=== PATIENT | male | born 1950 | race Hispanic/Latino ===

== ENCOUNTER 2018-10-18 09:44 | Emergency (ER) | payer OTHER ==
--- NOTE | 2018-10-18 10:48 | RAD REPORT ---
EXAM DESCRIPTION: CT - Head Brain Wo Cont - 10/18/2018 10:25 am CLINICAL HISTORY: Headache COMPARISON: 2011 TECHNIQUE: Computed axial tomography of the head was obtained. IV contrast was not requested. All CT scans are performed using dose optimization technique as appropriate and may include automated exposure control or mA/KV adjustment according to patient size. FINDINGS: An intracranial bleed is not seen . The ventricles are normal in caliber. No extra-axial fluid collection is noted. Mild opacification the ethmoids. Mastoids are clear IMPRESSION: No acute intracranial abnormality is seen. If patient's symptoms persist MRI of the bra in would be recommended.
--- NOTE | 2018-10-18 11:13 | RAD REPORT ---
EXAM DESCRIPTION: RAD - Shoulder Right 2 View - 10/18/2018 10:50 am CLINICAL HISTORY: Right shoulder pain status post fall FINDINGS: No fracture or dislocation is seen. Bones are osteoporotic Marked osteoarthritis involves the glenohumeral and acromioclavicular joints
--- NOTE | 2018-10-18 11:15 | RAD REPORT ---
EXAM DESCRIPTION: Ribs Right - 10/18/2018 10:50 am CLINICAL HISTORY: Right rib pain FINDINGS: No fracture is seen
--- NOTE | 2018-10-18 11:16 | RAD REPORT ---
EXAM DESCRIPTION: Arnold Single View10/18/2018 10:50 am CLINICAL HISTORY: Chest pain COMPARISON: 2016 FINDINGS: The lungs appear clear of acute infiltrate. The heart is normal size IMPRESSION: No acute abnormalities displayed
--- NOTE | 2018-10-18 11:16 | RAD REPORT ---
EXAM DESCRIPTION: RAD - Knee Right 3 View - 10/18/2018 10:50 am CLINICAL HISTORY: Right knee pain. FINDINGS: No fracture or dislocation is seen. Severe osteoarthritis involves the knee Bones are osteoporotic .
--- NOTE | 2018-10-18 11:18 | RAD REPORT ---
EXAM DESCRIPTION: RAD - Knee Left 3 View - 10/18/2018 10:49 am CLINICAL HISTORY: Left knee pain FINDINGS: No fracture or dislocation is seen. Severe osteoarthritis involves the knee Bones are osteoporotic
--- NOTE | 2018-10-18 11:27 | EDPHYS ---
Physician Documentation [facility] Name: Sivakumar Fong Age: 68 yrs Sex: Male : 1950 Arrival Date: 10/18/2018 Time: 09:47 Bed 19 Private MD: Cuong Nation ED Physician Miko Cuevas HPI: 10/18 11:00 This 68 yrs old Male presents to ER via Ambulatory with complaints of Fall pm1 Injury - Right SHOULDER, CHEST. 11:00 Details of fall: The patient fell from an upright position, while walking. Onset: The pm1 symptoms/episode began/occurred 1 week(s) ago. Associated injuries: The patient sustained injury to the head, injury to the chest. 11:00 Severity of symptoms: in the emergency department the symptoms have improved. The pm1 patient has experienced similar episodes in the past, multiple times. The patient has not recently seen a physician. Patient with history of Parkinson's disease. He has fallen 3 times in the past week by tripping over his left foot. Tripped on his own feet and landed on his bilateral knees. No neck pain or LOC. Hit her head and has healed abrasion to left forehead. Pain to right shoulder, right rib pain, and bilateral knee pain. Patient with arthritis to bilateral knees. Historical: - Allergies: 09:59 Lisinopril; hb - Home Meds: :59 aspirin 81 mg Oral chew 1 tab once daily [Active]; carbidopa-levodopa 25-250 mg Oral hb tab 1 tab 5 times daily [Active]; clopidogrel 75 mg Oral tab 1 tab once daily [Active]; sotalol 80 mg Oral tab 1 tab 2 times per day [Active]; valsartan 160 mg Oral tab 1 tab once daily [Active]; verapamil 120 mg Oral C24P 1 cap once daily [Active]; zonisamide 100 mg Oral cap 1 cap once daily [Active]; - PMHx: 09:59 heart stents; Hypertension; Parkinsons; hb - PSHx: 09:59 Heart stents; Cholecystectomy; Prostate (laser); hb - Immunization history:: Adult Immunizations up to date. - Social history:: Smoking status: Patient/guardian denies using tobacco. - Ebola Screening: : No symptoms or risks identified at this time. ROS: 11:00 Constitutional: Negative for fever, chills, and weight loss, Eyes: Negative for injury, pm1 pain, redness, and discharge, ENT: Negative for injury, pain, and discharge, Neck: Negative for injury, pain, and swelling, Cardiovascular: Negative for chest pain, palpitations, and edema, Respiratory: Negative for shortness of breath, cough, wheezing, and pleuritic chest pain, Abdomen/GI: Negative for abdominal pain, nausea, vomiting, diarrhea, and constipation, Back: Negative for injury and pain, : Negative for injury, bleeding, discharge, and swelling. 11:00 MS/extremity: Positive for pain, of the right knee and left knee right shoulder, and right anterior rib cage. 11:00 Skin: Negative for injury, rash, and discoloration, Neuro: Negative for headache, pm1 weakness, numbness, tingling, and seizure. Exam: 11:00 Constitutional: This is a well developed, well nourished patient who is awake, alert, pm1 and in no acute distress. Eyes: Pupils equal round and reactive to light, extra-ocular motions intact. Lids and lashes normal. Conjunctiva and sclera are non-icteric and not injected. Cornea within normal limits. Periorbital areas with no swelling, redness, or edema. ENT: Nares patent. No nasal discharge, no septal abnormalities noted. Tympanic membranes are normal and external auditory canals are clear. Oropharynx with no redness, swelling, or masses, exudates, or evidence of obstruction, uvula midline. Mucous membranes moist. Neck: Trachea midline, no thyromegaly or masses palpated, and no cervical lymphadenopathy. Supple, full range of motion without nuchal rigidity, or vertebral point tenderness. No Meningismus. 11:00 Cardiovascular: Regular rate and rhythm with a normal S1 and S2. No gallops, murmurs, or rubs. Normal PMI, no JVD. No pulse deficits. Respiratory: Lungs have equal breath sounds bilaterally, clear to auscultation and percussion. No rales, rhonchi or wheezes noted. No increased work of breathing, no retractions or nasal flaring. Abdomen/GI: Soft, non-tender, with normal bowel sounds. No distension or tympany. No guarding or rebound. No evidence of tenderness throughout. Back: No spinal tenderness. No costovertebral tenderness. Full range of motion. Skin: Warm, dry with normal turgor. Normal color with no rashes, no lesions, and no evidence of cellulitis. 11:00 Head/face: Noted is no obvious of injury or deformity except abrasion(s), that are mild, of the forehead. 11:00 Chest/axilla: Inspection: normal, Palpation: is normal. 11:00 Musculoskeletal/extremity: Extremities: grossly normal except: noted in the right knee and left knee: tenderness. Vital Signs: 10:00 BP 163 / 100; Pulse 54; Resp 16; Temp 98.2; Pulse Ox 100% on R/A; Pain 4/10; hb 11:47 BP 149 / 93; Pulse 61; Resp 16; Pulse Ox 99% on R/A; em MDM: 09:51 Patient medically screened. pm1 11:20 Data reviewed: vital signs. Data interpreted: Pulse oximetry: on room air is 100 %. pm1 Interpretation: normal. Counseling: I had a detailed discussion with the patient and/or guardian regarding: the historical points, exam findings, and any diagnostic results supporting the discharge/admit diagnosis, radiology results, the need for outpatient follow up, to return to the emergency department if symptoms worsen or persist or if there are any questions or concerns that arise at home. 10/18 09:59 Order name: CT Head Brain wo Cont; Complete Time: 11:19 pm1 10/18 09:59 Order name: Ribs Right XRAY; Complete Time: 11:19 pm1 10/18 09:59 Order name: Chest Single View XRAY; Complete Time: 11:19 pm1 10/18 09:59 Order name: Shoulder Right (2 View) XRAY; Complete Time: 11:19 pm1 10/18 09:59 Order name: Knee Left 3 View XRAY; Complete Time: 11:19 pm1 10/18 09:59 Order name: Knee Right 3 View XRAY; Complete Time: 11:19 pm1 Administered Medications: No medications were administered Disposition: 13:28 Co-signature as Attending Physician, Miko Cuevas MD. rn Disposition: 10/18/18 11:26 Discharged to Home. Impression: Superficial injury of head, Other slipping, tripping and stumbling and falls, Contusion of right front wall of thorax, Pain in left knee, Pain in right knee, Contusion of right shoulder. - Condition is Stable. - Discharge Instructions: Arthritis, Contusion, Head Injury, Adult, Fall Prevention in the Home, Parkinson Disease, Knee Pain. - Medication Reconciliation Form, Thank You Letter form. - Follow up: Emergency Department; When: As needed; Reason: Worsening of condition. Follow up: Private Physician; When: 2 - 3 days; Reason: Recheck today's complaints, Continuance of care, Re-evaluation by your physician. - Problem is new. - Symptoms have improved. Signatures: Dispatcher [employer] EDMS Meet Odonnell, SUPPLIER QUALITY ENGINEERING MANAGER SUPPLIER QUALITY ENGINEERING MANAGER em Miko Cuevas MD MD rn Keith Montaño, SPRING TACKER SPRING TACKER pm1 Amy Monroe RN RN Corrections: (The following items were deleted from the chart) 11:50 11:26 10/18/2018 11:26 Discharged to Home. Impression: Superficial injury of headOther em slipping, tripping and stumbling and falls; Contusion of right front wall of thorax; Pain in left knee; Pain in right knee; Contusion of right shoulder. Condition is Stable. Forms are Medication Reconciliation Form, Thank You Letter, Antibiotic Education, Prescription Opioid Use. Follow up: Emergency Department; When: As needed; Reason: Worsening of condition. Follow up: Private Physician; When: 2 - 3 days; Reason: Recheck today's complaints, Continuance of care, Re-evaluation by your physician. Problem is new. Symptoms have improved. pm1
--- NOTE | 2018-10-18 11:27 | ER ---
Nurse's Notes [facility] Name: Sivakumar Fong Age: 68 yrs Sex: Male : 1950 Arrival Date: 10/18/2018 Time: 09:47 Bed 19 Private MD: Cuong Nation Diagnosis: Other slipping, tripping and stumbling and falls;Superficial injury of head;Contusion of right front wall of thorax;Pain in left knee;Pain in right knee;Contusion of right shoulder Presentation: 10/18 10:00 Presenting complaint: Right shoulder, right lateral chest wall, and bilateral knee pain hb after mechanical fall x 3 this week. Transition of care: patient was not received from another setting of care. Onset of symptoms was October 18, 2018. Risk Assessment: Do you want to hurt yourself or someone else? Patient reports no desire to harm self or others. Initial Sepsis Screen: Does the patient meet any 2 criteria? No. Patient's initial sepsis screen is negative. Does the patient have a suspected source of infection? No. Patient's initial sepsis screen is negative. Care prior to arrival: None. 10:00 Method Of Arrival: Ambulatory hb 10:00 Acuity: RANI 4 hb Historical: - Allergies: 09:59 Lisinopril; hb - Home Meds: 09:59 aspirin 81 mg Oral chew 1 tab once daily [Active]; carbidopa-levodopa 25-250 mg Oral hb tab 1 tab 5 times daily [Active]; clopidogrel 75 mg Oral tab 1 tab once daily [Active]; sotalol 80 mg Oral tab 1 tab 2 times per day [Active]; valsartan 160 mg Oral tab 1 tab once daily [Active]; verapamil 120 mg Oral C24P 1 cap once daily [Active]; zonisamide 100 mg Oral cap 1 cap once daily [Active]; - PMHx: 09:59 heart stents; Hypertension; Parkinsons; hb - PSHx: 09:59 Heart stents; Cholecystectomy; Prostate (laser); hb - Immunization history:: Adult Immunizations up to date. - Social history:: Smoking status: Patient/guardian denies using tobacco. - Ebola Screening: : No symptoms or risks identified at this time. Screenin:03 Abuse screen: Denies threats or abuse. Denies injuries from another. Nutritional hb screening: No deficits noted. Tuberculosis screening: No symptoms or risk factors identified. Fall Risk None identified. Assessment: 10:24 General: Appears in no apparent distress. comfortable, Behavior is calm, cooperative. em Pain: Complains of pain in anterior aspect of right upper chest and right arm Pain currently is 4 out of 10 on a pain scale. Pain began 2-3 days ago. Neuro: Level of Consciousness is awake, alert, obeys commands, Oriented to person, place, time, situation, Gait is unsteady, Speech is normal. Cardiovascular: Capillary refill < 3 seconds Patient's skin is warm and dry. Respiratory: Airway is patent Respiratory effort is even, unlabored, Respiratory pattern is regular, symmetrical. GI: Abdomen is flat. GI: Patient currently denies nausea, vomiting. Derm: Skin is intact, is healthy with good turgor, Skin is pink, warm \T\ dry. Musculoskeletal: Range of motion: intact in all extremities, Reports weakness in right knee and left knee. 10:35 Reassessment: I agree with previous assessment. hb 11:47 Reassessment: Patient appears in no apparent distress at this time. Patient and/or em family updated on plan of care and expected duration. Pain level reassessed. Patient is alert, oriented x 3, equal unlabored respirations, skin warm/dry/pink. Vital Signs: 10:00 BP 163 / 100; Pulse 54; Resp 16; Temp 98.2; Pulse Ox 100% on R/A; Pain 4/10; hb 11:47 BP 149 / 93; Pulse 61; Resp 16; Pulse Ox 99% on R/A; em ED Course: 09:47 Patient arrived in ED. sb2 09:48 Cuong Nation MD is Private Physician. sb2 09:50 Keith Montaño [facility] pm1 09:50 Miko Cuevas MD is Attending Physician. pm1 10:00 Arm band placed on. hb 10:03 Triage completed. hb 10:25 CT Head Brain wo Cont In Process Unspecified. EDMS 10:25 Patient has correct armband on for positive identification. Bed in low position. Call em light in reach. Side rails up X2. 10:38 Meet Odonnell LVN is Primary Nurse. em 10:41 Ribs Right XRAY In Process Unspecified. EDMS 10:41 Chest Single View XRAY In Process Unspecified. EDMS 10:41 Shoulder Right (2 View) XRAY In Process Unspecified. EDMS 10:41 Knee Left 3 View XRAY In Process Unspecified. EDMS 10:41 Knee Right 3 View XRAY In Process Unspecified. EDMS 11:35 No provider procedures requiring assistance completed. Patient did not have IV access em during this emergency room visit. Administered Medications: No medications were administered Outcome: 11:26 Discharge ordered by MD. pm1 11:35 Discharged to home ambulatory, with crutches. em 11:35 Condition: good 11:35 Discharge instructions given to patient, Instructed on discharge instructions, follow up and referral plans. Demonstrated understanding of instructions, follow-up care. 11:50 Patient left the ED. em Signatures: Dispatcher [employer] EDMS Meet Odonnell, MGMT ANALYST MGMT ANALYST em Keith Montaño, CHE POST ANESTHESIA ROOM NURSE pm1 Amy Monroe, RN RN Marietta Perdomo sb2
[2018-10-18 11:56] VITALS: TEMP 98.2
[2018-10-18 11:57] VITALS: BP 149/93; O2SAT 99
== END 2018-10-18 11:50 | disposition home or self-care (01) ==
LOC: ER 09:44
DX: S00.80XA Unspecified superficial injury of other part of head, initial encounter (principal); S20.211A Contusion of right front wall of thorax, initial encounter; S40.011A Contusion of right shoulder, initial encounter; W01.0XXA Fall on same level from slipping, tripping and stumbling without subsequent striking against object, initial encounter; M19.011 Primary osteoarthritis, right shoulder; M81.0 Age-related osteoporosis without current pathological fracture; M17.0 Bilateral primary osteoarthritis of knee; G20 Parkinson's disease; I10 Essential (primary) hypertension; Z79.82 Long term (current) use of aspirin; Z79.899 Other long term (current) drug therapy; Z95.5 Presence of coronary angioplasty implant and graft
CPT/HCPCS: 70450; 71045; 99283

== ENCOUNTER 2019-10-16 14:14 | Emergency (ER) | payer OTHER, SELFPAY ==
--- OUTSIDE RECORDS SUMMARY | 2019-10-16 14:15 | XMS REPORT ---
:1950 [facility] Ricardo Hidalgo [address] [place] [address] Care Team Providers Name Role Phone Unavailable Unavailable Unavailable Problems This patient has no known problems. Allergies, Adverse Reactions, Alerts This patient has no known allergies or adverse reactions. Medications This patient has no known medications.
--- OUTSIDE RECORDS SUMMARY | 2019-10-16 14:16 | XMS REPORT | Summary of Care ---
:1950 Author Organization [facility] Address [address] [place] [id number] Care Team Providers Name Role Phone Cuong Nation MD Primary Care Provider Reason for Visit Reason Comments Refill Request Encounter Details Date Type Department Care Team Description 04/06/2019 Refill [facility] Cuong Nation MD Refill Request - [address] [id number] [place] [phone] Allergies Active Allergy Reactions Severity Noted Date Comments Lisinopril Other - See comments 08/09/2015 Passed out documented as of this encounter (statuses as of 04/06/2019) Medications Medication Sig Dispensed Refills Start Date End Date Status carbidopa-levodopa Take by 0 07/13/2015 Active (SINEMET 25/250) mouth 5 25-250 mg per tablet (five) times daily. zonisamide (ZONEGRAN) Take 100 mg 0 06/07/2015 Active 100 mg capsule by mouth daily. aspirin (ASPIRIN LOW Take 81 mg by 0 Active DOSE) 81 mg EC tablet mouth daily. verapamil SR (CALAN Take 120 mg 0 Active SR) 120 mg SR tablet by mouth daily. diazePAM (VALIUM) 5 mg Take 1 tablet 20 tablet 0 07/17/2016 Active tabletIndications: by mouth 3 Parkinson disease (three) times daily as needed for Muscle Spasms (tremors). amLODIPine 5 mg tablet Take 5 mg by 0 04/01/2017 Active mouth daily. rosuvastatin 5 mg Take 5 mg by 0 Active tablet mouth daily. losartan 100 mg tablet Take 100 mg 0 Active by mouth daily. pantoprazole 40 mg EC Take 1 tablet 90 tablet 4 06/09/2018 Active tabletIndications: by mouth Gastroesophageal daily. reflux disease without esophagitis fluticasone (FLONASE) Use 2 Sprays 16 g 12 11/03/2018 Active 50 mcg/actuation nasal in each sprayIndications: nostril Non-seasonal allergic daily. rhinitis due to pollen tiZANidine 2 mg Take 1 tablet 15 tablet 5 11/03/2018 Active tabletIndications: by mouth at Parkinson disease bedtime as needed (muscle pain/spasm). CLOPIDOGREL 75 mg TAKE 1 TABLET 90 tablet 0 04/06/2019 Active tabletIndications: EVERY DAY Coronary artery disease involving poarch coronary artery of poarch heart without angina pectoris CLOPIDOGREL 75 mg TAKE 1 TABLET 90 tablet 0 05/21/2018 Discontinued tablet EVERY DAY 9 documented as of this encounter (statuses as of 04/06/2019) Active Problems Problem Noted Date Sleep apnea, obstructive 08/20/2016 Essential hypertension 08/09/2015 Parkinson disease 08/09/2015 Coronary artery disease without angina pectoris 08/09/2015 documented as of this encounter (statuses as of 04/06/2019) Immunizations Name Administration Dates Next Due Influenza Virus Vaccine 09/18/2017 Influenza Virus Vaccine - Whole 09/13/2015 documented as of this encounter Social History Tobacco Use Types Packs/Day Years Used Date Never Smoker Smokeless Tobacco: Never Used Alcohol Use Drinks/Week oz/Week Comments No 0 Standard drinks or equivalent 0.0 Sex Assigned at Date Recorded Not on file Job Start Date Occupation Industry Not on file Not on file Not on file Travel History Travel Start Travel End No recent travel history available. documented as of this encounter Last Filed Vital Signs Not on filedocumented in this encounter Plan of Treatment Health Maintenance Due Date Last Done Comments HEPATITIS C (HCV) SCREEN 1950 DTaP,Tdap,and Td Vaccines (1 - Tdap) 1968 COLONOSCOPY 1999 Zoster Recombinant Vaccine (SHINGRIX) (1 1999 of 2) Medicare Wellness Visit 2014 PNEUMOCOCCAL VACCINES 65+ (1 of 2 - PCV13) 2014 INFLUENZA VACCINE 05/10/2019 09/18/2017, 09/13/2015 documented as of this encounter Results Not on filedocumented in this encounter Visit Diagnoses Diagnosis Coronary artery disease involving poarch coronary artery of poarch heart without angina pectoris - Primary documented in this encounter Insurance Payer Benefit Plan / Subscriber ID Effective Dates Phone Address Type Group HUMANA - HUMANA [id number] 2012-Presen Medicare Adv MANAGED MEDICARE t FFS MEDICARE documented as of this encounter
[2019-10-16] MEDS ORDERED: HYDROCODONE/APAP 5/325 MG TAB ONE (15:00)
--- NOTE | 2019-10-16 15:21 | RAD REPORT ---
EXAM DESCRIPTION: RAD - Chest Single View - 10/16/2019 3:07 pm CLINICAL HISTORY: BLUNT CHEST TRAUMA Chest pain. COMPARISON: Chest Pa And Lat (2 Views) dated 12/16/2018; Chest Single View dated 10/18/2018; Chest Singl e View dated 07/10/2016; CHEST SINGLE VIEW dated 10/26/2014 FINDINGS: Portable technique limits examination quality. The lungs are grossly clear. The heart is upper limit of normal in size. No displaced fractures.Degen erative changes are present both shoulders. IMPRESSION: No acute intrathoracic process suspected.
--- NOTE | 2019-10-16 15:32 | ER ---
Nurse's Notes [facility] Name: Sivakumar Fong Age: 69 yrs Sex: Male : 1950 Arrival Date: 10/16/2019 Time: 14:15 Bed 13 Private MD: Diagnosis: Chest pain, unspecified-muscle sprain Presentation: 10/16 14:34 Presenting complaint: Patient states: had a fall a week ago, hx of Parkinson's, fell iw onto chest, still has right sided chest pain radiating to back and abd . Was seen at bakery supervisor office on Saturday and had EKG done, was told his heart was ok but needed to f/u with PCP. Transition of care: patient was not received from another setting of care. Onset of symptoms was October 10, 2019. Risk Assessment: Do you want to hurt yourself or someone else? Patient reports no desire to harm self or others. Initial Sepsis Screen: Does the patient meet any 2 criteria? No. Patient's initial sepsis screen is negative. Does the patient have a suspected source of infection? No. Patient's initial sepsis screen is negative. Care prior to arrival: None. 14:34 Method Of Arrival: Ambulatory iw 14:34 Acuity: RANI 3 iw Historical: - Allergies: 14:40 Lisinopril; iw - Home Meds: 14:40 aspirin 81 mg Oral chew 1 tab once daily [Active]; carbidopa-levodopa 50-200 mg oral iw TbER daily [Active]; clopidogrel 75 mg Oral tab 1 tab once daily [Active]; sotalol 80 mg Oral tab 1 tab 2 times per day [Active]; valsartan 160 mg Oral tab 1 tab once daily [Active]; verapamil 120 mg Oral C24P 1 cap once daily [Active]; pantoprazole 40 mg oral TbEC 1 tab once daily [Active]; pravastatin 40 mg oral tab 1 tab once daily [Active]; zonisamide 100 mg Oral cap 1 cap once daily [Active]; - PMHx: 14:40 heart stents; Hypertension; Parkinsons; iw - PSHx: 14:40 Heart stents; Cholecystectomy; Prostate (laser); iw - Immunization history:: Adult Immunizations not up to date. - Coronavirus screen:: The patient has NOT traveled to [place], [place], or [place] in the past 14 days. Proceed with normal triage process as indicated. - Social history:: Patient/guardian denies using alcohol, street drugs, The patient lives with family, Smoking status: Patient denies any tobacco usage or history of. - Family history:: not pertinent. - Ebola Screening: : Patient negative for fever greater than or equal to 101.5 degrees Fahrenheit, and additional compatible Ebola Virus Disease symptoms Patient denies exposure to infectious person Patient denies travel to an Ebola-affected area in the 21 days before illness onset No symptoms or risks identified at this time. Screenin:43 Abuse screen: Denies threats or abuse. Denies injuries from another. Nutritional sg screening: No deficits noted. Tuberculosis screening: No symptoms or risk factors identified. Never had TB. Fall Risk None identified. Assessment: 14:35 General: Appears in no apparent distress. well groomed, well developed, well nourished, sg Behavior is calm, cooperative, appropriate for age. Pain: Complains of pain in back Quality of pain is described as aching. Neuro: Level of Consciousness is awake, alert, obeys commands, Oriented to person, place, time, Teacher Hearing Impaired are equal bilaterally Speech is normal, Facial symmetry appears normal. Cardiovascular: Patient's skin is warm and dry. Chest pain is denied. Respiratory: Airway is patent Respiratory effort is even, unlabored, Respiratory pattern is regular, symmetrical. GI: No signs and/or symptoms were reported involving the gastrointestinal system. : No signs and/or symptoms were reported regarding the genitourinary system. EENT: No signs and/or symptoms were reported regarding the EENT system. Derm: Skin is pink, warm \T\ dry. 14:59 Reassessment: Patient appears in no apparent distress at this time. xray at bedside at this time. Vital Signs: 14:40 BP 132 / 75; Pulse 57; Resp 18 S; Temp 98.0; Pulse Ox 97% on R/A; Weight 73.94 kg; iw Height 5 ft. 6 in. (167.64 cm); Pain 7/10; 14:40 Body Mass Index 26.31 (73.94 kg, 167.64 cm) iw ED Course: 14:15 Patient arrived in ED. as 14:29 Katie Barksdale MD is Attending Physician. ma2 14:36 Triage completed. iw 14:40 Arm band placed on. iw 14:44 EKG done, by x ray electronics wiring technician. reviewed by Katie Barksdale MD. at1 14:54 Vikas Longoria, RN is Primary Nurse. sg 15:10 Chest Single View XRAY In Process Unspecified. EDMS 15:43 Patient has correct armband on for positive identification. Bed in low position. Pulse sg ox on. NIBP on. Warm blanket given. Head of bed elevated. 15:43 No provider procedures requiring assistance completed. Patient did not have IV access sg during this emergency room visit. 15:46 Awaiting transportation. sg Administered Medications: 14:59 Drug: [place] 5 mg-325 mg 1 tabs Route: PO; sg 15:15 Follow up: Response: No adverse reaction sg Outcome: 15:32 Discharge ordered by . ma2 15:43 Discharged to home ambulatory, with family. sg 15:43 Condition: good 15:43 Discharge instructions given to patient, Instructed on discharge instructions, follow up and referral plans. safety practices, Demonstrated understanding of instructions, follow-up care, medications, Prescriptions given X 1. 16:51 Patient left the ED. sg Signatures: Dispatcher [employer] EDMS Vikas Longoria, RN RN Nickie Hyatt Irene, RN RN iw Katelyn Jordan, hide mill man EKG Tat1 Katie Barksdale MD MD ma2
--- NOTE | 2019-10-16 15:32 | EDPHYS ---
Physician Documentation [facility] Name: Sivakumar Fong Age: 69 yrs Sex: Male : 1950 Arrival Date: 10/16/2019 Time: 14:15 Bed 13 Private MD: ED Physician Katie Barksdale HPI: 10/16 15:08 This 69 yrs old Male presents to ER via Ambulatory with complaints of Chest ma2 Pain, Back Pain. 15:08 The patient or guardian reports chest pain that is located primarily in the anterior ma2 aspect of right upper chest. Onset: suddenly, 3 day(s) ago. Associated signs and symptoms: Pertinent negatives: cough, dizziness, lower extremity pain, lightheadedness. Severity of pain: At its worst the pain was mild in the emergency department the pain is unchanged. The patient has not experienced similar symptoms in the past. patient tripped and fell on left sided chest, has chest wall pain that is worse with touch and deep breath, pain is constant, he saw his continuous improvement engineer who states blood work is wnl, and snet him here for cxr, to rule out rib frx, as this is a constant pain . Historical: - Allergies: 14:40 Lisinopril; iw - Home Meds: 14:40 aspirin 81 mg Oral chew 1 tab once daily [Active]; carbidopa-levodopa 50-200 mg oral iw TbER daily [Active]; clopidogrel 75 mg Oral tab 1 tab once daily [Active]; sotalol 80 mg Oral tab 1 tab 2 times per day [Active]; valsartan 160 mg Oral tab 1 tab once daily [Active]; verapamil 120 mg Oral C24P 1 cap once daily [Active]; pantoprazole 40 mg oral TbEC 1 tab once daily [Active]; pravastatin 40 mg oral tab 1 tab once daily [Active]; zonisamide 100 mg Oral cap 1 cap once daily [Active]; - PMHx: 14:40 heart stents; Hypertension; Parkinsons; iw - PSHx: 14:40 Heart stents; Cholecystectomy; Prostate (laser); iw - Immunization history:: Adult Immunizations not up to date. - Coronavirus screen:: The patient has NOT traveled to [place], [place], or [place] in the past 14 days. Proceed with normal triage process as indicated. - Social history:: Patient/guardian denies using alcohol, street drugs, The patient lives with family, Smoking status: Patient denies any tobacco usage or history of. - Family history:: not pertinent. - Ebola Screening: : Patient negative for fever greater than or equal to 101.5 degrees Fahrenheit, and additional compatible Ebola Virus Disease symptoms Patient denies exposure to infectious person Patient denies travel to an Ebola-affected area in the 21 days before illness onset No symptoms or risks identified at this time. ROS: 15:08 Constitutional: Negative for fever, chills, and weight loss. ma2 15:08 All other systems are negative. Exam: 15:08 Constitutional: This is a well developed, well nourished patient who is awake, alert, ma2 and in no acute distress. Head/Face: Normocephalic, atraumatic. Eyes: Pupils equal round and reactive to light, extra-ocular motions intact. Lids and lashes normal. Conjunctiva and sclera are non-icteric and not injected. Cornea within normal limits. Periorbital areas with no swelling, redness, or edema. ENT: Nares patent. No nasal discharge, no septal abnormalities noted. Tympanic membranes are normal and external auditory canals are clear. Oropharynx with no redness, swelling, or masses, exudates, or evidence of obstruction, uvula midline. Mucous membranes moist. Neck: Trachea midline, no thyromegaly or masses palpated, and no cervical lymphadenopathy. Supple, full range of motion without nuchal rigidity, or vertebral point tenderness. No Meningismus. Chest/axilla: Normal chest wall appearance and motion. tender on right 10th and 11th rib with no deformity. No lesions are appreciated. Cardiovascular: Regular rate and rhythm with a normal S1 and S2. No gallops, murmurs, or rubs. Normal PMI, no JVD. No pulse deficits. Respiratory: Lungs have equal breath sounds bilaterally, clear to auscultation and percussion. No rales, rhonchi or wheezes noted. No increased work of breathing, no retractions or nasal flaring. MS/ Extremity: Pulses equal, no cyanosis. Neurovascular intact. Full, normal range of motion. Neuro: Awake and alert, GCS 15, oriented to person, place, time, and situation. Cranial nerves II-XII grossly intact. Motor strength 5/5 in all extremities. Sensory grossly intact. Cerebellar exam normal. Normal gait. Vital Signs: 14:40 BP 132 / 75; Pulse 57; Resp 18 S; Temp 98.0; Pulse Ox 97% on R/A; Weight 73.94 kg; iw Height 5 ft. 6 in. (167.64 cm); Pain 7/10; 14:40 Body Mass Index 26.31 (73.94 kg, 167.64 cm) iw MDM: 14:29 Patient medically screened. ma2 15:08 Differential diagnosis: chest wall pain, costochondritis, pleurisy, pneumothorax. SHIRA ma2 Risk Score: not applicable. Data reviewed: vital signs, nurses notes. Counseling: I had a detailed discussion with the patient and/or guardian regarding: the historical points, exam findings, and any diagnostic results supporting the discharge/admit diagnosis, the presence of at least one elevated blood pressure reading (>120/80) during this emergency department visit. 10/16 14:52 Order name: Chest Single View XRAY; Complete Time: 15:30 ma2 Administered Medications: 14:59 Drug: [place] 5 mg-325 mg 1 tabs Route: PO; sg 15:15 Follow up: Response: No adverse reaction sg Disposition: 10/16/19 15:32 Discharged to Home. Impression: Chest pain, unspecified - muscle sprain. - Condition is Stable. - Discharge Instructions: Nonspecific Chest Pain. - Prescriptions for Tylenol- Codeine #3 300-30 mg Oral Tablet - take 2 tablet by ORAL route every 6 hours As needed; 30 tablet. - Medication Reconciliation Form, Thank You Letter, Antibiotic Education, Prescription Opioid Use form. - Follow up: Private Physician; When: Tomorrow; Reason: Continuance of care. Signatures: Dispatcher [employer] EDVikas King RN RN sg Williams, Irene, RN RN iw Katie Barksdale MD MD ma2 Corrections: (The following items were deleted from the chart) 16:51 15:32 10/16/2019 15:32 Discharged to Home. Impression: Chest pain, unspecified - muscle sg sprain. Condition is Stable. Prescriptions for Tylenol-Codeine #3 300-30 mg Oral Tablet - take 2 tablet by ORAL route every 6 hours As needed; 30 tablet. and Forms are Medication Reconciliation Form, Thank You Letter, Antibiotic Education, Prescription Opioid Use. Follow up: Private Physician; When: Tomorrow; Reason: Continuance of care. ma2
[2019-10-16 16:56] VITALS: BP 132/75; TEMP 98; O2SAT 97
--- NOTE | 2019-10-19 09:26 | EKG ---
Test Date: 2019-10-16 Test Time: 14:36:41 [employer] Gas Exploration Technician: LEIGHA MEASUREMENT RESULTS: Intervals: Rate: 59 AL: 154 QRSD: 160 QT: 506 QTc: 500 [place]: P: 97 AL: 154 QRS: -68 T: 55 INTERPRETIVE STATEMENTS: Sinus bradycardia Right bundle branch block Abnormal ECG Compared to ECG 07/11/2016 06:56:27 Sinus rhythm no longer present Electronically Signed On 10-19-19 09:26:31 VEST BUSHELER by Leon Solomon
== END 2019-10-16 16:51 | disposition home or self-care (01) ==
LOC: ER 14:14
DX: R07.9 Chest pain, unspecified (principal); S23.41XA Sprain of ribs, initial encounter; W18.30XA Fall on same level, unspecified, initial encounter; Y93.9 Activity, unspecified; Y92.9 Unspecified place or not applicable; I10 Essential (primary) hypertension; G20 Parkinson's disease; Z95.5 Presence of coronary angioplasty implant and graft
CPT/HCPCS: 71045; 93005; 99284

== ENCOUNTER 2019-12-02 00:39 | Inpatient (IN) | payer OTHER ==
--- OUTSIDE RECORDS SUMMARY | 2019-12-02 00:41 | XMS REPORT | Summary of Care ---
:1950 Author Organization [facility] - Health Address [address] [place] [address] Care Team Providers Name Role Phone Cuong Nation MD Primary Care Provider Encounter Details Date Type Department Care Team Description 10/21/2019 Orders Only [facility] Doctor Unassigned, No [address] [facility] [place] [address] [address] [place] [address] Allergies Active Allergy Reactions Severity Noted Date Comments Lisinopril Other - See comments 08/09/2015 Passed out documented as of this encounter (statuses as of 10/21/2019) Medications Medication Sig Dispensed Refills Start Date End Date Status carbidopa-levodopa Take by mouth 0 07/13/2015 Active (SINEMET 25/250) 25-250 5 (five) times mg per tablet daily. zonisamide (ZONEGRAN) 100 Take 100 mg by 0 06/07/2015 Active mg capsule mouth daily. aspirin (ASPIRIN LOW Take 81 mg by 0 Active DOSE) 81 mg EC tablet mouth daily. verapamil SR (CALAN SR) Take 120 mg by 0 Active 120 mg SR tablet mouth daily. diazePAM (VALIUM) 5 mg Take 1 tablet 20 tablet 0 07/17/2016 Active tabletIndications: by mouth 3 Parkinson disease (three) times daily as needed for Muscle Spasms (tremors). amLODIPine 5 mg tablet Take 5 mg by 0 04/01/2017 Active mouth daily. rosuvastatin 5 mg tablet Take 5 mg by 0 Active mouth daily. losartan 100 mg tablet Take 100 mg by 0 Active mouth daily. fluticasone (FLONASE) 50 Use 2 Sprays in 16 g 12 11/03/2018 Active mcg/actuation nasal each nostril sprayIndications: daily. Non-seasonal allergic rhinitis due to pollen tiZANidine 2 mg Take 1 tablet 15 tablet 5 11/03/2018 Active tabletIndications: by mouth at Parkinson disease bedtime as needed (muscle pain/spasm). PANTOPRAZOLE 40 mg EC TAKE 1 TABLET 90 tablet 4 06/23/2019 Active tabletIndications: EVERY DAY Gastroesophageal reflux disease without esophagitis CLOPIDOGREL 75 mg TAKE 1 TABLET 90 tablet 0 08/18/2019 Active tabletIndications: EVERY DAY Coronary artery disease involving [place] coronary artery of [place] heart without angina pectoris documented as of this encounter (statuses as of 10/21/2019) Active Problems Problem Noted Date Sleep apnea, obstructive 08/20/2016 Essential hypertension 08/09/2015 Parkinson disease 08/09/2015 Coronary artery disease without angina pectoris 08/09/2015 documented as of this encounter (statuses as of 10/21/2019) Immunizations Name Administration Dates Next Due Influenza [...] 1950 DTaP,Tdap,and Td Vaccines (1 - Tdap) 1960 COLONOSCOPY 1999 Zoster Recombinant Vaccine (SHINGRIX) (1 1999 of 2) Medicare Wellness Visit 2014 PNEUMOCOCCAL VACCINES 65+ (1 of 2 - PCV13) 2014 INFLUENZA VACCINE (#1) 2019 09/18/2017, 09/13/2015 documented as of this encounter Procedures Procedure Name Priority Date/Time Associated Diagnosis Comments EXTERNAL PROVIDER Routine 10/21/2019 12:01 AM CALCULATION REVIEWER RECORDS documented in this encounter Results Not on filedocumented in this encounter Insurance Payer Benefit Plan / Subscriber ID Effective Dates Phone Address Type Group HUMANA - HUMANA [id number] 2012-[facility] Medicare Adv MANAGED MEDICARE t FFS MEDICARE documented as of this encounter
--- OUTSIDE RECORDS SUMMARY | 2019-12-02 00:41 | XMS REPORT | Summary of Care ---
:1950 Author Organization [facility] - [facility] Address [address] [place] [id number] Care Team Providers Name Role Phone Cuong Nation MD Primary Care Provider Reason for Visit Reason Comments Assessment Encounter Details Date Type Department Care Team Description 10/19/2019 Telephone [facility] Family Medicine Cuong Nation MD Assessment - [address] [place] [facility] [place] [address] [place] [address] Allergies Active Allergy Reactions Severity Noted Date Comments Lisinopril Other - See comments 08/09/2015 Passed out documented as of this encounter (statuses as of 10/19/2019) Medications Medication Sig Dispensed Refills Start Date [...] tabletIndications: EVERY DAY Coronary artery disease involving [place] coronary artery of [place] heart without angina pectoris documented as of this encounter (statuses as of 10/19/2019) Active Problems Problem Noted Date Sleep apnea, obstructive 08/20/2016 Essential hypertension 08/09/2015 Parkinson disease 08/09/2015 Coronary artery disease without angina pectoris 08/09/2015 documented as of this encounter (statuses as of 10/19/2019) Immunizations Name Administration Dates Next Due Influenza [...] Phone Address Type Group HUMANA - HUMANA [id number] [facility]IC[facility] t FFS MEDICARE documented as of this encounter
--- OUTSIDE RECORDS SUMMARY | 2019-12-02 00:41 | XMS REPORT ---
:1950 [facility] Ricardo Hidalgo [address] [place] [address] Care Team Providers Name Role Phone Unavailable Unavailable Unavailable Problems This patient has no known problems. Allergies, Adverse Reactions, Alerts This patient has no known allergies or adverse reactions. Medications This patient has no known medications.
[2019-12-02 01:10] LABS: Protime INR 1.02
[2019-12-02] MEDS ORDERED: ASPIRIN 81 MG CHEWABLE TABLET ONE (01:10)
[2019-12-02] MEDS ORDERED: FAMOTIDINE 20 MG/2 ML VIAL IV ONE (01:11)
[2019-12-02] MEDS ORDERED: METOPROLOL TARTRATE 5 MG/5 ML INJ IV ONE (01:11)
[2019-12-02] MEDS ORDERED: METOPROLOL TAR 25 MG TAB ONE (01:11)
[2019-12-02 01:12] LABS: Absolute Lymphocytes (CBC) 2.1 K/uL (0.7-4.9); Basophils % 0.7 % (0-1.3); Hematocrit 39.2 % (39.6-49.0); Lymphocytes % 39.1 % (15.3-44.8); MPV 8.1 fL (7.6-11.3)
--- NOTE | 2019-12-02 01:34 | EDPHYS ---
Physician Documentation [facility] Name: Sivakumar Fong Age: 69 yrs Sex: Male : 1950 Arrival Date: 12/02/2019 Time: 00:40 Bed 2 Private MD: EARNEST Physician Clinton Camacho HPI: 12/01 01:23 This 69 yrs old Male presents to ER via Wheelchair with complaints of Chest zac Pain, High Blood Pressure. 01:23 The patient or guardian reports chest pain that is located primarily in the substernal zac area, anterior chest wall, bilaterally. Onset: just prior to arrival. The pain does not radiate. The pain radiates to Associated signs and symptoms: Pertinent positives: lightheadedness. The chest pain is described as a heaviness, a pressure. Modifying factors: The symptoms are alleviated by nothing. the symptoms are aggravated by nothing. Severity of pain: At its worst the pain was mild in the emergency department the pain is unchanged. The patient has experienced a previous episode. Historical: - Allergies: 01: Lisinopril; fc - Home Meds: 01: sotalol 80 mg Oral tab 1 tab 2 times per day [Active]; zonisamide 100 mg Oral cap 1 cap fc nightly [Active]; clopidogrel 75 mg Oral tab 1 tab once daily [Active]; valsartan 160 mg Oral tab 1 tab nightly [Active]; verapamil 120 mg Oral C24P 1 cap at 1800 [Active]; pantoprazole 40 mg Oral TbEC 1 tab once daily [Active]; carbidopa-levodopa 25-250 mg oral tab 2 tabs 3 times per day [Active]; pravastatin 40 mg Oral tab 1 tab nightly [Active]; aspirin 81 mg Oral chew 1 tab once daily [Active]; - PMHx: 01:01 heart stents; Parkinsons; Hypertension; High Cholesterol; Myocardial infarction; GERD; fc - PSHx: 01:01 Heart stents; Cholecystectomy; Prostate (laser); fc - Immunization history:: Last tetanus immunization: up to date Flu vaccine is not up to date. - Social history:: Smoking status: Patient denies any tobacco usage or history of. Patient/guardian denies using alcohol, the patient reports quitting approximately [address] drugs. - Family history:: not pertinent. ROS: 01:23 Constitutional: Negative for fever, chills, and weight loss, Eyes: Negative for injury, zac pain, redness, and discharge, ENT: Negative for injury, pain, and discharge, Neck: Negative for injury, pain, and swelling, Respiratory: Negative for shortness of breath, cough, wheezing, and pleuritic chest pain, Abdomen/GI: Negative for abdominal pain, nausea, vomiting, diarrhea, and constipation, Back: Negative for injury and pain, : Negative for injury, bleeding, discharge, and swelling, MS/Extremity: Negative for injury and deformity, Skin: Negative for injury, rash, and discoloration, Neuro: Negative for headache, weakness, numbness, tingling, and seizure, Psych: Negative for depression, anxiety, suicide ideation, homicidal ideation, and hallucinations, Allergy/Immunology: Negative for hives, rash, and allergies, Endocrine: Negative for neck swelling, polydipsia, polyuria, polyphagia, and marked weight changes, Hematologic/Lymphatic: Negative for swollen nodes, abnormal bleeding, and unusual bruising. 01:23 Cardiovascular: Positive for chest pain, of the chest. Exam: 01:23 Constitutional: This is a well developed, well nourished patient who is awake, alert, zac and in no acute distress. Head/Face: Normocephalic, atraumatic. Eyes: Pupils equal round and reactive to light, extra-ocular motions intact. Lids and lashes normal. Conjunctiva and sclera are non-icteric and not injected. Cornea within normal limits. Periorbital areas with no swelling, redness, or edema. ENT: Nares patent. No nasal discharge, no septal abnormalities noted. Tympanic membranes are normal and external auditory canals are clear. Oropharynx with no redness, swelling, or masses, exudates, or evidence of obstruction, uvula midline. Mucous membranes moist. Neck: Trachea midline, no thyromegaly or masses palpated, and no cervical lymphadenopathy. Supple, full range of motion without nuchal rigidity, or vertebral point tenderness. No Meningismus. Chest/axilla: Normal chest wall appearance and motion. Nontender with no deformity. No lesions are appreciated. Respiratory: Lungs have equal breath sounds bilaterally, clear to auscultation and percussion. No rales, rhonchi or wheezes noted. No increased work of breathing, no retractions or nasal flaring. Abdomen/GI: Soft, non-tender, with normal bowel sounds. No distension or tympany. No guarding or rebound. No evidence of tenderness throughout. Back: No spinal tenderness. No costovertebral tenderness. Full range of motion. Male : Normal genitalia with no discharge or lesions. Skin: Warm, dry with normal turgor. Normal color with no rashes, no lesions, and no evidence of cellulitis. MS/ Extremity: Pulses equal, no cyanosis. Neurovascular intact. Full, normal range of motion. Neuro: Awake and alert, GCS 15, oriented to person, place, time, and situation. Cranial nerves II-XII grossly intact. Motor strength 5/5 in all extremities. Sensory grossly intact. Cerebellar exam normal. Normal gait. Psych: Awake, alert, with orientation to person, place and time. Behavior, mood, and affect are within normal limits. 01:23 Cardiovascular: Rate: tachycardic, Rhythm: irregularly irregular, Pulses: Pulses are 4+ in bilateral radial, brachial, femoral, popliteal, posterior tibial and and dorsalis pedis arteries.. Heart sounds: normal, Edema: is not appreciated, JVD: is not appreciated. Vital Signs: 00:40 BP 178 / 113; Pulse 155; Resp 20; Temp 97.9(O); Pulse Ox 99% on R/A; Weight 72.57 kg fc (R); Height 5 ft. 6 in. (167.64 cm) (R); Pain 10/10; 02:00 BP 128 / 57; Pulse 125; Resp 20 S; Pulse Ox 100% on R/A; jd3 03:12 BP 166 / 88; Pulse 82; Resp 19 S; Pulse Ox 96% on R/A; jd3 00:40 Body Mass Index 25.82 (72.57 kg, 167.64 cm) MDM: 01:00 Patient medically screened. [facility] 01:26 Data reviewed: vital signs, nurses notes, lab test result(s), EKG, radiologic studies, [facility] plain films. 12/01 00:59 Order name: Basic Metabolic Panel; Complete Time: 02:33 [facility] 12/01 00:59 Order name: CBC with Diff; Complete Time: 02:33 [facility] 12/01 01:00 Order name: LFT's; Complete Time: 02:33 [facility] 12/01 01:00 Order name: Magnesium; Complete Time: 02:33 [facility] 12/01 01:00 Order name: NT PRO-BNP; Complete Time: 02:33 [facility] 12/01 01:00 Order name: PT-INR; Complete Time: 02:33 [facility] 12/01 01:00 Order name: Troponin (emerg Dept Use Only); Complete Time: 02:33 [facility] 12/01 01:00 Order name: Lipase; Complete Time: 02:33 [facility] 12/01 01:00 Order name: TSH; Complete Time: 02:33 [facility] 12/01 02:16 Order name: Basic Metabolic Panel [facility] 12/01 02:16 Order name: Basic Metabolic Panel [facility] 12/01 02:16 Order name: CBC with Automated Diff [facility] 12/01 02:16 Order name: CBC with Automated Diff [facility] 12/01 08:28 Order name: Troponin I [facility] 12/01 01:00 Order name: XRAY Chest (1 view) [facility] 12/01 01:00 Order name: EKG; Complete Time: 01:01 [facility] 12/01 02:15 Order name: CONS Physician Consult [facility] 12/01 02:15 Order name: Heart Healthy [facility] 12/01 02:16 Order name: Echo with Doppler [facility] 12/01 02:16 Order name: EKG Electrocardiogram [facility] 12/01 01:00 Order name: Cardiac monitoring; Complete Time: 01:01 [facility] 12/01 01:00 Order name: EKG - Nurse/Tech; Complete Time: 01:00 [facility] 12/01 01:00 Order name: IV Saline Lock; Complete Time: 01: [facility] 12/01 01:00 Order name: Labs collected and sent; Complete Time: 01: [facility] 12/01 01:00 Order name: O2 Per Protocol; Complete Time: 01:01 [facility] 12/01 01:00 Order name: O2 Sat Monitoring; Complete Time: 01:01 [facility] 12/01 02:16 Order name: EKG Electrocardiogram [facility] Administered Medications: 01:22 Not Given (Duplicate Order): Lopressor 5 mg IVP once; Hold for SBP <100 or HR <60. zac 01:22 Not Given (Duplicate Order): Lopressor 25 mg PO once zac 01:49 Drug: Lopressor 5 mg Route: IVP; Site: right antecubital; jd3 02:45 Follow up: Response: No adverse reaction jd3 01:49 Drug: Aspirin 162 mg Route: PO; jd3 02:45 Follow up: Response: No adverse reaction jd3 01:49 Drug: Pepcid 20 mg Route: IVP; Site: right antecubital; jd3 02:45 Follow up: Response: No adverse reaction jd3 01:50 Drug: Lovenox 1 mg/kg Route: Sub-Q; Site: abdomen; jd3 02:50 Follow up: Response: No adverse reaction jd3 01:50 Drug: Sotalol 80 mg Route: PO; jd3 02:50 Follow up: Response: No adverse reaction jd3 01:50 Drug: Digoxin 0.5 mg Route: IVP; Site: right antecubital; jd3 02:50 Follow up: Response: No adverse reaction jd3 03:12 Drug: Potassium Effervescent Tablet 25 mEq Route: PO; jd3 03:18 Follow up: Response: No adverse reaction jd3 03:12 Not Given (Other Intervention Used): Lopressor 5 mg IVP once; Hold for SBP <100 or HR jd3 <60. Disposition: 12/02/19 01:33 Hospitalization ordered by Katie Huggins for Inpatient Admission. Preliminary diagnosis are Atrial fibrillation and flutter - with rvr, Chest pain, unspecified, Parkinson's disease. - Bed requested for Telemetry/MedSurg (Inpatient). - Status is Inpatient Admission. jl7 - Condition is Fair. - Problem is new. - Symptoms have improved. Signatures: Dispatcher [employer] EDMS Clinton Camacho MD MD cha Chretien, Felicia, RN RN fc Garcia, Cindy, RN RN cg Leal, Jahala, RN RN jlJu Frances RN RN ea Davies, Jonathon, RN RN jd3 Corrections: (The following items were deleted from the chart) 02: 01:33 Hospitalization Ordered by Katie Huggins MD for Inpatient Admission. Preliminary cg diagnosis is Atrial fibrillation and flutter - with rvr; Chest pain, unspecified; Parkinson's disease. Bed requested for Telemetry/MedSurg (Inpatient). Status is Inpatient Admission. Condition is Fair. Problem is new. Symptoms have improved. zac 03:46 01:01 Home Meds: stalevo; anselmo mar 06:09 02:25 12/02/2019 01:33 Hospitalization Ordered by Katie Huggins MD for Inpatient cg Admission. Preliminary diagnosis is Atrial fibrillation and flutter - with rvr; Chest pain, unspecified; Parkinson's disease. Bed requested for [facility] ER HOLD. Status is Inpatient Admission. Condition is Fair. Problem is new. Symptoms have improved. cg 06:10 06:09 12/02/2019 01:33 Hospitalization Ordered by Katie Huggins MD for Inpatient cg Admission. Preliminary diagnosis is Atrial fibrillation and flutter - with rvr; Chest pain, unspecified; Parkinson's disease. Bed requested for Telemetry/MedSurg (Inpatient). Status is Inpatient Admission. Condition is Fair. Problem is new. Symptoms have improved. cg 08:46 06:10 12/02/2019 01:33 Hospitalization Ordered by Katie Huggins MD for Inpatient jl7 Admission. Preliminary diagnosis is Atrial fibrillation and flutter - with rvr; Chest pain, unspecified; Parkinson's disease. Bed requested for Telemetry/MedSurg (Inpatient). Status is Inpatient Admission. Condition is Fair. Problem is new. Symptoms have improved. cg
--- NOTE | 2019-12-02 01:34 | ER ---
Nurse's Notes [facility] Name: Sivakumar Fong Age: 69 yrs Sex: Male : 1950 Arrival Date: 12/02/2019 Time: 00:40 Bed 2 Private MD: Diagnosis: Atrial fibrillation and flutter-with rvr;Chest pain, unspecified;Parkinson's disease Presentation: 12/01 00:40 Chief complaint: Patient states: that he woke up at midnight with complaints of chest fc pain that radiates to the back of his neck and shortness of breath. Denies any nausea or vomiting. Coronavirus screen: Patient denies fever greater than 100.4F, cough, shortness of breath, or difficulty breathing. Proceed with normal triage process. Ebola Screen: Patient negative for fever greater than or equal to 101.5 degrees Fahrenheit, and additional compatible Ebola Virus Disease symptoms Patient denies exposure to infectious person. Patient denies travel to an Ebola-affected area in the 21 days before illness onset. Initial Sepsis Screen: Does the patient meet any 2 criteria? HR > 90 bpm. No. Patient's initial sepsis screen is negative. Does the patient have a suspected source of infection? No. Patient's initial sepsis screen is negative. Risk Assessment: Do you want to hurt yourself or someone else? Patient reports no desire to harm self or others. Onset of symptoms was December 02, 2019 at 00:00. Care prior to arrival: None. Transition of care: patient was not received from another setting of care. 00:40 Method Of Arrival: Wheelchair fc 00:40 Acuity: RANI 2 fc Historical: - Allergies: 01:01 Lisinopril; fc - Home Meds: 01:01 sotalol 80 mg Oral tab 1 tab 2 times per day [Active]; zonisamide 100 mg Oral cap 1 cap fc nightly [Active]; clopidogrel 75 mg Oral tab 1 tab once daily [Active]; valsartan 160 mg Oral tab 1 tab nightly [Active]; verapamil 120 mg Oral C24P 1 cap at 1800 [Active]; pantoprazole 40 mg Oral TbEC 1 tab once daily [Active]; carbidopa-levodopa 25-250 mg oral tab 2 tabs 3 times per day [Active]; pravastatin 40 mg Oral tab 1 tab nightly [Active]; aspirin 81 mg Oral chew 1 tab once daily [Active]; - PMHx: 01:01 heart stents; Parkinsons; Hypertension; High Cholesterol; Myocardial infarction; GERD; fc - PSHx: 01:01 Heart stents; Cholecystectomy; Prostate (laser); fc - Immunization history:: Last tetanus immunization: up to date Flu vaccine is not up to date. - Social history:: Smoking status: Patient denies any tobacco usage or history of. Patient/guardian denies using alcohol, the patient reports quitting approximately [address] drugs. - Family history:: not pertinent. Screenin:40 Abuse screen: Denies threats or abuse. Nutritional screening: No deficits noted. fc Tuberculosis screening: No symptoms or risk factors identified. Fall Risk Fall in past 12 months (25 points). Secondary diagnosis (15 points) Parkinson's. IV access (20 points). Ambulatory Aid- None/Bed Rest/Nurse Assist (0 pts). Gait- Impaired (20 pts.). Mental Status- Overestimates/Forgets Limitations (15 pts.). Total Watson Fall Scale indicates High Risk Score (45 or more points). Fall prevention measures have been instituted. Side Rails Up X 2 Placed Close to Nursing Station Frequent Obs/Assessments Occuring As available patient and family educated on Fall Prevention Program and Strategies. 01:02 Abuse screen: Denies threats or abuse. Nutritional screening: No deficits noted. jd3 Tuberculosis screening: No symptoms or risk factors identified. Fall Risk IV access (20 points). Ambulatory Aid- Crutches/Cane/Walker (15 pts). Gait- Weak (10 pts.). Mental Status- Oriented to own ability (0 pts). Total Watson Fall Scale indicates Low Risk Score (25-44 pts). Fall prevention measures have been instituted. Side Rails Up X 2 Placed close to Nursing Station Frequent Obs/Assesments occuring. Assessment: 01:00 General: Appears in no apparent distress. uncomfortable, Behavior is calm, cooperative, jd3 appropriate for age. Pain: Complains of pain in chest Pain does not radiate. Quality of pain is described as sharp, stabbing, Pain began suddenly, Is intermittent. Neuro: Level of Consciousness is awake, alert, obeys commands, Oriented to person, place, time, situation. Cardiovascular: Heart tones present Capillary refill < 3 seconds Patient's skin is warm and dry. Rhythm is atrial fibrillation with rapid ventricular response. Respiratory: Reports shortness of breath at rest Airway is patent Respiratory effort is even, unlabored, Respiratory pattern is regular, symmetrical, Breath sounds are clear bilaterally. GI: No signs and/or symptoms were reported involving the gastrointestinal system. Patient currently denies nausea, vomiting. : No signs and/or symptoms were reported regarding the genitourinary system. EENT: No signs and/or symptoms were reported regarding the EENT system. Derm: Skin is intact, Skin is dry, Skin is normal, Skin temperature is warm. Musculoskeletal: Circulation, motion, and sensation intact. Range of motion: intact in all extremities. 02:00 Reassessment: Patient appears in no apparent distress at this time. Patient and/or jd3 family updated on plan of care and expected duration. Pain level reassessed. Patient is alert, oriented x 3, equal unlabored respirations, skin warm/dry/pink. Patient states feeling better. 03:12 Reassessment: Patient appears in no apparent distress at this time. Patient and/or jd3 family updated on plan of care and expected duration. Pain level reassessed. Patient is alert, oriented x 3, equal unlabored respirations, skin warm/dry/pink. pt admitted to ER HOLD status. charting continued in [facility]. Patient states feeling better. Cardiovascular: Heart tones S1 S2 present Capillary refill < 3 seconds Patient's skin is warm and dry. Rhythm is sinus rhythm. Respiratory: Airway is patent Respiratory effort is even, unlabored, Respiratory pattern is regular, symmetrical, Breath sounds are clear bilaterally. Vital Signs: 00:40 BP 178 / 113; Pulse 155; Resp 20; Temp 97.9(O); Pulse Ox 99% on R/A; Weight 72.57 kg (R); Height 5 ft. 6 in. (167.64 cm) (R); Pain 10/10; 02:00 BP 128 / 57; Pulse 125; Resp 20 S; Pulse Ox 100% on R/A; jd3 03:12 BP 166 / 88; Pulse 82; Resp 19 S; Pulse Ox 96% on R/A; jd3 00:40 Body Mass Index 25.82 (72.57 kg, 167.64 cm) ED Course: 00:40 Patient arrived in ED. cf2 00:40 Patient has correct armband on for positive identification. Placed in gown. Bed in low fc position. Call light in reach. Side rails up X2. volunteer recruitment coordinator on. Pulse ox on. NIBP on. 00:55 Missed attempt(s): 18 gauge in right antecubital area. Bleeding controlled, band aid jd3 applied, catheter tip intact. 00:58 Clinton Camacho MD is Attending Physician. zac 00:58 Triage completed. fc 01:00 Aris Martinez RN is Primary Nurse. jd3 01:00 Inserted saline lock: 18 gauge in right antecubital area, using aseptic technique. jd3 Blood collected. 01:01 Arm band placed on Patient placed in an exam room, on a stretcher. fc 01:03 Patient maintains SpO2 saturation greater than 95% on room air. jd3 01:03 Patient has correct armband on for positive identification. Placed in gown. Bed in low jd3 position. Call light in reach. Side rails up X 1. volunteer recruitment coordinator on. Pulse ox on. NIBP on. Warm blanket given. 01:16 XRAY Chest (1 view) In Process Unspecified. EDMS 01:32 Katie Huggins MD is Hospitalizing Provider. zac 03:13 No provider procedures requiring assistance completed. Patient admitted, IV remains in jd3 place. Administered Medications: 01:22 Not Given (Duplicate Order): Lopressor 5 mg IVP once; Hold for SBP <100 or HR <60. zac 01:22 Not Given (Duplicate Order): Lopressor 25 mg PO once zac 01:49 Drug: Lopressor 5 mg Route: IVP; Site: right antecubital; jd3 02:45 Follow up: Response: No adverse reaction jd3 01:49 Drug: Aspirin 162 mg Route: PO; jd3 02:45 Follow up: Response: No adverse reaction jd3 01:49 Drug: Pepcid 20 mg Route: IVP; Site: right antecubital; jd3 02:45 Follow up: Response: No adverse reaction jd3 01:50 Drug: Lovenox 1 mg/kg Route: Sub-Q; Site: abdomen; jd3 02:50 Follow up: Response: No adverse reaction jd3 01:50 Drug: Sotalol 80 mg Route: PO; jd3 02:50 Follow up: Response: No adverse reaction jd3 01:50 Drug: Digoxin 0.5 mg Route: IVP; Site: right antecubital; jd3 02:50 Follow up: Response: No adverse reaction jd3 03:12 Drug: Potassium Effervescent Tablet 25 mEq Route: PO; jd3 03:18 Follow up: Response: No adverse reaction jd3 03:12 Not Given (Other Intervention Used): Lopressor 5 mg IVP once; Hold for SBP <100 or HR jd3 <60. Outcome: 01:33 Decision to Hospitalize by Provider. zac 03:14 Admitted to ER Hold. Please see [facility] for further documentation. jd3 03:14 Condition: stable 03:14 Instructed on the need for admit, Demonstrated understanding of instructions. 08:46 Patient left the ED. jl7 Signatures: Dispatcher [employer] EDMS Clinton Camacho MD MD cha Chretien, Felicia, RN Louise Macias RN RN jlJu Frances RN RN ea Davies, Jonathon, RN RN jGuerda Pérez cf2 Corrections: (The following items were deleted from the chart) 02:00 01:00 Pain: Complains of pain in chest Pain does not radiate. Quality of pain is jd3 described as sharp, stabbing, Pain began suddenly, jd3 03:15 01:05 Response: No adverse reaction jd3 jd3 03:17 00:09 Lopressor 5 mg IVP in right antecubital ea jd3 03:46 01:01 Home Meds: stalevo; fc ea
[2019-12-02 01:35] LABS: Bilirubin Direct 0.1 mg/dL (0-0.2); Bilirubin Total 0.4 mg/dL (0.2-1.0); Magnesium 2.1 mg/dL (1.8-2.4); Potassium 3.3 mmol/L (3.5-5.1); Protein, Total 8.1 g/dL (6.4-8.2); Thyroid Stimulating Hormone 1.88 uIU/mL (0.360-3.740); Troponin (Emerg Dept Use Only) 0.31 ng/mL (0.0-0.045)
[2019-12-02] MEDS ORDERED: SOTALOL HCL 80 MG TAB ONE (01:41)
[2019-12-02] MEDS ORDERED: DIGOXIN 0.25 MG/ML AMP ONE (01:42)
[2019-12-02] MEDS ORDERED: ENOXAPARIN 80 MG/0.8 ML SQ ONE (01:42)
[2019-12-02] MEDS ORDERED: ALPRAZOLAM 0.25 MG TABLET PO PRN (02:05)
[2019-12-02] MEDS ORDERED: MORPHINE 4 MG/ML SYR IV PRN (02:05)
[2019-12-02] MEDS ORDERED: ACETAMINOPHEN 500 MG TAB PO PRN (02:05)
[2019-12-02] MEDS ORDERED: POTASSIUM 25 MEQ EFFERV TAB ONE (03:11)
[2019-12-02 03:29] VITALS: BMI 25.8
[2019-12-02] MEDS ORDERED: SOTALOL HCL 80 MG TAB PO SCH ×3 (06:00→21:00)
--- NOTE | 2019-12-02 06:02 | RAD REPORT ---
EXAM DESCRIPTION: Arnold Single View12/02/2019 1:16 am CLINICAL HISTORY: Chest pain COMPARISON: Oct 2019 FINDINGS: The lungs appear clear of acute infiltrate. The heart is normal size IMPRESSION: No acute abnormalities displayed
--- NOTE | 2019-12-02 07:53 | P.HP ---
Certification for Inpatient Patient admitted to: Observation With expected LOS: <2 Midnights Patient will require the following post-hospital care: None Practitioner: I am a practitioner with admitting privileges, knowledge of patient current condition, hospital course, and medical plan of care. Services: Services provided to patient in accordance with Admission requirements found in Title 42 Section 412.3 of the Code of Federal Regulations Patient History Date of Service: 12/02/19 Reason for admission: Atrial fibrillation with rapid ventricular respond History of Present Illness: Patient is a 69-year-old gentleman with a history of atrial fibrillation and Parkinson's disease. He had recently run out of his sotalol as it did not come in the mail when it was scheduled to arrive a couple of days ago. Patient went the last 24 hr without any sotalol. He woke up around midnight short of breath. He felt he was having palpitations so he came into the hospital. In the emergency room he was found to be in AFib with RVR with a rate of 140s. He was given beta-minh in the ER and his heart rate improved. We have resumed his home medications and his heart rate has stabilize. However, his troponins are elevated which could be related to his atrial fibrillation. At this time, he will be admitted to the hospital for further evaluation. He is requesting that he gets a 10 day supply of his sotalol until his mail order sotalol comes in through the mail. Patient does have an extensive Coronary artery disease history with 7 stents placed in the past. His Parkinson's also seems to be poorly controlled as he is having significant tremors. Will continue him on his carbo levodopa and will also see what other medicines he is taking. He will be admitted to the hospital for further evaluation. Allergies lisinopril Allergy (Verified 12/29/14 16:41) Anaphylaxis unknown antibiotic Allergy (Uncoded 02/10/14 01:46) Unknown Home Medications: Carb-Levo/Enta 25-100-200 [Stalevo 25-100-200 MG*] 1 tab PO 5XD 11/17/12 Valsartan/Hydrochlorothiazide [Valsartan-Hctz 160-25 mg Tab] 160 each PO DAILY 10/26/14 Sotalol HCl [Betapace*] 80 mg PO BID 6AM 6PM #60 tab 10/28/14 Aspirin [Aspirin EC 81 MG] 81 mg PO DAILY #90 tablet. 07/12/16 Pantoprazole [Protonix Tab*] 40 mg PO DAILYAC #30 tab 07/12/16 Clopidogrel Bisulfate [Plavix] 75 mg PO DAILY 12/02/19 Pravastatin Sodium 1 tab PO DAILY 12/02/19 Verapamil HCl [Verapamil ER] 1 tab PO DAILY 12/02/19 Zonisamide 1 cap PO DAILY 12/02/19 - Past Medical/Surgical History Has patient received pneumonia vaccine in the past: No Diabetic: No -: HTN -: Parkinson's -: Stents x7 -: Cataract Sx -: Prostate - Family History Father Medical History: Other (see notes) Notes: Leukemia Mother Medical History: Hypertension Brother Medical History: Cancer Notes: stomach - Social History Smoking Status: Former smoker Alcohol use: No CD- Drugs: No Caffeine use: No Review of Systems 10-point ROS is otherwise unremarkable Physical Examination - Vital Signs Temperature: 99 F Blood Pressure: 167/99 Pulse: 66 Respirations: 16 Pulse Ox (%): 97 - Physical Exam General: Alert, In no apparent distress, Oriented x3 HEENT: Atraumatic, PERRLA, Mucous membr. moist/pink, EOMI, Sclerae nonicteric Neck: Supple, 2+ carotid pulse no bruit, No LAD, Without JVD or thyroid abnormality Respiratory: Clear to auscultation bilaterally, Normal air movement Cardiovascular: Normal S1 S2, Irregular heart rate/rhythm, Systolic murmur Gastrointestinal: Normal bowel sounds, Soft and benign, Non-distended, No tenderness Musculoskeletal: No clubbing, No swelling, No tenderness Integumentary: No rashes Neurological: Normal gait, Normal speech, Normal strength at 5/5 x4 extr, Normal tone, Sensation intact, Cranial nerves 3-12 intact, Normal affect Lymphatics: No axilla or inguinal lymphadenopathy - Studies Laboratory Data (last 24 hrs) 12/02/19 00:57: PT 12.0, INR 1.02 12/02/19 00:57: WBC 5.3, Hgb 13.0 L, Hct 39.2 L, Plt Count 213 12/02/19 00:57: Sodium 140, Potassium 3.3 L, BUN 17, Creatinine 0.86, Glucose 115 H, Magnesium 2.1, Total Bilirubin 0.4, AST 12 L, ALT 11 L, Alkaline Phosphatase 104, Lipase 118 Assessment & Plan - Problems (Diagnosis) (1) Atrial fibrillation with rapid ventricular response Onset Date: 10/27/14 Current Visit: No Status: Acute (2) Chest pain Onset Date: 10/27/14 Current Visit: No Status: Acute Qualifiers: (3) Coronary artery disease Current Visit: No Status: Chronic Qualifiers: (4) Hyperlipidemia Current Visit: No Status: Chronic Qualifiers: (5) Hypertension Current Visit: No Status: Chronic Qualifiers: (6) Parkinson disease Onset Date: 07/11/16 Current Visit: No Status: Chronic - Plan plan: 1. Continue with anti arrhythmic. No anti coagulation because of his fall history. He is only taking anti-platelet therapy. Continue this for now. Cardiology consultation pending. His heart rate is improved. His rate is controlled. However, his troponins are elevated and we will repeat his troponin and see what his neck said this. If this is stable we may be able to let him go home if Cardiology is agreeable. He is feeling almost back to his baseline except that his tremors are a little worse than normal. It could be related to him being out of his normal routine. 2. Resume his Parkinson's medications 3. Resume his sotalol and will discuss with Cardiology whether he needs to continue verapamil. 4. Continue anti-platelet therapy 5. Continue his PPI 6. Strict blood pressure control 7. GI and DVT prophylaxis Discharge Plan: Home Plan to discharge in: 48 Hours - Advance Directives Does patient have a Living Will: No Does patient have a Durable POA for Healthcare: No - Code Status/Comfort Care Code Status Assessed: Yes Code Status: Full Code Critical Care: No Time Spent Managing PTS Care (In Minutes): 45
[2019-12-02] MEDS ORDERED: LEVODOPA PO SCH (08:00)
[2019-12-02] MEDS ORDERED: ENTACAPONE PO SCH (08:00)
[2019-12-02] MEDS ORDERED: CARBIDOPA PO SCH (08:00)
[2019-12-02] MEDS ORDERED: hydroCHLOROthiazide 25 MG TAB PO SCH ×2 (09:00→19:00)
[2019-12-02] MEDS: ASPIRIN EC 81 MG TAB PO SCH (09:00)
[2019-12-02] MEDS ORDERED: VERAPAMIL SR 240 MG TABLET PO SCH (09:00)
[2019-12-02] MEDS ORDERED: VALSARTAN 160 MG TAB PO SCH ×2 (09:00→19:00)
[2019-12-02] MEDS ORDERED: HYDRALAZINE HCL 20 MG/ML VIAL IV ONE (10:29)
[2019-12-02] MEDS ORDERED: MAGNES/ALUMIN/SIMET 30ML UCUP PO ONE (10:29)
[2019-12-02] MEDS ORDERED: INFLUENZA VACCINE (for 3y+) 0.5 ML DOSE IMVAC ONE (11:00)
[2019-12-02] MEDS ORDERED: PNEUMOCOCCAL VACCINE 0.5 ML IMVAC ONE (11:00)
[2019-12-02] MEDS: CARBIDOPA PO SCH ×2 (12:00→18:57)
[2019-12-02] MEDS: LEVODOPA PO SCH ×2 (12:00→18:57)
--- NOTE | 2019-12-02 12:06 | P.PN ---
Date of Service: 12/02/19 Patient seen and examined. He is complaining of chest pain, up to 2/10, and also headache. Blood pressure is elevated, systolic up to 200s. He received a dose of sotalol, full-dose Lovenox and IV metoprolol in the the ED. Troponin elevated to 1. Patient is in sinus rhythm but bradycardic. Diagnosis: NSTEMI Afib with RVR Accelerated hypertension Sinus bradycardia. Patient seen by cardiology. Dr. Stanford is planning cardiac catheterization tomorrow. Continue full-dose Lovenox for NSTEMI. Hold Verapamil. Hydralazine p.r.n. for BP spikes. Morphine p.r.n. for pain.
[2019-12-02] MEDS ORDERED: HYDRALAZINE HCL 20 MG/ML VIAL IV PRN (12:07)
--- NOTE | 2019-12-02 12:44 | ECHO ---
HEIGHT: 5 ft 6 in WEIGHT: 159 lb 15.831 oz DATE OF STUDY: 12/02/[address]: Katie Huggins MD 2-DIMENSIONAL: YES M.MODE: YES DOPPLER: YES COLOR FLOW: YES TDS: NO PORTABLE: NO DEFINITY: NO BUBBLE STUDY: NO DIAGNOSIS: ATRIAL FIBRILLATION CARDIAC HISTORY: CATHERIZATION: NO SURGERY: NO PROSTHETIC VALVE: NO PACEMAKER: NO MEASUREMENTS (cm) DIASTOLIC (NORMALS) SYSTOLIC (NORMALS) IVSd 1.3 (0.6-1.2) LA Diam 4.8 (1.9-4.0) LVEF 66% LVIDd 4.8 (3.5-5.7) LVIDs 3.1 (2.0-3.5) %FS 36% LVPWd 1.4 (0.6-1.2) Ao Diam 3.1 (2.0-3.7) 2 DIMENSIONAL ASSESSMENT: RIGHT ATRIUM: NORMAL LEFT ATRIUM: DILATED RIGHT VENTRICLE: NORMAL LEFT VENTRICLE: LEFT VENTRICULAR HYPERTROPHY TRICUSPID VALVE: NORMAL MITRAL VALVE: NORMAL PULMONIC VALVE: NORMAL AORTIC VALVE: NORMAL PERICARDIAL EFFUSION: NONE AORTIC ROOT: NORMAL LEFT VENTRICULAR WALL MOTION: NORMAL. DOPPLER/COLOR FLOW: NORMAL. COMMENTS: LEFT VENTRICULAR HYPERTROPHY. LEFT ATRIAL ENLARGEMENT. NO WALL MOTION ABNORMALITY. NO EFFUSION. TECHNOLOGIST: DANNA WARD
--- NOTE | 2019-12-02 13:24 | CON ---
Date of Consultation: 12/02/[address] Huggins on 12/02/2019. I saw the patient on 12/02/2019. Reason For Consultation: [id number] myocardial infarction. History Of Present Illness: Mr. Fong is a 69-year-old male we have seen him in the past. He h as a history of coronary artery disease and stent. His last catheterization a few years ago showed p atent stent in his LAD and he had a 50% stenosis in the LAD that was treated medically. He comes scot with substernal chest pain radiating to the back and in the midepigastric region with some nausea, diaphoresis, and shortness of breath. No vomiting. He denied any PND, orthopnea, pedal edema, palpi tations, or syncope. His troponin was 0.31. He was in atrial fibrillation, which is chronic, at a r ate of 66. He only takes aspirin and Plavix for that. His BNP was 448. Past Medical History: Includes CAD status post stent, parkinsonism, hypertension, dyslipidemia, and GERD. Allergies: TO LISINOPRIL. Review of Systems: Negative. Social History: Negative. Family History: Negative. Medications: At home include sotalol, verapamil, valsartan with hydrochlorothiazide, Pravachol, aspi rin, Plavix, Protonix, and carbidopa. Physical Examination: General: He was in mild distress from pain mostly in the abdomen this time. Vital Signs: Stable with a heart rate was 70. He was afebrile. HEENT: Negative. Neck: Supple with no bruit, lymphadenopathy, JVD, or thyromegaly. Chest: Clear to auscultation and percussion. Cardiac: Revealed irregularly irregular rhythm and rate without any murmurs, gallops, or rubs. Abdomen: Nontender, nondistended with positive bowel sounds. Extremities: Revealed no clubbing, cyanosis, or edema. Diagnostic Data: As stated earlier. Impression And Plan: 1.Patient with chest pain, positive troponin consistent with [id number] myocardial infarction. Has a history of coronary artery disease, documented 50% left anterior descending stenosis, treated medically. Previous left anterior descending stent in the past. We will recommend left heart nicolle terization with possible coronary intervention. Patient understands the risk and the benefits of the procedure and agrees to proceed. We will continue his present regimen for now. 2.Parkinsonism, stable. 3.Hypertension, well controlled. 4.History of chronic atrial fibrillation, well controlled. 5.Dyslipidemia and gastroesophageal reflux disease are well controlled. 6.Echocardiogram, which was done today, was normal. We will perform the catheterization tomorrow an d make further plans depending on the anatomy. RICHA/ZOE Voice ID: [id number] Report ID: [id number]
[2019-12-02] MEDS: AMLODIPINE 5 MG TAB PO SCH (13:39)
[2019-12-02] MEDS ORDERED: ATORVASTATIN 20 MG TAB PO SCH (21:00)
[2019-12-02] MEDS: ATORVASTATIN 10 MG TAB PO SCH (21:34)
[2019-12-03] MEDS: PANTOPRAZOLE 40MG TABLET PO SCH (06:30)
[2019-12-03] MEDS: LEVODOPA PO SCH ×3 (07:00→18:47)
[2019-12-03] MEDS: CARBIDOPA PO SCH ×3 (07:00→18:47)
[2019-12-03 07:07] LABS: Absolute Lymphocytes (CBC) 1.5 K/uL (0.7-4.9); Basophils % 0.8 % (0-1.3); Hematocrit 36.1 % (39.6-49.0); Lymphocytes % 40.1 % (15.3-44.8); MPV 8.5 fL (7.6-11.3); RBC Red Blood Cell Count 4.01 M/uL (4.33-5.43)
[2019-12-03 07:52] LABS: BUN Blood Urea Nitrogen 13 mg/dL (7-18); Bicarbonate 32 mmol/L (21-32); Glucose Level 78 mg/dL (74-106); Sodium Level 142 mmol/L (136-145)
[2019-12-03 07:56] LABS: Potassium 2.8 mmol/L (3.5-5.1)
[2019-12-03] MEDS: KCL 20 MEQ/100 mL IVPB 20 MEQ/100 ML BAG IV SCH ×2 (08:39→10:00)
[2019-12-03] MEDS: ASPIRIN EC 81 MG TAB PO SCH (08:43)
[2019-12-03] MEDS: CLOPIDOGREL 75 MG TABLET PO SCH (08:43)
[2019-12-03] MEDS: AMLODIPINE 5 MG TAB PO SCH (08:43)
[2019-12-03] MEDS ORDERED: HYDROCHLOROTHIAZIDE PO SCH (09:00)
[2019-12-03] MEDS ORDERED: HOME MED 1 EA UNK (Pravastatin Sodium [Pravastatin Sodium] 1 TAB) PO SCH (09:00)
[2019-12-03] MEDS ORDERED: NA CHLORIDE 0.9% 250 ML IV SCH (09:00)
[2019-12-03] MEDS ORDERED: VALSARTAN PO SCH (09:00)
[2019-12-03] MEDS ORDERED: [UNRECOGNIZED DRUG - OTHER] PO SCH (09:00)
--- NOTE | 2019-12-03 10:03 | EKG ---
Test Date: 2019-12-03 Test Time: 09:34:34 Cell Feed Department Supervisor: CHAVEZ MEASUREMENT RESULTS: Intervals: Rate: 58 AL: 152 QRSD: 148 QT: 486 QTc: 477 [place]: P: 56 AL: 152 QRS: -67 T: 72 INTERPRETIVE STATEMENTS: Sinus bradycardia Right bundle branch block Left anterior fascicular block Bifascicular block Left ventricular hypertrophy with repolarization abnormality Cannot rule out Septal infarct, age undetermined Abnormal ECG Compared to ECG 12/02/2019 11:51:36 Sinus rhythm no longer present Bifascicular block still present Myocardial infarct finding still present Electronically Signed On 12-03-19 10:02:46 CDT by Vineet Stanford
--- NOTE | 2019-12-03 10:05 | EKG ---
Test Date: 2019-12-02 Test Time: 11:51:36 Contract Project Manager: CHAVEZ MEASUREMENT RESULTS: Intervals: Rate: 64 ID: [id number] QRSD: 142 QT: 470 QTc: 484 [place]: P: 119 ID: [id number] QRS: -65 T: 77 INTERPRETIVE STATEMENTS: Normal sinus rhythm Right bundle branch block Left anterior fascicular block Bifascicular block Left ventricular hypertrophy with repolarization abnormality Cannot rule out Septal infarct, age undetermined Abnormal ECG Compared to ECG 10/16/2019 14:36:41 Left anterior fascicular block now present Bifascicular block now present Left ventricular hypertrophy now present Early repolarization now present Myocardial infarct finding now present Sinus bradycardia no longer present Electronically Signed On 12-03-19 10:03:00 CDT by Vineet Stanford
[2019-12-03] MEDS ORDERED: MIDAZOLAM HCL 2 MG/2 ML INJ ONE ×2 (12:10→12:23)
[2019-12-03] MEDS ORDERED: ATROPINE SULF 1 MG/10 ML SYR IV ONE (12:10)
[2019-12-03] MEDS ORDERED: HEPA 1000U/500MLS 1,000 UNIT/500 ML BAG IV ONE (12:10)
[2019-12-03] MEDS ORDERED: FENTANYL CITR 100 MCG/2 ML ONE (12:10)
[2019-12-03] MEDS ORDERED: NA CHLORIDE 0.9% 500 ML ONE (12:11)
[2019-12-03] MEDS ORDERED: NA CHLORIDE 0.9% 50 ML ONE (12:11)
[2019-12-03] MEDS ORDERED: NITROGLYCERIN 100 MCG/ML SYR (for cath lab use only) IV ONE (12:38)
[2019-12-03] MEDS ORDERED: NITROGLYCERIN/D5W 25 MG/250 ML BTL IV ONE (12:38)
[2019-12-03] MEDS ORDERED: ASPIRIN 325 MG TAB ONE (12:55)
[2019-12-03] MEDS ORDERED: PRASUGREL (EFFIENT) 10 MG TAB ONE (12:56)
[2019-12-03] MEDS ORDERED: cloNIDine HCL 0.1 MG TAB ONE (13:11)
--- NOTE | 2019-12-03 13:52 | P.PN ---
Subjective Date of Service: 12/03/19 Chief Complaint: Atrial fibrillation with rapid ventricular respond Patient denies any chest pain today. His potassium level is low. He is planned for cardiac catheterization today. Physical Examination - Vital Signs Temperature: 97.9 F Blood Pressure: 177/96 Pulse: 56 Respirations: 18 Pulse Ox (%): 96 - Physical Exam General: Alert, In no apparent distress, Oriented x3 HEENT: Mucous membr. moist/pink Neck: Supple, JVD not distended Respiratory: Clear to auscultation bilaterally, Normal air movement Cardiovascular: No edema, Normal S1 S2, Other (Bradycardia) Capillary refill: <2 Seconds Gastrointestinal: Normal bowel sounds, Soft and benign, Non-distended, No tenderness Musculoskeletal: No swelling, No erythema Integumentary: No rashes Neurological: Other (Nonfocal) Assessment And Plan - Current Problems (Diagnosis) (1) Atrial fibrillation with rapid ventricular response Onset Date: 10/27/14 Current Visit: No Status: Acute (2) Chest pain Onset Date: 10/27/14 Current Visit: No Status: Acute Qualifiers: (3) GERD (gastroesophageal reflux disease) Current Visit: No Status: Acute Qualifiers: Esophagitis presence: esophagitis presence not specified Qualified Code(s) : K21.9 - Gastro-esophageal reflux disease without esophagitis (4) Coronary artery disease Current Visit: No Status: Chronic Qualifiers: (5) Parkinson disease Onset Date: 07/11/16 Current Visit: No Status: Chronic - Plan Patient is planned for cardiac catheterization today. Replete potassium IV Echocardiogram reviewed: Reports normal EF and no wall motion abnormality. Verapamil discontinued. Sotalol is on hold due to bradycardia. Cardiology is following. Patient is not anticoagulated for AFib due to risk of falls from Parkinson's disease.
[2019-12-03] MEDS ORDERED: MORPHINE 4 MG/ML SYR IV PRN (14:43)
[2019-12-03] MEDS ORDERED: DIAZEPAM 5 MG TABLET PO PRN (14:47)
[2019-12-03] MEDS ORDERED: ONDANSETRON 4 MG/2 ML VIAL IV PRN (14:50)
[2019-12-03] MEDS ORDERED: ACETAMINOPHEN 325 MG TABLET PO PRN (15:00)
[2019-12-03] MEDS ORDERED: NA CHLORIDE 0.9% 1,000 ML IV SCH (15:00)
[2019-12-03] MEDS ORDERED: NITROGLYCERIN 0.4 MG/TAB SL PRN (15:00)
--- NOTE | 2019-12-03 15:38 | OP ---
Date of Procedure: 12/03/2019 Surgeon: Vineet Stanford MD Glass Cleaning Machine Tender: Terrell Pabon. The patient will remain in the hospital overnight and he will go home in the morning. We will contin ue medical therapy for his other lesions and will intervene only if we have to. Procedures: Left heart catheterization, selective coronary arteriogram and primary stent of the prox imal LAD. History Of Present Illness: Mr. Fong is 69, has had a history of coronary artery disease, stat us post stents in the RCA and LAD in the past. He came in with a non-ST elevation myocardial infarct ion on 12/02/2019 and was admitted to Dr. Julian. He was brought to the pathology laboratory director today as an inpatie nt, prepped and draped in the routine sterile fashion. Given Versed for sedation. A 6-Armenian sheath introduced in the right common femoral artery successfully. Angiography there was normal. Angio-Se al was used to close the case. Roman catheter revealed a normal right coronary artery with patent proximal and distal RCA stent. The left main was normal. He had a 50% long ramus lesion and 50% pro ximal circumflex lesion. He had a patent stent in the LAD and at mid level and distal LAD. He had a n 80% stenosis right at the first diagonal and first septal. An XB 3.5 guide with side hole was used to cannulate the left main. A was used to cross the lesion successfully. A 2.5 x 16 Syn ergy stent was placed with 0% residual. There were no complications. Blood Loss: 5 mL. Postoperative Diagnosis: Status post successful primary left anterior descending proximal stent. We will continue medical therapy. Patient got Angiomax, aspirin, and Effient during the procedure. Anesthesia: Total conscious sedation was 60 minutes. NB/MODL Voice ID: [id number] Report ID: [id number]
[2019-12-03 17:02] LABS: Magnesium 2.3 mg/dL (1.8-2.4); Phosphorus 2.9 mg/dL (2.5-4.9)
[2019-12-03] MEDS ORDERED: POTASSIUM CL SA 10 MEQ TAB PO ONE (20:05)
[2019-12-03] MEDS: ATORVASTATIN 10 MG TAB PO SCH (21:24)
[2019-12-04 03:13] VITALS: O2SAT 98
[2019-12-04] MEDS: PANTOPRAZOLE 40MG TABLET PO SCH (05:44)
[2019-12-04 06:52] LABS: Absolute Lymphocytes (CBC) 1.3 K/uL (0.7-4.9); Basophils % 0.9 % (0-1.3); Hematocrit 40.6 % (39.6-49.0); Lymphocytes % 29.9 % (15.3-44.8); MPV 8.1 fL (7.6-11.3); RBC Red Blood Cell Count 4.49 M/uL (4.33-5.43)
[2019-12-04 07:40] LABS: Potassium 3.7 mmol/L (3.5-5.1)
[2019-12-04] MEDS: CLOPIDOGREL 75 MG TABLET PO SCH (08:17)
[2019-12-04] MEDS: CARBIDOPA PO SCH ×2 (08:17→12:45)
[2019-12-04] MEDS: AMLODIPINE 5 MG TAB PO SCH (08:17)
[2019-12-04] MEDS: LEVODOPA PO SCH ×2 (08:17→12:45)
[2019-12-04] MEDS: ASPIRIN EC 81 MG TAB PO SCH (08:17)
[2019-12-04] MEDS ORDERED: PANTOPRAZOLE 40 MG INJ IVP ONE (10:17)
[2019-12-04] MEDS ORDERED: SODIUM CHLORIDE 0.9% 10ML INJ IV PRN (10:17)
[2019-12-04] MEDS ORDERED: MAGNES/ALUMIN/SIMET 30ML UCUP PO ONE (10:18)
--- NOTE | 2019-12-04 11:20 | EKG ---
Test Date: 2019-12-04 Test Time: 09:28:38 Dyehouse Worker: JH MEASUREMENT RESULTS: Intervals: Rate: 67 AK: 142 QRSD: 138 QT: 454 QTc: 479 [place]: P: 66 AK: 142 QRS: -80 T: 80 INTERPRETIVE STATEMENTS: Normal sinus rhythm Right bundle branch block Left anterior fascicular block Bifascicular block Left ventricular hypertrophy with repolarization abnormality Cannot rule out Septal infarct, age undetermined Abnormal ECG Compared to ECG 12/03/2019 09:34:34 Sinus bradycardia no longer present Bifascicular block still present Myocardial infarct finding still present Electronically Signed On 12-04-19 11:20:06 CDT by Vineet Stanford
--- NOTE | 2019-12-04 12:25 | P.DS ---
Admission Date: 12/02/19 Discharge Date: 12/04/19 Disposition: ROUTINE DISCHARGE Discharge Condition: FAIR Reason for Admission: Atrial fibrillation with rapid ventricular respond Consultations: Cardiology-Dr. Stanford. - Problems (1) Atrial fibrillation with rapid ventricular response Onset Date: 10/27/14 Current Visit: No Status: Acute (2) Chest pain Onset Date: 10/27/14 Current Visit: No Status: Acute Qualifiers: (3) GERD (gastroesophageal reflux disease) Current Visit: No Status: Acute Qualifiers: Esophagitis presence: esophagitis presence not specified Qualified Code(s) : K21.9 - Gastro-esophageal reflux disease without esophagitis (4) Coronary artery disease Current Visit: No Status: Chronic Qualifiers: (5) Parkinson disease Onset Date: 07/11/16 Current Visit: No Status: Chronic (6) NSTEMI (non-ST elevated myocardial infarction) Current Visit: Yes Status: Acute Brief History of Present Illness: 69-year-old gentleman with a history of extensive coronary artery disease status post multiple stents, history of atrial fibrillation, Parkinson's disease presented to the emergency department with a complaint of shortness of breath and chest pain that woke him up from sleep. Patient ran out of his sotalol. He was found to be in AFib with RVR with a ventricular rate of 140 in the ED. His initial troponin was elevated. Patient was given a dose of sotalol , and IV metoprolol, IV digoxin, full-dose Lovenox and admitted for further management. Hospital Course: Patient admitted to the medical floor, troponin trended up. He also became bradycardic so his sotalol was held. He was complaining of lingering chest. Patient was evaluated by cardiology-Dr. Stanford, echocardiogram performed reported normal ejection fraction and was grossly unremarkable. He underwent cardiac catheterization, had his left anterior descending artery stented. Noted patient was on both verapamil and sotalol. He was bradycardic without these 2 medications during the hospital stay. Verapamil has been discontinued and replaced with Norvasc for BP. Sotalol is continued on discharge. His other antihypertensives continued on discharge. Patient was experiencing heart burn which was treated with IV Protonix and antacids. The patient is deemed clinically stable for discharge per cardiology. Vital Signs/Physical Exam: Temp Pulse Resp BP Pulse Ox 98.0 F 83 15 154/75 H 98 12/04/19 08:00 12/04/19 08:17 12/04/19 08:00 12/04/19 08:17 12/04/19 08:00 General: Alert, In no apparent distress HEENT: Mucous membr. moist/pink, Sclerae nonicteric Neck: Supple, JVD not distended Respiratory: Clear to auscultation bilaterally, Normal air movement Cardiovascular: No edema, Regular rate/rhythm, Normal S1 S2 Gastrointestinal: Normal bowel sounds, Soft and benign, No tenderness Neurological: Other (Nonfocal.) Laboratory Data at Discharge: WBC 4.4 K/uL (4.3-10.9) D 12/04/19 06:43 Hgb 13.3 g/dL (13.6-17.9) L 12/04/19 06:43 Hct 40.6 % (39.6-49.0) 12/04/19 06:43 Plt Count 211 K/uL (152-406) 12/04/19 06:43 PT 12.0 SECONDS (9.5-12.5) 12/02/19 00:57 INR 1.02 12/02/19 00:57 Sodium 141 mmol/L (136-145) 12/04/19 06:43 Potassium 3.7 mmol/L (3.5-5.1) 12/04/19 06:43 BUN 17 mg/dL (7-18) 12/04/19 06:43 Creatinine 0.93 mg/dL (0.55-1.3) 12/04/19 06:43 Glucose 86 mg/dL (74-106) 12/04/19 06:43 Phosphorus 2.9 mg/dL (2.5-4.9) 12/03/19 16:36 Magnesium 2.3 mg/dL (1.8-2.4) 12/03/19 16:36 Total Bilirubin 0.4 mg/dL (0.2-1.0) 12/02/19 00:57 AST 12 U/L (15-37) L 12/02/19 00:57 ALT 11 U/L (12-78) L 12/02/19 00:57 Alkaline Phosphatase 104 U/L (45-117) 12/02/19 00:57 Troponin I 1.99 ng/mL (0.0-0.045) H* 12/02/19 15:48 Triglycerides 82 mg/dL (<150) 12/03/19 16:36 Cholesterol 135 mg/dL (<200) 12/03/19 16:36 HDL Cholesterol 43 mg/dL (40-60) 12/03/19 16:36 Cholesterol/HDL Ratio 3.14 12/03/19 16:36 Lipase 118 U/L (73-393) 12/02/19 00:57 Home Medications: Carb-Levo/Enta 25-100-200 [Stalevo 25-100-200 MG*] 1 tab PO 5XD 11/17/12 Valsartan/Hydrochlorothiazide [Valsartan-Hctz 160-25 mg Tab] 160 each PO DAILY 10/26/14 Sotalol HCl [Betapace*] 80 mg PO BID 6AM 6PM #60 tab 10/28/14 Aspirin [Aspirin EC 81 MG] 81 mg PO DAILY #90 tablet. 07/12/16 Pantoprazole [Protonix Tab*] 40 mg PO DAILYAC #30 tab 07/12/16 Clopidogrel Bisulfate [Plavix*] 75 mg PO DAILY 12/02/19 Pravastatin Sodium 1 tab PO DAILY 12/02/19 Zonisamide 1 cap PO DAILY 12/02/19 Amlodipine [Norvasc*] 5 mg PO DAILY #30 tab 12/04/19 Nitroglycerin [Nitrostat*] 0.4 mg SL UD PRN #30 tab 12/04/19 New Medications: Amlodipine [Norvasc*] 5 mg PO DAILY #30 tab Nitroglycerin [Nitrostat*] 0.4 mg SL UD PRN #30 tab PRN Reason: Pain Scale 2-4 (Mild) Diet: AHA Activity: Ad skip Followup: Vineet Stanford MD [ACTIVE - CAN ADMIT] - 1-2 Weeks Time spent managing pt's care (in minutes): 40
[2019-12-04 13:14] VITALS: BP 161/84; TEMP 97.2
--- NOTE | 2019-12-04 17:12 | PN ---
Date of Progress Note: 12/04/2019 Subjective: Mr. Fong had been in the hospital for a couple of days now. Yesterday, a catheter ization was done showing patent old LAD stent, patent RCA stents in the past, but he has a new stenos is in the proximal LAD at about 70% to 80%. He underwent a successful stent yesterday. It was a Syn ergy stent with 0% residual. Overnight, he feels better. He does not have any chest pain. Telemetr y is normal. Right groin is intact. Chest is clear. No edema. Plan: Mr. Fong can go home today on his home medication, which should include aspirin, Plavix, statin and beta minh. I will discuss the case further with Dr. Julian. I would like to see him in the office in 2 weeks. RICHA/ZOE Voice ID: [id number] Report ID: [id number]
== END 2019-12-04 14:03 | disposition home or self-care (01) | DRG 247 ==
LOC: ER 00:39 → ERHOLD 02:40 → 2ND 08:22 → OBSVTOIN 13:55
PROVIDERS: ADMIT Hospitalist; ATTEND Internal Medicine
PROC: 027034Z Dilation of Coronary Artery, One Artery with Drug-eluting Intraluminal Device, Percutaneous Approach (ICD-10-PCS; principal; 2019-12-03)
PROC: 4A023N7 Measurement of Cardiac Sampling and Pressure, Left Heart, Percutaneous Approach (ICD-10-PCS; 2019-12-03)
PROC: B2111ZZ Fluoroscopy of Multiple Coronary Arteries using Low Osmolar Contrast (ICD-10-PCS; 2019-12-03)
DX: I21.4 Non-ST elevation (NSTEMI) myocardial infarction (principal); G20 Parkinson's disease; I25.10 Atherosclerotic heart disease of native coronary artery without angina pectoris; Z88.8 Allergy status to other drugs, medicaments and biological substances; Z79.82 Long term (current) use of aspirin; Z79.899 Other long term (current) drug therapy; Z79.02 Long term (current) use of antithrombotics/antiplatelets; I10 Essential (primary) hypertension; Z87.891 Personal history of nicotine dependence; E78.5 Hyperlipidemia, unspecified; K21.9 Gastro-esophageal reflux disease without esophagitis; I25.2 Old myocardial infarction; Z90.49 Acquired absence of other specified parts of digestive tract; R00.1 Bradycardia, unspecified; I48.91 Unspecified atrial fibrillation; Z95.5 Presence of coronary angioplasty implant and graft
CPT/HCPCS: 36415; 71045; 80048; 80061; 80076; 83690; 83735; 83880; 84100; 84132; 84443; 84484; 85025; 85347; 85610; 93005; 93306; 93454; 96372; 96374; 96375; 99285; C1725; C1760; C1877; C1893; C9113; C9600; G0378; J0360; J0583; J1160; J1650; J2250; J3010; J7030; J7040

== ENCOUNTER 2019-12-04 21:09 | Observation (INO) | payer OTHER ==
--- OUTSIDE RECORDS SUMMARY | 2019-12-04 21:15 | XMS REPORT ---
:1950 [facility] [address] [place] [address] Care Team Providers Name Role Phone Unavailable Unavailable Unavailable Problems This patient has no known problems. Allergies, Adverse Reactions, Alerts This patient has no known allergies or adverse reactions. Medications This patient has no known medications.
[2019-12-04 21:29] LABS: Basophils % 0.6 % (0-1.3); Hematocrit 36.5 % (39.6-49.0); Lymphocytes % 22.7 % (15.3-44.8); MPV 8.1 fL (7.6-11.3); RBC Red Blood Cell Count 4.01 M/uL (4.33-5.43)
[2019-12-04] MEDS ORDERED: ONDANSETRON 4 MG/2 ML VIAL ONE (21:30)
[2019-12-04] MEDS ORDERED: NA CHLORIDE 0.9% 500 ML ONE (21:30)
[2019-12-04] MEDS ORDERED: MORPHINE 4 MG/ML SYR ONE (21:30)
[2019-12-04 21:32] LABS: Protime INR 1.05
[2019-12-04 21:56] LABS: Albumin 3.5 g/dL (3.4-5.0); Bilirubin Direct 0.1 mg/dL (0-0.2); Bilirubin Total 0.5 mg/dL (0.2-1.0); Magnesium 2.2 mg/dL (1.8-2.4); Protein, Total 7.1 g/dL (6.4-8.2)
[2019-12-04 21:58] LABS: Troponin (Emerg Dept Use Only) 2.23 ng/mL (0.0-0.045)
--- NOTE | 2019-12-04 22:15 | EDPHYS ---
Physician Documentation [facility] Name: Sivakumar Fong Age: 69 yrs Sex: Male : 1950 Arrival Date: 12/04/2019 Time: 21:11 Bed 7 Private MD: ED Physician Katie Barksdale HPI: 12/03 22:11 This 69 yrs old Male presents to ER via EMS with complaints of Chest Pain. ma2 22:11 The patient or guardian reports chest pain that is located primarily in the substernal ma2 area. Onset: gradually, 1 day(s) ago. The pain does not radiate. Associated signs and symptoms: Pertinent negatives: abdominal pain, diaphoresis. The chest pain is described as a heaviness. Duration: The patient or guardian reports a single episode. Severity of pain: At its worst the pain was mild in the emergency department the pain is unchanged. The patient has experienced similar episodes in the past. s/p stent placement yesterday, troponin is 2.2, elevated from baseline of 0.3, discussed with dr. west, cardiology. . Historical: - Allergies: 21:17 Lisinopril; tl2 - Home Meds: 21:17 aspirin 81 mg Oral chew 1 tab once daily [Active]; carbidopa-levodopa 25-250 mg Oral tl2 tab 2 tabs 3 times per day [Active]; clopidogrel 75 mg Oral tab 1 tab once daily [Active]; pantoprazole 40 mg Oral TbEC 1 tab once daily [Active]; pravastatin 40 mg Oral tab 1 tab nightly [Active]; sotalol 80 mg Oral tab 1 tab 2 times per day [Active]; valsartan 160 mg Oral tab 1 tab nightly [Active]; verapamil 120 mg Oral C24P 1 cap at 1800 [Active]; zonisamide 100 mg Oral cap 1 cap nightly [Active]; Nitrostat SL [Active]; amlodipine oral [Active]; - PMHx: 21:17 GERD; heart stents; High Cholesterol; Hypertension; Myocardial infarction; Parkinsons; tl2 - PSHx: 21:17 stents; tl2 - Immunization history:: Adult Immunizations up to date. - Social history:: Smoking status: Patient/guardian denies using tobacco, Patient/guardian denies using alcohol, street drugs, The patient lives with family. - Family history:: not pertinent. ROS: 22:11 Constitutional: Negative for fever, chills, and weight loss. ma2 22:11 All other systems are negative. Exam: 22:11 Constitutional: This is a well developed, well nourished patient who is awake, alert, ma2 and in no acute distress. Head/Face: Normocephalic, atraumatic. Eyes: Pupils equal round and reactive to light, extra-ocular motions intact. Lids and lashes normal. Conjunctiva and sclera are non-icteric and not injected. Cornea within normal limits. Periorbital areas with no swelling, redness, or edema. ENT: Nares patent. No nasal discharge, no septal abnormalities noted. Tympanic membranes are normal and external auditory canals are clear. Oropharynx with no redness, swelling, or masses, exudates, or evidence of obstruction, uvula midline. Mucous membranes moist. Neck: Trachea midline, no thyromegaly or masses palpated, and no cervical lymphadenopathy. Supple, full range of motion without nuchal rigidity, or vertebral point tenderness. No Meningismus. Chest/axilla: Normal chest wall appearance and motion. Nontender with no deformity. No lesions are appreciated. Cardiovascular: Regular rate and rhythm with a normal S1 and S2. No gallops, murmurs, or rubs. Normal PMI, no JVD. No pulse deficits. Respiratory: Lungs have equal breath sounds bilaterally, clear to auscultation and percussion. No rales, rhonchi or wheezes noted. No increased work of breathing, no retractions or nasal flaring. Abdomen/GI: Soft, non-tender, with normal bowel sounds. No distension or tympany. No guarding or rebound. No evidence of tenderness throughout. Back: No spinal tenderness. No costovertebral tenderness. Full range of motion. Skin: Warm, dry with normal turgor. Normal color with no rashes, no lesions, and no evidence of cellulitis. MS/ Extremity: Pulses equal, no cyanosis. Neurovascular intact. Full, normal range of motion. Neuro: Awake and alert, GCS 15, oriented to person, place, time, and situation. Cranial nerves II-XII grossly intact. Motor strength 5/5 in all extremities. Sensory grossly intact. Cerebellar exam normal. Normal gait. Vital Signs: 21:11 BP 119 / 63; Pulse 94; Resp 18; Temp 97.7(O); Pulse Ox 96% ; Weight 86.18 kg; Height 5 tl2 ft. 6 in. (167.64 cm); Pain 0/10; 22:03 BP 137 / 80; Pulse 84; Resp 13; Pulse Ox 100% on 2 lpm NC; tl2 23:48 BP 149 / 81; Pulse 77; Resp 15; Pulse Ox 98% on 2 lpm NC; tl2 12/04 00:23 BP 147 / 75; Pulse 75; Resp 19; Pulse Ox 100% on 2 lpm NC; tl2 12/03 21:11 Body Mass Index 30.67 (86.18 kg, 167.64 cm) tl2 MDM: 12/03 21:14 Patient medically screened. ma2 22:11 Differential diagnosis: abnormal EKG, gastroesophageal reflux disease (GERD), stable ma2 angina, unstable angina. The patient was not given aspirin in the Emergency Department. Administered by EMS. SHIRA Risk Score: 1 - patient's age is greater or equal to 65 years, 1 - Three or more CAD risk factors, 1- Known CAD, 1 - ASA use in past 7 days, 1 - Recent [<24hrs] Severe Angina, 1 - Elevated Cardiac Markers, TOTAL SCORE = 6. Data reviewed: vital signs, nurses notes. 12/03 21:15 Order name: Basic Metabolic Panel [facility] 12/03 21:15 Order name: CBC with Diff; Complete Time: 21:40 [facility] 12/03 21:15 Order name: LFT's; Complete Time: 22: [facility] 12/03 21:15 Order name: Magnesium; Complete Time: 22:09 [facility] 12/03 21:15 Order name: NT PRO-BNP; Complete Time: 22:09 [facility] 12/03 21:15 Order name: PT-INR; Complete Time: 21:40 [facility] 12/03 21:15 Order name: Troponin (emerg Dept Use Only); Complete Time: 22:09 [facility] 12/03 21:16 Order name: Basic Metabolic Panel; Complete Time: 22: [facility] 12/03 23:30 Order name: Basic Metabolic Panel [facility] 12/03 23:30 Order name: Basic Metabolic Panel [facility] 12/03 23:30 Order name: CBC with Automated Diff [facility] 12/03 23:30 Order name: CBC with Automated Diff [facility] 12/03 23:30 Order name: Lipid Profile [facility] 12/03 23:30 Order name: Lipid Profile [facility] 12/03 21:15 Order name: XRAY Chest (1 view) [facility] 12/03 21:15 Order name: EKG; Complete Time: 21:17 [facility] 12/03 21:15 Order name: Cardiac monitoring; Complete Time: 21:22 [facility] 12/03 21:15 Order name: EKG - Nurse/Tech; Complete Time: 21:22 [facility] 12/03 23:30 Order name: CONS Physician Consult [facility] 12/03 23:30 Order name: Heart Healthy [facility] 12/03 23:30 Order name: EKG Electrocardiogram [facility] 12/03 23:30 Order name: EKG Electrocardiogram [facility] 12/03 23:30 Order name: Troponin I [facility] 12/03 23:30 Order name: Troponin I [facility] 12/03 23:30 Order name: Troponin I [facility] 12/03 21:15 Order name: IV Saline Lock; Complete Time: 21:22 [facility] 12/03 21:15 Order name: Labs collected and sent; Complete Time: 21:22 [facility] 12/03 21:15 Order name: O2 Per Protocol; Complete Time: 21:22 [facility] 12/03 21:15 Order name: O2 Sat Monitoring; Complete Time: 21:22 ma Administered Medications: 21:35 Drug: morphine 4 mg Route: IVP; Site: left antecubital; lw1 21:48 Follow up: Response: No adverse reaction; Pain is decreased; RASS: Alert and Calm (0) tl2 21:35 Drug: Zofran (Ondansetron) 4 mg Route: IVP; Site: left antecubital; lw1 22:23 Follow up: Response: No adverse reaction tl2 21:36 Drug: NS 0.9% 500 ml Route: IV; Rate: 1 bolus; Site: left antecubital; lw12/04 00:06 Follow up: IV Status: Completed infusion; IV Intake: 500ml tl2 12/03 22:22 Drug: Lovenox 1 mg/kg Route: Sub-Q; Site: abdomen; tl2 12/04 00:06 Follow up: Response: No adverse reaction tl2 00:22 Drug: Potassium Effervescent Tablet 50 mEq Route: PO; tl2 00:33 Follow up: Response: No adverse reaction tl2 Disposition: 12/03 22:13 Critical Care:. ma2 Disposition: 12/04/19 22:14 Hospitalization ordered by Katie Huggins for Inpatient Admission. Preliminary diagnosis is Non-ST elevation (NSTEMI) myocardial infarction. - Bed requested for Telemetry/MedSurg (Inpatient). - Status is Inpatient Admission. tl2 - Condition is Stable. - Problem is new. - Symptoms are unchanged. Critical care time excluding procedures: 22:13 Critical care time: Bedside Care: 15 minutes, Consultation: 10 minutes, Family ma2 Intervention: 5 minutes. Total time: 30 minutes Signatures: Dispatcher [employer] EDMS Elly De Leon RN RN mw Knox, Taylor, RN RN tl2 Katie Barksdale MD MD ma2 Webster, LaDonna, RN RN lw1 Corrections: (The following items were deleted from the chart) 23:32 22:14 Hospitalization Ordered by Katie Huggins MD for Inpatient Admission. Preliminary diagnosis is Non-ST elevation (NSTEMI) myocardial infarction. Bed requested for Intensive Care Unit. Status is Inpatient Admission. Condition is Stable. Problem is new. Symptoms are unchanged. ma2 12/04 00:33 12/03 23:32 12/04/2019 22:14 Hospitalization Ordered by Katie Huggins MD for Inpatient tl2 Admission. Preliminary diagnosis is Non-ST elevation (NSTEMI) myocardial infarction. Bed requested for Telemetry/MedSurg (Inpatient). Status is Inpatient Admission. Condition is Stable. Problem is new. Symptoms are unchanged. mw
--- NOTE | 2019-12-04 22:15 | ER ---
Nurse's Notes [facility] Name: Sivakumar Fong Age: 69 yrs Sex: Male : 1950 Arrival Date: 12/04/2019 Time: 21:11 Bed 7 Private MD: Diagnosis: Non-ST elevation (NSTEMI) myocardial infarction Presentation: 12/03 21:11 Chief complaint: EMS states: Pt was discharged this morning after stent placement tl2 yesterday. Pt has sudden onset of acute chest pain with shortness of breath and nausea. Family gave one SL nitro. No complaints of pain at this time. Coronavirus screen: Patient denies fever greater than 100.4F, cough, shortness of breath, or difficulty breathing. Proceed with normal triage process. Ebola Screen: No symptoms or risks identified at this time. Initial Sepsis Screen: Does the patient meet any 2 criteria? HR > 90 bpm. Does the patient have a suspected source of infection? No. Patient's initial sepsis screen is negative. Risk Assessment: Do you want to hurt yourself or someone else? Patient reports no desire to harm self or others. 21:11 Method Of Arrival: EMS: [facility] tl2 21:11 Acuity: RANI 3 tl2 21:20 Care prior to arrival: Medication(s) given: ASA, 81 mg, x 4, IV initiated. 18 GA, in tl2 the left antecubital area, Glucose check: 126. 21:21 Onset of symptoms was December 04, 2019. tl2 Triage Assessment: 21:17 General: Appears in no apparent distress. uncomfortable, Behavior is anxious, restless. tl2 Pain: Denies pain. Neuro: Level of Consciousness is awake, alert, obeys commands, Oriented to person, place, time, situation. Cardiovascular: Chest pain is described as diffuse, quality is clutching, is located in chest wall began suddenly. Cardiovascular: Capillary refill < 3 seconds Patient's skin is warm and dry. Rhythm is irregular. Respiratory: Reports shortness of breath with pain Airway is patent Respiratory effort is even, unlabored, Respiratory pattern is regular, symmetrical. GI: Reports nausea. Derm: Skin is pink, warm \T\ dry. Historical: - Allergies: 21:17 Lisinopril; tl2 - Home Meds: 21:17 aspirin 81 mg Oral chew 1 tab once daily [Active]; carbidopa-levodopa 25-250 mg Oral tl2 tab 2 tabs 3 times per day [Active]; clopidogrel 75 mg Oral tab 1 tab once daily [Active]; pantoprazole 40 mg Oral TbEC 1 tab once daily [Active]; pravastatin 40 mg Oral tab 1 tab nightly [Active]; sotalol 80 mg Oral tab 1 tab 2 times per day [Active]; valsartan 160 mg Oral tab 1 tab nightly [Active]; verapamil 120 mg Oral C24P 1 cap at 1800 [Active]; zonisamide 100 mg Oral cap 1 cap nightly [Active]; Nitrostat SL [Active]; amlodipine oral [Active]; - PMHx: 21:17 GERD; heart stents; High Cholesterol; Hypertension; Myocardial infarction; Parkinsons; tl2 - PSHx: 21:17 stents; tl2 - Immunization history:: Adult Immunizations up to date. - Social history:: Smoking status: Patient/guardian denies using tobacco, Patient/guardian denies using alcohol, street drugs, The patient lives with family. - Family history:: not pertinent. Screenin:20 Abuse screen: Denies threats or abuse. Nutritional screening: No deficits noted. tl2 Tuberculosis screening: No symptoms or risk factors identified. Fall Risk IV access (20 points). Assessment: 21:19 General: see triage assessment. tl2 21:21 Pain: Pain does not radiate. Pain began suddenly. tl2 Vital Signs: 21:11 BP 119 / 63; Pulse 94; Resp 18; Temp 97.7(O); Pulse Ox 96% ; Weight 86.18 kg; Height 5 tl2 ft. 6 in. (167.64 cm); Pain 0/10; 22:03 BP 137 / 80; Pulse 84; Resp 13; Pulse Ox 100% on 2 lpm NC; tl2 23:48 BP 149 / 81; Pulse 77; Resp 15; Pulse Ox 98% on 2 lpm NC; tl2 12/04 00:23 BP 147 / 75; Pulse 75; Resp 19; Pulse Ox 100% on 2 lpm NC; tl2 12/03 21:11 Body Mass Index 30.67 (86.18 kg, 167.64 cm) tl2 ED Course: 12/03 21:11 Patient arrived in ED. tl2 21:14 Katie Barksdale MD is Attending Physician. ma2 21:15 Triage completed. tl2 21:17 Initial lab(s) drawn, by me, sent to lab. Maintain EMS IV. Dressing intact. Good blood lw1 return noted. Site clean \T\ dry. Gauge \T\ site: 18. Flushed left antecubital Converted IV to saline lock on left antecubital area. 21:17 Arm band placed on right wrist. EKG completed in triage. Results shown to MD. tl2 21:20 Patient has correct armband on for positive identification. Placed in gown. Bed in low tl2 position. Call light in reach. Side rails up X2. Adult w/ patient. 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 Pulse ox on. NIBP on. 21:21 Patient maintains SpO2 saturation greater than 95% on room air. tl2 21:34 XRAY Chest (1 view) In Process Unspecified. EDMS 22:03 Tamar Darnell RN is Primary Nurse. tl2 22:14 Katie Huggins MD is Hospitalizing Provider. ma2 12/04 00:23 No provider procedures requiring assistance completed. Patient admitted, IV remains in tl2 place. Administered Medications: 12/03 21:35 Drug: morphine 4 mg Route: IVP; Site: left antecubital; lw1 21:48 Follow up: Response: No adverse reaction; Pain is decreased; RASS: Alert and Calm (0) tl2 21:35 Drug: Zofran (Ondansetron) 4 mg Route: IVP; Site: left antecubital; lw1 22:23 Follow up: Response: No adverse reaction tl2 21:36 Drug: NS 0.9% 500 ml Route: IV; Rate: 1 bolus; Site: left antecubital; lw1 12/04 00:06 Follow up: IV Status: Completed infusion; IV Intake: 500ml tl2 12/03 22:22 Drug: Lovenox 1 mg/kg Route: Sub-Q; Site: abdomen; tl2 12/04 00:06 Follow up: Response: No adverse reaction tl2 00:22 Drug: Potassium Effervescent Tablet 50 mEq Route: PO; tl2 00:33 Follow up: Response: No adverse reaction tl2 Intake: 00:06 IV: 500ml; Total: 500ml. tl2 Outcome: 12/03 22:14 Decision to Hospitalize by Provider. ma2 12/04 00:23 Admitted to Med/surg accompanied by tech, via wheelchair, room 206, with oxygen, with tl2 chart, Report called to [facility] [place] Condition: stable Discharge instructions given to patient. 00:33 Patient left the ED. tl2 Signatures: Dispatcher [employer] Tamar Francisco RN RN tl2 Katie Barksdale MD MD ma2 Angelita Lehman RN RN lw1
[2019-12-04] MEDS ORDERED: ENOXAPARIN 80 MG/0.8 ML SQ ONE (22:20)
[2019-12-04] MEDS ORDERED: NITROGLYCERIN 0.4 MG/TAB SL PRN (23:24)
[2019-12-05] MEDS ORDERED: POTASSIUM 25 MEQ EFFERV TAB ONE (00:15)
[2019-12-05] MEDS ORDERED: ASPIRIN EC 81 MG TAB PO ONE (01:00)
[2019-12-05] MEDS ORDERED: CLOPIDOGREL 75 MG TABLET PO ONE (01:00)
[2019-12-05] MEDS ORDERED: ATORVASTATIN 40 MG TAB PO ONE (01:00)
[2019-12-05 02:37] VITALS: BMI 30.9
[2019-12-05] MEDS: ACETAMINOPHEN 500 MG TAB PO PRN ×2 (03:28→07:54)
[2019-12-05 06:38] LABS: Absolute Lymphocytes (CBC) 1.5 K/uL (0.7-4.9); Basophils % 0.9 % (0-1.3); Hematocrit 35.7 % (39.6-49.0); Lymphocytes % 33.6 % (15.3-44.8); MPV 8.3 fL (7.6-11.3); RBC Red Blood Cell Count 3.93 M/uL (4.33-5.43)
[2019-12-05 07:10] LABS: BUN Blood Urea Nitrogen 15 mg/dL (7-18); Bicarbonate 31 mmol/L (21-32); Glucose Level 94 mg/dL (74-106); Potassium 3.2 mmol/L (3.5-5.1); Sodium Level 140 mmol/L (136-145)
[2019-12-05 07:29] LABS: Troponin I 2.23 ng/mL (0.0-0.045)
[2019-12-05] MEDS ORDERED: ENTACAPONE PO SCH ×2 (07:45→09:00)
[2019-12-05] MEDS ORDERED: LEVODOPA PO SCH ×2 (07:45→09:00)
[2019-12-05] MEDS ORDERED: [UNRECOGNIZED DRUG - OTHER] PO SCH ×2 (07:45→09:00)
[2019-12-05] MEDS ORDERED: CARBIDOPA PO SCH ×2 (07:45→09:00)
--- NOTE | 2019-12-05 07:47 | P.HP ---
Certification for Inpatient Patient admitted to: Observation With expected LOS: <2 Midnights Patient will require the following post-hospital care: None Practitioner: I am a practitioner with admitting privileges, knowledge of patient current condition, hospital course, and medical plan of care. Services: Services provided to patient in accordance with Admission requirements found in Title 42 Section 412.3 of the Code of Federal Regulations Patient History Date of Service: 12/05/19 Reason for admission: Chest pain History of Present Illness: Patient is a 69-year-old gentleman who came into the hospital with chest pain the other day. He has a history of Parkinson's. He states whenever is Parkinson's gets uncontrolled he really starts feeling his chest discomfort. Last night he was having bad tremors and he took is medication. Shortly after that he was noticing he was having chest discomfort. They checked his blood pressure and it was very elevated. He was sent to the emergency room by ambulance. Patient is status post successful primary left anterior descending proximal stent. This occurred on December 02. Patient was discharged home on anti-platelet therapy including aspirin and Plavix. Patient has been taking his medications as prescribed. He started having severe chest discomfort and he came into the emergency room for further evaluation. He will be admitted to the hospital for further evaluation. Allergies lisinopril Allergy (Verified 12/05/19 02:06) Anaphylaxis Home Medications: Amlodipine [Norvasc] 5 mg PO DAILY 12/05/19 Aspirin [Aspirin EC 81 MG] 81 mg PO DAILY 12/05/19 Carbidopa/Levodopa/Entacapone [Qhtvsrsbk-Buucmupf-Zqcm 100 mg] 2 tab PO SEECOM 12/05/19 Clopidogrel Bisulfate [Plavix] 75 mg PO DAILY 12/05/19 Nitroglycerin 0.4 mg SL DIRECTED 12/05/19 Pantoprazole Sodium [Protonix] 40 mg PO DAILY 12/05/19 Pravastatin Sodium 40 mg PO DAILY 12/05/19 Sotalol HCl [Betapace] 80 mg PO BID 12/05/19 Valsartan/Hydrochlorothiazide [Valsartan-Hctz 160-25 mg Tab] 1 each PO DAILY Zonisamide 100 mg PO DAILY 12/05/19 - Past Medical/Surgical History Has patient received pneumonia vaccine in the past: No Diabetic: No -: HTN -: Parkinson's -: Coronary artery disease -: History of prostate cancer -: Atrial fibrillation -: Stents x8 -: Cataract Sx -: Prostate - Family History Father Medical History: Other (see notes) Notes: Leukemia Mother Medical History: Hypertension Brother Medical History: Cancer Notes: stomach - Social History Smoking Status: Never smoker Alcohol use: No CD- Drugs: No Caffeine use: No Place of Residence: Home Review of Systems 10-point ROS is otherwise unremarkable Physical Examination - Vital Signs Temperature: 97.7 F Blood Pressure: 150/80 Pulse: 65 Respirations: 18 Pulse Ox (%): 97 - Physical Exam General: Alert, In no apparent distress, Oriented x3 HEENT: Atraumatic, PERRLA, Mucous membr. moist/pink, EOMI, Sclerae nonicteric Neck: Supple, 2+ carotid pulse no bruit, No LAD, Without JVD or thyroid abnormality Respiratory: Clear to auscultation bilaterally, Normal air movement Cardiovascular: Regular rate/rhythm, Normal S1 S2, Systolic murmur Gastrointestinal: Normal bowel sounds, Soft and benign, Non-distended, No tenderness Musculoskeletal: No clubbing, No swelling, No tenderness Integumentary: No rashes Neurological: Normal speech, Sensation intact, Cranial nerves 3-12 intact, Normal affect, Abnormal gait, Abnormal strength, Abnormal tone Lymphatics: No axilla or inguinal lymphadenopathy - Studies Laboratory Data (last 24 hrs) 12/04/19 21:15: PT 12.4, INR 1.05 12/04/19 21:15: WBC 4.4, Hgb 12.2 L, Hct 36.5 L, Plt Count 189 12/04/19 21:15: Sodium 139, Potassium 3.0 L, BUN 17, Creatinine 0.96, Glucose 134 H, Magnesium 2.2, Total Bilirubin 0.5, AST 22, ALT 9 L, Alkaline Phosphatase 100 Assessment & Plan - Problems (Diagnosis) (1) Chest pain, rule out acute myocardial infarction Current Visit: Yes Status: Acute (2) History of placement of stent in LAD coronary artery Current Visit: Yes Status: Acute (3) NSTEMI (non-ST elevated myocardial infarction) Current Visit: No Status: Acute (4) Atrial fibrillation Current Visit: No Status: Chronic Qualifiers: Atrial fibrillation type: unspecified Qualified Code(s): I48.91 - Unspecified atrial fibrillation (5) Coronary artery disease Current Visit: No Status: Chronic Qualifiers: (6) Hyperlipidemia Current Visit: No Status: Chronic Qualifiers: (7) Hypertension Current Visit: No Status: Chronic Qualifiers: (8) Parkinson disease Onset Date: 07/11/16 Current Visit: No Status: Chronic - Plan 1. Serial troponins and EKG 2. Cardiology consultation 3. Continue sotalol and Norvasc for blood pressure control 4. Resume Parkinson's medications. His Parkinson's is poorly controlled; he will need to follow with neurologist 5. IV morphine for pain 6. Nitro p.r.n. 7. Anxiolytics 8. GI and DVT prophylaxis Discharge Plan: Home Plan to discharge in: 48 Hours - Advance Directives Does patient have a Living Will: No Does patient have a Durable POA for Healthcare: No - Code Status/Comfort Care Code Status Assessed: Yes Code Status: Full Code Critical Care: No Time Spent Managing PTS Care (In Minutes): 45
[2019-12-05] MEDS ORDERED: TEMAZEPAM 15 MG CAP PO PRN (07:49)
[2019-12-05] MEDS ORDERED: LACTULOSE 20 GM/30 ML UCUP PO PRN (07:50)
[2019-12-05] MEDS ORDERED: BISACODYL E.C. 5 MG TAB PO ONE (08:00)
[2019-12-05] MEDS ORDERED: ALPRAZOLAM 0.25 MG TABLET PO ONE (08:00)
[2019-12-05] MEDS ORDERED: INFLUENZA VACCINE (for 3y+) 0.5 ML DOSE IMVAC ONE (09:00)
[2019-12-05] MEDS ORDERED: CLOPIDOGREL 75 MG TABLET PO SCH (09:00)
[2019-12-05] MEDS ORDERED: ASPIRIN 325 MG TAB PO SCH (09:00)
[2019-12-05] MEDS ORDERED: PNEUMOCOCCAL VACCINE 0.5 ML IMVAC ONE (09:00)
[2019-12-05] MEDS ORDERED: ASPIRIN EC 81 MG TAB PO SCH (09:00)
[2019-12-05] MEDS ORDERED: METOPROLOL TAR 50 MG TAB PO SCH (09:00)
[2019-12-05] MEDS ORDERED: SOTALOL HCL 80 MG TAB PO SCH (09:00)
[2019-12-05] MEDS ORDERED: POTASSIUM CL 40 MEQ in NA CHLORIDE 0.9% 500 ML IV SCH (09:00)
[2019-12-05] MEDS ORDERED: MORPHINE 4 MG/ML SYR IV ONE (09:00)
[2019-12-05] MEDS ORDERED: ZONISAMIDE 100 MG PO SCH (09:00)
[2019-12-05] MEDS ORDERED: AMLODIPINE 5 MG TAB PO SCH (09:00)
[2019-12-05] MEDS ORDERED: HOME MED 1 EA UNK (Valsartan/Hydrochlorothiazide [Valsartan-Hctz 160-25 Mg Tab] 1 EACH) PO SCH (09:00)
[2019-12-05] MEDS ORDERED: ENOXAPARIN 100 MG/ML SYR SQ SCH (09:00)
[2019-12-05] MEDS ORDERED: VALSARTAN 160 MG TAB PO SCH (09:00)
[2019-12-05] MEDS ORDERED: hydroCHLOROthiazide 25 MG TAB PO SCH (09:00)
[2019-12-05] MEDS: CARBIDOPA/LEVODOPA 25/100 TAB PO SCH ×2 (09:13→13:39)
[2019-12-05] MEDS: ENTACAPONE 200 MG TAB PO SCH ×2 (09:16→13:39)
[2019-12-05 11:48] VITALS: BP 157/76; TEMP 97.9
--- NOTE | 2019-12-05 12:09 | RAD REPORT ---
EXAM DESCRIPTION: RAD - Chest Single View - 12/04/2019 9:33 pm CLINICAL HISTORY: CHEST PAIN Chest pain. COMPARISON: Chest Single View dated 12/02/2019; Chest Single View dated 10/16/2019; Chest Pa And Lat (2 Views) dated 12/16/2018; Chest Single View dated 10/18/2018 FINDINGS: Portable technique limits examination quality. The lungs are mildly emphysematous but grossly clear. The heart is normal in size. No displaced fract ures. IMPRESSION: No acute intrathoracic process suspected.
--- NOTE | 2019-12-05 12:41 | RAD REPORT ---
EXAM DESCRIPTION: RAD - Abdomen 1 View (KUB) - 12/05/2019 8:40 am CLINICAL HISTORY: Abd pain/ Pain COMPARISON: No comparisons FINDINGS: The bowel gas pattern is non-obstructive. No evidence of free air or pneumatosis. Small ca lcification projects over the inferior right kidney. No significant bony findings. IMPRESSION: Small right renal calculus is suspected.
[2019-12-05 13:34] VITALS: O2SAT 93
--- NOTE | 2019-12-05 13:40 | P.DS ---
Admission Date: 12/04/19 Discharge Date: 12/05/19 Disposition: ROUTINE DISCHARGE Discharge Condition: GOOD Reason for Admission: Chest pain Consultations: Cardiology Brief History of Present Illness: Admission diagnosis-Chest pain. Recent NSTEMI status post LAD stent AFib CAD Hyperlipidemia Hypertension Parkinson disease Discharge diagnosis-Chest pain. Recent NSTEMI status post LAD stent AFib CAD Hyperlipidemia Hypertension Parkinson disease Hospital Course: HPI "Patient is a 69-year-old gentleman who came into the hospital with chest pain the other day. He has a history of Parkinson's. He states whenever is Parkinson's gets uncontrolled he really starts feeling his chest discomfort. Last night he was having bad tremors and he took is medication. Shortly after that he was noticing he was having chest discomfort. They checked his blood pressure and it was very elevated. He was sent to the emergency room by ambulance. Patient is status post successful primary left anterior descending proximal stent. This occurred on December 02. Patient was discharged home on anti-platelet therapy including aspirin and Plavix. Patient has been taking his medications as prescribed. He started having severe chest discomfort and he came into the emergency room for further evaluation. He will be admitted to the hospital for further evaluation" Patient was admitted for observation. His chest pain did resolve completely. He was evaluated by post closer and cleared for discharge to follow up outpatient. Vital Signs/Physical Exam: Temp Pulse Resp BP Pulse Ox 97.9 F 63 16 157/76 H 93 12/05/19 11:47 12/05/19 11:47 12/05/19 11:47 12/05/19 11:47 12/05/19 11:47 General: Alert, In no apparent distress HEENT: Atraumatic, PERRLA, EOMI Neck: Supple, JVD not distended Respiratory: Clear to auscultation bilaterally, Normal air movement Cardiovascular: Regular rate/rhythm, Normal S1 S2 Gastrointestinal: Normal bowel sounds, No tenderness Musculoskeletal: No tenderness Integumentary: No rashes Neurological: Normal speech, Normal tone, Normal affect Lymphatics: No axilla or inguinal lymphadenopathy Laboratory Data at Discharge: WBC 4.5 K/uL (4.3-10.9) 12/05/19 05:51 Hgb 11.9 g/dL (13.6-17.9) L 12/05/19 05:51 Hct 35.7 % (39.6-49.0) L 12/05/19 05:51 Plt Count 179 K/uL (152-406) 12/05/19 05:51 PT 12.4 SECONDS (9.5-12.5) 12/04/19 21:15 INR 1.05 12/04/19 21:15 Sodium 140 mmol/L (136-145) 12/05/19 05:51 Potassium 3.2 mmol/L (3.5-5.1) L 12/05/19 05:51 BUN 15 mg/dL (7-18) 12/05/19 05:51 Creatinine 0.80 mg/dL (0.55-1.3) 12/05/19 05:51 Glucose 94 mg/dL (74-106) 12/05/19 05:51 Magnesium 2.2 mg/dL (1.8-2.4) 12/04/19 21:15 Total Bilirubin 0.5 mg/dL (0.2-1.0) 12/04/19 21:15 AST 22 U/L (15-37) 12/04/19 21:15 ALT 9 U/L (12-78) L 12/04/19 21:15 Alkaline Phosphatase 100 U/L (45-117) 12/04/19 21:15 Troponin I 2.23 ng/mL (0.0-0.045) H* 12/05/19 05:51 Triglycerides 85 mg/dL (<150) 12/05/19 05:51 Cholesterol 124 mg/dL (<200) 12/05/19 05:51 HDL Cholesterol 43 mg/dL (40-60) 12/05/19 05:51 Cholesterol/HDL Ratio 2.88 12/05/19 05:51 Home Medications: Amlodipine [Norvasc*] 5 mg PO DAILY 12/05/19 Aspirin [Aspirin EC 81 MG] 81 mg PO DAILY 12/05/19 Carbidopa/Levodopa/Entacapone [Carbidopa-Levodopa 100 mg-Enta] 2 tab PO SEECOM 12/05/19 Clopidogrel Bisulfate [Plavix] 75 mg PO DAILY 12/05/19 Nitroglycerin 0.4 mg SL DIRECTED 12/05/19 Pantoprazole Sodium [Protonix] 40 mg PO DAILY 12/05/19 Pravastatin Sodium 40 mg PO DAILY 03/28/20 Sotalol HCl [Betapace*] 80 mg PO BID 12/05/19 Valsartan/Hydrochlorothiazide [Valsartan-Hctz 160-25 mg Tab] 1 each PO DAILY Zonisamide 100 mg PO DAILY 12/05/19 Diet: AHA Activity: Ad skip Followup: Vineet Stanford MD [ACTIVE - CAN ADMIT] - NONE,NONE [Primary Care Provider] -
--- NOTE | 2019-12-05 15:45 | CON ---
The patient was readmitted on 12/04/2019 for chest pain. History Of Present Illness: Mr. Fong is a 69-year-old male who actually left the hospital on 0 12/04/2019 and came back that same evening with chest pain. On 12/03/2019, he underwent an angioplast y and stent of the proximal LAD. At that time, his catheterization showed a patent mid and distal LA D stent, a proximal and distal RCA stent. He had some moderate 50% disease in the ramus branch. His LAD stent was placed proximally successful and 0% residual. His initial troponin when he was in the hospital was 4 and went up to 6. He came back yesterday with more chest pain that was very atypical and his troponin was 2 but was admitted nevertheless. His complaint is abdominal pain, midepigastri c pain, back pain, arm pain, chest pain. No nausea, vomiting, diaphoresis, PND, orthopnea, pedal chino ma, palpitation, or syncope. Normal EKG. Normal chest x-ray. The patient was very hypertensive whe n he came in, which may have caused some of his discomfort. He was told to stop Norvasc when he went home, but he was on aspirin and Plavix when he went home, as well as sotalol. His present regimen n ow at home include aspirin, carbidopa, Plavix, Protonix, sotalol, valsartan, hydrochlorothiazide, and zonisamide. Allergies: INCLUDE LISINOPRIL. Review of Systems: Negative. Social History: Negative. Family History: Negative. Past Medical History: Includes CAD status post multiple stents, gastroesophageal reflux disease, dys lipidemia, hypertension, and severe parkinsonism. He sees Dr. Lynch for that. Physical Examination: General: When I saw him this morning, he was pain free. Sinus rhythm. Vital Signs: Stable, afebrile. HEENT: Negative. Neck: Supple. No bruit. Chest: Clear to auscultation and percussion. Cardiac: Revealed a regular rhythm and rate. No murmurs, gallops, or rubs. Abdomen: Benign. Extremities: Revealed no clubbing, cyanosis, or edema. Diagnostic Data: As stated earlier. Impression And Plan: Atypical chest pain, most likely gastroesophageal. Patient points to his midep igastric area as well as the lower abdomen when he complained of chest pain. His troponin of 2.0 is expected considering he just recently had a non-ST elevation myocardial infarction. It has decreased from 6 to 2. EKG showed no acute changes. He does have some residual stenosis in his ramus branch, but I do not think this is giving him the pain. I would personally continue his present regimen at home. Renew his Norvasc, add Imdur 30 mg daily, and he can go home whenever it is okay with Dr. Ginny landrum. His other problems including dyslipidemia, parkinsonism, and gastroesophageal reflux disease se em to be stable. I will see him in the office in the next week or two. RICHA/ZOE Voice ID: [id number] Report ID: [id number]
--- NOTE | 2019-12-06 09:18 | EKG ---
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
== END 2019-12-05 14:52 | disposition home or self-care (01) ==
LOC: ER 21:09 → ERHOLD 23:24 → 2ND 23:51
PROVIDERS: ADMIT Hospitalist; ATTEND Hospitalist
DX: R07.89 Other chest pain (principal); I25.10 Atherosclerotic heart disease of native coronary artery without angina pectoris; I48.91 Unspecified atrial fibrillation; I25.2 Old myocardial infarction; I45.2 Bifascicular block; E78.5 Hyperlipidemia, unspecified; I10 Essential (primary) hypertension; G20 Parkinson's disease; K21.9 Gastro-esophageal reflux disease without esophagitis; Z79.02 Long term (current) use of antithrombotics/antiplatelets; Z79.82 Long term (current) use of aspirin; Z79.899 Other long term (current) drug therapy; Z95.5 Presence of coronary angioplasty implant and graft; Z85.46 Personal history of malignant neoplasm of prostate
CPT/HCPCS: 96361; 93005; 85025 ×2; 80048 ×2; 36415; 83735; 85610; 80061; 80076; 84484 ×3; 83880; 74018; 71045; 96375; 96372; 96374; 99285; J1650 ×2; J7040 ×2; J2405; G0378 ×2

== ENCOUNTER 2019-12-16 04:51 | Observation (INO) | payer OTHER ==
--- OUTSIDE RECORDS SUMMARY | 2019-12-16 04:55 | XMS REPORT ---
:1950 Author Organization [facility] t Address [address] [place] [address] Dr. Hidalgo [address] [place] [id number] Care Team Providers Name Role Phone Unavailable Unavailable Unavailable Problems This patient has no known problems. Allergies, Adverse Reactions, Alerts This patient has no known allergies or adverse reactions. Medications This patient has no known medications.
--- OUTSIDE RECORDS SUMMARY | 2019-12-16 04:56 | XMS REPORT | Summary of Care ---
:[address] [facility] Address [address] [place] [address] Care Team Providers Name Role Phone Cuong Nation MD Primary Care Provider [phone] Reason for Visit Reason Comments Assessment Encounter Details Date Type Department Care Team Description 12/11/2019 Telephone [facility] and Cuong Holbrook MD Assessment Adult Primary Care- [address] [place] [address] [address] [facility] , [address] [place] [address] Allergies Active Allergy Reactions Severity Noted Date Comments Lisinopril Other - See comments 08/09/2015 Passed out documented as of this encounter (statuses as of 12/11/2019) Medications Medication Sig Dispensed Refills Start Date End Date Status carbidopa-levodopa Take by mouth 0 07/13/2015 Active (SINEMET 25/250) 25-250 5 (five) times mg per tablet daily. zonisamide (ZONEGRAN) 100 Take 100 mg by 0 5 Active mg capsule mouth daily. aspirin (ASPIRIN [...] Use 2 Sprays in 16 g 12 9 Active mcg/actuation nasal each nostril sprayIndications: daily. Non-seasonal allergic rhinitis due to pollen tiZANidine 2 mg Take 1 tablet 15 tablet 5 11/03/2018 Active tabletIndications: by mouth at Parkinson disease bedtime as needed (muscle pain/spasm). PANTOPRAZOLE 40 mg EC TAKE 1 TABLET 90 tablet 4 06/23/2019 Active tabletIndications: EVERY DAY Gastroesophageal reflux disease without esophagitis CLOPIDOGREL 75 mg TAKE 1 TABLET 30 tablet 0 10/27/2019 Active tabletIndications: EVERY DAY Coronary artery disease involving havasupai coronary artery of havasupai heart without angina pectoris documented as of this encounter (statuses as of 12/11/2019) Active Problems Problem Noted Date Sleep apnea, obstructive 08/20/2016 Essential hypertension 08/09/2015 Parkinson disease 08/09/2015 Coronary artery disease without angina pectoris 2014 documented as of this encounter (statuses as of 12/11/2019) Immunizations Name Administration Dates Next Due Influenza [...] Plan / Subscriber ID Effective Dates Phone Addre ss Type Group HUMANA - HUMANA [id number] 2012-[facility] MANAGED MEDICARE t FFS MEDICARE documented as of this encounter
[2019-12-16] MEDS ORDERED: MEPERIDINE HCL 25 MG/0.5 ML ONE ×2 (05:22→05:57)
[2019-12-16 05:38] LABS: Protime INR 0.99
[2019-12-16 05:40] LABS: Absolute Lymphocytes (CBC) 1.4 K/uL (0.7-4.9); Basophils % 0.7 % (0-1.3); Hematocrit 37.4 % (39.6-49.0); Lymphocytes % 23.3 % (15.3-44.8); MPV 8.5 fL (7.6-11.3)
[2019-12-16 05:51] LABS: Bilirubin Direct 0.1 mg/dL (0-0.2); Bilirubin Total 0.4 mg/dL (0.2-1.0); Potassium 3.5 mmol/L (3.5-5.1)
[2019-12-16 05:52] LABS: Troponin (Emerg Dept Use Only) 0.6 ng/mL (0.0-0.045)
--- NOTE | 2019-12-16 06:03 | ER ---
Nurse's Notes [facility] Name: Sivakumar Fong Age: 69 yrs Sex: Male : 1950 Arrival Date: 12/16/2019 Time: 04:53 Bed 6 Private MD: Diagnosis: Chest pain, unspecified Presentation: 12/15 05:28 Chief complaint: Patient states: Chest pain. Patient had stent place a week ago. Chest ao pain radiates to the left side. Patient is negative for nausea and vomiting. Coronavirus screen: Patient reports shortness of breath or difficulty breathing. Patient denies contact with known and/or suspected case of COVID-19. Ebola Screen: Patient negative for fever greater than or equal to 101.5 degrees Fahrenheit, and additional compatible Ebola Virus Disease symptoms Patient denies exposure to infectious person. Patient denies travel to an Ebola-affected area in the 21 days before illness onset. Initial Sepsis Screen: Does the patient meet any 2 criteria? No. Patient's initial sepsis screen is negative. Does the patient have a suspected source of infection? No. Patient's initial sepsis screen is negative. Risk Assessment: Do you want to hurt yourself or someone else? Patient reports no desire to harm self or others. Onset of symptoms is unknown. 05:28 Method Of Arrival: Wheelchair ao 05:28 Acuity: RANI 2 ao Historical: - Allergies: 05:34 Lisinopril; ao - Home Meds: 05:34 amlodipine oral [Active]; aspirin 81 mg Oral chew 1 tab once daily [Active]; ao carbidopa-levodopa 25-250 mg Oral tab 2 tabs 3 times per day [Active]; clopidogrel 75 mg Oral tab 1 tab once daily [Active]; pantoprazole 40 mg Oral TbEC 1 tab once daily [Active]; Nitrostat SL [Active]; pravastatin 40 mg Oral tab 1 tab nightly [Active]; sotalol 80 mg Oral tab 1 tab 2 times per day [Active]; valsartan 160 mg Oral tab 1 tab nightly [Active]; verapamil 120 mg Oral C24P 1 cap at 1800 [Active]; zonisamide 100 mg Oral cap 1 cap nightly [Active]; - PMHx: 05:34 GERD; heart stents; High Cholesterol; Hypertension; Myocardial infarction; Parkinsons; ao - PSHx: 05:34 None; ao - Immunization history:: Adult Immunizations up to date. - Social history:: Smoking status: unknown Patient/guardian denies using alcohol, IV drugs. - Family history:: not pertinent. - Hospitalizations: : The patient was recently seen at [facility]. Screenin:44 Abuse screen: Denies threats or abuse. Denies injuries from another. Nutritional ao screening: No deficits noted. Tuberculosis screening: No symptoms or risk factors identified. Fall Risk None identified. Assessment: 05:35 General: Appears uncomfortable, well groomed, well developed, well nourished, Behavior ao is calm, cooperative, appropriate for age. Pain: Pain radiates to left arm Pain currently is 8 out of 10 on a pain scale. Pain began 3 hours ago. Neuro: Level of Consciousness is awake, alert, obeys commands, Oriented to person, place, time, situation, Appropriate for age Weakness hand(s) Speech is normal, Facial symmetry appears normal. Cardiovascular: Capillary refill < 3 seconds Patient's skin is warm and dry. Respiratory: Airway is patent Respiratory effort is even, unlabored, Respiratory pattern is regular, symmetrical. GI: Abdomen is non-distended. : No signs and/or symptoms were reported regarding the genitourinary system. EENT: No signs and/or symptoms were reported regarding the EENT system. Derm: Skin is intact, Skin is diaphoretic, Skin is pale, Skin temperature is warm. Musculoskeletal: muscle tremor. Patient report Parkinson's. 06:15 Reassessment: Patient appears in no apparent distress at this time. Patient and/or ao family updated on plan of care and expected duration. Pain level reassessed. Dr Cuevas at bedside talking to patient about admission. Patient agree with admission plans. 07:00 Reassessment: RECD REPORT FROM FABIO SAUL. 69YO HM P/W CP, RECENT STENT PLACEMENT. PT TBA bp CARDIAC OBS. 07:56 Reassessment: ADMIT COMPLETE. REPORT TO RADHA SAUL FOR 222. bp Vital Signs: 05:28 BP 157 / 91; Pulse 87; Resp 22; Temp 98.3(O); Pulse Ox 100% on R/A; Weight 74.84 kg ao (M); Height 5 ft. 4 in. (162.56 cm); 06:26 BP 137 / 86; Pulse 70; Resp 20; Pulse Ox 98% on R/A; ao 07:12 BP 153 / 61; Pulse 77; Resp 17; Pulse Ox 98% ; bp 05:28 Body Mass Index 28.32 (74.84 kg, 162.56 cm) ao ED Course: 04:53 Patient arrived in ED. ds1 04:57 Miko Cuevas MD is Attending Physician. rn 05:16 Fabio Yoon RN is Primary Nurse. ao 05:22 Arm band placed on. sg 05:31 XRAY Chest (1 view) In Process Unspecified. EDMS 05:32 Triage completed. ao 05:40 pts daughter Makayla phone number [phone]. mw2 05:49 Patient has correct armband on for positive identification. vice president business & corporate development on. Pulse ao ox on. NIBP on. 05:49 Inserted saline lock: 20 gauge in right forearm, using aseptic technique. Blood ao collected. Patient maintains SpO2 saturation greater than 95% on room air. 06:02 Katie Huggins MD is Hospitalizing Provider. rn 07:09 Report given to KG Weber. ao 07:16 No provider procedures requiring assistance completed. Patient admitted, IV remains in bp place. 07:21 Attending Physician role handed off by Miko Cuevas MD cha 07:21 Clinton Camacho MD is Attending Physician. [facility] Administered Medications: 05:20 Drug: Demerol 25 mg Route: IVP; Site: right forearm; sg 06:24 Follow up: Response: No adverse reaction ao 06:00 Drug: Demerol - Meperidine 12.5 mg Route: IVP; Site: right forearm; ao 06:53 Follow up: Response: No adverse reaction ao Outcome: 06:03 Decision to Hospitalize by Provider. rn 07:56 Admitted to Tele accompanied by tech, via stretcher, room 222, with chart, Report bp called to RADHA RN 07:56 Condition: stable 07:56 Instructed on the need for admit. 08:14 Patient left the ED. bp Signatures: Dispatcher [employer] EDMS Vikas Longoria RN RN sg Anderson, Corey, MD MD cha Sanford, Demi ds1 Miko Cuevas MD MD rn Ortiz, Alex, RN RN ao Peltier, Brian, RN RN bp Veronique Brown mw2
--- NOTE | 2019-12-16 06:03 | EDPHYS ---
Physician Documentation [facility] Name: Sivakumar Fong Age: 69 yrs Sex: Male : 1950 Arrival Date: 12/16/2019 Time: 04:53 Bed 6 Private MD: ERANEST Physician Clinton Camacho HPI: 12/15 05:08 This 69 yrs old Male presents to ER via Unassigned with complaints of Chest rn Pain. 05:08 The patient or guardian reports chest pain that is located primarily in the substernal rn area, anterior chest wall. Onset: last night. The pain radiates to the left arm, The chest pain is described as aching. Duration: The patient or guardian reports multiple episodes, that are intermittent. Modifying factors: The symptoms are alleviated by nothing. the symptoms are aggravated by nothing. Modifying factors: The symptoms are alleviated by NTG. Severity of pain: At its worst the pain was moderate in the emergency department the pain is unchanged. The patient has experienced similar episodes in the past. The patient has been recently been admitted at [facility]. Reports just had stent placed about 1 week ago here, was doing ok, intermittent chest pains at night, but last night began worse of all, radiates to neck and left arm, relieved with nitro. Assoc with mild sob. Denies cough or fever. Reports fall but denies injury to chest. . Historical: - Allergies: 05:34 Lisinopril; ao - Home Meds: 05:34 amlodipine oral [Active]; aspirin 81 mg Oral chew 1 tab once daily [Active]; ao carbidopa-levodopa 25-250 mg Oral tab 2 tabs 3 times per day [Active]; clopidogrel 75 mg Oral tab 1 tab once daily [Active]; pantoprazole 40 mg Oral TbEC 1 tab once daily [Active]; Nitrostat SL [Active]; pravastatin 40 mg Oral tab 1 tab nightly [Active]; sotalol 80 mg Oral tab 1 tab 2 times per day [Active]; valsartan 160 mg Oral tab 1 tab nightly [Active]; verapamil 120 mg Oral C24P 1 cap at 1800 [Active]; zonisamide 100 mg Oral cap 1 cap nightly [Active]; - PMHx: 05:34 GERD; heart stents; High Cholesterol; Hypertension; Myocardial infarction; Parkinsons; ao - PSHx: 05:34 None; ao - Immunization history:: Adult Immunizations up to date. - Social history:: Smoking status: unknown Patient/guardian denies using alcohol, IV drugs. - Family history:: not pertinent. - Hospitalizations: : The patient was recently seen at [facility]. ROS: 05:08 Constitutional: Negative for fever, chills, and weight loss, Eyes: Negative for injury, rn pain, redness, and discharge, Neck: + left neck pain Cardiovascular: + chest pain and edema Respiratory: + sob, negative for cough Abdomen/GI: Negative for abdominal pain, nausea, vomiting, diarrhea, and constipation, MS/Extremity: Negative for injury and deformity, Skin: Negative for injury, rash, and discoloration, Neuro: Negative for headache, weakness, numbness, tingling, and seizure. Exam: 05:08 Constitutional: This is a well developed, well nourished patient who is awake, alert, rn + parkinson tremor, slow shuffling gait to bed, moaning ENT: MMM Neck: Trachea midline, no thyromegaly or masses palpated, and no cervical lymphadenopathy. Supple, full range of motion without nuchal rigidity, or vertebral point tenderness. No Meningismus. Chest/axilla: Normal chest wall appearance and motion. Nontender with no deformity Cardiovascular: Tachycardic, irregular, intact distal pulses Respiratory: mild tachypnea, clear bilateral breath sounds, no retractions Abdomen/GI: soft, mild epigastric tenderness, no rebound Skin: Warm, dry MS/ Extremity: Pulses equal, no cyanosis Neuro: Awake and alert, GCS 15, oriented to person, place, time, and situation. + coarse tremor Vital Signs: 05:28 BP 157 / 91; Pulse 87; Resp 22; Temp 98.3(O); Pulse Ox 100% on R/A; Weight 74.84 kg ao (M); Height 5 ft. 4 in. (162.56 cm); 06:26 BP 137 / 86; Pulse 70; Resp 20; Pulse Ox 98% on R/A; ao 07:12 BP 153 / 61; Pulse 77; Resp 17; Pulse Ox 98% ; bp 05:28 Body Mass Index 28.32 (74.84 kg, 162.56 cm) ao MDM: 04:57 Patient medically screened. rn 06:00 Differential diagnosis: acute myocardial infarction, acute pericarditis, anxiety, rn coronary artery disease chest wall pain, costochondritis, gastritis, gastroesophageal reflux disease (GERD), pericarditis, pleurisy, pneumonia, pneumothorax, stable angina, unstable angina. Data reviewed: vital signs, nurses notes, lab test result(s), EKG, radiologic studies, plain films, and as a result, I will admit patient. Test interpretation: by ED physician or midlevel provider: ECG, plain radiologic studies, CXR neg for acute infiltrate. Counseling: I had a detailed discussion with the patient and/or guardian regarding: the historical points, exam findings, and any diagnostic results supporting the discharge/admit diagnosis, lab results, radiology results, the need for further work-up and treatment in the hospital. ED course: Pt with elevated trop, 0.6. At time of stent was 6, then got readmitted and trop was 4. Chest pain on readmission thought to be MSK vs reflux. Patient states pain is worse today, assoc with neck and left arm pain, and diaphoresis. Will obx overnight to Dr. Huggins given worsening of symptoms. Pain also relieved with nitro.. 12/15 05:07 Order name: Basic Metabolic Panel; Complete Time: 05:57 rn 12/15 05:07 Order name: CBC with Diff; Complete Time: 05:57 rn 12/15 05:07 Order name: LFT's; Complete Time: 05:57 rn 12/15 05:07 Order name: NT PRO-BNP; Complete Time: 05:57 rn 12/15 05:07 Order name: PT-INR; Complete Time: 05:57 rn 12/15 05:07 Order name: Troponin (emerg Dept Use Only); Complete Time: 05:57 rn 12/15 05:07 Order name: XRAY Chest (1 view) rn 12/15 05:07 Order name: Lipase; Complete Time: 05:57 rn 12/15 05:38 Order name: CT Head C Spine rn 12/15 06:08 Order name: Lipid Profile [facility] 12/15 06:08 Order name: Lipid Profile [facility] 12/15 06:08 Order name: Troponin I [facility] 12/15 06:08 Order name: Troponin I [facility] 12/15 06:08 Order name: Troponin I [facility] 12/15 05:07 Order name: EKG; Complete Time: 05:08 rn 12/15 05:07 Order name: Cardiac monitoring; Complete Time: 05:22 rn 12/15 05:07 Order name: EKG - Nurse/Tech; Complete Time: 06:24 rn 12/15 05:07 Order name: IV Saline Lock; Complete Time: 05:22 rn 12/15 05:07 Order name: Labs collected and sent; Complete Time: 05:22 rn 12/15 05:07 Order name: O2 Per Protocol; Complete Time: 05:22 rn 12/15 05:07 Order name: O2 Sat Monitoring; Complete Time: 05:22 rn 12/15 06:07 Order name: CONS Physician Consult EDMS 12/15 06:08 Order name: Heart Healthy EDMS 12/15 06:09 Order name: EKG Electrocardiogram EDMS Administered Medications: 05:20 Drug: Demerol 25 mg Route: IVP; Site: right forearm; sg 06:24 Follow up: Response: No adverse reaction ao 06:00 Drug: Demerol - Meperidine 12.5 mg Route: IVP; Site: right forearm; ao 06:53 Follow up: Response: No adverse reaction ao Disposition: 12/16/19 06:03 Hospitalization ordered by Katie Hugigns for Observation. Preliminary diagnosis is Chest pain, unspecified. - Bed requested for Telemetry/MedSurg (observation). - Status is Observation. bp - Condition is Stable. - Problem is new. - Symptoms have improved. Signatures: Dispatcher [employer] EDIA Vikas Longoria RN RN sg Miko Cuevas MD MD rn Lasagna, Tonya RN KG tl1 Meek Yoon RN Gus Hernandez RN RN bp Corrections: (The following items were deleted from the chart) 06:50 06:03 Hospitalization Ordered by Katie Huggins MD for Observation. Preliminary tl1 diagnosis is Chest pain, unspecified. Bed requested for Telemetry/MedSurg (observation). Status is Observation. Condition is Stable. Problem is new. Symptoms have improved. rn 08:14 06:50 12/16/2019 06:03 Hospitalization Ordered by Katie Huggins MD for Observation. bp Preliminary diagnosis is Chest pain, unspecified. Bed requested for Telemetry/MedSurg (observation). Status is Observation. Condition is Stable. Problem is new. Symptoms have improved. tl1
[2019-12-16] MEDS ORDERED: MORPHINE 4 MG/ML SYR IV PRN (06:04)
[2019-12-16] MEDS ORDERED: ALPRAZOLAM 0.25 MG TABLET PO PRN (06:04)
[2019-12-16] MEDS ORDERED: ACETAMINOPHEN 500 MG TAB PO PRN (06:04)
--- NOTE | 2019-12-16 08:10 | RAD REPORT ---
EXAM DESCRIPTION: Arnold Single View12/16/2019 5:30 am CLINICAL HISTORY: Chest pain COMPARISON: November 2019 FINDINGS: The lungs appear clear of acute infiltrate. The heart is normal size IMPRESSION: No acute abnormalities displayed
[2019-12-16] MEDS ORDERED: ASPIRIN EC 81 MG TAB PO SCH (09:00)
[2019-12-16] MEDS ORDERED: METOPROLOL TAR 50 MG TAB PO SCH (09:00)
[2019-12-16] MEDS ORDERED: CLOPIDOGREL 75 MG TABLET PO SCH (09:00)
[2019-12-16] MEDS ORDERED: CARBIDOPA/LEVODOPA 25/250 TAB PO ONE (09:07)
[2019-12-16] MEDS: ENOXAPARIN 40 MG/0.4 ML SQ SCH (09:22)
--- NOTE | 2019-12-16 09:23 | P.HP ---
Certification for Inpatient Patient admitted to: Observation With expected LOS: <2 Midnights Patient will require the following post-hospital care: None Practitioner: I am a practitioner with admitting privileges, knowledge of patient current condition, hospital course, and medical plan of care. Services: Services provided to patient in accordance with Admission requirements found in Title 42 Section 412.3 of the Code of Federal Regulations Patient History Date of Service: 12/16/19 Reason for admission: Chest pain rule out acute coronary syndrome History of Present Illness: Patient is a 69-year-old gentleman who came into the hospital with chest discomfort. Patient has been in and out of the hospital over the last few weeks and actually had a left anterior descending artery stent placed about 4 weeks ago. Patient has had recurrent admission after the stent was placed. His troponin remains slightly elevated. Patient started having chest discomfort once again which was severe and out of the normal for him. He was given nitro in the ER & his pain has resolved. Patient be admitted to the hospital and he will be ruled out for acute coronary syndrome. Cardiology did speak with me and recommended Bettye scan. Most likely patient is having some musculoskeletal pain. Allergies lisinopril Allergy (Verified 12/05/19 02:06) Anaphylaxis Home Medications: Amlodipine [Norvasc*] 5 mg PO DAILY 12/05/19 Aspirin [Aspirin EC 81 MG] 81 mg PO DAILY 12/05/19 Clopidogrel Bisulfate [Plavix] 75 mg PO DAILY 12/05/19 Nitroglycerin 0.4 mg SL DIRECTED 12/05/19 Pantoprazole Sodium [Protonix] 40 mg PO DAILY 12/05/19 Pravastatin Sodium 40 mg PO DAILY 12/05/19 Sotalol HCl [Betapace*] 80 mg PO BID 12/05/19 Valsartan/Hydrochlorothiazide [Valsartan-Hctz 160-25 mg Tab] 1 each PO DAILY 12/05/19 Zonisamide 100 mg PO DAILY 12/05/19 Carbidopa/Levodopa [Carbidopa-Levo 25-250 mg Odt] 2 tab PO TID 12/16/19 Fluticasone Propionate [Flovent Diskus] 2 sprays IN DAILY 12/16/19 - Past Medical/Surgical History Diabetic: No -: HTN -: Parkinson's -: Coronary artery disease -: History of prostate cancer -: Atrial fibrillation -: Stents x8 -: Cataract Sx -: Prostate -: Atrial fibrillation - Family History Father Medical History: Other (see notes) Notes: Leukemia Mother Medical History: Hypertension Brother Medical History: Cancer Notes: stomach - Social History Smoking Status: Former smoker Alcohol use: No CD- Drugs: No Caffeine use: No Review of Systems 10-point ROS is otherwise unremarkable Physical Examination - Vital Signs Temperature: 98.3 F Blood Pressure: 153/61 Pulse: 77 Respirations: 17 Pulse Ox (%): 96 - Physical Exam General: Alert, In no apparent distress, Oriented x3 HEENT: Atraumatic, PERRLA, Mucous membr. moist/pink, EOMI, Sclerae nonicteric Neck: Supple, 2+ carotid pulse no bruit, No LAD, Without JVD or thyroid abnormality Respiratory: Clear to auscultation bilaterally, Normal air movement Cardiovascular: Regular rate/rhythm, Normal S1 S2, No murmurs Gastrointestinal: Normal bowel sounds, Soft and benign, Non-distended, No tenderness Musculoskeletal: No clubbing, No swelling, No tenderness Integumentary: No rashes Neurological: Normal speech, Normal tone, Sensation intact, Cranial nerves 3-12 intact, Abnormal gait, Abnormal strength Lymphatics: No axilla or inguinal lymphadenopathy - Studies Laboratory Data (last 24 hrs) 12/16/19 05:15: PT 11.7, INR 0.99 12/16/19 05:15: WBC 6.0 D, Hgb 12.3 L, Hct 37.4 L, Plt Count 272 D 12/16/19 05:15: Sodium 142, Potassium 3.5, BUN 18, Creatinine 0.89, Glucose 108 H, Total Bilirubin 0.4, AST 18, ALT 11 L, Alkaline Phosphatase 89, Lipase 149 Assessment & Plan - Problems (Diagnosis) (1) Chest pain, rule out acute myocardial infarction Current Visit: No Status: Acute (2) History of placement of stent in LAD coronary artery Current Visit: No Status: Acute (3) NSTEMI (non-ST elevated myocardial infarction) Current Visit: No Status: Acute (4) Atrial fibrillation Current Visit: No Status: Chronic Qualifiers: Atrial fibrillation type: unspecified Qualified Code(s): I48.91 - Unspecified atrial fibrillation (5) Hyperlipidemia Current Visit: No Status: Chronic Qualifiers: (6) Hypertension Current Visit: No Status: Chronic Qualifiers: (7) Parkinson disease Onset Date: 07/11/16 Current Visit: No Status: Chronic - Plan 1. Serial troponins and EKG 2. Appreciate Cardiology input 3. Lexiscan in AM 4. Anti-platelet therapy, anti coagulation, beta-minh, statin, and O2 as needed 5. IV morphine for pain 6. Continue medication for Parkinson's 7. Patient may need muscle relaxers as pain may be from persistent tremors from his Parkinson's disease 8. Nitro p.r.n. Discharge Plan: Home Plan to discharge in: 24 Hours - Advance Directives Does patient have a Living Will: No Does patient have a Durable POA for Healthcare: No - Code Status/Comfort Care Code Status Assessed: Yes Code Status: Full Code Critical Care: No Time Spent Managing PTS Care (In Minutes): 40
--- NOTE | 2019-12-16 09:26 | RAD REPORT ---
EXAM DESCRIPTION: CT - Head C Spine Mpr Wo Con - 12/16/2019 8:30 am CLINICAL HISTORY: Fall, head and neck pain COMPARISON: None. TECHNIQUE: CT Head and Cervical spine WO contrast on 12/16/2019 5:38 AM CDT This exam was performed according to our departmental dose-optimization program, which includes autom ated exposure control, adjustment of the mA and/or kV according to patient size and/or use of iterati ve reconstruction technique. FINDINGS: Brain: There is no acute hemorrhage, mass effect or midline shift. Negro-white differentiat ion is preserved. There is no hydrocephalus. There is no significant volume loss for age. The calvarium is intact. Orbits and globes are unremarkable. The paranasal sinuses are clear. Mastoid air cells are clear. Cervical Spine: There is no acute fracture. There is grade 1 anterolisthesis of C3 on C4. There is mo derate bilateral facet arthritis. There is mild narrowing of the C3-4 disc. There is moderate narrowing of C4-5, C5-6 and C6-7. Vertebr al body heights are preserved. Soft tissues are unremarkable. IMPRESSION: No acute postraumatic findings. Electronically signed by: Sharad Reynolds MD 12/16/2019 7:21 AM CDT Due to temporary technical issues with the PACS/Fluency reporting system, reports are being signed by the in house radiologist as a courtesy to ensure prompt reporting. The interpreting radiologist is f ully responsible for the content of the report.
[2019-12-16] MEDS ORDERED: NITROGLYCERIN 0.4 MG/TAB SL SCH (10:00)
[2019-12-16 12:11] VITALS: BMI 28.3
--- NOTE | 2019-12-16 12:44 | CON ---
Date of Consultation: 12/16/2019 Patient admitted on 12/16/[address] Huggins. I saw the patient on 12/16/2019. Reason For Consultation: Chest pain. History Of Present Illness: Mr. Fong is a 69-year-old male, has a history of ex tensive coronary artery disease. He has had stents in the past in the mid LAD, distal LAD. He has h ad a stent of the proximal RCA and distal RCA. The catheterization that was done recently about 8 da ys ago showed a new lesion in the proximal LAD of about 80%. This was stented successfully with 0% r esidual. The patient comes back today with chest pain. At the time of the catheterization, he was f ound to have moderate disease in the ramus branch and circumflex that I decided to treat medically. His description of pain is so severe that I am not so sure this was what was causing it, but he keeps coming back to the hospital. This is the second readmission in 8 days since the stents. Denied PND , orthopnea, pedal edema, palpitations, or syncope. He denied fever or chills or cough. His troponi n is 0.60 and that has been chronically elevated since his last admission about 8 days ago. His EKG is showing no acute changes. Chest x-ray is negative. His BNP is 869. Past Medical History: Also includes history of GERD, parkinsonism, hypertension, and dyslipidemia. Allergies: TO LISINOPRIL. Medications: At home at the present include aspirin, Plavix, Protonix, Norvasc, Pravachol, sotalol, valsartan with hydrochlorothiazide, carbidopa, and zonisamide. Physical Examination: General: Mr. Fong was having extensive tremors this morning, still complaining of chest pain. Vital Signs: Stable. Afebrile. HEENT: Negative. Neck: Supple. No bruit. Chest: Clear. Cardiac: Revealed a regular rhythm and rate. No murmurs, gallops, or rubs. Abdomen: Benign. Extremities: Revealed no clubbing, cyanosis, or edema. Diagnostic Data: As stated earlier. Impression And Plan: 1.Coronary artery disease, status post stents in the proximal left anterior descending, mid left ant erior descending, distal left anterior descending, proximal right coronary artery and distal right co ronary artery. He does have some remnant disease of the ramus branch in the circumflex. I doubt viet t this is causing his symptoms, but nevertheless I agree with admission. I think we should do a Bettye scan in the morning before I decide to intervene again. Continue his present medication. I suggest we add Ranexa 500 b.i.d. 2.Atrial fibrillation, in sinus rhythm on sotalol. 3.Gastroesophageal reflux disease. 4.Parkinsonism, severe. 5.Hypertension. 6.Dyslipidemia. It is possible that his pain in the chest may be musculoskeletal from his severe tremors. It could a lso be related to gastroesophageal reflux disease or peptic ulcer disease. I think if the stress maki t is positive, I will re-cath him. If the stress test is negative, we should consider neurological c onsultation and maybe consider a GI consultation as well. I will discuss the case further with Dr. Fidel dubon. RICHA/ZOE Voice ID: [id number] Report ID: [id number]
[2019-12-16] MEDS: CARBIDOPA/LEVODOPA 25/250 TAB PO SCH ×3 (13:26→21:27)
[2019-12-16] MEDS: SOTALOL HCL 80 MG TAB PO SCH ×2 (13:26→21:27)
--- NOTE | 2019-12-16 15:51 | EKG ---
Test Date: 2019-12-16 Test Time: 05:35:22 Bridge Manager: SWG MEASUREMENT RESULTS: Intervals: Rate: 80 MD: 150 QRSD: 140 QT: 414 QTc: 477 [place]: P: 45 MD: 150 QRS: -68 T: 71 INTERPRETIVE STATEMENTS: Normal sinus rhythm Right bundle branch block Left anterior fascicular block Bifascicular block Left ventricular hypertrophy with repolarization abnormality Cannot rule out Septal infarct, age undetermined Abnormal ECG Compared to ECG 12/04/2019 20:58:56 Sinus tachycardia no longer present Bifascicular block still present Myocardial infarct finding still present Electronically Signed On 12-16-19 15:49:46 CDT by Vineet Stanford
[2019-12-16] MEDS ORDERED: ATORVASTATIN 10 MG TAB PO SCH (21:00)
[2019-12-17 06:21] VITALS: O2SAT 96
[2019-12-17] MEDS ORDERED: LORAZEPAM 0.5 MG TABLET SL ONE (07:36)
[2019-12-17] MEDS ORDERED: REGADENOSON 0.4 MG/5 ML SYR IV ONE (07:57)
[2019-12-17] MEDS: CARBIDOPA/LEVODOPA 25/250 TAB PO SCH ×3 (08:35→17:06)
[2019-12-17] MEDS ORDERED: VALSARTAN 160 MG TAB PO SCH (09:00)
[2019-12-17] MEDS ORDERED: FLUTICASONE PROPIONATE IN SCH (09:00)
[2019-12-17] MEDS ORDERED: ZONISAMIDE 100 MG PO SCH (09:00)
[2019-12-17] MEDS ORDERED: AMLODIPINE 5 MG TAB PO SCH (09:00)
[2019-12-17] MEDS ORDERED: hydroCHLOROthiazide 25 MG TAB PO SCH (09:00)
[2019-12-17] MEDS ORDERED: HOME MED 1 EA UNK (Valsartan/Hydrochlorothiazide [Valsartan-Hctz 160-25 Mg Tab] 1 EACH) PO SCH (09:00)
[2019-12-17] MEDS ORDERED: ASPIRIN EC 81 MG TAB PO SCH (09:00)
[2019-12-17] MEDS ORDERED: PANTOPRAZOLE 40MG TABLET PO SCH (09:00)
[2019-12-17] MEDS ORDERED: HOME MED 1 EA UNK (Pravastatin Sodium [Pravastatin Sodium] 40 MG) PO SCH (09:00)
[2019-12-17] MEDS ORDERED: CLOPIDOGREL 75 MG TABLET PO SCH ×2 (09:00)
[2019-12-17] MEDS: ENOXAPARIN 40 MG/0.4 ML SQ SCH (10:57)
[2019-12-17] MEDS: SOTALOL HCL 80 MG TAB PO SCH (10:58)
--- NOTE | 2019-12-17 11:11 | PN ---
Date of Progress Note: 12/17/2019 History Of Present Illness: Mr. Fong has been readmitted for the second time after a stent viet t was done approximately 8 days ago of his LAD. He complains of severe continuous chest pain for 3 d ays. Troponin is 0.61, which was the same as it was before his stent. His creatinine is 0.89. All his laboratory evaluation is unremarkable. CT of the head and C-spine were negative. Chest x-ray wa s negative. Echocardiogram was normal. EKG shows bifascicular block. Continues to have chest pain. Suffers from severe parkinsonism. Lexiscan is pending today. We will see what that shows before m aking any further decisions. RICHA/ZOE Voice ID: [id number] Report ID: [id number]
--- NOTE | 2019-12-17 11:12 | RAD REPORT ---
EXAM DESCRIPTION: NM - Rest Stress Cardiac Imaging - 12/17/2019 11:00 am CLINICAL HISTORY: Chest pain. COMPARISON: None. TECHNIQUE: The patient was administered approximately 10mCi of Tc 99m Sestamibi prior to resting SPE CT imaging of the heart. The patient was then administered approximately 30 mCi of Tc 99m Sestamibi f ollowing exercise or pharmacologic stress. Multiplanar SPECT images were reviewed. FINDINGS: There is uniformity of radiotracer uptake involving the entire left ventricular myocardiu m on rest and stress images. The left ventricular ejection fraction equals 59% IMPRESSION: Negative for a myocardial perfusion defect
[2019-12-17] MEDS ORDERED: HYDROCORTISONE SUC 100 MG INJ IV ONE (14:00)
[2019-12-17 17:58] VITALS: BP 163/82; TEMP 97.2
--- NOTE | 2019-12-18 07:55 | TREADPHA ---
DX: 69 YEAR OLD MALE/ COMPLAINTS OF CHEST PAIN Date of Study: 12/17/2019 Ht: 5' 4 " Wt: 165 lb 0 oz Consulting Physician: DOMENICO MEDICATIONS: TYLENOL, XANAX, ASPIRIN, LIPITOR, PLAVIX, LOVENOX, NITROSTAT, PROTONIX, RANEXA, BETAPACE, DIOVAN HISTORY: 69 YEAR OLD MALE WITH COMPLAINTS OF CHEST PAIN. HISTORY OF GERD, HEART STENTS, HIGH CHOLESTEROL, MYOCARDIAL INFARCTION, PARKINSON'S, NON-SMOKER. PHYSICIAL EXAMINATION: RESTING B.P.: 128/81 RESTING H.R.: 48 RESTING EKG: NORMAL SINUS RHYTHM, BIFASCICULAR BLOCK PROTOCOL: PHARMACOLOGIC EXERCISE TIME: 3:30 B.P. AT PEAK STRESS: 104/57 IMPRESSION: LEXISCAN INJECTED, FOLLOWED BY CARDIOLITE PER PROTOCOL, SEE NUCLEAR MEDICINE REPORT. NO SUPRAVENTRICULAR TACHYCARDIA, VENTRICULAR TACHYCARDIA, PREMATURE VENTRICULAR COMPLEXES. ONE PREMATURE ATRIAL COMPLEX PRIOR TO PROCEDURE. PATIENT REPORTS CHEST PAIN. PATIENT HAD SHORT RHYTHM CHANGE WHEN PATIENT HAD TROUBLE SWALLOWING DRINK.
--- NOTE | 2019-12-18 11:59 | P.DS ---
Discharge Date: 12/17/19 Disposition: ROUTINE DISCHARGE Discharge Condition: GOOD Reason for Admission: Chest pain rule out acute coronary syndrome Consultations: Cardiology - Problems (1) Chest pain, rule out acute myocardial infarction Status: Acute (2) History of placement of stent in LAD coronary artery Status: Acute (3) NSTEMI (non-ST elevated myocardial infarction) Status: Acute (4) Atrial fibrillation Status: Chronic Qualifiers: Atrial fibrillation type: unspecified Qualified Code(s): I48.91 - Unspecified atrial fibrillation (5) Hyperlipidemia Status: Chronic Qualifiers: (6) Hypertension Status: Chronic Qualifiers: (7) Parkinson disease Onset Date: 07/11/16 Status: Chronic Brief History of Present Illness: Patient is a 69-year-old gentleman who came into the hospital with chest discomfort. Patient has been in and out of the hospital over the last few weeks and actually had a left anterior descending artery stent placed about 4 weeks ago. Patient has had recurrent admission after the stent was placed. His troponin remains slightly elevated. Patient started having chest discomfort once again which was severe and out of the normal for him. He was given nitro in the ER & his pain has resolved. Patient be admitted to the hospital and he will be ruled out for acute coronary syndrome. Cardiology did speak with me and recommended Bettye scan. Most likely patient is having some musculoskeletal pain. Hospital Course: Spoke with Cardiology and they recommended IV Lexiscan performed. This was arranged. Patient Lexiscan has come back unremarkable. At this time patient is stable for discharge home with outpatient follow-up with Cardiology. Patient's pain may be musculoskeletal. Patient will be given muscle relaxer and anti- inflammatory at discharge. Vital Signs/Physical Exam: Temp Pulse Resp BP Pulse Ox 97.2 F 60 20 163/82 H 96 12/17/19 16:00 12/17/19 16:00 12/17/19 16:00 12/17/19 16:00 12/17/19 16:00 General: Alert, In no apparent distress, Oriented x3 Laboratory Data at Discharge: WBC 6.0 K/uL (4.3-10.9) D 12/16/19 05:15 Hgb 12.3 g/dL (13.6-17.9) L 12/16/19 05:15 Hct 37.4 % (39.6-49.0) L 12/16/19 05:15 Plt Count 272 K/uL (152-406) D 12/16/19 05:15 PT 11.7 SECONDS (9.5-12.5) 12/16/19 05:15 INR 0.99 12/16/19 05:15 Sodium 142 mmol/L (136-145) 12/16/19 05:15 Potassium 3.5 mmol/L (3.5-5.1) 12/16/19 05:15 BUN 18 mg/dL (7-18) 12/16/19 05:15 Creatinine 0.89 mg/dL (0.55-1.3) 12/16/19 05:15 Glucose 108 mg/dL (74-106) H 12/16/19 05:15 Total Bilirubin 0.4 mg/dL (0.2-1.0) 12/16/19 05:15 AST 18 U/L (15-37) 12/16/19 05:15 ALT 11 U/L (12-78) L 12/16/19 05:15 Alkaline Phosphatase 89 U/L (45-117) 12/16/19 05:15 Troponin I 0.61 ng/mL (0.0-0.045) H* 12/16/19 18:53 Triglycerides 74 mg/dL (<150) 12/17/19 05:34 Cholesterol 122 mg/dL (<200) 12/17/19 05:34 HDL Cholesterol 41 mg/dL (40-60) 12/17/19 05:34 Cholesterol/HDL Ratio 2.98 12/17/19 05:34 Lipase 149 U/L (73-393) 12/16/19 05:15 Home Medications: Amlodipine [Norvasc*] 5 mg PO DAILY 12/05/19 Aspirin [Aspirin EC 81 MG] 81 mg PO DAILY 12/05/19 Clopidogrel Bisulfate [Plavix] 75 mg PO DAILY 12/05/19 Nitroglycerin 0.4 mg SL DIRECTED 12/05/19 Pantoprazole Sodium [Protonix] 40 mg PO DAILY 12/05/19 Pravastatin Sodium 40 mg PO DAILY 12/05/19 Sotalol HCl [Betapace*] 80 mg PO BID 12/05/19 Valsartan/Hydrochlorothiazide [Valsartan-Hctz 160-25 mg Tab] 1 each PO DAILY 12/05/19 Zonisamide 100 mg PO DAILY 12/05/19 Carbidopa/Levodopa [Carbidopa-Levo 25-250 mg Odt] 2 tab PO TID 12/16/19 Fluticasone Propionate [Flovent Diskus] 2 sprays IN DAILY 12/16/19 Cyclobenzaprine HCl [Flexeril] 5 mg PO TID PRN #30 tablet 12/17/19 Ranolazine [Ranexa] 500 mg PO BID #30 tab.er.12h 12/17/19 predniSONE [Deltasone*] 10 mg PO BID #20 tab 12/17/19 New Medications: predniSONE [Deltasone*] 10 mg PO BID #20 tab Cyclobenzaprine HCl [Flexeril] 5 mg PO TID PRN #30 tablet PRN Reason: myalgia Ranolazine [Ranexa] 500 mg PO BID #30 tab.er.12h Patient Discharge Instructions: OK TO DC IV AND DC HOME. FOLLOW-UP WITH PRIMARY CARE PROVIDER IN 1-2 WEEKS. FOLLOW-UP WITH CARDIOLOGY IN 1-2 WEEKS. FOLLOW-UP WITH NEUROLOGY IN 1-2 WEEKS. RETURN TO THE ER IF SYMPTOMS WORSENS. CALL DR. MAURICE AT [phone] IF ANY QUESTIONS REGARDING HOSPITAL STAY. PLEASE CALL THE FLOOR AT [phone] IF ANY MEDICATION OR NURSING QUESTIONS. Diet: AHA Activity: Fall precautions Followup: Vineet Stanford MD [ACTIVE - CAN ADMIT] - (Please call to make an appointment. ) Brett Chávez MD [ASSOCIATE-ACTIVE - CAN ADMIT] - (call to make an a ppointment. ) Time spent managing pt's care (in minutes): 25
== END 2019-12-17 19:00 | disposition home or self-care (01) ==
LOC: ER 04:51 → ERHOLD 06:11 → 2ND 08:06
PROVIDERS: ADMIT Hospitalist; ATTEND Hospitalist
DX: I21.4 Non-ST elevation (NSTEMI) myocardial infarction (principal); I48.20 Chronic atrial fibrillation, unspecified; I25.10 Atherosclerotic heart disease of native coronary artery without angina pectoris; I10 Essential (primary) hypertension; I45.2 Bifascicular block; E78.5 Hyperlipidemia, unspecified; G20 Parkinson's disease; I25.2 Old myocardial infarction; K21.9 Gastro-esophageal reflux disease without esophagitis; Z79.02 Long term (current) use of antithrombotics/antiplatelets; Z79.82 Long term (current) use of aspirin; Z88.8 Allergy status to other drugs, medicaments and biological substances; Z95.5 Presence of coronary angioplasty implant and graft; Z87.891 Personal history of nicotine dependence; Z80.9 Family history of malignant neoplasm, unspecified; Z80.0 Family history of malignant neoplasm of digestive organs
CPT/HCPCS: 36415; 70450; 71045; 72125; 78452; 80048; 80061; 80076; 83690; 83880; 84484; 85025; 85610; 93005; 93017; 96374; 97112; 97116; 97161; 99285; A9500; G0378; J1650; J1720; J2175; J2785

== ENCOUNTER 2021-11-20 06:55 | Day surgery (SDC) | payer OTHER ==
[2021-11-17 13:37] VITALS: BMI 25.0
--- NOTE | 2021-11-17 14:26 | RAD REPORT ---
EXAM DESCRIPTION: Arnold Gates And Clement (2 Views)11/17/2021 2:07 pm CLINICAL HISTORY: Preop for cardiac catheterization COMPARISON: 2019 FINDINGS: The lungs appear clear of acute infiltrate. The heart is normal size IMPRESSION: No acute abnormalities displayed
[2021-11-17 14:40] LABS: Absolute Lymphocytes (CBC) 1.2 K/uL (0.7-4.9); Hematocrit 38.4 % (39.6-49.0); Lymphocytes % 33.5 % (15.3-44.8); MPV 7.9 fL (7.6-11.3); RBC Red Blood Cell Count 4.27 M/uL (4.33-5.43)
[2021-11-17 14:45] LABS: Protime INR 1.08
[2021-11-17 15:01] LABS: Potassium 3.2 mmol/L (3.5-5.1)
[~2021-11-20 06:55] MED LIST: HEPA 1000U/500MLS 1,000 UNIT/500 ML BAG IV ONE; LIDOCAINE 1% 20 ML MDV ONE
[2021-11-20] MEDS ORDERED: NA CHLORIDE 0.9% 500 ML ONE (07:02)
[2021-11-20] MEDS ORDERED: ATROPINE SULF 1 MG/10 ML SYR IV ONE (07:02)
[2021-11-20] MEDS ORDERED: NA CHLORIDE 0.9% 0 ML ONE (07:02)
[2021-11-20] MEDS ORDERED: FENTANYL CITR 100 MCG/2 ML ONE (07:03)
[2021-11-20] MEDS ORDERED: MIDAZOLAM HCL 2 MG/2 ML INJ ONE (07:04)
[2021-11-20] MEDS ORDERED: METOPROLOL TARTRATE 5 MG/5 ML INJ IV ONE (07:40)
--- NOTE | 2021-11-20 08:13 | OP ---
Surgeon: Vineet Stanford MD Wood Tank Builder: Blanca Sarah. Indications: The patient is 71, history of CAD, status post multiple stents with unstable angina, anderson s a history of hypertension, dyslipidemia. Description Of Procedure: Brought to the dental laboratory manager today as an outpatient, prepped and draped in the routine sterile fashion. Selective coronary arteriogram and left heart catheterization were done. A lso, IV Lopressor 5 mg was given because of new onset atrial fibrillation at a rate of 140. His rate went down to 80 after the Lopressor. He was prepped and draped in routine sterile fashion, given Ve rsed and fentanyl for sedation. A 6-Citizen [place] sheath was introduced in the right common femoral artery successfully using the Seldinger technique and 10 mL of xylocaine. Roman catheter left and right w ere used to cannulate the left main and right main respectively. He had 60% ostial circumflex, 50% m id circumflex after a stent. He had a patent proximal LAD stent. He has patent distal RCA stent. H e was right dominant. A 6-Citizen [place] sheath and catheters were used. No complications. Anesthesia: Total conscious sedation was 45 minutes. Blood Loss: 5 mL. Final Diagnoses: 1.Moderate coronary artery disease, patent stent. Plan is for medical therapy. 2.Atrial fibrillation, new onset. He is on aspirin, Plavix, and beta-minh. I will discuss furth er the case with him regarding using anticoagulant. Right now, he is too sedated to make that decision. I will discuss that further with him and the family as an outpatient. RICHA/GLENL Voice ID: [id number] Report ID: [id number]
[2021-11-20 14:07] VITALS: BP 121/75; O2SAT 99
--- NOTE | 2021-11-22 07:29 | EKG ---
Test Date: 2021-11-20 Test Time: 07:05:01 Public Service Director: IRMA MEASUREMENT RESULTS: Intervals: Rate: 84 [place]: QRSD: 150 QT: 418 QTc: 493 [place]: P: [place]: QRS: -71 T: 84 INTERPRETIVE STATEMENTS: Atrial fibrillation Right bundle branch block Left anterior fascicular block Bifascicular block Minimal voltage criteria for LVH, may be normal variant Septal infarct, age undetermined Abnormal ECG Compared to ECG 12/16/2019 05:35:22 Sinus rhythm no longer present Early repolarization no longer present Bifascicular block still present Myocardial infarct finding still present Electronically Signed On 11-22-21 07:23:13 CDT by Vineet Stanford
== END 2021-11-20 14:11 | disposition home or self-care (01) ==
LOC: CCL 06:55
DX: I25.110 Atherosclerotic heart disease of native coronary artery with unstable angina pectoris (principal); I48.91 Unspecified atrial fibrillation; I11.0 Hypertensive heart disease with heart failure; I50.32 Chronic diastolic (congestive) heart failure; I65.23 Occlusion and stenosis of bilateral carotid arteries; E78.2 Mixed hyperlipidemia; G47.33 Obstructive sleep apnea (adult) (pediatric); G20 Parkinson's disease; Z95.5 Presence of coronary angioplasty implant and graft; Z88.8 Allergy status to other drugs, medicaments and biological substances; Z20.822 Contact with and (suspected) exposure to COVID-19; Z82.49 Family history of ischemic heart disease and other diseases of the circulatory system
CPT/HCPCS: 93005; 85025; 80048; 36415; 85610; 85730; 71046; 93454; U0003; C1893; J2250; J3010; J7040; J1644; J0583

== ENCOUNTER 2023-01-16 21:33 | Inpatient (IN) | payer OTHER ==
--- OUTSIDE RECORDS SUMMARY | 2023-01-16 21:40 | XMS REPORT | Continuity of Care Document ---
:1950 Author Organization [facility] t Address [address] [facility] [place]. [address] [place] [address] Care Team Providers Name Role Phone Paolo Colon MD Primary Care Physician Ranjeet Strong Attending Clinician Unavailable Jeovanny Lynch Attending Clinician Lubna MOORE, Silviano Pate Attending Clinician EDWINA ABDI Attending Clinician Unavailable Paolo Colon MD Attending Clinician Doctor Unassigned, [place] Attending Clinician Unavailable PAOLO COLON Attending Clinician Unavailable Payers Payer Name Policy Type Policy Number Effective Date Expiration Date S ource [employer] MEDICARE [id number] 2020 Common Sp nicky PPO 00:00:00 - [facility] [employer] MEDICARE [id number] 2012 00:00:00 Problems Condition Condition Condition Status Onset Resolution Last Treating Co mments Source Name Details Category Date Date Treatment Clinician Date History of History of Disease Active M ethodi coronary coronary 2-04 st artery artery 00:00: Hospita stent stent 00 l placement placement Bilateral Bilateral Disease Active Met hodi carotid carotid 3-14 st bruits bruits 00:00: Hospita 00 l CAD in CAD in Disease Active 2015-09 Methodi [facility] [place] [facility] [place] 1-08 st artery artery 00:00: Hospita 00 l Essential Essential Disease Active 2015-09 Met hodi hypertensi hypertensi 1-08 st on on 00:00: Hospita 00 l Peripheral Peripheral Disease Active 2015-09 M ethodi arterial arterial 1-08 st occlusive occlusive 00:00: Hosp gordon disease disease 00 l Presence Presence Disease Active 2015-09 Metho di of stent of stent 1-08 st in in 00:00: Hospita coronary coronary 00 l artery artery Essential Essential Problem Active 2022-12-10 Memoria hypertensi hypertensi 1-14 01:09:26 l on on 00:00: Ricardo (disorder) (disorder) 00 Active 09/22/2015 Problem 12/10/2022 [facility] 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 Memoria s disease 's disease 1-14 01:09:26 l (disorder) (disorder) 00:00: Ferny diaz Active 00 09/22/2015 Problem 12/10/2022 [facility] [id number] GERD Problem Common without Spirit esophagiti - [facility] [id number] Mixed Problem Common hyperlipid Spirit emia [facility] [id number] Insomnia, Problem Com mon unspecifie Spirit d type [facility] [id number] Primary Problem Comm on osteoarthr Spirit itis of [facility] left knee [facility] [id number] Coronary Problem Comm on artery Spirit disease of [facility] [address] [address] artery [facility] Medical heart with Center stable angina pectoris [id number] Venous Problem Common insufficie Spirit ncy - [facility]I [facility] [id number] Depression Problem Co mmon with Spirit anxiety - CHI [facility] [id number] Allergic Problem Commo n rhinitis, Spirit unspecifie - [facility] d [facility] unspecifie Center d trigger [id number] Osteoarthr Problem Co mmon itis of Spirit cervical - [facility]I spine, St unspecifie [facility] d spinal Medical osteoarthr Center itis complicati on status [id number] Primary Problem Commo n osteoarthr Spirit itis of - [facility]I both knees [facility] [id number] Primary Problem Comm on osteoarthr Spirit itis of - [facility]I right knee [facility] Atrial Atrial Problem Active 2022-12-10 [facility] fibrillati fibrillati 01:09:26 l on on House (disorder) (disorder) Active Problem 12/10/2022 [facility] Cervical Cervical Problem Active 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-10 Memoria myelopathy myelopathy 01:09:26 l (disorder) (disorder) He rmann Active Problem 12/10/2022 [facility] Dysphagia Dysphagia Problem Active 2022-12-10 Memoria (disorder) (disorder) 01:09:26 l Active House Problem 12/10/2022 [facility] Knee pain Knee pain Problem Active 2022-12-10 Memoria (finding) (finding) 01:09:26 l Active Ricardo Problem 12/10/2022 [facility] 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 01:09:26 l atrophy, atrophy, Sandro n Parkinson Parkinson variant variant (disorder) (disorder) Active Problem 12/10/2022 [facility] Allergies, Adverse Reactions, Alerts Allergy Allergy Status Severity Reaction(s) Onset Inactive Treating Comm ents Source Name Type Date Date Clinician Desireeinopr Propensi Active 2015-09 Method i il ty to 09-16 st adverse 00:00: Hospita reaction 00 l s to drug LISINOPR DRUG Active Other-Cmnt 2014-09 Univ ers [place] INGREDI 10-10 ity of 00:00: [place] [facility]102 Drug Active Unknown Common allergy Spirit - [facility] lisinopr lisinopr Active Memori a il il l House Social History Social Habit Start Date Stop Date Quantity Comments Source History of Tobacco Common Spirit - Use [facility] Gender identity [facility] Sexual orientation [facility] Alcohol intake 2016-11-20 2016-11-20 Current [facility] 00:00:00 00:00:00 non-drinker of Hospital alcohol (finding) History of Social 2016-07-17 2016-07-[address] function 00:00:00 00:00:00 Hospital Sex Ass[birth year] [facility] kes 00:00:00 00:00:00 [facility] Smoking Status Start Date Stop Date Source Tobacco smoking status [facility] Medications Ordered Filled Start Stop Current Ordering Indication Dosage Frequency Signature Comments Components Source Medication Medication Date Date Medication? Clinician (SIG) Name Name valsartan Yes TAKE 1 Method i (DIOYA) 1-[address] 160 MG 00:00: EVERY DAY Hospit a tablet 00 l carbidopa-l 2021-09 Yes See Memori a evodopa 25 2-16 Instructio l mg-250 mg 21:08: ns, TAKE 2 He rmann oral tablet 00 TABLETS THREE TIMES DAILY, # 540 tab, 3 Refill(s), Pharmacy: [facility] zonisamide 2021-09 Yes = 1 cap, Mem oria 50 mg oral 0-14 PO, Daily, l capsule 23:14: # 90 cap, Petrona nn 00 1 Refill(s), [facility] carbidopa-l 2021-09 Yes See Memori a evodopa 25 0-14 Instructio l mg-250 mg 23:14: ns, TAKE 2 He rmann oral tablet 00 TABLETS THREE TIMES DAILY, # 540 tab, 3 Refill(s), [facility] carbidopa-l Yes See Memori a evodopa 25 4-08 Instructio l mg-250 mg 13:45: ns, TAKE 2 He rmann oral tablet 00 TABLETS THREE TIMES DAILY, # 540 tab, 3 Refill(s), Pharmacy: [facility] Mail [facility], 162.56, cm, 05/23/20 13:13:00 CDT, Height, 77.273, kg, 05/23/20 13:13:00 CDT, Weight carbidopa-l 2021-0 No See Memori a evodopa 25 4-08 Instructio l mg-250 mg 13:40: ns, TAKE 2 He rmann oral tablet 00 TABLETS THREE TIMES DAILY, # 540 tab, 3 Refill(s), Pharmacy: [facility] Mail Delivery, 162.56, cm, 05/23/20 13:13:00 CDT, Height, 77.273, kg, 05/23/20 13:13:00 CDT, Weight carbidopa-l 2021-0 No See Memori a evodopa 25 4-07 Instructio l mg-250 mg 15:13: ns, TAKE 2 He rmann oral tablet 00 TABLETS THREE TIMES DAILY, # 1 tab, 3 Refill(s), Pharmacy: [facility], 162.56, cm, 05/23/20 13:13:00 CDT, Height, 77.273, kg, 05/23/20 13:13:00 CDT, Weight zonisamide Yes 50 mg = 1 Me moria 50 mg oral 4-07 cap, PO, l capsule 15:12: Daily, # Sandro n 00 90 cap, 1 Refill(s), Pharmacy: [facility], 162.56, cm, 05/23/20 13:13:00 CDT, Height, 77.273, kg, 05/23/20 13:13:00 CDT, Weight Xarelto 10 2021-0 Yes 0 Memoria mg oral 4-07 Refill(s) l tablet 15:04: House 00 valsartan 2020-09- No TAKE 1 Metho di (DIOVAN) - 01-[address] 160 MG 00:00: 00:00 EVERY DAY Hospi ta tablet 00 :00 l sotaloL 2020-0 Yes [id number] TAKE 1 Meth gisela (BETAPACE) 6-[address] 80 MG 00:00: TWICE Hospita tablet 00 DAILY l pravastatin 2020-0 Yes TAKE 1 Meth gisela (PRAVACHOL) 4-[address] 40 mg 00:00: EVERY DAY Hospita tablet 00 (NEEDS AN l APPOINTMEN T BEFORE NEXT REFILL) [facility] Orth[facility]isc 2020-0 No 15mg Com 10-13 Spirit 00:00: - [facility] Orthovisc Orthovisc 2020-0 No 15mg Com 10-13 Spirit 00:00: - [facility]ovisc Orthovisc 2020-0 No 15mg Com 10-13 Spirit 00:00: - [facility] Orthovisc Orthovisc 2020-0 No 15mg Com 10-13 Spirit 00:00: - [facility] Orthovisc Orthovisc 2020-0 No 15mg Com 10-13 Spirit 00:00: - [facility] Orthovisc Orthovisc 2020-0 No 15mg Com 10-13 Spirit 00:00: - CHI [facility] Orthovisc Orthovisc 2020-0 No 15mg Com 10-13 Spirit 00:00: - CHI [facility] Orthovisc Orthovisc 2020-0 No 15mg Com 10-13 Spirit 00:00: - [facility] Orthovisc Orthovisc 2020-0 No 15mg Com 10-13 Spirit 00:00: - CHI [facility] Orthovisc Orthovisc 2020-0 No 15mg Com 10-13 Spirit 00:00: - CHI [facility] Orthovisc Orthovisc 2020-0 No 15mg Com 10-13 Spirit 00:00: - [facility] Orthovisc Orthovisc 2020-0 No 15mg Com 10-13 Spirit 00:00: - [facility] Orthovisc Orthovisc 2020-0 No 15mg Com 10-13 Spirit 00:00: - [facility] Orthovisc Orthovisc 2020-0 No 15mg Com 10-13 Spirit 00:00: - CHI [facility] Orthovisc Orthovisc 2020-0 No 15mg Com 10-13 Spirit 00:00: - CH[facility] Orthovisc Orthovisc 2020-0 No 15mg Com 10-13 Spirit 00:00: - CHI [facility] Orthovisc Orthovisc 2020-0 No 15mg Com 10-13 Spirit 00:00: - CHI [facility] Orthovisc Orthovisc 2020-0 No 15mg Com 10-13 Spirit 00:00: - CHI [facility] Orthovisc Orthovisc 2020-0 No 15mg Com 10-13 Spirit 00:00: - CHI [facility] Orthovisc Orthovisc 2020-0 No 15mg Com 10-13 Spirit 00:00: - CHI [facility] Orthovisc Orthovisc 2020-0 No 15mg Com 10-13 Spirit 00:00: - CHI [facility] Orthovisc Orthovisc 2020-0 No 15mg Com 10-13 Spirit 00:00: - CHI [facility] Orthovisc Orthovisc 2020-0 No 15mg Com 10-13 Spirit 00:00: - CHI [facility] Orthovisc Orthovisc 2020-0 No 15mg Com 10-13 Spirit 00:00: - CHI [facility] Orthovisc Orthovisc 2020-0 No 15mg Com 10-13 Spirit 00:00: - CHI [facility] Orthovisc Orthovisc 2020-0 No 15mg Com 10-13 Spirit 00:00: - CHI [facility] Orthovisc Orthovisc 2020-0 No 15mL Com 10-06 Spirit 00:00: - CHI [facility] Orthovisc Orthovisc 2020-0 No 15mL Com 10-06 Spirit 00:00: - CHI [facility] Orthovisc Orthovisc 2020-0 No 15mL Com 10-06 Spirit 00:00: - CHI [facility] Orthovisc Orthovisc 2020-0 No 15mL Com 10-06 Spirit 00:00: - CHI [facility] Orthovisc Orthovisc 2020-0 No 15mL Com 10-06 Spirit 00:00: - CHI [facility] Orthovisc Orthovisc 2020-0 No 15mL Com 10-06 Spirit 00:00: - CHI [facility]ovisc Orthovisc 2021-0 No 15mL Com 10-06 Spirit 00:00: - CHI 00 [facility] Orthovisc Orthovisc 1-0 No 15mL Com 10-06 Spirit 00:00: - [facility] Orthovisc Orthovisc 1-0 No 15mL Com 10-06 Spirit 00:00: - [facility] Orthovisc Orthovisc 1-0 No 15mL Com 10-06 Spirit 00:00: - CHI 00 [facility] Orthovisc Orthovisc 1-0 No 15mL Com 10-06 Spirit 00:00: - [facility] Orthovisc Orthovisc 2020-0 No 15mL Com 10-06 Spirit 00:00: - CHI 00 [facility] Orthovisc Orthovisc 2020-0 No 15mL Com 10-06 Spirit 00:00: - CHI 00 [facility] Orthovisc Orthovisc 2020-0 No 15mL Com 10-06 Spirit 00:00: - CHI 00 [facility] Orthovisc Orthovisc 1-0 No 15mL Com 10-06 Spirit 00:00: - CHI [facility] Orthovisc Orthovisc 2020-0 No 15mL Com 10-06 Spirit 00:00: - CHI [facility] Orthovisc Orthovisc 2020-0 No 15mL Com 10-06 Spirit 00:00: - CHI [facility] Orthovisc Orthovisc 2020-0 No 15mL Com 10-06 Spirit 00:00: - CHI 00 [facility] Orthovisc Orthovisc 1-0 No 15mL Com 10-06 Spirit 00:00: - CHI 00 [facility] Orthovisc Orthovisc 2020-0 No 15mL Com 10-06 Spirit 00:00: - CHI 00 [facility] Orthovisc Orthovisc 1-0 No 15mL Com 10-06 Spirit 00:00: - CHI 00 [facility] Orthovisc Orthovisc 1-0 No 15mL Com 10-06 Spirit 00:00: - CHI 00 [facility]ovisc Orthovisc 2021-0 No 15mL Com 10-06 Spirit 00:00: - CHI [facility] Orthovisc Orthovisc 2020-0 No 15mL Com 10-06 Spirit 00:00: - CHI [facility] Orthovisc Orthovisc 1-0 No 15mL Com 10-06 Spirit 00:00: - CHI [facility] Orthovisc Orthovisc 2020-0 No 15mL Com 10-06 Spirit 00:00: - CHI [facility] Orthovisc Orthovisc 1-0 No 2mL Com 09-28 Spirit 00:00: - [facility] Orthovisc Orthovisc 2020-0 No 2mL Com 09-28 Spirit 00:00: - [facility] Orthovisc Orthovisc 2020-0 No 2mL Com 09-28 Spirit 00:00: - [facility] Orthovisc Orthovisc 2020-0 No 2mL Com 09-28 Spirit 00:00: - [facility] Orthovisc Orthovisc 2020-0 No 2mL Com 09-28 Spirit 00:00: - [facility] Orthovisc Orthovisc 2020-0 No 2mL Com 09-28 Spirit 00:00: - [facility] Orthovisc Orthovisc 1-0 No 2mL Com 09-28 Spirit 00:00: - CH[facility] Orthovisc Orthovisc 2020-0 No 2mL Com 09-28 Spirit 00:00: - [facility] Orthovisc Orthovisc 1-0 No 2mL Com 09-28 Spirit 00:00: - [facility] Orthovisc Orthovisc 2020-0 No 2mL Com 09-28 Spirit 00:00: - [facility] Orthovisc Orthovisc 1-0 No 2mL Com 09-28 Spirit 00:00: - [facility] Orthovisc Orthovisc 1-0 No 2mL Com 09-28 Spirit 00:00: - [facility]ovisc Orthovisc 2020-0 No 2mL Com 09-28 Spirit 00:00: - CHI 00 [facility]ovisc Orthovisc 1-0 No 2mL Com 09-28 Spirit 00:00: - [facility] Orthovisc Orthovisc 1-0 No 2mL Com 09-28 Spirit 00:00: - [facility] Orthovisc Orthovisc 1-0 No 2mL Com 09-28 Spirit 00:00: - [facility] Orthovisc Orthovisc 1-0 No 2mL Com 09-28 Spirit 00:00: - CHI 00 [facility] Orthovisc Orthovisc 1-0 No 2mL Com 09-28 Spirit 00:00: - [facility] Orthovisc Orthovisc 2020-0 No 2mL Com 09-28 Spirit 00:00: - [facility] Orthovisc Orthovisc 1-0 No 2mL Com 09-28 Spirit 00:00: - [facility] Orthovisc Orthovisc 1-0 No 2mL Com 09-28 Spirit 00:00: - [facility] Orthovisc Orthovisc 1-0 No 2mL Com 09-28 Spirit 00:00: - [facility] Orthovisc Orthovisc 1-0 No 2mL Com 09-28 Spirit 00:00: - [facility] Orthovisc Orthovisc 1-0 No 2mL Com 09-28 Spirit 00:00: - CHI 00 [facility] Orthovisc Orthovisc 1-0 No 2mL Com 09-28 Spirit 00:00: - [facility] Orthovisc Orthovisc 1-0 No 2mL Com 09-28 Spirit 00:00: - [facility]I 00 [facility] Kenalog Kenalog 2020-1 No 40mg Common (Triamcinol (Triamcinol 1-16 S pirit one) one) 00:00: - CHI 00 [facility] Kenalog Kenalog 2020-1 No 40mg Common (Triamcinol (Triamcinol 1-16 S pirit one) one) 00:00: - [facility]I [facility] Bupivicaine Bupivicaine 2020-1 No Common Boise Boise 1-16 Spirit 00:00: - CHI 00 [facility] Bupivicaine Bupivicaine 2020-1 No Common Boise Boise 1-16 Spirit 00:00: - CHI 00 [facility] Kenalog Kenalog 2020- No 40mg Common (Triamcinol (Triamcinol 1-16 S pirit one) one) 00:00: - CHI 00 [facility] Kenalog Kenalog 2019- No 40mg Common (Triamcinol (Triamcinol 1-16 S pirit one) one) 00:00: - CHI 00 [facility] Bupivicaine Bupivicaine 2020-1 No 2.5mg Common Boise Boise 1-16 Spirit 00:00: - CHI 00 [facility] Bupivicaine Bupivicaine 2020-1 No 2.5mg Common Boise Boise 1-16 Spirit 00:00: - CHI 00 [facility] Kenalog Kenalog 2020- No 40mg Common (Triamcinol (Triamcinol 1-16 S pirit one) one) 00:00: - CHI 00 [facility] Kenalog Kenalog 2020- No 40mg Common (Triamcinol (Triamcinol 1-16 S pirit one) one) 00:00: - CHI 00 [facility] Bupivicaine Bupivicaine 2020-1 No 2.5mg Common Boise Boise 1-16 Spirit 00:00: - CHI 00 [facility] Bupivicaine Bupivicaine 2020-1 No 2.5mg Common Boise Boise 1-16 Spirit 00:00: - CHI 00 [facility] Kenalog Kenalog 2020-1 No 40mg Common (Triamcinol (Triamcinol 1-16 S pirit one) one) 00:00: - CHI 00 [facility] Kenalog Kenalog 2020-1 No 40mg Common (Triamcinol (Triamcinol 1-16 S pirit one) one) 00:00: - CHI 00 [facility] Bupivicaine Bupivicaine 2020-1 No 2.5mg Common Boise Boise 1-16 Spirit 00:00: - CHI 00 [facility] Bupivicaine Bupivicaine 2020-1 No 2.5mg Common Boise Boise 1-16 Spirit 00:00: - CHI 00 [facility] Kenalog Kenalog 2020-1 No 40mg Common (Triamcinol (Triamcinol 1-16 S pirit one) one) 00:00: - CHI 00 [facility] Kenalog Kenalog 2020-1 No 40mg Common (Triamcinol (Triamcinol 1-16 S pirit one) one) 00:00: - CHI 00 [facility] Bupivicaine Bupivicaine 2020-1 No 2.5mg Common Boise Boise 1-16 Spirit 00:00: - CHI 00 [facility] Bupivicaine Bupivicaine 2020-1 No 2.5mg Common Boise Boise 1-16 Spirit 00:00: - CHI 00 [facility] Kenalog Kenalog 2019-1 No 40mg Common (Triamcinol (Triamcinol 1-16 S pirit one) one) 00:00: - CHI 00 [facility] Kenalog Kenalog 2019- No 40mg Common (Triamcinol (Triamcinol 1-16 S pirit one) one) 00:00: - CHI 00 [facility] Bupivicaine Bupivicaine 2020-1 No 2.5mg Common Boise Boise 1-16 Spirit 00:00: - CHI 00 [facility] Bupivicaine Bupivicaine 2020-1 No 2.5mg Common Boise Boise 1-16 Spirit 00:00: - CHI 00 [facility] Kenalog Kenalog 2020-1 No 40mg Common (Triamcinol (Triamcinol 1-16 S pirit one) one) 00:00: - CHI 00 [facility] Kenalog Kenalog 2020-1 No 40mg Common (Triamcinol (Triamcinol 1-16 S pirit one) one) 00:00: - CHI 00 [facility] Bupivicaine Bupivicaine 2020-1 No 2.5mg Common Boise Boise 1-16 Spirit 00:00: - CHI 00 [facility] Bupivicaine Bupivicaine 2020-1 No 2.5mg Common Boise Boise 1-16 Spirit 00:00: - CHI 00 [facility] Kenalog Kenalog 2019- No 40mg Common (Triamcinol (Triamcinol 1-16 S pirit one) one) 00:00: - CHI 00 [facility] Kenalog Kenalog 2019- No 40mg Common (Triamcinol (Triamcinol 1-16 S pirit one) one) 00:00: - CHI 00 [facility] Bupivicaine Bupivicaine 2020-1 No 2.5mg Common Boise Boise 1-16 Spirit 00:00: - CHI 00 [facility] Bupivicaine Bupivicaine 2019-1 No 2.5mg Common Boise Boise 1-16 Spirit 00:00: - CHI 00 [facility] Kenalog Kenalog 2019- No 40mg Common (Triamcinol (Triamcinol 1-16 S pirit one) one) 00:00: - CHI 00 [facility] Kenalog Kenalog 2019- No 40mg Common (Triamcinol (Triamcinol 1-16 S pirit one) one) 00:00: - CHI 00 [facility] Bupivicaine Bupivicaine 2020-1 No 2.5mg Common Boise Boise 1-16 Spirit 00:00: - [facility]I 00 [facility] Bupivicaine Bupivicaine 2019-1 No 2.5mg Common Boise Boise 1-16 Spirit 00:00: - [facility]I 00 [facility] Kenalog Kenalog 2019- No 40mg Common (Triamcinol (Triamcinol 1-16 S pirit one) one) 00:00: - [facility]I 00 [facility] Kenalog Kenalog 2019- No 40mg Common (Triamcinol (Triamcinol 1-16 S pirit one) one) 00:00: - [facility]I 00 [facility] Bupivicaine Bupivicaine 2020-1 No 2.5mg Common Boise Boise 1-16 Spirit 00:00: - [facility]I 00 [facility] Bupivicaine Bupivicaine 2020-1 No 2.5mg Common Boise Boise 1-16 Spirit 00:00: - [facility] 00 [facility] [facility] Kenalog Kenalog 2020- No 40mg Common (Triamcinol (Triamcinol 1-16 S pirit one) one) 00:00: - [facility] Kenalog Kenalog 2020- No 40mg Common (Triamcinol (Triamcinol 1-16 S pirit one) one) 00:00: - [facility] Bupivicaine Bupivicaine 2019- No 2.5mg Common Boise Boise 1-16 Spirit 00:00: - [facility] 00 [facility] Bupivicaine Bupivicaine 2019- No 2.5mg Common [place] 1-16 Spirit 00:00: - [facility] 00 [facility] Kenalog Kenalog 2019- No 40mg Common (Triamcinol (Triamcinol 1-16 S pirit one) one) 00:00: - [facility] 00 [facility] Kenalog Kenalog 2019- No 40mg Common (Triamcinol (Triamcinol 1-16 S pirit one) one) 00:00: - [facility] Bupivicaine Bupivicaine 2019- No 2.5mg Common Bo[place] Boise 1-16 Spirit 00:00: - [facility] 00 [facility] Bupivicaine Bupivicaine 2019- No 2.5mg Common [place] 1-16 Spirit 00:00: - [facility] 00 [facility] Kenalog Kenalog 2019- No 40mg Common (Triamcinol (Triamcinol 1-16 S pirit one) one) 00:00: - [facility] Kenalog Kenalog 2019- No 40mg Common (Triamcinol (Triamcinol 1-16 S pirit one) one) 00:00: - [facility] Bupivicaine Bupivicaine 2019- No 2.5mg Common [place] Bo[place] 1-16 Spirit 00:00: - [facility] 00 [facility] Bupivicaine Bupivicaine 2019- No 2.5mg Common [place] 1-16 Spirit 00:00: - [facility] 00 [facility] clopidogreL 2020-0 Yes TAKE 1 Meth gisela (PLAVIX) 75 6-[address] mg tablet 00:00: EVERY DAY Hos yamel 00 l Hydrochloro 2020-0 Yes 1 tab, PO, Memoria thiazide 25 4-15 Daily, # l MG / 14:44: 90 tab, 1 House valsartan 00 Refill(s) 160 MG Oral Tablet 12 HR 2020-0 Yes 500 mg = 1 Memori a ranolazine 4-15 tab, PO, l 500 MG 14:44: BID, # 60 Sandro n Extended 00 tab, 0 Release Refill(s) Tablet Nitroglycer 2020-0 Yes 0.4 mg = 1 Memoria in 0.4 MG 4-15 tab, SL, l Sublingual 14:44: Q5Min, 0 Her michelle Tablet 00 Refill(s) hydrochloro 2020-0 Yes 1 tab, PO, Memoria thiazide-va 4-15 Daily, # l lsartan 25 14:44: 90 tab, 1 He rmann mg-160 mg 00 Refill(s) oral tablet ranolazine 2020-0 Yes 500 mg = 1 M emoria 500 mg oral 4-15 tab, PO, l tablet, 14:44: BID, # 60 [place] nn extended 00 tab, 0 release Refill(s) predniSONE 2020-0 Yes 10 mg = 1 Me moria 10 mg oral 4-15 tab, PO, l tablet 14:44: BID, 0 Ricardo 00 Refill(s) pravastatin 2020-0 Yes 40 mg = 1 M emoria 40 mg oral 4-15 tab, PO, l tablet 14:44: Daily, 0 Ricardo 00 Refill(s) nitroglycer 2020-0 Yes 0.4 mg = 1 Memoria in 0.4 mg 4-15 tab, SL, l sublingual 14:44: Q5Min, 0 Her michelle tablet 00 Refill(s) fluticasone 2020-0 Yes INHALATION Memoria propionate 4-15 , BID, 0 l 14:44: Refill(s) Ricardo 00 Carbidopa 2020-0 Yes 2 tab, PO, Me moria 25 MG / 4-15 TID, # 540 l Levodopa 14:39: tab, 2 House 250 MG Oral 00 Refill(s), Tablet Pharmacy: [facility] Cyclobenzap 2020-0 Yes 5 mg = 1 Me moria rine 4-15 tab, PO, l hydrochlori 14:35: TID, 0 Herm caridad de 5 MG 00 Refill(s) Oral Tablet [Flexeril] Flexeril 5 2020-0 Yes 5 mg = 1 Mem oria mg oral 4-15 tab, PO, l tablet 14:35: TID, 0 House 00 Refill(s) valsartan 2020-0 Yes 160 mg = 1 Me moria 160 mg oral 4-09 tab, PO, l tablet 14:42: Daily, # Ricardo 00 30 tab, 0 Refill(s) simvastatin 2020-0 Yes 40 mg = 1 M emoria 40 mg oral 4-09 tab, PO, l tablet 14:42: Bedtime, 0 [place] nn 00 Refill(s) aspirin 2019-0 Yes 81mg QD Take 81 mg Meth gisela (ECOTRIN) 2-[address] 81 MG 09:31: daily. Hospita enteric 34 l coated tablet carbidopa-l 2019-0 Yes Q.2D Take by Met hyun evodopa 2-[address] (SINEMET) 09:31: (five) Hospit a 25-250 mg 34 times a l per tablet day. zonisamide 0 Yes 100mg QD Take 100 Me thodi (ZONEGRAN) 2-[address] 100 MG 09:31: mouth Hospita capsule 34 daily. l pantoprazol Yes Method i e 1-13 st (PROTONIX) 00:00: Hospita 40 MG EC 00 l tablet verapamil 2018-09 Yes 120mg QD Take 1 Metho di sustained 2-[address] release 00:00: (120 mg Hospita (CALAN-SR) 00 total) by l 120 MG SR mouth tablet daily. zonisamide 2018-09 Yes See Memoria 100 mg oral 2-04 Instructio l capsule 21:03: ns, TAKE 1 Herm caridad 26 CAPSULE EVERY DAY, # 90 cap, 3 Refill(s), Pharmacy: [facility] fluticasone 2018-09 Yes Method i propionate 0-29 st (FLONASE) 00:00: Hospita 50 00 l mcg/actuati on nasal spray Carbidopa 2018-09 Yes 1 tab, PO, Me moria 50 MG / 0-24 QPM, # 90 l Levodopa 18:56: tab, 2 House 200 MG 26 Refill(s), Extended Pharmacy: Release [facility] [[facility] Mail 50-200] Delivery Carbidopa Yes 2 tab, PO, Me moria 25 MG / 9-12 TID, # 540 l Levodopa 18:51: tab, 2 House 250 MG Oral 40 Refill(s), Tablet Pharmacy: [facility] Carbidopa Yes = 1 tab, Colt deangelo 25 MG / 6-11 PO, 5X l Levodopa 15:06: Day, # 450 Her michelle 250 MG Oral 16 tab, Tablet Refill(s) 2, Pharmacy: [facility] Carbidopa Yes 1 tab, PO, Me moria 50 MG / 5-09 QPM, # 90 l Levodopa 20:48: tab, 2 House 200 MG 53 Refill(s), Extended Pharmacy: Release [facility] [Sin[facility] Mail 50-200] Delivery tizanidine Yes 2 mg = 1 Mem oria 2 mg oral 5-09 cap, PO, l capsule 20:47: Bedtime, Sandro n 00 PRN for muscle spasm, # 30 cap, 0 Refill(s) losartan Yes 100 mg = 1 Mem oria 100 mg oral 5-09 tab, PO, l tablet 20:47: Daily, # Ricardo 00 30 tab, 0 Refill(s) sotalol 80 Yes 80 mg = 1 Me moria mg oral 5-09 tab, PO, l tablet 20:47: BID, # 180 [place] nn 00 tab, 0 Refill(s) rosuvastati Yes 5 mg = 1 Me moria n 5 mg oral 5-09 tab, PO, l tablet 20:47: Bedtime, # [place] nn 00 30 tab, 0 Refill(s) pantoprazol Yes 40 mg = 1 M emoria e 40 mg 5-09 tab, PO, l oral 20:47: Daily, # Ricardo enteric 00 30 tab, 0 coated Refill(s) tablet Carbidopa 2017-09 Yes 1 tab, PO, Me moria 50 MG / 0-04 Bedtime, # l Levodopa 21:15: 90 tab, 2 Herm caridad 200 MG 21 Refill(s), Extended Pharmacy: Release [facility] [Sinemet Mail 50-200] Delivery Carbidopa 2017-09 Yes 1 tab, PO, Me moria 25 MG / 0-04 5X Day, # l Levodopa 21:12: 450 tab, 2 Her michelle 250 MG Oral 00 Refill(s), Tablet Pharmacy: [[facility] 25-250] Pharmacy Mail Delivery zonisamide No See Memoria 100 mg oral 9- Instructio l capsule 05:40: ns, # 90 Sandro n 06 unknown unit, Refill(s) 3, TAKE 1 CAPSULE EVERY DAY, Pharmacy: [facility] amLODIPine Yes 5 mg = 1 Mem oria 5 mg oral 2-28 tab, PO, l tablet 19:39: Daily, 0 Ricardo 00 Refill(s) MUSCLE RUB, Yes Method i WITH 2-20 st [place], 00:00: Hospita 4-30-10 % 00 l cream docusate 2015-09 Yes 100mg Q.5D Take 1 Method i sodium 1-[address] (COLACE) 00:00: (100 mg Hospit a 100 MG 00 total) by l capsule mouth 2 (two) times a day. Pantoprazol Pantoprazol Yes Ranjeet 1 tablet Common e Sodium e Sodium Strong [facility] Valsartan Valsartan Yes Ranjeet 1 tablet Common Strong [facility] Cyclobenzap Cyclobenzap Yes Ranjeet 1 tablet Common rine HCl rine HCl Strong at bedtime [facility] as needed [facility] Nitroglycer Nitroglycer Yes Ranjeet 1 tablet Common in in Strong as needed [facility] Amlodipine Amlodipine Yes Ranjeet 1 tablet Common Besylate Besylate Strong [facility] Clopidogrel Clopidogrel Yes Ranjeet 1 tablet Common Bisulfate Bisulfate Strong [facility] Aspir-Low Aspir-Low Yes Ranjeet 1 tablet Common Strong [facility] Melatonin Melatonin Yes Ranjeet 1 tablet Common Strong at bedtime [facility] as needed [facility] Carbidopa-L Carbidopa-L Yes Ranjeet 2 tablets Common evodopa evodopa Strong [facility] Fluticasone Fluticasone Yes Ranjeet 2 spray in Common Propionate Propionate Strong each Sp nicky nostril [facility] Stool Stool Yes Ranjeet not Common Softener Softener Strong defined Spi rit - [facility] Artificial Artificial Yes Ranjeet not C ommon Tear Tear Strong defined Spirit Solution Solution - [facility] Sotalol HCl Sotalol HCl Yes Ranjeet 1 tablet Common Strong [facility] Pravastatin Pravastatin Yes Ranjeet 1 tablet Common Sodium Sodium Strong Spirit [facility] predniSONE predniSONE No predniSONE Aspirin 81 Aspirin 81 No 1{table QD Aspirin 81 81 MG 81 MG t} 81 MG Pantoprazol Pantoprazol No 1{table QD Pantoprazo e Sodium 40 e Sodium 40 t} le Sodium MG MG 40 MG Zonisamide Zonisamide No Zonisamide Melatonin Melatonin No 1{table QD Melatonin 10 MG 10 MG t_at_be 10 MG dtime_a s_neede d} Clopidogrel Clopidogrel No 1{table QD Clopidogre Bisulfate Bisulfate t} l 75 MG 75 MG Bisulfate 75 MG Aspir-Low Aspir-Low No 1{table QD Aspir-Low 81 MG 81 MG t} 81 MG Nitroglycer Nitroglycer No 1{table QD Nitroglyce in 0.4 MG in 0.4 MG t_as_ne rin 0.4 MG eded} Valsartan Valsartan No 1{table QD Valsartan 160 MG 160 MG t} 160 MG amLODIPine amLODIPine No 1{table QD amLODIPine Besylate 5 Besylate 5 t} Besylate 5 MG MG MG Sotalol HCl Sotalol HCl No 1{table BID Sotalol 80 MG 80 MG t} HCl 80 MG Stool Stool No Stool Softener Softener Softener Carbidopa-L Carbidopa-L No 2{table Carbidopa- evodopa evodopa ts} Levodopa 25-250 MG 25-250 MG 25-250 MG Cyclobenzap Cyclobenzap No 1{table QD Cyclobenza rine HCl 10 rine HCl 10 t_at_be eloy HCl MG MG dtime} 10 MG Pravastatin Pravastatin No 1{table QD Pravastati Sodium 40 Sodium 40 t} n Sodium MG MG 40 MG Fluticasone Fluticasone No 2{spray QD Fluticason Propionate Propionate _in_eac e 50 MCG/ACT 50 MCG/ACT h_nostr Propionate il} 50 MCG/ACT Artificial Artificial No Artificial Tear Tear Tear Solution Solution Solution Nitroglycer Nitroglycer No 1{table QD Nitroglyce in 0.4 MG in 0.4 MG t_as_ne rin 0.4 MG eded} Pantoprazol Pantoprazol No 1{table QD Pantoprazo e Sodium 40 e Sodium 40 t} le Sodium MG MG 40 MG Aspir-Low Aspir-Low No 1{table QD Aspir-Low 81 MG 81 MG t} 81 MG Clopidogrel Clopidogrel No 1{table QD Clopidogre Bisulfate Bisulfate t} l 75 MG 75 MG Bisulfate 75 MG Melatonin Melatonin No 1{table QD Melatonin 10 MG 10 MG t_at_be 10 MG dtime_a s_neede d} Sotalol HCl Sotalol HCl No 1{table BID Sotalol 80 MG 80 MG t} HCl 80 MG Valsartan Valsartan No 1{table QD Valsartan 160 MG 160 MG t} 160 MG Fluticasone Fluticasone No 2{spray QD Fluticason Propionate Propionate _in_eac e 50 MCG/ACT 50 MCG/ACT h_nostr Propionate il} 50 MCG/ACT Pravastatin Pravastatin No 1{table QD Pravastati Sodium 40 Sodium 40 t} n Sodium MG MG 40 MG Carbidopa-L Carbidopa-L No 2{table Carbidopa- evodopa evodopa ts} Levodopa 25-250 MG 25-250 MG 25-250 MG amLODIPine amLODIPine No 1{table QD amLODIPine Besylate 5 Besylate 5 t} Besylate 5 MG MG MG Nitroglycer Nitroglycer No 1{table QD Nitroglyce in 0.4 MG in 0.4 MG t_as_ne rin 0.4 MG eded} Pantoprazol Pantoprazol No 1{table QD Pantoprazo e Sodium 40 e Sodium 40 t} le Sodium MG MG 40 MG Aspir-Low Aspir-Low No 1{table QD Aspir-Low 81 MG 81 MG t} 81 MG Clopidogrel Clopidogrel No 1{table QD Clopidogre Bisulfate Bisulfate t} l 75 MG 75 MG Bisulfate 75 MG Melatonin Melatonin No 1{table QD Melatonin 10 MG 10 MG t_at_be 10 MG dtime_a s_neede d} Sotalol HCl Sotalol HCl No 1{table BID Sotalol 80 MG 80 MG t} HCl 80 MG Valsartan Valsartan No 1{table QD Valsartan 160 MG 160 MG t} 160 MG Fluticasone Fluticasone No 2{spray QD Fluticason Propionate Propionate _in_eac e 50 MCG/ACT 50 MCG/ACT h_nostr Propionate il} 50 MCG/ACT Pravastatin Pravastatin No 1{table QD Pravastati Sodium 40 Sodium 40 t} n Sodium MG MG 40 MG Carbidopa-L Carbidopa-L No 2{table Carbidopa- evodopa evodopa ts} Levodopa 25-250 MG 25-250 MG 25-250 MG amLODIPine amLODIPine No 1{table QD amLODIPine Besylate 5 Besylate 5 t} Besylate 5 MG MG MG Nitroglycer Nitroglycer No 1{table QD Nitroglyce in 0.4 MG in 0.4 MG t_as_ne rin 0.4 MG eded} Pantoprazol Pantoprazol No 1{table QD Pantoprazo e Sodium 40 e Sodium 40 t} le Sodium MG MG 40 MG Aspir-Low Aspir-Low No 1{table QD Aspir-Low 81 MG 81 MG t} 81 MG Clopidogrel Clopidogrel No 1{table QD Clopidogre Bisulfate Bisulfate t} l 75 MG 75 MG Bisulfate 75 MG Melatonin Melatonin No 1{table QD Melatonin 10 MG 10 MG t_at_be 10 MG dtime_a s_neede d} Sotalol HCl Sotalol HCl No 1{table BID Sotalol 80 MG 80 MG t} HCl 80 MG Valsartan Valsartan No 1{table QD Valsartan 160 MG 160 MG t} 160 MG Fluticasone Fluticasone No 2{spray QD Fluticason Propionate Propionate _in_eac e 50 MCG/ACT 50 MCG/ACT h_nostr Propionate il} 50 MCG/ACT Pravastatin Pravastatin No 1{table QD Pravastati Sodium 40 Sodium 40 t} n Sodium MG MG 40 MG Carbidopa-L Carbidopa-L No 2{table Carbidopa- evodopa evodopa ts} Levodopa 25-250 MG 25-250 MG 25-250 MG amLODIPine amLODIPine No 1{table QD amLODIPine Besylate 5 Besylate 5 t} Besylate 5 MG MG MG Pantoprazol Pantoprazol No 1{table QD Pantoprazo e Sodium 40 e Sodium 40 t} le Sodium MG MG 40 MG Aspir-Low Aspir-Low No 1{table QD Aspir-Low 81 MG 81 MG t} 81 MG Nitroglycer Nitroglycer No 1{table QD Nitroglyce in 0.4 MG in 0.4 MG t_as_ne rin 0.4 MG eded} Pravastatin Pravastatin No 1{table QD Pravastati Sodium 40 Sodium 40 t} n Sodium MG MG 40 MG Fluticasone Fluticasone No 2{spray QD Fluticason Propionate Propionate _in_eac e 50 MCG/ACT 50 MCG/ACT h_nostr Propionate il} 50 MCG/ACT amLODIPine amLODIPine No 1{table QD amLODIPine Besylate 5 Besylate 5 t} Besylate 5 MG MG MG Valsartan Valsartan No 1{table QD Valsartan 160 MG 160 MG t} 160 MG Pravastatin Pravastatin No Pravastati Sodium 40 Sodium 40 n Sodium MG MG 40 MG Melatonin Melatonin No 1{table QD Melatonin 10 MG 10 MG t_at_be 10 MG dtime_a s_neede d} Cyclobenzap Cyclobenzap No Cyclobenza rine HCl 10 rine HCl 10 eloy HCl MG MG 10 MG Sotalol HCl Sotalol HCl No 1{table BID Sotalol 80 MG 80 MG t} HCl 80 MG Carbidopa-L Carbidopa-L No 2{table Carbidopa- evodopa evodopa ts} Levodopa 25-250 MG 25-250 MG 25-250 MG Clopidogrel Clopidogrel No 1{table QD Clopidogre Bisulfate Bisulfate t} l 75 MG 75 MG Bisulfate 75 MG Pantoprazol Pantoprazol No 1{table QD Pantoprazo e Sodium 40 e Sodium 40 t} le Sodium MG MG 40 MG Aspir-Low Aspir-Low No 1{table QD Aspir-Low 81 MG 81 MG t} 81 MG Nitroglycer Nitroglycer No 1{table QD Nitroglyce in 0.4 MG in 0.4 MG t_as_ne rin 0.4 MG eded} Pravastatin Pravastatin No 1{table QD Pravastati Sodium 40 Sodium 40 t} n Sodium MG MG 40 MG Fluticasone Fluticasone No 2{spray QD Fluticason Propionate Propionate _in_eac e 50 MCG/ACT 50 MCG/ACT h_nostr Propionate il} 50 MCG/ACT amLODIPine amLODIPine No 1{table QD amLODIPine Besylate 5 Besylate 5 t} Besylate 5 MG MG MG Valsartan Valsartan No 1{table QD Valsartan 160 MG 160 MG t} 160 MG Pravastatin Pravastatin No Pravastati Sodium 40 Sodium 40 n Sodium MG MG 40 MG Melatonin Melatonin No 1{table QD Melatonin 10 MG 10 MG t_at_be 10 MG dtime_a s_neede d} Cyclobenzap Cyclobenzap No Cyclobenza rine HCl 10 rine HCl 10 eloy HCl MG MG 10 MG Sotalol HCl Sotalol HCl No 1{table BID Sotalol 80 MG 80 MG t} HCl 80 MG Carbidopa-L Carbidopa-L No 2{table Carbidopa- evodopa evodopa ts} Levodopa 25-250 MG 25-250 MG 25-250 MG Clopidogrel Clopidogrel No 1{table QD Clopidogre Bisulfate Bisulfate t} l 75 MG 75 MG Bisulfate 75 MG amLODIPine amLODIPine No 1{table QD amLODIPine Besylate 5 Besylate 5 t} Besylate 5 MG MG MG Fluticasone Fluticasone No 2{spray QD Fluticason Propionate Propionate _in_eac e 50 MCG/ACT 50 MCG/ACT h_nostr Propionate il} 50 MCG/ACT Zonisamide Zonisamide No 1{capsu BID Zonisamide 50 MG 50 MG le} 50 MG Carbidopa-L Carbidopa-L No 2{table Carbidopa- evodopa evodopa ts} Levodopa 25-250 MG 25-250 MG 25-250 MG Pravastatin Pravastatin No 1{table QD Pravastati Sodium 40 Sodium 40 t} n Sodium MG MG 40 MG Pantoprazol Pantoprazol No 1{table QD Pantoprazo e Sodium 40 e Sodium 40 t} le Sodium MG MG 40 MG Clopidogrel Clopidogrel No 1{table QD Clopidogre Bisulfate Bisulfate t} l 75 MG 75 MG Bisulfate 75 MG Sotalol HCl Sotalol HCl No 1{table BID Sotalol 80 MG 80 MG t} HCl 80 MG Pravastatin Pravastatin No Pravastati Sodium 40 Sodium 40 n Sodium MG MG 40 MG Valsartan Valsartan No 1{table QD Valsartan 160 MG 160 MG t} 160 MG Aspir-Low Aspir-Low No 1{table QD Aspir-Low 81 MG 81 MG t} 81 MG Nitroglycer Nitroglycer No 1{table QD Nitroglyce in 0.4 MG in 0.4 MG t_as_ne rin 0.4 MG eded} Melatonin Melatonin No 1{table QD Melatonin 10 MG 10 MG t_at_be 10 MG dtime_a s_neede d} Cyclobenzap Cyclobenzap No Cyclobenza rine HCl 10 rine HCl 10 eloy HCl MG MG 10 MG Valsartan Valsartan No 1{table QD Valsartan 160 MG 160 MG t} 160 MG Carbidopa-L Carbidopa-L No 2{table Carbidopa- evodopa evodopa ts} Levodopa 25-250 MG 25-250 MG 25-250 MG Pravastatin Pravastatin No 1{table QD Pravastati Sodium 40 Sodium 40 t} n Sodium MG MG 40 MG Zonisamide Zonisamide No 1{capsu BID Zonisamide 50 MG 50 MG le} 50 MG Nitroglycer Nitroglycer No 1{table QD Nitroglyce in 0.4 MG in 0.4 MG t_as_ne rin 0.4 MG eded} Pantoprazol Pantoprazol No 1{table QD Pantoprazo e Sodium 40 e Sodium 40 t} le Sodium MG MG 40 MG amLODIPine amLODIPine No 1{table QD amLODIPine Besylate 5 Besylate 5 t} Besylate 5 MG MG MG Fluticasone Fluticasone No 2{spray QD Fluticason Propionate Propionate _in_eac e 50 MCG/ACT 50 MCG/ACT h_nostr Propionate il} 50 MCG/ACT Pravastatin Pravastatin No Pravastati Sodium 40 Sodium 40 n Sodium MG MG 40 MG Melatonin Melatonin No 1{table QD Melatonin 10 MG 10 MG t_at_be 10 MG dtime_a s_neede d} Aspir-Low Aspir-Low No 1{table QD Aspir-Low 81 MG 81 MG t} 81 MG Clopidogrel Clopidogrel No 1{table QD Clopidogre Bisulfate Bisulfate t} l 75 MG 75 MG Bisulfate 75 MG Sotalol HCl Sotalol HCl No 1{table BID Sotalol 80 MG 80 MG t} HCl 80 MG Cyclobenzap Cyclobenzap No Cyclobenza rine HCl 10 rine HCl 10 eloy HCl MG MG 10 MG amLODIPine amLODIPine No 1{table QD amLODIPine Besylate 5 Besylate 5 t} Besylate 5 MG MG MG Fluticasone Fluticasone No 2{spray QD Fluticason Propionate Propionate _in_eac e 50 MCG/ACT 50 MCG/ACT h_nostr Propionate il} 50 MCG/ACT Zonisamide Zonisamide No 1{capsu BID Zonisamide 50 MG 50 MG le} 50 MG Carbidopa-L Carbidopa-L No 2{table Carbidopa- evodopa evodopa ts} Levodopa 25-250 MG 25-250 MG 25-250 MG Pravastatin Pravastatin No 1{table QD Pravastati Sodium 40 Sodium 40 t} n Sodium MG MG 40 MG Aspir-Low Aspir-Low No 1{table QD Aspir-Low 81 MG 81 MG t} 81 MG Pantoprazol Pantoprazol No 1{table QD Pantoprazo e Sodium 40 e Sodium 40 t} le Sodium MG MG 40 MG Sotalol HCl Sotalol HCl No 1{table BID Sotalol 80 MG 80 MG t} HCl 80 MG Pravastatin Pravastatin No Pravastati Sodium 40 Sodium 40 n Sodium MG MG 40 MG Valsartan Valsartan No 1{table QD Valsartan 160 MG 160 MG t} 160 MG Clopidogrel Clopidogrel No 1{table QD Clopidogre Bisulfate Bisulfate t} l 75 MG 75 MG Bisulfate 75 MG Nitroglycer Nitroglycer No 1{table QD Nitroglyce in 0.4 MG in 0.4 MG t_as_ne rin 0.4 MG eded} Melatonin Melatonin No 1{table QD Melatonin 10 MG 10 MG t_at_be 10 MG dtime_a s_neede d} Cyclobenzap Cyclobenzap No Cyclobenza rine HCl 10 rine HCl 10 eloy HCl MG MG 10 MG Pantoprazol Pantoprazol No 1{table QD Pantoprazo e Sodium 40 e Sodium 40 t} le Sodium MG MG 40 MG Fluticasone Fluticasone No 2{spray QD Fluticason Propionate Propionate _in_eac e 50 MCG/ACT 50 MCG/ACT h_nostr Propionate il} 50 MCG/ACT Zonisamide Zonisamide No 1{capsu BID Zonisamide 50 MG 50 MG le} 50 MG Carbidopa-L Carbidopa-L No 2{table Carbidopa- evodopa evodopa ts} Levodopa 25-250 MG 25-250 MG 25-250 MG Pravastatin Pravastatin No 1{table QD Pravastati Sodium 40 Sodium 40 t} n Sodium MG MG 40 MG Clopidogrel Clopidogrel No 1{table QD Clopidogre Bisulfate Bisulfate t} l 75 MG 75 MG Bisulfate 75 MG Aspir-Low Aspir-Low No 1{table QD Aspir-Low 81 MG 81 MG t} 81 MG Sotalol HCl Sotalol HCl No 1{table BID Sotalol 80 MG 80 MG t} HCl 80 MG Cyclobenzap Cyclobenzap No Cyclobenza rine HCl 10 rine HCl 10 eloy HCl MG MG 10 MG Valsartan Valsartan No 1{table QD Valsartan 160 MG 160 MG t} 160 MG Pravastatin Pravastatin No Pravastati Sodium 40 Sodium 40 n Sodium MG MG 40 MG Nitroglycer Nitroglycer No 1{table QD Nitroglyce in 0.4 MG in 0.4 MG t_as_ne rin 0.4 MG eded} Melatonin Melatonin No 1{table QD Melatonin 10 MG 10 MG t_at_be 10 MG dtime_a s_neede d} amLODIPine amLODIPine No 1{table QD amLODIPine Besylate 5 Besylate 5 t} Besylate 5 MG MG MG Pantoprazol Pantoprazol No 1{table QD Pantoprazo e Sodium 40 e Sodium 40 t} le Sodium MG MG 40 MG Fluticasone Fluticasone No 2{spray QD Fluticason Propionate Propionate _in_eac e 50 MCG/ACT 50 MCG/ACT h_nostr Propionate il} 50 MCG/ACT Zonisamide Zonisamide No 1{capsu BID Zonisamide 50 MG 50 MG le} 50 MG Carbidopa-L Carbidopa-L No 2{table Carbidopa- evodopa evodopa ts} Levodopa 25-250 MG 25-250 MG 25-250 MG Pravastatin Pravastatin No 1{table QD Pravastati Sodium 40 Sodium 40 t} n Sodium MG MG 40 MG Clopidogrel Clopidogrel No 1{table QD Clopidogre Bisulfate Bisulfate t} l 75 MG 75 MG Bisulfate 75 MG Aspir-Low Aspir-Low No 1{table QD Aspir-Low 81 MG 81 MG t} 81 MG Sotalol HCl Sotalol HCl No 1{table BID Sotalol 80 MG 80 MG t} HCl 80 MG Cyclobenzap Cyclobenzap No Cyclobenza rine HCl 10 rine HCl 10 eloy HCl MG MG 10 MG Valsartan Valsartan No 1{table QD Valsartan 160 MG 160 MG t} 160 MG Pravastatin Pravastatin No Pravastati Sodium 40 Sodium 40 n Sodium MG MG 40 MG Nitroglycer Nitroglycer No 1{table QD Nitroglyce in 0.4 MG in 0.4 MG t_as_ne rin 0.4 MG eded} Melatonin Melatonin No 1{table QD Melatonin 10 MG 10 MG t_at_be 10 MG dtime_a s_neede d} amLODIPine amLODIPine No 1{table QD amLODIPine Besylate 5 Besylate 5 t} Besylate 5 MG MG MG Pravastatin Pravastatin No 1{table QD Pravastati Sodium 40 Sodium 40 t} n Sodium MG MG 40 MG Pantoprazol Pantoprazol No 1{table QD Pantoprazo e Sodium 40 e Sodium 40 t} le Sodium MG MG 40 MG Valsartan Valsartan No 1{table QD Valsartan 160 MG 160 MG t} 160 MG Pravastatin Pravastatin No Pravastati Sodium 40 Sodium 40 n Sodium MG MG 40 MG Sotalol HCl Sotalol HCl No 1{table BID Sotalol 80 MG 80 MG t} HCl 80 MG Fluticasone Fluticasone No 2{spray QD Fluticason Propionate Propionate _in_eac e 50 MCG/ACT 50 MCG/ACT h_nostr Propionate il} 50 MCG/ACT Nitroglycer Nitroglycer No 1{table QD Nitroglyce in 0.4 MG in 0.4 MG t_as_ne rin 0.4 MG eded} Cyclobenzap Cyclobenzap No Cyclobenza rine HCl 10 rine HCl 10 eloy HCl MG MG 10 MG amLODIPine amLODIPine No 1{table QD amLODIPine Besylate 5 Besylate 5 t} Besylate 5 MG MG MG Aspir-Low Aspir-Low No 1{table QD Aspir-Low 81 MG 81 MG t} 81 MG Melatonin Melatonin No 1{table QD Melatonin 10 MG 10 MG t_at_be 10 MG dtime_a s_neede d} Carbidopa-L Carbidopa-L No 2{table Carbidopa- evodopa evodopa ts} Levodopa 25-250 MG 25-250 MG 25-250 MG Clopidogrel Clopidogrel No 1{table QD Clopidogre Bisulfate Bisulfate t} l 75 MG 75 MG Bisulfate 75 MG Zonisamide Zonisamide No 1{capsu BID Zonisamide 50 MG 50 MG le} 50 MG Pravastatin Pravastatin No 1{table QD Pravastati Sodium 40 Sodium 40 t} n Sodium MG MG 40 MG Pantoprazol Pantoprazol No 1{table QD Pantoprazo e Sodium 40 e Sodium 40 t} le Sodium MG MG 40 MG Valsartan Valsartan No 1{table QD Valsartan 160 MG 160 MG t} 160 MG Pravastatin Pravastatin No Pravastati Sodium 40 Sodium 40 n Sodium MG MG 40 MG Sotalol HCl Sotalol HCl No 1{table BID Sotalol 80 MG 80 MG t} HCl 80 MG Fluticasone Fluticasone No 2{spray QD Fluticason Propionate Propionate _in_eac e 50 MCG/ACT 50 MCG/ACT h_nostr Propionate il} 50 MCG/ACT Nitroglycer Nitroglycer No 1{table QD Nitroglyce in 0.4 MG in 0.4 MG t_as_ne rin 0.4 MG eded} Cyclobenzap Cyclobenzap No Cyclobenza rine HCl 10 rine HCl 10 eloy HCl MG MG 10 MG amLODIPine amLODIPine No 1{table QD amLODIPine Besylate 5 Besylate 5 t} Besylate 5 MG MG MG Aspir-Low Aspir-Low No 1{table QD Aspir-Low 81 MG 81 MG t} 81 MG Melatonin Melatonin No 1{table QD Melatonin 10 MG 10 MG t_at_be 10 MG dtime_a s_neede d} Carbidopa-L Carbidopa-L No 2{table Carbidopa- evodopa evodopa ts} Levodopa 25-250 MG 25-250 MG 25-250 MG Clopidogrel Clopidogrel No 1{table QD Clopidogre Bisulfate Bisulfate t} l 75 MG 75 MG Bisulfate 75 MG Zonisamide Zonisamide No 1{capsu BID Zonisamide 50 MG 50 MG le} 50 MG Aspir-Low Aspir-Low No 1{table QD Aspir-Low 81 MG 81 MG t} 81 MG Clopidogrel Clopidogrel No Clopidogre Bisulfate Bisulfate l 75 MG 75 MG Bisulfate 75 MG Valsartan Valsartan No 1{table QD Valsartan 160 MG 160 MG t} 160 MG Pravastatin Pravastatin No Pravastati Sodium 40 Sodium 40 n Sodium MG MG 40 MG amLODIPine amLODIPine No 1{table QD amLODIPine Besylate 5 Besylate 5 t} Besylate 5 MG MG MG Nitroglycer Nitroglycer No 1{table QD Nitroglyce in 0.4 MG in 0.4 MG t_as_ne rin 0.4 MG eded} Cyclobenzap Cyclobenzap No Cyclobenza rine HCl 10 rine HCl 10 eloy HCl MG MG 10 MG Pantoprazol Pantoprazol No 1{table QD Pantoprazo e Sodium 40 e Sodium 40 t} le Sodium MG MG 40 MG Melatonin Melatonin No 1{table QD Melatonin 10 MG 10 MG t_at_be 10 MG dtime_a s_neede d} Pravastatin Pravastatin No 1{table QD Pravastati Sodium 40 Sodium 40 t} n Sodium MG MG 40 MG Fluticasone Fluticasone No 2{spray QD Fluticason Propionate Propionate _in_eac e 50 MCG/ACT 50 MCG/ACT h_nostr Propionate il} 50 MCG/ACT Sotalol HCl Sotalol HCl No 1{table BID Sotalol 80 MG 80 MG t} HCl 80 MG Carbidopa-L Carbidopa-L No 2{table TID Carbidopa- evodopa evodopa ts} Levodopa 25-250 MG 25-250 MG 25-250 MG Zonisamide Zonisamide No 1{capsu BID Zonisamide 50 MG 50 MG le} 50 MG Nitroglycer Nitroglycer No 1{table QD Nitroglyce in 0.4 MG in 0.4 MG t_as_ne rin 0.4 MG eded} Carbidopa-L Carbidopa-L No 2{table TID Carbidopa- evodopa evodopa ts} Levodopa 25-250 MG 25-250 MG 25-250 MG Valsartan Valsartan No 1{table QD Valsartan 160 MG 160 MG t} 160 MG Clopidogrel Clopidogrel No Clopidogre Bisulfate Bisulfate l 75 MG 75 MG Bisulfate 75 MG amLODIPine amLODIPine No 1{table QD amLODIPine Besylate 5 Besylate 5 t} Besylate 5 MG MG MG Pravastatin Pravastatin No Pravastati Sodium 40 Sodium 40 n Sodium MG MG 40 MG Fluticasone Fluticasone No 2{spray QD Fluticason Propionate Propionate _in_eac e 50 MCG/ACT 50 MCG/ACT h_nostr Propionate il} 50 MCG/ACT Pantoprazol Pantoprazol No 1{table QD Pantoprazo e Sodium 40 e Sodium 40 t} le Sodium MG MG 40 MG Zonisamide Zonisamide No 1{capsu BID Zonisamide 50 MG 50 MG le} 50 MG Cyclobenzap Cyclobenzap No Cyclobenza rine HCl 10 rine HCl 10 eloy HCl MG MG 10 MG Melatonin Melatonin No 1{table QD Melatonin 10 MG 10 MG t_at_be 10 MG dtime_a s_neede d} Sotalol HCl Sotalol HCl No 1{table BID Sotalol 80 MG 80 MG t} HCl 80 MG Aspir-Low Aspir-Low No 1{table QD Aspir-Low 81 MG 81 MG t} 81 MG Nitroglycer Nitroglycer No 1{table QD Nitroglyce in 0.4 MG in 0.4 MG t_as_ne rin 0.4 MG eded} Pantoprazol Pantoprazol No 1{table QD Pantoprazo e Sodium 40 e Sodium 40 t} le Sodium MG MG 40 MG Valsartan Valsartan No 1{table QD Valsartan 160 MG 160 MG t} 160 MG Carbidopa-L Carbidopa-L No 2{table TID Carbidopa- evodopa evodopa ts} Levodopa 25-250 MG 25-250 MG 25-250 MG amLODIPine amLODIPine No 1{table QD amLODIPine Besylate 5 Besylate 5 t} Besylate 5 MG MG MG Pravastatin Pravastatin No Pravastati Sodium 40 Sodium 40 n Sodium MG MG 40 MG Fluticasone Fluticasone No 2{spray QD Fluticason Propionate Propionate _in_eac e 50 MCG/ACT 50 MCG/ACT h_nostr Propionate il} 50 MCG/ACT Clopidogrel Clopidogrel No QD Clopidogre Bisulfate Bisulfate l 75 MG 75 MG Bisulfate 75 MG Zonisamide Zonisamide No 1{capsu BID Zonisamide 50 MG 50 MG le} 50 MG Cyclobenzap Cyclobenzap No Cyclobenza rine HCl 10 rine HCl 10 eloy HCl MG MG 10 MG Melatonin Melatonin No 1{table QD Melatonin 10 MG 10 MG t_at_be 10 MG dtime_a s_neede d} Sotalol HCl Sotalol HCl No 1{table BID Sotalol 80 MG 80 MG t} HCl 80 MG Aspir-Low Aspir-Low No 1{table QD Aspir-Low 81 MG 81 MG t} 81 MG Pantoprazol Pantoprazol No 1{table QD Pantoprazo e Sodium 40 e Sodium 40 t} le Sodium MG MG 40 MG Fluticasone Fluticasone No 2{spray QD Fluticason Propionate Propionate _in_eac e 50 MCG/ACT 50 MCG/ACT h_nostr Propionate il} 50 MCG/ACT Zonisamide Zonisamide No 1{capsu BID Zonisamide 50 MG 50 MG le} 50 MG Carbidopa-L Carbidopa-L No 2{table Carbidopa- evodopa evodopa ts} Levodopa 25-250 MG 25-250 MG 25-250 MG Pravastatin Pravastatin No 1{table QD Pravastati Sodium 40 Sodium 40 t} n Sodium MG MG 40 MG Clopidogrel Clopidogrel No 1{table QD Clopidogre Bisulfate Bisulfate t} l 75 MG 75 MG Bisulfate 75 MG Aspir-Low Aspir-Low No 1{table QD Aspir-Low 81 MG 81 MG t} 81 MG Sotalol HCl Sotalol HCl No 1{table BID Sotalol 80 MG 80 MG t} HCl 80 MG Cyclobenzap Cyclobenzap No Cyclobenza rine HCl 10 rine HCl 10 eloy HCl MG MG 10 MG Valsartan Valsartan No 1{table QD Valsartan 160 MG 160 MG t} 160 MG Pravastatin Pravastatin No Pravastati Sodium 40 Sodium 40 n Sodium MG MG 40 MG Nitroglycer Nitroglycer No 1{table QD Nitroglyce in 0.4 MG in 0.4 MG t_as_ne rin 0.4 MG eded} Melatonin Melatonin No 1{table QD Melatonin 10 MG 10 MG t_at_be 10 MG dtime_a s_neede d} amLODIPine amLODIPine No 1{table QD amLODIPine Besylate 5 Besylate 5 t} Besylate 5 MG MG MG Immunizations Ordered Immunization Filled Immunization Date Status Commen ts Source Name Name Luis Armando COVID-19 Moderna COVID-19 2020-12-04 Completed [facility] 10:48:00 - [facility] Moderna COVID-19 Moderna COVID-19 2020-12-04 Completed [facility] Vaccine Vaccine 10:48:00 - [facility] Moderna COVID-19 Moderna COVID-19 2020-12-04 Completed [facility] Vaccine Vaccine 10:48:00 - [facility] Moderna COVID-19 Moderna COVID-19 2020-12-04 Completed [facility] Vaccine Vaccine 10:48:00 - [facility] Moderna COVID-19 Moderna COVID-19 2020-12-04 Completed [facility] Vaccine Vaccine 10:48:00 - [facility] Moderna COVID-19 Moderna COVID-19 2020-12-04 Completed [facility] Vaccine Vaccine 10:48:00 - [facility] Moderna COVID-19 Moderna COVID-19 2020-12-04 Completed [facility] Vaccine Vaccine 10:48:00 - [facility] Moderna COVID-19 Moderna COVID-19 2020-12-04 Completed [facility] Vaccine Vaccine 10:48:00 - [facility] Moderna COVID-19 Moderna COVID-19 2020-12-04 Completed [facility] Vaccine Vaccine 10:48:00 - [facility] Moderna COVID-19 Moderna COVID-19 2020-12-04 Completed [facility] Vaccine Vaccine 10:48:00 - [facility] Moderna COVID-19 Moderna COVID-19 2020-12-04 Completed [facility] Vaccine Vaccine 10:48:00 - [facility] Moderna COVID-19 Moderna COVID-19 2020-12-04 Completed [facility] Vaccine Vaccine 10:48:00 - [facility] Moderna COVID-19 Moderna COVID-19 2020-12-04 Completed [facility] Vaccine Vaccine 10:48:00 - [facility] Moderna COVID-19 Moderna COVID-19 2020-12-04 Completed [facility] Vaccine Vaccine 10:48:00 - [facility] Moderna COVID-19 Moderna COVID-19 2020-12-04 Completed [facility] Vaccine Vaccine 10:48:00 - [facility] Moderna COVID-19 Moderna COVID-19 2020-12-04 Completed [facility] Vaccine Vaccine 10:48:00 - [facility] Moderna COVID-19 Moderna COVID-19 2020-11-06 Completed [facility] Vaccine Vaccine 10:47:00 - [facility] Moderna COVID-19 Moderna COVID-19 2020-11-06 Completed [facility] Vaccine Vaccine 10:47:00 - [facility] Moderna COVID-19 Moderna COVID-19 2020-11-06 Completed [facility] Vaccine Vaccine 10:47:00 - [facility] Moderna COVID-19 Moderna COVID-19 2020-11-06 Completed [facility] Vaccine Vaccine 10:47:00 - [facility] Moderna COVID-19 Moderna COVID-19 2020-11-06 Completed [facility] Vaccine Vaccine 10:47:00 - [facility] Moderna COVID-19 Moderna COVID-19 2020-11-06 Completed [facility] Vaccine Vaccine 10:47:00 - [facility] Moderna COVID-19 Moderna COVID-19 2020-11-06 Completed [facility] Vaccine Vaccine 10:47:00 - [facility] Moderna COVID-19 Moderna COVID-19 2020-11-06 Completed [facility] Vaccine Vaccine 10:47:00 - [facility] Moderna COVID-19 Moderna COVID-19 2020-11-06 Completed [facility] Vaccine Vaccine 10:47:00 - [facility] Moderna COVID-19 Moderna COVID-19 2020-11-06 Completed [facility] Vaccine Vaccine 10:47:00 - [facility] Moderna COVID-19 Moderna COVID-19 2020-11-06 Completed [facility] Vaccine Vaccine 10:47:00 - [facility] Moderna COVID-19 Moderna COVID-19 2020-11-06 Completed [facility] Vaccine Vaccine 10:47:00 - [facility] Moderna COVID-19 Moderna COVID-19 2020-11-06 Completed [facility] Vaccine Vaccine 10:47:00 - [facility] Moderna COVID-19 Moderna COVID-19 2020-11-06 Completed [facility] Vaccine Vaccine 10:47:00 - [facility] Moderna COVID-19 Moderna COVID-19 2020-11-06 Completed [facility] Vaccine Vaccine 10:47:[facility] - [facility] Moderna COVID-19 Moderna COVID-19 2020-11-06 Completed [facility] Vaccine Vaccine 10:47:00 [facility] Vital Signs Vital Name Observation Time Observation Value Comments Source height 2022-07-17 09:40:00 64 [in_i] Common [facility] weight 2022-07-17 09:40:00 160.0 [lb_av] [facility] temperature 2022-07-17 09:40:00 97.9 [degF] [facility] bmi 2022-07-17 09:40:00 27.46 kg/m2 [facility] oximetry 2022-07-17 09:40:00 95 % [facility] respiratory rate 2022-07-17 09:40:00 16 /min Comm on [facility] blood pressure 2022-07-17 09:40:00 118 mm[Hg] [facility] - [facility] blood pressure 2022-07-17 09:40:00 71 mm[Hg] Common [facility] - diastolic [facility] height 2022-07-17 10:00:00 64 [in_i] [facility] weight 2022-07-17 10:00:00 160.0 [lb_av] [facility] temperature 2022-07-17 10:00:00 97.9 [degF] Common [facility] bmi 2022-07-17 10:00:00 27.46 kg/m2 [facility] oximetry 2022-07-17 10:00:00 95 % Common [facility] respiratory rate 2022-07-17 10:00:00 16 /min Comm on [facility] blood pressure 2022-07-17 10:00:00 118 mm[Hg] Common [facility] - systolic [facility] blood pressure 2022-07-17 10:00:00 71 mm[Hg] [facility] - [facility] height 2022-03-16 10:50:00 64 [in_i] Common [facility] weight 2022-03-16 10:50:00 160.0 [lb_av] Common [facility] temperature 2022-03-16 10:50:00 98.0 [degF] Common S pirit [facility] bmi 2022-03-16 10:50:00 27.46 kg/m2 Common S pirit [facility] oximetry 2022-03-16 10:50:00 96 % Common [facility] respiratory rate 2022-03-16 10:50:00 17 /min Comm on [facility] blood pressure 2022-03-16 10:50:00 134 mm[Hg] Common [facility] - systolic [facility] blood pressure 2022-03-16 10:50:00 74 mm[Hg] [facility] - [facility] height 2021-11-15 10:40:00 64 [in_i] Common S [facility] weight 2021-11-15 10:40:00 160 [lb_av] Common [facility] temperature 2021-11-15 10:40:00 98.0 [degF] [facility] 2021-11-15 10:40:00 27.46 kg/m2 [facility] oximetry 2021-11-15 10:40:00 98 % Common S [facility] respiratory rate 2021-11-15 10:40:00 17 /min Comm on [facility] blood pressure 2021-11-15 10:40:00 121 mm[Hg] [facility] - systolic [facility] blood pressure 2021-11-15 10:40:00 66 mm[Hg] [facility] - diastolic [facility] height 2021-08-17 10:40:00 64 [in_i] Common [facility] weight 2021-08-17 10:40:00 160 [lb_av] Common [facility] temperature 2021-08-17 10:40:00 97.2 [degF] Common [facility] bmi 2021-08-17 10:40:00 27.46 kg/m2 Common S [facility] oximetry 2021-08-17 10:40:00 97 % Common S [facility] respiratory rate 2021-08-17 10:40:00 20 /min Comm on [facility] blood pressure 2021-08-17 10:40:00 130 mm[Hg] Common [facility] - systolic [facility] blood pressure 2021-08-17 10:40:00 60 mm[Hg] Common [facility] - diastolic [facility] height 2021-08-17 11:00:00 64 [in_i] Common [facility] weight 2021-08-17 11:00:00 160 [lb_av] Common [facility] temperature 2021-08-17 11:00:00 97.2 [degF] Common [facility] bmi 2021-08-17 11:00:00 27.46 kg/m2 Common [facility] oximetry 2021-08-17 11:00:00 97 % Common [facility] respiratory rate 2021-08-17 11:00:00 20 /min Comm on [facility] blood pressure 2021-08-17 11:00:00 130 mm[Hg] Common [facility] - systolic [facility] blood pressure 2021-08-17 11:00:00 60 mm[Hg] Common [facility] - diastolic [facility] Systolic (mm Hg) 2020-05-23 18:13:00 Colt Silva Diastolic (mm Hg) 2020-05-23 18:13:00 [facility] Heart Rate 2020-05-23 18:13:00 [facility] Respitory Rate 2020-05-23 18:13:00 Araori al [facility] Height 2020-05-23 18:13:00 162.56 cm [facility] Weight 2020-05-23 18:13:00 [facility] BMI Calculated 2020-05-23 18:13:00 [facility] Diastolic (mm Hg) 2019-12-23 14:19:00 [facility] Heart Rate 2019-12-23 14:19:00 [facility] Respitory Rate 2019-12-23 14:19:00 [facility] Height 2019-12-23 14:19:00 162.56 cm [facility] Weight 2019-12-23 14:19:00 [facility] BMI Calculated 2019-12-23 14:19:00 [facility] Systolic (mm Hg) 2019-12-23 14:19:00 Colt [facility] Systolic (mm Hg) 2019-08-12 20:20:00 [facility] Diastolic (mm Hg) 2019-08-12 20:20:00 [facility] Height 2019-08-12 20:20:00 167.64 cm [facility] Weight 2019-08-12 20:20:00 [facility] BMI Calculated 2019-08-12 20:20:00 [facility] Systolic (mm Hg) 2019-07-02 18:23:00 Colt rial [facility] Diastolic (mm Hg) 2019-07-02 18:23:00 [facility] Heart Rate 2019-07-02 18:23:00 [facility] Respitory Rate 2019-07-02 18:23:00 [facility] Height 2019-07-02 18:23:00 162.56 cm [facility] Weight 2019-07-02 18:23:00 [facility] BMI Calculated 2019-07-02 18:23:00 [facility] Systolic (mm Hg) 2019-05-21 18:27:00 [facility] Diastolic (mm Hg) 2019-05-21 18:27:00 [facility] Heart Rate 2019-05-21 18:27:00 [facility] Respitory Rate 2019-05-21 18:27:00 [facility] Height 2019-05-21 18:27:00 167.64 cm [facility] Weight 2019-05-21 18:27:00 [facility] BMI Calculated 2019-05-21 18:27:00 [facility] Weight 2019-01-15 20:26:00 [facility] BMI Calculated 2019-01-15 20:26:00 [facility] Height 2019-01-15 20:26:00 160.02 cm [facility] Heart Rate 2019-01-15 20:26:00 [facility] Systolic (mm Hg) 2019-01-15 20:26:00 [facility] Diastolic (mm Hg) 2019-01-15 20:26:00 [facility] Respitory Rate 2019-01-15 20:26:00 [facility] Weight 2018-06-12 20:42:00 [facility] BMI Calculated 2018-06-12 20:42:00 [facility] Height 2018-06-12 20:42:00 167.64 cm [facility] Respitory Rate 2018-06-12 20:42:00 [facility] Heart Rate 2018-06-12 20:42:00 [facility] Systolic (mm Hg) 2018-06-12 20:42:00 [facility] Diastolic (mm Hg) 2018-06-12 20:42:00 [facility] Procedures This patient has no known procedures. Plan of Care Planned Activity Planned Date Details Comments Source Future Scheduled 2023-01-16 COVID-19 VACCINE (#1) [facility] Hospital Test 21:36:49 [code = COVID-19 VACCINE (#1)] Future Scheduled 2023-01-16 COLONOSCOPY SCREENING [facility] Test 21:36:49 [code = COLONOSCOPY SCREENING] Future Scheduled 2023-01-16 SHINGLES [facility]IN[facility] 21:36:49 of 2) [code = SHINGLES VACCINES (1 of 2)] Future Scheduled 2023-01-16 65[facility] [facility] Test 21:36:49 VACCINE (1 - PCV) [code = 65+ PNEUMOCOCCAL VACCINE (1 - PCV)] Future Scheduled 2023-01-16 [facility]ACCINE [facility] 21:36:49 [code = INFLUENZA VACCINE] Encounters Start End Encounter Admission Attending Care Care Encounter Source Date/Time Date/Time Type Type Clinicians Facility Department ID 2022-12-12 Outpatient Tae [facility] [id number] Common 11:36:01 [facility] [id number] [facility] 2022-11-14 Outpatient Strong, STLMLC STLC [id number] Common 10:11:02 Ranjeet [id number] [facility] 2022-11-13 Outpatient Strong, STLMLC STLC [id number] Common 10:04:01 Ranjeet 96525 [facility] 2022-11-12 Outpatient Strong, STLMLC STLC [id number] Common 08:51:00 Ranjeet [facility] 2022-11-08 Outpatient Strong, STLMLC STLC [id number] Common 11:12:00 Ranjeet [facility] 2022-07-13 Outpatient Strong, STLMLC STLC [id number] Common 10:21:02 Ranjeet [facility] 2022-06-18 Outpatient Strong, STLMLC [facility] [id number] Common 16:41:01 Ranjeet [facility] 2021-11-15 Outpatient Strong, STLMLC STLC [id number] Common 10:21:01 Ranjeet [facility] 2021-10-04 Outpatient Strong, STLMLC STLC [id number] Common 14:37:48 Ranjeet [facility] 2021-10-04 Outpatient Strong, STLMLC ST[facility] [id number] Common 14:34:19 Ranjeet [facility] 2021-10-04 Outpatient Strong, STLMLC STLC [id number] Common 14:22:49 Ranjeet [facility] 2021-10-04 Outpatient Strong, STLMLC STLC [id number] Common 14:13:55 Ranjeet [facility] 2021-10-04 Outpatient Strong, STLMLC ST[facility] [id number] Common 14:12:47 Ranjeet [facility] 2021-10-04 Outpatient [facility], STLMLC STLC [id number] Common 13:59:39 Ranjeet [facility] 2021-10-04 Outpatient Strong, STLMLC STLC [id number] Common 13:32:37 Ranjeet 57553 [facility] 2021-10-04 Outpatient Strong, STLMLC STLC [id number] Common 13:32:10 Ranjeet 56076 [facility] 2021-10-04 Outpatient Strong, STLMLC STLC [id number] Common 13:30:10 Ranjeet 94093 [facility] 2021-10-04 Outpatient Strong, STLMLC STLC [id number] Common 13:29:42 Ranjeet 34527 [facility] 2021-10-04 Outpatient Strong, STLMLC ST[facility] [id number] Common 12:52:26 Ranjeet 59346 [facility] 2021-10-04 Outpatient Strong, STLMLC STLC [id number] Common 12:44:44 Ranjeet 39859 [facility] 2021-10-04 Outpatient [facility], STLMLC ST[facility] [id number] Common 12:36:40 Ranjeet 02313 [facility] 2021-10-04 Outpatient [facility], STLMLC STLC [id number] Common 12:26:46 Ranjeet 81925 [facility] 2021-10-04 Outpatient Strong, STLMLC STLC [id number] Common 12:26:32 Ranjeet 16193 [facility] 2021-10-04 Outpatient [facility], STLMLC STLC [id number] Common 12:24:27 Ranjeet [id number] [facility] 2021-10-04 Outpatient [facility], STLMLC STLC [id number] Common 12:22:47 Ranjeet 55507 [facility] 2021-10-04 Outpatient Strong, STLMLC STLC [id number] Common 12:15:31 Ranjeet 46197 [facility] 2021-10-04 Outpatient Strong, STLMLC STLC [id number] Common 12:15:05 Ranjeet 49779 [facility] 2021-10-04 Outpatient Strong, STLMLC STLC [id number] Common 12:11:15 Ranjeet 69074 [facility] 2021-10-04 Outpatient [facility], STLMLC STLC [id number] Common 12:06:17 Ranjeet 06043 [facility] 2021-10-04 Outpatient [facility], STLMLC STLC [id number] Common 12:05:38 Ranjeet 49666 [facility] 2021-10-04 Outpatient [facility], STLMLC STLC [id number] Common 12:04:08 Ranjeet 70115 [facility] 2021-10-04 Outpatient Strong, STLMLC STLC [id number] Common 12:04:00 Ranjeet 25448 [facility] 2021-10-04 Outpatient Strong, STLMLC STLC [id number] Common 11:57:19 Ranjeet 82751 [facility] 2021-10-04 Outpatient Strong, STLMLC STLC [id number] Common 11:52:48 Ranjeet 26446 [facility] 2021-10-04 Outpatient Strong, STLMLC STLC [id number] Common 11:32:01 Ranjeet 34924 [facility] 2023-01-31 2023-01-31 Outpatient MHIE MHIE [id number] Memoria 11:45:00 11:45:00 23 robina Silva 2022-12-07 2022-12-07 Ambulatory MHIE MNA [id number] [facility] 19:30:00 19:30:00 Pre-Reg Neurology 22 l Kentrell Silva 2022-12-07 2022-12-07 [id number] 14:30:00 14:30:00 Jeovanny Alexis Ubaldo 2022-11-16 2022-11-16 Ambulatory MHIE MNA [id number] Memoria 19:15:00 19:15:00 Pre-Reg Neurology 21 l Kentrell Silva 2022-11-16 2022-11-16 Outpatient MHIE MHIE [id number] Memoria 13:15:00 13:15:00 21 robina Silva 2022-11-16 2022-11-16 Outpatient MARQUITA LynchSCHER [facility]CHER [id number] 13:15:00 13:15:00 Jeovanny 21 Ubaldo 2022-11-16 2022-11-16 Outpatient MHIE MHIE [id number] [facility] 11:30:00 11:30:00 22 robina Silva 2022-09-10 2022-09-10 Jmael Calvo [id number] Methodi 00:00:00 00:00:00 Silviano Pate [id number] [id number] Hospit [id number] l .8 2022-08-31 2022-08-31 (TEL) STLMLC STLMLC [id number] [facility] 00:00:00 00:00:00 [facility] 2022-08-24 2022-08-24 (TEL) STLMLC STLMLC [id number] Co [facility] 00:00:00 00:00:00 [facility] 2022-08-15 2022-08-15 Ambulatory MHIE MNA [id number] [facility] 21:45:00 21:45:00 Pre-Reg Neurology 20 robina Silva 2022-08-15 2022-08-15 [facility] [id number] 15:45:00 15:45:00 Jeovanny 20 Ubaldo 2022-08-10 2022-08-10 (TEL) STLMLC STLMLC [id number] Co [facility]mon 00:00:00 00:00:00 [facility] 2022-07-17 2022-07-17 OFFICE STLMLC STLMLC [id number] Co mmon 00:00:00 00:00:00 VISIT [facility] ESTAB PT - CHI LEVEL 4 [facility] 2022-07-17 2022-07-17 SUB ANNUAL STLMLC STLMLC [id number] Common 00:00:00 00:00:00 MCR [facility] WELLNESS - CHI VISIT [facility] 2022-07-12 2022-07-12 Outpatient MHIE MHIE [id number] [facility] 10:00:00 10:00:00 20 l House 2022-06-14 2022-06-14 (TEL) STLMLC STLMLC [id number] Co mmon 00:00:00 00:00:00 [facility] 2022-06-04 2022-06-04 (TEL) STLMLC STLMLC [id number] Co mmon 00:00:00 00:00:00 [facility] 2022-05-01 2022-05-01 (TEL) STLMLC STLMLC [id number] Co mmon 00:00:00 00:00:00 [facility] 2022-04-27 2022-04-27 Ambulatory nullFlavo MNA [id number] Memoria 20:30:00 20:30:00 Pre-Reg r Neurology 19 l [facility] 2022-04-27 2022-04-27 Outpatient MHIE TITUSIE [id number] [facility] 15:30:00 15:30:00 19 l House 2022-04-27 2022-04-27 Outpatient MARQUITA LynchSCHER MHMISCHER [id number] 15:30:00 15:30:00 Jeovanny 19 Ubaldo 2022-04-26 2022-04-26 (TEL) STLMLC STLMLC [id number] Co mmon 00:00:00 00:00:00 [facility] 2022-03-16 2022-03-16 OFFICE STLMLC STLMLC [id number] Co mmon 00:00:00 00:00:00 VISIT [facility] 4 [facility] 2022-02-13 2022-02-13 Ambulatory nullFlavo MNA [id number] Memoria 16:30:00 16:30:00 Pre-Reg r Neurology 18 l [facility] 2022-02-13 2022-02-13 Outpatient MHIE MHIE [id number] [facility] 11:30:00 11:30:00 18 robina Silva 2022-02-13 2022-02-13 Outpatient TITUS LynchMISCHER MHMISCHER [id number] 11:30:00 11:30:00 Jeovanny 18 Ubaldo 2021-12-14 2021-12-15 Outpatient nullFlavo MNA [id number] Mem[facility] 14:30:00 04:59:59 r Neurology 17 robina Silva 2021-12-14 2021-12-14 Outpatient ALMA ROSA LynchER MISCHER [id number] 09:30:00 23:59:59 Jeovanny 17 Ubaldo 2021-12-14 2021-12-14 Outpatient MHIE MHIE [id number] Memoria 09:30:00 09:30:00 17 robina Silva 2021-12-13 2021-12-13 (TEL) STLMLC STLMLC [id number] Co mmon 00:00:00 00:00:00 [facility] 2021-11-15 2021-11-15 OFFICE STLMLC STLMLC [id number] Co mmon 00:00:00 00:00:00 VISIT EST Spir it PT LEVEL 3 - CH[facility] 2021-08-17 2021-08-17 OFFICE STLMLC STLMLC [id number] Co mmon 00:00:00 00:00:00 VISIT Spirit ESTAB PT - CHI LEVEL 4 [facility] 2021-08-17 2021-08-17 SUB ANNUAL STLMLC STLMLC [id number] Common 00:00:00 00:00:00 MCR Spirit WELLNESS - CHI VISIT [facility] 2021-08-16 2021-08-16 (TEL) STLMLC STLMLC [id number] Co mmon 00:00:00 00:00:00 [facility] 2021-07-25 2021-07-25 (TEL) STLMLC STLMLC [id number] Co mmon 00:00:00 00:00:00 [facility] 2021-04-10 2021-04-10 Outpatient STLMLC STLMLC [id number] Common 00:00:00 00:00:00 [facility] 2021-03-10 2021-03-10 Outpatient STLMLC STLMLC [id number] Common 00:00:00 00:00:00 [facility] 2021-03-10 2021-03-10 Outpatient STLMLC STLMLC [id number] Common 00:00:00 00:00:00 [facility] 2021-01-02 2021-01-02 Outpatient STLMLC STLMLC [id number] Common 00:00:00 00:00:00 [facility] 2020-12-04 2020-12-04 Outpatient [facility] [id number] Univers 09:30:00 09:30:00 [facility] 2020-11-22 2020-11-22 Outpatient STLMLC STLMLC [id number] Common 00:00:00 00:00:00 [facility] 2020-11-15 2020-11-15 Outpatient STLMLC STLMLC [id number] Common 00:00:00 00:00:00 [facility] 2020-11-06 2020-11-06 Outpatient R [facility] [id number] Univers 09:35:00 09:35:00 [facility] 2020-11-06 2020-11-06 Outpatient R JIN, [facility] [id number] Univers 08:10:00 08:10:00 EDWINA [facility] 2020-10-13 2020-10-13 Outpatient STLMLC STLMLC [id number] Common 00:00:00 00:00:00 [facility] 2020-10-11 2020-10-11 Outpatient STLMLC STLMLC [id number] Common 00:00:00 00:00:00 [facility] 2020-10-06 2020-10-06 Outpatient STLMLC STLMLC [id number] Common 00:00:00 00:00:00 [facility] 2020-10-05 2020-10-05 Outpatient STLMLC STLMLC [id number] Common 00:00:00 00:00:00 [facility] 2020-09-30 2020-09-30 Outpatient STLMLC STLMLC [id number] Common 00:00:00 00:00:00 [facility] 2020-09-28 2020-09-28 Outpatient STLMLC STLMLC [id number] Common 00:00:00 00:00:00 [facility] 2020-09-27 2020-09-27 Outpatient STLMLC STLMLC [id number] Common 00:00:00 00:00:00 [facility] 2020-09-26 2020-09-26 Outpatient STLMLC STLMLC [id number] Common 00:00:00 00:00:00 [facility] 2020-09-13 2020-09-13 Outpatient STLMLC STLMLC [id number] Common 00:00:00 00:00:00 [facility] 2020-09-05 2020-09-05 Outpatient STLMLC STLMLC [id number] Common 00:00:00 00:00:00 [facility] 2020-08-17 2020-08-17 Outpatient STLMLC STLMLC [id number] Common 00:00:00 00:00:00 [facility] 2020-08-16 2020-08-16 Outpatient STLMLC STLMLC [id number] Common 00:00:00 00:00:00 [facility] 2020-08-09 2020-08-09 Outpatient STLMLC STLMLC [id number] Common 00:00:00 00:00:00 [facility] 2020-07-25 2020-07-25 Outpatient STLMLC STLMLC [id number] Common 00:00:00 00:00:00 [facility] 2020-07-20 2020-07-20 Outpatient STLMLC STLMLC [id number] Common 00:00:00 00:00:00 [facility] 2020-07-19 2020-07-19 Outpatient STLMLC STLMLC [id number] Common 00:00:00 00:00:00 [facility] 2020-07-08 2020-07-08 Outpatient STLMLC STLMLC [id number] Common 00:00:00 00:00:00 [facility] 2020-07-05 2020-07-05 Ambulatory nullFlavo MNA [id number] Memoria 18:30:00 18:30:00 Pre-Reg r Neurology 16 l [facility] 2020-07-05 2020-07-05 Outpatient MHIE MHIE [id number] Memoria 13:30:00 13:30:00 16 l Ricardo 2020-07-05 2020-07-05 [id number] 13:30:00 13:30:00 Jeovanny Conner 2020-06-15 2020-06-15 Outpatient STLMLC STLMLC [id number] Common 00:00:00 00:00:00 [facility] 2020-06-15 2020-06-15 Outpatient STLMLC STLMLC [id number] Common 00:00:00 00:00:00 [facility] 2020-06-15 2020-06-15 Outpatient STLMLC STLMLC [id number] Common 00:00:00 00:00:00 [facility] 2020-05-30 2020-05-30 Jamel Colon [facility] [id number] 00:00:00 00:00:00 Paolo Arvizu [id number] Hector Peters [id number] [facility] [phone] [address] 2020-05-23 2020-05-24 Outpatient nullFlavo MNA [id number] Memoria 18:00:00 04:59:59 r Neurology 15 l Kentrell Silva 2020-05-23 2020-05-23 Outpatient Syed, MISCHER MHMISCHER [id number] 13:00:00 23:59:59 Jeovanny Conner 2020-05-23 2020-05-23 Outpatient MHIE IE [id number] Memoria 13:00:00 13:00:00 15 robina ArandaRicardo 2020-05-18 2020-05-18 [facility] [id number] Common 11:20:00 11:20:00 [employer] [facility] [employer] [facility] 2020-04-22 2020-04-22 Ambulatory nullFlavo MNA [id number] Memoria 14:15:00 14:15:00 Pre-Reg r Neurology 14 l [facility] Ricardo 2020-04-22 2020-04-22 Ambulatory nullFlavo MNA [id number] Memoria 14:15:00 14:15:00 Pre-Reg r Neurology 13 l [facility] 2020-04-22 2020-04-22 Outpatient MHIE MHIE [id number] Memoria 09:15:00 09:15:00 14 l Ricardo 2020-04-22 2020-04-22 Outpatient MHIE MHIE [id number] Memoria 09:15:00 09:15:00 13 l Ricardo 2020-04-22 2020-04-22 Outpatient Syed, MHMISCHER MHMISCHER [id number] 09:15:00 09:15:00 Jeovanny 13 Ubaldo 2020-04-22 2020-04-22 Outpatient Syed, MHMISCHER MHMISCHER [id number] 09:15:00 09:15:00 Jeovanny 14 Ubaldo 2020-03-28 2020-03-28 Pre Visit [facility] [id number] 00:00:00 00:00:00 Outreach Paolo Arvizu [id number] antoine [place] [id number] Professio [phone] [address] 2019-12-23 2019-12-24 Outpatient nullFlavo MNA [id number] Memoria 14:15:00 04:59:59 r Neurology 12 l Kentrell Silva 2019-12-23 2019-12-23 Outpatient Syed, MHMISCHER MHMISCHER [id number] 09:15:00 23:59:59 Jeovanny 12 Ubaldo 2019-12-23 2019-12-23 Outpatient MHIE MHIE [id number] Memoria 09:15:00 09:15:00 12 robina House 2019-12-21 2019-12-21 Orders Doctor BAUDILIO [id number] 00:00:00 00:00:00 Only Unassigned, KRZYSZTOF [id number] [place] [facility] [id number] [facility] 2019-12-17 2019-12-17 Telephone [facility] [id number] 00:00:00 00:00:00 Paolo Zepedaton [id number] [place] [id number] Professhector [phone] [address] 2019-12-16 2019-12-16 Ambulatory nullFlavo MNA [id number] Memoria 18:15:00 18:15:00 Pre-Reg r Neurology 11 l Kentrell Silva 2019-12-16 2019-12-16 Outpatient MHIE MHIE [id number] Memoria 13:15:00 13:15:00 11 l Ricardo 2019-12-16 2019-12-16 Outpatient Syed MISCHER [facility] [id number] 13:15:00 13:15:00 Jeovannyfabio Conner 2019-12-16 2019-12-16 Telephone [facility] 1.2.840.114 [id number] 00:00:00 00:00:00 Paolo Arvizu [id number] [place] [id number] Professio [phone] 2019-12-11 2019-12-11 [facility] 1.2.840.114 [id number] 00:00:00 00:00:00 Paolo Arvizu [id number] [facility] [id number] Professio [phone] nal [address] [place] [address] 2019-12-09 2019-12-09 Outpatient [facility] [id number] Univers 10:45:00 10:45:00 PAOLO perera [facility] 2019-12-09 2019-12-09 Orders Doctor ASTUDILLO 1.2.840.114 [id number] 00:00:00 00:00:00 Only UnassignedKRZYSZTOF [id number] [place] [facility] [id number] [id number] [id number] 2019-10-21 2019-10-21 Orders Doctor BAUDILIO [id number] 00:00:00 00:00:00 Only UnassignedKRZYSZTOF [id number] [place] [facility] [id number] [id number] [id number] 2019-10-19 2019-10-19 [facility] 1.2.840.114 [id number] 00:00:00 00:00:00 [facility] [id number] antoine [place] [id number] Professio [phone] nal 044 Office [facility] 2019-08-12 2019-08-13 Outpatient nullFlavo MNA [id number] Memoria 20:15:00 05:59:59 r Neurology 10 robina Silva 2019-08-12 2019-08-12 Outpatient TITUS LynchMISCHER MHMISCHER [id number] 14:15:00 23:59:59 Jeovanny 10 Ubaldo 2019-08-12 2019-08-12 Outpatient MHIE MHIE [id number] Memoria 14:15:00 14:15:00 10 robina Silva 2019-07-02 2019-07-03 Outpatient nullFlavo MNA [id number] Memoria 18:00:00 04:59:59 r Neurology 09 robina Silva 2019-07-02 2019-07-02 Outpatient Syed MHMISCHER MHMISCHER [id number] 13:00:00 23:59:59 Jeovanny 09 Ubaldo 2019-07-02 2019-07-02 Outpatient MHIE MHIE [id number] Memoria 13:00:00 13:00:00 09 robina Silva 2019-05-21 2019-05-22 Outpatient nullFlavo MNA [id number] Memoria 18:15:00 04:59:59 r Neurology 08 robina [facility] 2019-05-21 2019-05-21 Outpatient Syed MISCHER MHMISCHER [id number] 13:15:00 23:59:59 Jeovanny 08 Ubaldo 2019-05-21 2019-05-21 Outpatient MHIE MHIE [id number] Memoria 13:15:00 13:15:00 08 robina Ricardo 2019-04-06 2019-04-06 Jamel Colon [facility] 1.2.840.114 [id number] 00:00:00 00:00:00 [facility] [id number] [facility] [id number] Profkhanh [phone] nal 044 [facility] 2019-03-19 2019-03-19 Ambulatory nullFlavo MNA [id number] Memoria 20:30:00 20:30:00 Pre-Reg r Neurology 07 robina Pfeiffer Ricardo 2019-03-19 2019-03-19 Outpatient MHIE MHIE [id number] Memoria 15:30:00 15:30:00 07 robina Silva 2019-03-19 2019-03-19 [facility] [id number] 15:30:00 15:30:00 Jeovanny Stefanie Conner 2019-01-15 2019-01-16 Outpatient nullFlavo MNA [id number] Memoria 20:15:00 04:59:59 r Neurology 06 robina Silva 2019-01-15 2019-01-15 [facility] [id number] 15:15:00 23:59:59 Jeovanny Beatriz Conner 2019-01-15 2019-01-15 Outpatient MHIE MHIE [id number] Memoria 15:15:00 15:15:00 06 robina Ricardo 2018-12-04 2018-12-04 Outpatient MHIE MHIE [id number] Memoria 11:45:00 11:45:00 05 robina Silva 2018-10-16 2018-10-16 Ambulatory nullFlavo MNA [id number] Memoria 21:45:00 21:45:00 Pre-Reg r Neurology 04 robina Silva 2018-10-16 2018-10-16 Outpatient MHIE MHIE [id number] Memoria 15:45:00 15:45:00 04 robina Silva 2018-10-16 2018-10-16 [facility] [id number] 15:45:00 15:45:00 Jeovannyfabio Conner 2018-06-27 2018-06-29 Phone nullFlavo MNA [id number] Memoria 18:26:00 04:59:59 Message r Neurology 00 robina Pfeiffer Ricardo 2018-06-27 2018-06-28 Outpatient MHMISCHER MHMISCHER [id number] 13:26:00 23:59:59 2018-06-12 2018-06-13 Outpatient nullFlavo MNA [id number] Memoria 20:45:00 04:59:59 r Neurology 03 robina Arandaann 2018-06-12 2018-06-12 [facility] [id number] 15:45:00 23:59:59 Jeovanny Ubaldo 2018-06-12 2018-06-12 Ambulatory nullFlavo MNA [id number] Memoria 19:45:00 19:45:00 Pre-Reg r Neurology 01 l [facility]rack[facility] Ricardo 2018-06-12 2018-06-12 Outpatient MHIE MHIE [id number] Memoria 15:45:00 15:45:00 03 robina Silva 2018-06-12 2018-06-12 Outpatient MHIE MHIE [id number] Memoria 14:45:00 14:45:00 01 robina Silva 2018-06-12 2018-06-12 [facility] [id number] 14:45:00 14:45:00 Jeovanny Conner 2018-05-22 2018-05-22 Outpatient MHIE MHIE [id number] Memoria 09:00:00 09:00:00 02 robina Silva 2018-02-20 2018-02-20 Outpatient MHIE MHIE [id number] Memoria 14:45:00 14:45:00 00 robina Silva Results This patient has no known results.
[2023-01-16] MEDS ORDERED: NA CHLORIDE 0.9% 1,000 ML ONE (22:24)
[2023-01-16] MEDS ORDERED: ONDANSETRON 4 MG/2 ML VIAL ONE (22:48)
[2023-01-16] MEDS ORDERED: FENTANYL CITR 100 MCG/2 ML ONE (22:48)
[2023-01-16 23:01] LABS: Absolute Lymphocytes (CBC) 1.2 K/uL (0.7-4.9); Lymphocytes % 26.7 % (15.3-44.8); MCV 90.5 fL (80-100); MPV 7.5 fL (7.6-11.3); RBC Red Blood Cell Count 3.86 M/uL (4.33-5.43)
[2023-01-16 23:14] LABS: AST/SGOT 17 U/L (15-37); Albumin 4.1 g/dL (3.4-5.0); Alkaline Phosphatase 71 U/L (45-117); BUN Blood Urea Nitrogen 16 mg/dL (7-18); Bicarbonate 34 mEq/L (21-32); Bilirubin Direct 0.1 mg/dL (0-0.2); Bilirubin Indirect, Calculated 0.3 (0.2-0.8); Bilirubin Total 0.4 mg/dL (0.2-1.0); Glomerular Filtration Rate 94 ml/min (=/>90); Glucose Level 89 mg/dL (74-106); Lipase 23 U/L (13-75); Magnesium 2.3 mg/dL (1.6-2.4); NT PRO-BNP 330 pg/mL (<125); Potassium 3.9 mEq/L (3.5-5.1); Protein, Total 7.7 g/dL (6.4-8.2); Sodium Level 139 mEq/L (136-145)
[2023-01-16 23:16] LABS: Protime INR 1.34
[2023-01-16 23:42] LABS: ALT/SGPT < 10 U/L (16-61); Troponin High Sensitivity 180.8 pg/mL (<58.9)
[2023-01-17] MEDS ORDERED: LORazepam 2 MG/ML VIAL ONE (00:12)
[2023-01-17] MEDS ORDERED: CEFTRIAXONE 1000 MG/VIAL ONE (00:12)
--- NOTE | 2023-01-17 00:14 | EDPHYS ---
Physician Documentation [facility] Name: Sivakumar Fong Age: 72 yrs Sex: Male : 1950 Arrival Date: 01/16/2023 Time: 21:33 Bed 4 Private MD: [facility] ED Physician Clinton Camacho HPI: 01/17 00:02 This 72 yrs old Male presents to ER via Wheelchair with complaints of Tremors. [facility] 00:02 The patient or guardian reports chest pain that is located primarily in the anterior [facility] chest wall, left. Onset: today. shaking all day worse. The pain does not radiate. Onset: The symptoms/episode began/occurred 1 day(s) ago. Associated signs and symptoms: The patient has no apparent associated signs or symptoms. The chest pain is described as left body in general, pain. Modifying factors: The symptoms are alleviated by nothing. the symptoms are aggravated by nothing. Severity of pain: At its worst the pain was mild moderate in the emergency department the pain is unchanged. Severity of symptoms: At their worst the symptoms were mild moderate in the emergency department the symptoms are unchanged. The patient has not experienced similar symptoms in the past. Historical: - Allergies: 01/16 21:52 Lisinopril; as6 - PMHx: 21:52 GERD; heart stents; High Cholesterol; Hypertension; Myocardial infarction; Parkinsons; as6 - PSHx: 21:52 Stented artery; as6 - Immunization history:: Client reports receiving the 2nd dose of the Covid vaccine, pfizer. - Social history:: Smoking status: Patient denies any tobacco usage or history of. ROS: 01/17 00:03 Constitutional: Negative for fever, chills, and weight loss, Eyes: Negative for injury, zac pain, redness, and discharge, ENT: Negative for injury, pain, and discharge, Neck: Negative for injury, pain, and swelling, Cardiovascular: Negative for chest pain, palpitations, and edema, Respiratory: Negative for shortness of breath, cough, wheezing, and pleuritic chest pain, Abdomen/GI: Negative for abdominal pain, nausea, vomiting, diarrhea, and constipation, Back: Negative for injury and pain, : Negative for injury, bleeding, discharge, and swelling, MS/Extremity: Negative for injury and deformity, Skin: Negative for injury, rash, and discoloration, Psych: Negative for depression, anxiety, suicide ideation, homicidal ideation, and hallucinations, Allergy/Immunology: Negative for hives, rash, and allergies, Endocrine: Negative for neck swelling, polydipsia, polyuria, polyphagia, and marked weight changes, Hematologic/Lymphatic: Negative for swollen nodes, abnormal bleeding, and unusual bruising. Neuro: Positive for shaking all over. Exam: 00:03 Constitutional: This is a well developed, well nourished patient who is awake, alert, zac and in no acute distress. Head/Face: Normocephalic, atraumatic. Eyes: Pupils equal round and reactive to light, extra-ocular motions intact. Lids and lashes normal. Conjunctiva and sclera are non-icteric and not injected. Cornea within normal limits. Periorbital areas with no swelling, redness, or edema. ENT: Nares patent. No nasal discharge, no septal abnormalities noted. Tympanic membranes are normal and external auditory canals are clear. Oropharynx with no redness, swelling, or masses, exudates, or evidence of obstruction, uvula midline. Mucous membranes moist. Neck: Trachea midline, no thyromegaly or masses palpated, and no cervical lymphadenopathy. Supple, full range of motion without nuchal rigidity, or vertebral point tenderness. No Meningismus. Chest/axilla: Normal chest wall appearance and motion. Nontender with no deformity. No lesions are appreciated. Cardiovascular: Regular rate and rhythm with a normal S1 and S2. No gallops, murmurs, or rubs. Normal PMI, no JVD. No pulse deficits. Respiratory: Lungs have equal breath sounds bilaterally, clear to auscultation and percussion. No rales, rhonchi or wheezes noted. No increased work of breathing, no retractions or nasal flaring. Abdomen/GI: Soft, non-tender, with normal bowel sounds. No distension or tympany. No guarding or rebound. No evidence of tenderness throughout. Back: No spinal tenderness. No costovertebral tenderness. Full range of motion. Male : Normal genitalia with no discharge or lesions. Skin: Warm, dry with normal turgor. Normal color with no rashes, no lesions, and no evidence of cellulitis. MS/ Extremity: Pulses equal, no cyanosis. Neurovascular intact. Full, normal range of motion. Psych: Awake, alert, with orientation to person, place and time. Behavior, mood, and affect are within normal limits. 00:03 Musculoskeletal/extremity: ROM: intact in all extremities, full active range of motion, Circulation is intact in all extremities. Compartment Syndrome exam of affected extremity: is normal. DVT Exam: No signs of deep vein thrombosis. no pain, no swelling, no tenderness, negative Homans' sign noted on exam, no appreciated bluish discoloration, no erythema, no increased warmth. 00:03 Neuro: Orientation: is normal, appropriate for stated age, no acute changes, Mentation: is normal, appropriate for stated age, no acute changes, Memory: is normal, appropriate for stated age, no acute changes, Motor: moves all fours, both arms, shaking, uncontrollable . 00:10 Radiologist reports: see report [facility] 00:10 ECG was reviewed by the Attending Physician. Vital Signs: 01/16 21:50 BP 155 / 77; Pulse 96; Resp 18 S; Temp 98.9(O); Pulse Ox 97% on R/A; Weight 70.31 kg as6 (R); Height 5 ft. 6 in. (R); Pain 10/10; 23:12 BP 141 / 83; Pulse 96; Resp 20; Pulse Ox 97% ; jj7 01/17 00:15 BP 166 / 89; Pulse 97; Resp 19; Pulse Ox 97% ; jj7 01:00 BP 134 / 75; Pulse 81; Resp 19; Pulse Ox 99% ; Pain 0/10; jj7 01/16 21:50 Body Mass Index 25.02 (70.31 kg, 167.64 cm) as6 01/16 21:50 Pain Scale: Adult as6 01:00 Pain Scale: Adult jj7 [place] Coma Score: 00:03 Eye Response: spontaneous(4). Motor Response: obeys commands(6). Verbal Response: zac oriented(5). Total: 15. MDM: 01/16 22:06 Patient medically screened. [facility] 01/17 00:06 Differential diagnosis: abnormal EKG, acute myocardial infarction, acute pericarditis, zac anxiety, coronary artery disease chest wall pain, Cholelithiasis costochondritis, Dementia, Parkinson disease, metabolic disorder, gastritis, hiatal hernia, pancreatitis, pneumonia, pneumothorax, pulmonary embolus, stable angina, unstable angina. Differential Diagnosis altered mental status, sepsis, flu. HEART Score: History: Slightly Suspicious (0), ECG: Non specific repolarization disturbance / LBTB / PM (1), Age: > or = 65 years (2), Risk Factors: > or = 3 Risk factors for atherosclerotic disease (2), [Hypercholesterolemia] [Hypertension] [+ Family HX] [Obesity] Troponin: > 1 and < 3 x normal limit (1). The patient was not given aspirin in the Emergency Department. Not indicated due to patient's past medical history. SHIRA Risk Score: 1 - patient's age is greater or equal to 65 years, 1 - Three or more CAD risk factors, 1- Known CAD, 1 - Recent [<24hrs] Severe Angina, 1 - Elevated Cardiac Markers, TOTAL SCORE = 5. Data reviewed: vital signs, nurses notes, lab test result(s), EKG, radiologic studies, plain films. Consideration of Admission/Observation Patient was admitted/placed on observation. Escalation of care including admission/observation considered. I considered the following discharge prescriptions or medication management in the emergency department Medications were administered in the Emergency Department. See MAR. Test considered but Not performed: CT: no ct head. 01/16 22:08 Order name: Basic Metabolic Panel; Complete Time: 00:55 [facility] 01/16 22:08 Order name: CBC with Diff; Complete Time: 23:44 [facility] 01/16 22:08 Order name: LFT's; Complete Time: 00:55 [facility] 01/16 22:08 Order name: Magnesium; Complete Time: 00:55 [facility] 01/16 22:08 Order name: NT PRO-BNP; Complete Time: 00:55 [facility] 01/16 22:08 Order name: PT-INR; Complete Time: 23:44 [facility] 01/16 22:08 Order name: Troponin HS; Complete Time: 00:55 [facility] 01/16 22:08 Order name: Lipase; Complete Time: 00:55 [facility] 01/16 22:08 Order name: Blood Culture Adult (2) [facility] 01/16 22:08 Order name: Lactate w/ 2H reflex if indic.; Complete Time: 23:44 [facility] 01/17 00:27 Order name: Creatine Phosphokinase; Complete Time: 00:55 EDMS 01/16 22:08 Order name: XRAY Chest (1 view) [facility] 01/16 22:08 Order name: CT Chest Abdomen Pelvis W/O Contrast [facility] 01/16 22:08 Order name: EKG; Complete Time: 22: [facility] 01/16 22:08 Order name: Cardiac monitoring; Complete Time: : [facility] 01/16 22:08 Order name: EKG - Nurse/Tech [facility] 01/16 22:08 Order name: IV Saline Lock; Complete Time: : [facility] 01/16 22:08 Order name: Labs collected and sent; Complete Time: : [facility] 01/16 22:08 Order name: O2 Per Protocol; Complete Time: : [facility] 01/16 22:08 Order name: O2 Sat Monitoring; Complete Time: : [facility] EC:10 Rate is 103 beats/min. Rhythm is regular. QRS [place] is Normal. NV interval is normal. [facility] QRS interval is normal. QT interval is normal. No Q waves. T waves are Normal. No ST changes noted. Clinical impression: Sinus tachycardia. Interpreted by me. Reviewed by me. Administered Medications: 01/16 22:31 Drug: NS 0.9% IV 500 ml Route: IV; Rate: bolus; Site: right antecubital; jj 23:03 Follow up: IV Status: Completed infusion 01/17 01:37 Follow up: IV Status: IV converted to saline lock 01/16 22:31 Drug: NS 0.9% IV 1000 ml Route: IV; Rate: 125 ml/hr; Site: right antecubital; 22:52 Drug: fentaNYL (PF) IVP 25 mcg Route: IVP; Site: right antecubital; 01/17 00:14 Follow up: Response: Marked relief of symptoms 01/16 22:52 Drug: Ondansetron IVP 4 mg Route: IVP; Site: right antecubital; 01/17 01:37 Follow up: Response: No adverse reaction 00:14 Drug: Ativan IVP 1 mg Route: IVP; Site: right antecubital; 01:37 Follow up: Response: Marked relief of symptoms 00:14 Drug: Rocephin IV 1 grams Route: IV; Rate: per protocol; Site: right antecubital; j 00:40 Follow up: IV Status: Completed infusion j 00:47 Drug: Metoprolol IVP 5 mg Route: IVP; Site: right antecubital; j7 01:40 Follow up: Response: No adverse reaction 7 00:47 Drug: Metoprolol PO 50 mg Route: PO; 7 01:40 Follow up: Response: No adverse reaction jj7 Disposition Summary: 01/17/23 00:13 Hospitalization Ordered Hospitalization Status: Inpatient Admission zac Provider: Shay Cuevas cha Location: Telemetry/MedSurg (Inpatient) zac Condition: Fair zac Problem: new zac Symptoms: have improved zac Bed/Room Type: Standard zac Room Assignment: 217(01/17/23 00:57) cg Diagnosis - Non ST elevation MN zac - Unspecified symptoms and signs involving the musculoskeletal system zac - Parkinson's disease zac Forms: - Medication Reconciliation Form zac - SBAR form zac Signatures: Dispatcher [employer] EDFL Clinton Camacho MD MD cha Attema, Lee, AD OPERATIONS SPECIALIST-C AD OPERATIONS SPECIALIST-Cla1 Evelyn Johnson RN RN Aramis Benz RN RN as6 Von Shrestha RN RN jj7 Corrections: (The following items were deleted from the chart) 01/16 22:26 22:08 Test, Urine+UC.LAB.BRZ ordered. EDFL EDFL 01/17 00:26 00:08 CREATINE PHOSPHOKINASE+C.LAB.BRZ ordered. EDFL EDFL 00:57 00:13 zac cg
--- NOTE | 2023-01-17 00:14 | ER ---
Nurse's Notes [facility] Name: Sivakumar Fong Age: 72 yrs Sex: Male : 1950 Arrival Date: 01/16/2023 Time: 21:33 Bed 4 Private MD: Ranjeet Strong Diagnosis: Non ST elevation MS;Unspecified symptoms and signs involving the musculoskeletal system;Parkinson's disease Presentation: 01/16 21:50 Chief complaint: Patient states: "I have Parkinson's and the shaking has gotten a lot as6 worse over the last 3 days. I also am having a lot of pain on the left side of my body". Coronavirus screen: At this time, the client does not indicate any symptoms associated with coronavirus-19. Ebola Screen: No symptoms or risks identified at this time. Initial Sepsis Screen: Does the patient meet any 2 criteria? No. Patient's initial sepsis screen is negative. Does the patient have a suspected source of infection? No. Patient's initial sepsis screen is negative. Risk Assessment: Do you want to hurt yourself or someone else? Patient reports no desire to harm self or others. Onset of symptoms was January 13, 2023. 21:50 Method Of Arrival: Wheelchair as6 21:50 Acuity: RANI 3 as6 Historical: - Allergies: 21:52 Lisinopril; as6 - PMHx: 21:52 GERD; heart stents; High Cholesterol; Hypertension; Myocardial infarction; Parkinsons; as6 - PSHx: 21:52 Stented artery; as6 - Immunization history:: Client reports receiving the 2nd dose of the Covid vaccine, pfizer. - Social history:: Smoking status: Patient denies any tobacco usage or history of. Screenin:14 Abuse screen: Denies threats or abuse. Nutritional screening: No deficits noted. jj7 Tuberculosis screening: No symptoms or risk factors identified. Assessment: 22:14 General: Appears in no apparent distress. uncomfortable, Behavior is calm, cooperative, jj7 appropriate for age. Pain: Complains of pain in right arm and left arm Pain currently is 10 out of 10 on a pain scale. Aggravated by shaking due to Parkinson's disease. 01/17 00:58 Reassessment: pt's daughter Makayla called and informed that pt will be admitted. jj7 Vital Signs: 01/16 21:50 BP 155 / 77; Pulse 96; Resp 18 S; Temp 98.9(O); Pulse Ox 97% on R/A; Weight 70.31 kg as6 (R); Height 5 ft. 6 in. (R); Pain 10; 23:12 BP 141 / 83; Pulse 96; Resp 20; Pulse Ox 97% ; jj7 01/17 00:15 BP 166 / 89; Pulse 97; Resp 19; Pulse Ox 97% ; jj7 01:00 BP 134 / 75; Pulse 81; Resp 19; Pulse Ox 99% ; Pain 0/10; jj7 01/16 21:50 Body Mass Index 25.02 (70.31 kg, 167.64 cm) as6 01/16 21:50 Pain Scale: Adult as6 01:00 Pain Scale: Adult jj7 Melfa Coma Score: 00:03 Eye Response: spontaneous(4). Motor Response: obeys commands(6). Verbal Response: zac oriented(5). Total: 15. ED Course: 01/16 21:35 Patient arrived in ED. mr 21:35 Ranjeet Strong DO is Private Physician. mr 21:52 Triage completed. as6 21:53 Arm band placed on. as6 22:06 Clinton Camacho MD is Attending Physician. zac 22:14 Patient has correct armband on for positive identification. Bed in low position. Call jj7 light in reach. Side rails up X2. Adult w/ patient. 22:14 No provider procedures requiring assistance completed. jj7 22:32 Lactate w/ 2H reflex if indic. Sent. jj7 22:32 Blood Culture Adult (2) Sent. jj7 22:32 Lipase Sent. jj7 22:32 Basic Metabolic Panel Sent. jj7 22:32 CBC with Diff Sent. jj7 22:32 LFT's Sent. jj7 22:32 Magnesium Sent. jj7 22:32 NT PRO-BNP Sent. jj7 22:32 PT-INR Sent. jj7 22:32 Troponin HS Sent. jj7 22:37 XRAY Chest (1 view) In Process Unspecified. EDMS 22:47 Inserted saline lock: 20 gauge in right antecubital area, using aseptic technique. jj7 Blood collected. 22:55 Blood Culture Adult (2) Sent. jj7 22:55 Lactate w/ 2H reflex if indic. Sent. jj7 22:55 Lipase Sent. jj7 23:49 CT Chest Abdomen Pelvis W/O Contrast In Process Unspecified. EDMS 01/17 00:11 Lit Smith MD is Hospitalizing Provider. zac 00:12 Shay Cuevas MD is Hospitalizing Provider. zac 00:59 Patient admitted, IV remains in place. jj7 Administered Medications: 01/16 22:31 Drug: NS 0.9% IV 500 ml Route: IV; Rate: bolus; Site: right antecubital; jj7 23:03 Follow up: IV Status: Completed infusion jj7 01/17 01:37 Follow up: IV Status: IV converted to saline lock jj7 01/16 22:31 Drug: NS 0.9% IV 1000 ml Route: IV; Rate: 125 ml/hr; Site: right antecubital; jj7 22:52 Drug: fentaNYL (PF) IVP 25 mcg Route: IVP; Site: right antecubital; jj7 01/17 00:14 Follow up: Response: Marked relief of symptoms jj7 01/16 22:52 Drug: Ondansetron IVP 4 mg Route: IVP; Site: right antecubital; j7 01/17 01:37 Follow up: Response: No adverse reaction j7 00:14 Drug: Ativan IVP 1 mg Route: IVP; Site: right antecubital; j7 01:37 Follow up: Response: Marked relief of symptoms j7 00:14 Drug: Rocephin IV 1 grams Route: IV; Rate: per protocol; Site: right antecubital; jj7 00:40 Follow up: IV Status: Completed infusion jj7 00:47 Drug: Metoprolol IVP 5 mg Route: IVP; Site: right antecubital; j7 01:40 Follow up: Response: No adverse reaction j7 00:47 Drug: Metoprolol PO 50 mg Route: PO; j7 01:40 Follow up: Response: No adverse reaction jj7 Medication: 01/16 22:14 VIS not applicable for this client. jj7 Outcome: 01/17 00:13 Decision to Hospitalize by Provider. zac 00:59 Condition: improved jj7 01:16 Admitted to Med/surg accompanied by tech, room 220, Report called to mae de jj7 01:36 Patient left the ED. jj7 Signatures: Dispatcher [employer] EDClinton Vang MD MD cha Rivera Leda mr BenzAramis, RN RN as6 Von Shrestha RN RN jj7
[2023-01-17 00:36] LABS: Creatine Phosphokinase 106 U/L (39-308)
[2023-01-17] MEDS ORDERED: METOPROLOL TAR 25 MG TAB ONE (00:46)
[2023-01-17] MEDS ORDERED: METOPROLOL TARTRATE 5 MG/5 ML INJ IV ONE (00:47)
--- NOTE | 2023-01-17 00:59 | P.HP ---
Certification for Inpatient Patient admitted to: Inpatient With expected LOS: >2 Midnights Patient will require the following post-hospital care: None Practitioner: I am a practitioner with admitting privileges, knowledge of patient current condition, hospital course, and medical plan of care. Services: Services provided to patient in accordance with Admission requirements found in Title 42 Section 412.3 of the Code of Federal Regulations <Hayden Gipson - Last Filed: 01/17/23 00:56> Patient History Date of Service: 01/17/23 Reason for admission: NSTEMI, tremors History of Present Illness: 72-year-old male with history of CAD, Parkinson's, atrial fibrillation on chronic anticoagulation, hypertension, hyperlipidemia, GERD presents emergency department with chief complaint of worsening tremor related to his Parkinson's. He sees Dr. Lima the neurologist as well as Dr. Strong as a PCP, he is on carbidopa levodopa 25/252 tablets twice daily which has been his dose for about a year or so, he reports for the last 3 days he has had significant worsening tremor primarily on the left side. He is having pain to the entire left side with all of his tremors. He was evaluated in the emergency department his labs were significant for BNP 330 troponin 180.8 lactate 2.[address] chest abdomen pelvis without contrast showed no acute thoracic abnormality, fecalization of contents throughout the small bowel without evidence of obstruction, dense multivessel coronary artery calcifications greatest left main and LAD, mild prostatomegaly, cholelithiasis. ED provider wishes to admit for NSTEMI, tremors. - Past Medical/Surgical History Diabetic: No -: HTN -: Parkinson's -: Coronary artery disease -: History of prostate cancer -: Atrial fibrillation -: Stents x8 -: Cataract Sx -: Prostate -: Atrial fibrillation Psychosocial/ Personal History: Patient lives at home with his daughter - Family History Father -: Other (see notes) Notes: Leukemia Mother -: Hypertension Brother -: Cancer Notes: stomach - Social History Smoking Status: Never smoker Alcohol use: No CD- Drugs: No Caffeine use: No Place of Residence: Home <Hayden Gipson - Last Filed: 01/17/23 00:56> Date of Service: 01/17/23 <Shay Cuevas - Last Filed: 01/17/23 21:30> Allergies lisinopril Allergy (Verified 01/17/23 01:58) Anaphylaxis Home Medications: Amlodipine [Norvasc] 5 mg PO SEECOM 01/17/23 Carbidopa/Levodopa 25-250 [Sinemet 25-250] 2 tab PO TID 01/17/23 Clopidogrel Bisulfate [Plavix] 75 mg PO DAILY 01/17/23 Cyclobenzaprine [Flexeril] 10 mg PO BEDTIME 01/17/23 Pantoprazole [Protonix Tab] 40 mg PO DAILY 01/17/23 Pravastatin [Pravachol] 40 mg PO DAILY 01/17/23 Rivaroxaban [Xarelto] 10 mg PO DAILY 01/17/23 Valsartan 160 mg PO DAILY 01/17/23 Zonisamide 50 mg PO DAILY 01/17/23 Review of Systems 10-point ROS is otherwise unremarkable Musculoskeletal: Other (Left-sided pain) Neurological: Other (Tremors) <Hayden Gipson - Last Filed: 01/17/23 00:56> Physical Examination - Physical Exam General: Alert, In no apparent distress, Oriented x3 HEENT: Atraumatic, PERRLA, Mucous membr. moist/pink, EOMI, Sclerae nonicteric Neck: Supple, 2+ carotid pulse no bruit, No LAD, Without JVD or thyroid abnormality Respiratory: Clear to auscultation bilaterally, Normal air movement Cardiovascular: Regular rate/rhythm, Normal S1 S2 Capillary refill: <2 Seconds Gastrointestinal: Normal bowel sounds, No tenderness Musculoskeletal: No tenderness Integumentary: No rashes Neurological: Normal gait, Normal speech, Normal strength at 5/5 x4 extr, Normal tone, Normal affect, Other (Patient continuously tremulous primarily affecting left side of his body) - Studies Laboratory Data (last 24 hrs) 01/16/23 22:25: PT 14.7 H, INR 1.34 01/16/23 22:25: WBC 4.60, Hgb 11.5 L, Hct 35.0 L, Plt Count 205 01/16/23 22:25: Sodium 139, Potassium 3.9, BUN 16, Creatinine 0.78, Glucose 89, Magnesium 2.3, Total Bilirubin 0.4, AST 17, ALT < 10 L, Alkaline Phosphatase 71, Lipase 23 <Hayden Gipson - Last Filed: 01/17/23 00:56> - Studies Laboratory Data (last 24 hrs) 01/16/23 22:25: PT 14.7 H, INR 1.34 01/16/23 22:25: WBC 4.60, Hgb 11.5 L, Hct 35.0 L, Plt Count 205 01/16/23 22:25: Sodium 139, Potassium 3.9, BUN 16, Creatinine 0.78, Glucose 89, Magnesium 2.3, Total Bilirubin 0.4, AST 17, ALT < 10 L, Alkaline Phosphatase 71, Lipase 23 <Shay Cuevas - Last Filed: 01/17/23 21:30> Assessment and Plan - Plan Assessment: NSTEMIhistory of CAD Atrial fibrillation on chronic anticoagulation Worsening tremorunderlying Parkinson's disease Hypertension Hyperlipidemia GERD Plan: NSTEMIhistory of CAD Patient denies chest pain at this time EKG negative for STEMI criteria, cardiology consulted, echocardiogram ordered. Last heart catheterization showed moderate CAD recommended medical management. Atrial fibrillation on chronic anticoagulation Continue Xarelto, monitor on telemetry. Worsening tremorunderlying Parkinson's disease Neurology consulted, carbidopa/levodopa continued. No recent changes in medications, tremor primarily affecting left side. Hypertension Hyperlipidemia GERD Home medications continued. DVT PPX: Continues Xarelto Code status: Full code Discharge Plan: Home Plan to discharge in: 48 Hours - Advance Directives Does patient have a Living Will: No Does patient have a Durable POA for Healthcare: No - Code Status/Comfort Care Code Status Assessed: Yes (Full code) Critical Care: No Time Spent Managing Pts Care (In Minutes): 70 <Hayden Gipson - Last Filed: 01/17/23 00:56> - Plan Patient seen and examined on rounds this morning. Doing better this morning. tremor significantly improved patient states typically better in morning, worse after 5pm worsening over last month or two no change in meds in >1-2 yrs has not missed meds no recent illness neuro consulted, brain imaging ordered anticipate will need adjustment in dosing/schedule <Shay Cuevas - Last Filed: 01/17/23 21:30>
[2023-01-17] MEDS ORDERED: ONDANSETRON 4 MG/2 ML VIAL IV PRN (02:18)
[2023-01-17] MEDS: NA CHLORIDE 0.9% 1,000 ML IV SCH ×2 (02:46→14:42)
[2023-01-17 03:39] VITALS: BMI 24.2
[2023-01-17 03:57] LABS: Absolute Lymphocytes (CBC) 1.2 K/uL (0.7-4.9); Hematocrit 32.6 % (39.6-49.0); MCV 90.4 fL (80-100); MPV 8.2 fL (7.6-11.3); RBC Red Blood Cell Count 3.61 M/uL (4.33-5.43)
[2023-01-17 04:19] LABS: Magnesium 2.3 mg/dL (1.6-2.4); Potassium 3.4 mEq/L (3.5-5.1); Thyroid Stimulating Hormone 3.2 uIU/mL (0.358-3.740)
[2023-01-17 04:22] LABS: Troponin High Sensitivity 173.8 pg/mL (<58.9)
[2023-01-17] MEDS ORDERED: POTASSIUM CL SA 10 MEQ TAB PO ONE (06:00)
[2023-01-17] MEDS: PANTOPRAZOLE 40MG TABLET PO SCH (06:54)
[2023-01-17 07:46] LABS: Specific Gravity 1.011 (1.005-1.030); Urine Bacteria <20 /HPF (<20); Urine Bilirubin NEGATIVE (Negative); Urine Blood 3+ (OVER) (Negative); Urine Clarity Turbid (Clear); Urine Color Light-Yellow (Yellow); Urine Glucose NEGATIVE (Negative); Urine Protein NEGATIVE (Negative); Urine RBC >50 /HPF (None Seen); Urine Urobilinogen Normal (Normal); Urine pH 7.5 (5.0-7.0)
[2023-01-17] MEDS ORDERED: ZONISAMIDE 100 MG PO SCH (09:00)
[2023-01-17] MEDS: VALSARTAN 160 MG TAB PO SCH (09:29)
[2023-01-17] MEDS: RIVAROXABAN 10 MG TABLET PO SCH (09:29)
[2023-01-17] MEDS: CLOPIDOGREL 75 MG TABLET PO SCH (09:30)
[2023-01-17] MEDS: CARBIDOPA/LEVODOPA 25/250 TAB PO SCH ×3 (09:30→22:18)
--- NOTE | 2023-01-17 13:09 | CON ---
Date of Consultation: 01/17/2023 Reason For Consultation: Elevated troponin. History Of Present Illness: Mr. Fong has a history of parkinsonism, coronary artery disease, s tatus post stent, atrial fibrillation, gastroesophageal reflux disease, hypertension, dyslipidemia. He has been taking Sinemet for many years, but came in with severe upper extremity tremor. No cardia c complaint. Troponin was drawn and I am not so sure why, but it was 170, and I was consulted. Banrey ed PND, chest pain, nausea, vomiting, diaphoresis, palpitation, or syncope, fever or chills. Past Medical History: As stated above. Allergies: TO LISINOPRIL. Review of Systems: Negative. Social History: Negative. Family History: Negative. Medications: Include Norvasc, Lipitor, Sinemet, Plavix, Xarelto, and Diovan, as well as, zonisamide. Physical Examination: General: Patient is having severe tremors. No acute distress. Vital Signs: Stable, afebrile, sinus rhythm. HEENT: Negative. Neck: Supple with no bruit. Chest: Clear. Cardiac: Regular rhythm and rate. S4 gallops. No murmurs or rubs. Abdomen: Benign. Extremities: No clubbing, cyanosis, or edema. Diagnostic Data: All within normal limits except for the troponin of 170. Impression And Plan: 1.Elevated troponin, unknown significance, definitely not an acute coronary syndrome. Echocardiogra m is pending. 2.Rest of his problems included parkinsonism with severe tremors. Neurology consultation is pending . 3.He has a history of coronary artery disease, percutaneous coronary intervention, atrial fibrillati on, dyslipidemia, hypertension, and gastroesophageal reflux disease. He is on appropriate therapy. Continue Xarelto. We will continue to follow. RICHA/ZOE Voice ID: [id number] Report ID: [id number]
--- NOTE | 2023-01-17 14:27 | EKG ---
Test Date: 2023-01-16 Test Time: 22:56:39 Outpatient Coding Specialist: CHELSIE MEASUREMENT RESULTS: Intervals: Rate: 103 MI: 160 QRSD: 134 QT: 378 QTc: 495 Anderson: P: 90 MI: 160 QRS: -64 T: 86 INTERPRETIVE STATEMENTS: Sinus tachycardia with premature atrial complexes Right bundle branch block Left anterior fascicular block Bifascicular block Left ventricular hypertrophy with repolarization abnormality Anteroseptal infarct, age undetermined Abnormal ECG Compared to ECG 11/20/2021 07:05:01 Atrial premature complex(es) now present Early repolarization now present Atrial fibrillation no longer present Bifascicular block still present Myocardial infarct finding still present Electronically Signed On 01-17-23 14:25:47 CDT by Enoc Smiley
--- NOTE | 2023-01-17 17:23 | RAD REPORT ---
EXAM DESCRIPTION: CT - Chest Abd Pelvis Wo Con - 01/17/2023 7:03 am CLINICAL HISTORY: The patient is 72 years old and is Male; Chest pain;Cough [facility] MAIN TECHNIQUE: Axial computed tomography images of the chest, abdomen and pelvis without intravenous con trast. Sagittal and coronal reformatted images were created and reviewed. This CT exam was perfor med using one or more of the following dose reduction techniques: automated exposure control, adjus tment of the mA and/or kV according to patient size, and/or use of iterative reconstruction technique . COMPARISON: Same day chest radiograph FINDINGS: CHEST: LUNGS: Minimal bibasilar subsegmental atelectasis. 0.4 cm pleural-based nodule in the right lower lob e (axial image 38). No dedicated imaging follow-up recommended for this particular finding. No mass . No consolidation. PLEURAL SPACE: Unremarkable. No significant effusion. No pneumothorax. HEART: Borderline left ventricular cardiomegaly. No significant pericardial effusion. ABDOMEN: LIVER: Unremarkable. GALLBLADDER AND BILE DUCTS: Small calcified stone noted within the gallbladder fundus. No ductal dilation. PANCREAS: Unremarkable. No ductal dilation. SPLEEN: Unremarkable. No splenomegaly. ADRENALS: Unremarkable. No mass. KIDNEYS AND URETERS: Bilateral nonobstructive intrarenal stones. No hydronephrosis or obstructive i ntrarenal or intraureteral stones. STOMACH AND BOWEL: Fecalization of contents throughout the small bowel without evidence of obstruct ion, nonspecific but suggesting decrease bowel motility. No mucosal thickening. PELVIS: APPENDIX: No findings to suggest acute appendicitis. BLADDER: Unremarkable. No stones. REPRODUCTIVE: Mild prostatomegaly. CHEST, ABDOMEN and PELVIS: INTRAPERITONEAL SPACE: Unremarkable. No significant fluid collection. No free air. BONES/JOINTS: Degenerative changes of the right greater than left shoulders. Osseous bridging of the bilateral sacroiliac joints noted. Multilevel spondylosis and mild mu ltilevel degenerative disc changes with ossification of the thoracic interspinous ligament at T3-4 an d T4-5. No acute osseous abnormality. No dislocation. SOFT TISSUES: Small fat-containing right inguinal hernia. VASCULATURE: Moderate and intense calcified atherosclerosis of the thoracic and abdominal aorta res pectively without aneurysmal dilatation. Dense multivessel coronary artery calcifications, greatest in the left main and LAD. LYMPH NODES: Unremarkable. No enlarged lymph nodes. IMPRESSION: 1. No acute thoracic abnormality. 2. Fecalization of contents throughout the small bowel without evidence of obstruction, nonspecific but suggesting decrease bowel motility. Otherwise no acute abnormality of the abdomen or pelvis. 3. Dense multivessel coronary artery calcifications, greatest in the left main and LAD. 4. Mild prostatomegaly. 5. Cholelithiasis. Electronically signed by: Milton Hameed MD 01/17/2023 12:09 AM CDT Due to temporary technical issues with the PACS/Fluency reporting system, reports are being signed by the in house radiologists without review as a courtesy to insure prompt reporting. The interpreting radiologist is fully responsible for the content of the report.
--- NOTE | 2023-01-17 17:25 | RAD REPORT ---
EXAM DESCRIPTION: RAD - Chest Single View - 01/16/2023 10:36 pm CLINICAL HISTORY: COUGH TECHNIQUE: AP chest COMPARISON: None available for comparison FINDINGS: CHEST: Heart: The cardiomediastinal silhouette is within normal limits. Lungs: No focal consolidation. Mediastinum: Unremarkable Pleura: No appreciable effusion. No pneumothorax. Bones: Prominent degenerative changes right glenohumeral joint. IMPRESSION: No acute cardiopulmonary disease. Electronically signed by: Sharan Calvillo MD 01/16/2023 10:52 PM CDT Due to temporary technical issues with the PACS/Fluency reporting system, reports are being signed by the in house radiologists without review as a courtesy to insure prompt reporting. The interpreting radiologist is fully responsible for the content of the report.
--- NOTE | 2023-01-17 17:31 | RAD REPORT ---
EXAM DESCRIPTION: MRI - MRA Neck W/Wo Cont - 01/17/2023 5:06 pm CLINICAL HISTORY: rule out stroke COMPARISON: No comparisons FINDINGS: Contrast enhance 2D [id number] MR angiography of the neck vessels was performed. The common carotid arteries are widely patent. A mild less than 50% stenosis is present at the right proximal ICA. The left ICA is widely patent. The external carotid arteries are widely patent. Both ve rtebral arteries are widely patent. CAROTID STENOSIS REFERENCE USING NASCET CRITERIA: Mild - <50% stenosis. Moderate - 50-69% stenosis. Severe - 70-94% stenosis. Near occlusion - 95-99% stenosis. Occluded - 100% stenosis. IMPRESSION: No flow limiting arterial stenosis identified within the neck.
--- NOTE | 2023-01-17 17:36 | RAD REPORT ---
EXAM DESCRIPTION: MRI - Brain W/Wo Cont - 01/17/2023 5:06 pm CLINICAL HISTORY: rule out stroke COMPARISON: MRA Head Wo Cont dated 01/17/2023; Brain Wo Cont dated 06/09/2020; Brain Wo Cont dated 12/16; MRI BRAIN WITHOUT CONTRAST dated 06/25/2012 TECHNIQUE: Sagittal T1-weighted images were obtained along with PD/heavily T2-weighted and T2-FLAIR images. Axial DWI and ADC mapping sequences were also obtained along with coronal heavily T2-weighted images were obtained. Post contrast enhanced images were obtained. FINDINGS: No intracranial hemorrhage, mass or acute infarction. No edema or shift of midline structu res. No extra-axial fluid collections. Signal voids are seen as a normal finding in the major intracr anial vessels. Mild chronic small vessel ischemic changes. No abnormal enhancement. No mastoid effusion.Paranasal sinuses are clear. IMPRESSION: No acute intracranial abnormality. No abnormal enhancement. Mild chronic small vessel is chemic changes.
--- NOTE | 2023-01-17 17:37 | RAD REPORT ---
EXAM DESCRIPTION: MRI - MRA Head Wo Cont - 01/17/2023 5:05 pm CLINICAL HISTORY: rule out stroke CVA COMPARISON: Brain Wo Cont dated 06/09/2020; Brain Wo Cont dated 12/16/2018; MRI BRAIN WITHOUT CONTRAST dated 06/25/2012 FINDINGS: 3D noncontrast [id number] MR angiography of the [place] was performed. No aneurysm, flow-limiting stenosis or vascular malformation is seen. Forward flow seen in codominant vertebral arteries. The visualized dural venous sinuses appear patent. IMPRESSION: No significant flow abnormality of the [place] is identified.
--- NOTE | 2023-01-17 20:30 | CON ---
Reason For Consultation: Consultation called because of worsening Parkinson disease. History Of Present Illness: Mr. Fong is a 72-year-old patient with coronary artery di sease, atrial fibrillation on chronic anticoagulation, hypertension, dyslipidemia, gastroesophageal r eflux disease, and Parkinson disease treated by Dr. Jeovanny Lynch. The patient's family were in the ro om and provided information. Parkinson disease symptoms began 16 or 18 years previous and initially involved the left side with tremors, which slowly increased along with stiffness and difficulty ambul ating. He has been on the same dosage of Sinemet for about 3 years. His capacity to perform activit ies when assessed in 2019 by the physical therapist for an admission is that he was actually able to ambulate over 550 feet without significant difficulty with the rolling walker. However, since that t surinder his family notes he has had progressive gait instability and since the COVID pandemic and not see ing Dr. Lynch for few years and medications not being changed, he is now only able to do transfers an d not ambulate any significant distances. He can stand and transfer and dress upper body, but requir es help for lower body. His left upper extremity has been progressively weak with worsening tremors, more notable in the afternoon than in the morning. He has difficulty with the left face movement, m ay have some issues of possible drooling and left leg also has been stiff. Dr. Lynch is out of town and I am covering for him. In terms of the patient's brain imaging, he has had 4 brain MRIs in the [facility] since 2011, and those studies have shown no acute ischemic or hemorrhagic change. There is mil d small vessel ischemic disease. He has had cervical spine MRI, which did show [id number] ce ntral spinal stenosis at C3-C4. He has not had surgery. Past Medical History: As noted above. Allergies: LISINOPRIL. Medications: At home are Norvasc 5 mg daily, aspirin 81 mg daily, Plavix 75 mg daily, nitroglycerin 0.4 mg sublingual as needed, Protonix 40 mg daily, pravastatin 40 mg at night, Betapace 80 mg twice d aily, hydrochlorothiazide valsartan 160/25 mg daily, zonisamide 100 mg daily, carbidopa/levodopa 25/2 50 two tablets 3 times daily, fluticasone 2 sprays inhaled daily, Flexeril 5 mg 3 times daily as need ed, Ranexa 500 mg twice daily, and prednisone 10 mg twice daily. Past Surgical History: Multiple stents including multiple heart stents, 8 stents; cataract surgery; prostate surgery and atrial fibrillation. Family History: Positive for leukemia in father, hypertension in mother, and stomach cancer in broth er. Social History: Note, the patient lives with family including his daughter. Otherwise, no alcohol, tobacco, or IV drug use. Review of Systems: As noted, diffuse weakness, stiffness in upper and lower extremities, more tremors noted in the after noon in the left upper extremity, some drooling and slowness of processing information, and a tendenc y for easy fatigue. Otherwise no rash. No reported hallucinations or active psychiatric complaints. Physical Examination: Vital Signs: Blood pressure 127/71, pulse 57, respiratory rate 16, temperature 98.0, and oxygen satu ration 96%. General: Mr. Fong is resting in bed. He is in no acute distress. HEENT: He appears normocephalic, atraumatic. Sclerae anicteric. Oropharynx is pink and moist. Heart: Irregularly irregular. Abdomen: Soft. Extremities: No significant edema or cyanosis. Neurologic: He is alert and oriented to situation and place. He does follow commands appropriately. Cranial nerves 2 through 12 appears to show a decrease in touch on the left face. He says he feels like he had just gone to the dentist. It should be noted that MRI of the brain, which was done gem ier today is negative for any acute stroke and he has had a total of 4 MRIs at least in 10 years and all being negative for acute changes. Rest of his neurological exam appears to have some weakness no anna in the left upper extremity around 4/5. Decreased range of motion of the left shoulder, not able to fully extend and elevate the left arm and some distal weakness in the left hand. Left lower extr emity around 4-/5 and right lower extremity and right upper extremity 5/5. He does have increased to ne in upper and lower extremities. He did not have tremors at the time of the evaluation. He has se nsory exam decreased to touch and temperature apparent on the left compared to the right upper extrem ity and intact in the left lower compared to the right lower extremity. Coordination is slow, but in tact in the upper and lower extremities. Reflexes are not detected in the lower extremities at the p atella and upper extremities at the biceps and triceps. For his gait, he will be ambulated with the physical therapist with a gait belt and a rolling walker. Laboratory Studies: White blood cell count 4.6, hemoglobin 10.8, and platelets 191. INR 1.34. Sodi um 140, potassium 3.4, chloride 107. Potassium is now replaced and at 3.7. BUN 17, creatinine 0.65, glucose 88, calcium 8.9, magnesium 2.3. His lactic acid on 01/16 was elevated at 2.6 and currently today 0.9. Troponins were elevated to 173 and 188. TSH normal at 3.2, free T4 normal at 1.07. Urin alysis shows turbid clarity, greater than 50 red blood cells, 1+ amorphous crystals, over 3+ blood. Toxicology shows digoxin level low at 0.5. COVID-19 testing is negative. The MRA of his head and ne ck unremarkable. MRI of his brain with no acute ischemic hemorrhagic changes. Abdomen and pelvis CT scan with no acute thoracic abnormalities. There is fecalization of contents throughout the small b owel without evidence of obstruction. There is dense multivessel coronary artery calcification, grea test in the left main and left anterior descending. Assessment: Mr. Fong is a 72-year-old patient with multiple medical problems as listed above. He was seen for his Parkinson disease, which medications have not been adjusted several years and he does have worsening in the evening. His comorbids do include dyslipidemia, hypertension, and fibril lation on Xarelto. Plan: 1.We will amantadine 100 mg daily. 2.Continue the Sinemet at current regimen, although the patient should take the first dose first in the morning 30 minutes prior to breakfast, may take the second dose 6 hours later, and the third 6 ho urs later. 3.He should have evaluation by physical therapist to determine if he may benefit from aggressive phy sical therapy and if he is able to participate in inpatient therapy versus detention. 4.Once the patient is discharged, he should follow up with Dr. Lynch, his neurologist. However, the patient may want to follow up in my office and he may do so if he so c hooses. MARSHALL/ZOE Voice ID: [id number] Report ID: [id number]
[2023-01-17] MEDS: AMLODIPINE 5 MG TAB PO SCH (22:15)
[2023-01-17] MEDS: CYCLOBENZAPRINE 10 MG TAB PO SCH (22:18)
[2023-01-17] MEDS: ATORVASTATIN 10 MG TAB PO SCH (22:18)
[2023-01-18 03:33] LABS: Absolute Lymphocytes (CBC) 1.1 K/uL (0.7-4.9); Hematocrit 30.9 % (39.6-49.0); Lymphocytes % 33.1 % (15.3-44.8); MCV 90.1 fL (80-100); MPV 7.5 fL (7.6-11.3); RBC Red Blood Cell Count 3.43 M/uL (4.33-5.43)
[2023-01-18 03:49] LABS: Magnesium 2.1 mg/dL (1.6-2.4)
[2023-01-18] MEDS: NA CHLORIDE 0.9% 1,000 ML IV SCH (04:52)
[2023-01-18] MEDS: PANTOPRAZOLE 40MG TABLET PO SCH (06:10)
--- NOTE | 2023-01-18 07:11 | ECHO ---
HEIGHT: 5 ft 6 in WEIGHT: 150 lb 0 oz DATE OF STUDY: 01/17/[address]: Hayden Gipson NP 2-DIMENSIONAL: YES M.MODE: YES DOPPLER: YES COLOR FLOW: YES TDS: NO PORTABLE: YES DEFINITY: NO BUBBLE STUDY: NO DIAGNOSIS: NSTEMI CARDIAC HISTORY: CATHERIZATION:YES SURGERY: NO PROSTHETIC VALVE: NO PACEMAKER: NO MEASUREMENTS (cm) DIASTOLIC (NORMALS) SYSTOLIC (NORMALS) IVSd 1.3 (0.6-1.2) LA Diam 4.0 (1.9-4.0) LVEF 50-55% LVIDd 3.9 (3.5-5.7) LVIDs 2.5 (2.0-3.5) %FS 35% LVPWd 1.3 (0.6-1.2) Ao Diam 2.5 (2.0-3.7) 2 DIMENSIONAL ASSESSMENT: RIGHT ATRIUM: NORMAL LEFT ATRIUM: NORMAL RIGHT VENTRICLE: NORMAL LEFT VENTRICLE: NORMAL TRICUSPID VALVE: NORMAL MITRAL VALVE: MILD MR PULMONIC VALVE: NORMAL AORTIC VALVE: MILD AI PERICARDIAL EFFUSION: NONE AORTIC ROOT: NORMAL LEFT VENTRICULAR WALL MOTION: NORMAL DOPPLER/COLOR FLOW: SEE BELOW. COMMENTS: 1. NORMAL LEFT VENTRICULAR EJECTION FRACTION 50-55%. 2. MILD MITRAL REGURGITATION. 3. MILD AORTIC REGURGITATION. 4. MODERATE DIASTOLIC DYSFUNCTION. TECHNOLOGIST: Alix GARCIA
--- NOTE | 2023-01-18 07:12 | P.PN ---
Date of Service: 01/18/23 Subjective: symptoms better in morning, worsened in afternoon had significant tremors, bilateral upper extremities this afternoon. ROS: 10 point ROS as noted above, otherwise negative Physical Exam: GEN: Alert, oriented, significant bilateral upper extremity tremors HEENT: Normal conjunctiva, sclera anicteric CV: Regular rate and rhythm, no edema Pulm: Nonlabored respirations on room air ABD: Soft, nontender, nondistended MSK: No joint tenderness Integumentary: No rashes Neuro: Normal speech, normal affect, significant bilateral upper extremity tremors vitals reviewed Problem List: NSTEMI Worsening tremorunderlying Parkinson's disease history of CAD paroxysmal Atrial fibrillation on chronic anticoagulation Hypertension Hyperlipidemia GERD NSTEMI history of CAD EKG negative for STEMI criteria trend troponins cardiology consulted echocardiogram: 50-55% LVEF, mild aortic & mitral regurgitation, moderate diastolic dysfunction Last heart catheterization showed moderate CAD Atrial fibrillation on chronic anticoagulation Continue Xarelto monitor on telemetry Worsening tremorunderlying Parkinson's disease No recent changes in medications, tremor primarily affecting left side. and upper extremities Neurology consulted Started amantadine 01/18 Continue carbidopa/levodopa PT consult Hypertension Hyperlipidemia GERD Continue home medications VTE: Xarelto Code: Full Dispo: significant tremors, may need inpatient rehab tremors wax/wane throughout day, NSTEMI, work with PT and adjust meds
[2023-01-18] MEDS: VALSARTAN 160 MG TAB PO SCH (08:16)
[2023-01-18] MEDS: AMANTADINE 100 MG CAP PO SCH (08:16)
[2023-01-18] MEDS: CARBIDOPA/LEVODOPA 25/250 TAB PO SCH ×3 (08:16→20:16)
[2023-01-18] MEDS: CYCLOBENZAPRINE 10 MG TAB PO SCH (08:16)
[2023-01-18] MEDS: RIVAROXABAN 10 MG TABLET PO SCH (08:16)
[2023-01-18] MEDS: CLOPIDOGREL 75 MG TABLET PO SCH (08:18)
[2023-01-18] MEDS: ZONISAMIDE 50 MG PO SCH (08:23)
[2023-01-18] MEDS ORDERED: POTASSIUM CL SA 10 MEQ TAB PO ONE ×2 (09:00→22:00)
--- NOTE | 2023-01-18 11:45 | PN ---
Patient had came in with tremors, elevated troponin. Echocardiogram showed no wall motion abnormalit y. Patient has a history of chronic AFib. He is on Xarelto for that. He has a history of CAD, hype rtension, dyslipidemia, parkinsonism. He was seen by Neurology, amantadine was added. No change in tremors for now. No change in NB/MODL Voice ID: [id number] Report ID: [id number]
[2023-01-18] MEDS: AMLODIPINE 5 MG TAB PO SCH (20:17)
[2023-01-18] MEDS: ATORVASTATIN 10 MG TAB PO SCH (20:18)
[2023-01-18] MEDS ORDERED: POLYETHYL GLY 3350 17 GM/DOSE PO ONE (23:32)
[2023-01-19] MEDS ORDERED: METOPROLOL TARTRATE 5 MG/5 ML INJ IV STA (01:41)
[2023-01-19 03:39] LABS: Potassium 3.7 mEq/L (3.5-5.1)
[2023-01-19] MEDS: PANTOPRAZOLE 40MG TABLET PO SCH (05:37)
[2023-01-19] MEDS: METOPROLOL TAR 25 MG TAB PO SCH ×2 (05:37→18:42)
[2023-01-19] MEDS ORDERED: POTASSIUM CL SA 10 MEQ TAB PO ONE (06:00)
--- NOTE | 2023-01-19 07:01 | P.PN ---
Date of Service: 01/19/23 Subjective: Feeling better this morning tremors in upper extremities remain ~improved this morning as usual pt states always better in mornings, worse in evening yesterday had much worse tremors, LUE most affected able to ambulate with PT - since working with them earlier in day; would not have been able to ambulate with them as bad as tremors were yesterday afternoon/evening 1 BM this morning, +flatus afib w/ RVR overnight, given lopressor ROS: 10 point ROS as noted above, otherwise negative Physical Exam: GEN: Alert, oriented, mild bilateral upper extremity tremors, L>R HEENT: Normal conjunctiva, sclera anicteric CV: Irregularly irregular rate and rhythm, 1+ b/l edema, R>L just above ankles Pulm: Nonlabored respirations on room air ABD: Soft, nontender, nondistended MSK: No joint tenderness Integumentary: No rashes Neuro: Normal speech, normal affect, bilateral upper extremity tremors, L>R vitals reviewed Problem List: NSTEMI Worsening tremorunderlying Parkinson's disease history of CAD Diastolic CHF, chronic paroxysmal Atrial fibrillation on chronic anticoagulation Hypertension Hyperlipidemia GERD NSTEMI history of CAD Diastolic CHF, chronic EKG negative for STEMI criteria trend troponins - steaday around 170-180 no chest pain cardiology consulted - no further inpatient testing/eval echocardiogram: 50-55% LVEF, mild aortic & mitral regurgitation, moderate diast olic dysfunction Last heart catheterization showed moderate CAD Atrial fibrillation on chronic anticoagulation Reports hes been off sotalol for at least a year; current med list does not include anti-arrhythmic/rate control med; patient unsure why Continue Xarelto Started metoprolol 01/19 monitor on telemetry Worsening tremorunderlying Parkinson's disease No recent changes in medications, tremor primarily affecting left side. and upper extremities Neurology consulted Started amantadine 01/18 Continue carbidopa/levodopa PT consult Hypertension Hyperlipidemia GERD Continue home medications VTE: Xarelto Code: Full Dispo: significant tremors, may need inpatient rehab tremors wax/wane throughout day, NSTEMI, work with PT and adjust meds Social service eval for inpatient rehab
[2023-01-19] MEDS: CYCLOBENZAPRINE 10 MG TAB PO SCH ×2 (10:17→21:06)
[2023-01-19] MEDS: CARBIDOPA/LEVODOPA 25/250 TAB PO SCH ×3 (10:17→21:05)
[2023-01-19] MEDS: CLOPIDOGREL 75 MG TABLET PO SCH (10:18)
[2023-01-19] MEDS: VALSARTAN 160 MG TAB PO SCH (10:18)
[2023-01-19] MEDS: RIVAROXABAN 10 MG TABLET PO SCH (10:19)
[2023-01-19] MEDS: ZONISAMIDE 50 MG PO SCH (10:19)
[2023-01-19] MEDS: AMANTADINE 100 MG CAP PO SCH (10:30)
--- NOTE | 2023-01-19 14:12 | PN ---
Date of Progress Note: 01/19/2023 Subjective: The patient seen by bedside. Doing clinically well. No chest pain. Review of Systems: No chest pain, shortness of breath, orthopnea, cough, nausea, vomiting, diarrhea. All other systems reviewed and they were negative. Physical Examination: Vital Signs: Reviewed. Head and Neck: Pupils are equal, reactive to light. Intact eye movements. No JVD. No cervical lym phadenopathy. Neck is supple. Thyroid is not enlarged. Lungs: Clear to auscultation bilaterally. No rhonchi, wheezing, or crackles. No accessory muscle u se. Heart: Irregular. No extra sounds. Abdomen: Soft, nontender. Bowel sounds positive. No organomegaly. No masses or hernia. No rigidi ty or rebound. Extremities: No edema, clubbing, or cyanosis. Intact pulses. Skin: No rash. Neurologic: Alert, awake, oriented x3. No acute focal deficits appreciated. Investigations: Latest troponin was 181, BUN 14, creatinine 0.64, and hemoglobin is 10.3. Assessment And Plan: Elevated troponin with known history of moderate coronary artery disease. If t he patient stays in the hospital until early next week, then plan for a Lexiscan nuclear stress test on Saturday to further evaluate. SR/MODL Voice ID: [id number] Report ID: [id number]
[2023-01-19] MEDS: POLYETHYL GLY 3350 17 GM/DOSE PO PRN (16:02)
[2023-01-19] MEDS: AMLODIPINE 5 MG TAB PO SCH (18:42)
[2023-01-19] MEDS: DOCUSATE NA 100 MG CAP PO SCH (21:05)
[2023-01-19] MEDS: ATORVASTATIN 10 MG TAB PO SCH (21:06)
[2023-01-20 03:18] LABS: Absolute Lymphocytes (CBC) 1.4 K/uL (0.7-4.9); Hematocrit 34.8 % (39.6-49.0); Lymphocytes % 40.8 % (15.3-44.8); MCV 90.7 fL (80-100); MPV 7.9 fL (7.6-11.3); RBC Red Blood Cell Count 3.83 M/uL (4.33-5.43)
[2023-01-20 03:39] LABS: Magnesium 2.1 mg/dL (1.6-2.4); Phosphorus 2.4 mg/dL (2.5-4.9); Potassium 3.3 mEq/L (3.5-5.1)
[2023-01-20] MEDS ORDERED: POTASSIUM CL SA 10 MEQ TAB PO ONE (06:00)
[2023-01-20] MEDS: METOPROLOL TAR 25 MG TAB PO SCH ×2 (06:05→17:40)
[2023-01-20] MEDS: PANTOPRAZOLE 40MG TABLET PO SCH (06:05)
--- NOTE | 2023-01-20 07:05 | P.PN ---
Date of Service: 01/20/23 Subjective: tremors were slightly better yesterday eyes are feeling really dry and irritated still having trouble defecating; very hard stool remains in afib w/ RVR ROS: 10 point ROS as noted above, otherwise negative Physical Exam: GEN: Alert, oriented, mild bilateral upper extremity tremors, L>R HEENT: Normal conjunctiva, sclera anicteric CV: Irregularly irregular rate and rhythm, 1+ b/l edema, R>L just above ankles Pulm: Nonlabored respirations on room air ABD: Soft, nontender, nondistended Neuro: Normal speech, normal affect, bilateral upper extremity tremors, L>R vitals reviewed Problem List: NSTEMI Worsening tremorunderlying Parkinson's disease history of CAD Diastolic CHF, chronic paroxysmal Atrial fibrillation on chronic anticoagulation Hypertension Hyperlipidemia GERD Constipation NSTEMI history of CAD Diastolic CHF, chronic EKG negative for STEMI criteria trend troponins - steady around 170-180 no chest pain cardiology consulted - recommends stress testing if remains in hospital tomorrow echocardiogram: 50-55% LVEF, mild aortic & mitral regurgitation, moderate diastolic dysfunction prior Last heart catheterization showed moderate CAD Atrial fibrillation on chronic anticoagulation Reports hes been off sotalol for at least a year; current med list does not include anti-arrhythmic/rate control med; patient unsure why Continue Xarelto Started metoprolol 01/19 monitor on telemetry rate-controlled afib Worsening tremorunderlying Parkinson's disease No recent changes in medications, tremor primarily affecting left side. and upper extremities Neurology consulted Started amantadine 01/18 feels some mild improvement still, worse in evening Continue carbidopa/levodopa PT consult has been able to work with patient when he is doing well, not during late afternoon/evening when gets worse Hypertension Hyperlipidemia GERD Continue home medications VTE: Xarelto Code: Full Dispo: significant tremors, may need inpatient rehab tremors wax/wane throughout day, NSTEMI, work with PT and adjust meds Social service eval for inpatient rehab
[2023-01-20] MEDS: CYCLOBENZAPRINE 10 MG TAB PO SCH (09:00)
[2023-01-20] MEDS: VALSARTAN 160 MG TAB PO SCH (09:18)
[2023-01-20] MEDS: DOCUSATE NA 100 MG CAP PO SCH ×2 (09:18→22:54)
[2023-01-20] MEDS: RIVAROXABAN 10 MG TABLET PO SCH (09:19)
[2023-01-20] MEDS: CARBIDOPA/LEVODOPA 25/250 TAB PO SCH ×3 (09:19→22:54)
[2023-01-20] MEDS: AMANTADINE 100 MG CAP PO SCH (09:19)
[2023-01-20] MEDS: ZONISAMIDE 50 MG PO SCH (09:19)
[2023-01-20] MEDS: CLOPIDOGREL 75 MG TABLET PO SCH (09:19)
[2023-01-20] MEDS ORDERED: POLYVINYL ALCOHOL 1.4% 15 ML EACH EYE PRN (12:03)
--- NOTE | 2023-01-20 15:09 | PN ---
Date of Progress Note: 01/20/2023 Subjective: Seen by bedside. No chest pain. Review of Systems: No chest pain, shortness of breath, orthopnea, or cough. No nausea, vomiting, diarrhea. All other s ystems reviewed and they were negative. Physical Examination: Vital Signs: Reviewed. Head and Neck: Pupils are equal, reactive to light. Intact eye movements. No JVD. No cervical lym phadenopathy. Neck is supple. Thyroid is not enlarged. Lungs: Clear to auscultation bilaterally. No rhonchi, wheezing, or crackles. No accessory muscle u se. Heart: Regular rate and rhythm. No extra sounds. Abdomen: Soft, nontender. Bowel sounds positive. No organomegaly. No masses or hernia. No rigidi ty or rebound. Extremities: No edema, clubbing, or cyanosis. Intact pulses. Skin: No rash. Neurologic: Alert, awake, oriented x3. No acute focal deficits appreciated. Investigations: Labs were reviewed. Assessment And Recommendations: Elevated troponin, likely demand. Obtain Lexiscan nuclear stress te st tomorrow for further evaluation. If the stress test is abnormal, we will proceed with coronary an giogram. SR/MODL Voice ID: [id number] Report ID: [id number]
[2023-01-20] MEDS: POLYETHYL GLY 3350 17 GM/DOSE PO PRN (17:40)
[2023-01-20] MEDS: AMLODIPINE 5 MG TAB PO SCH (22:53)
[2023-01-20] MEDS: ATORVASTATIN 10 MG TAB PO SCH (22:53)
[2023-01-21 04:24] LABS: Absolute Lymphocytes (CBC) 1.2 K/uL (0.7-4.9); Hematocrit 31.7 % (39.6-49.0); Lymphocytes % 38.7 % (15.3-44.8); MCV 90.7 fL (80-100); MPV 7.9 fL (7.6-11.3); RBC Red Blood Cell Count 3.49 M/uL (4.33-5.43)
[2023-01-21 04:35] LABS: Magnesium 2.2 mg/dL (1.6-2.4); Potassium 4.3 mEq/L (3.5-5.1)
[2023-01-21] MEDS: METOPROLOL TAR 25 MG TAB PO SCH ×2 (05:56→17:27)
[2023-01-21] MEDS: PANTOPRAZOLE 40MG TABLET PO SCH (05:56)
--- NOTE | 2023-01-21 07:03 | P.PN ---
Date of Service: 01/21/23 Subjective: reports he did well last night; minimal tremors for the first time in a long time Small BM, +flatus no new / worsening problems ROS: 10 point ROS as noted above, otherwise negative Physical Exam: GEN: Alert, oriented, mild bilateral upper extremity tremors, L>R HEENT: Normal conjunctiva, sclera anicteric CV: Irregularly irregular rate and rhythm, trace b/l edema, R>L just above ankles Pulm: Nonlabored respirations on room air ABD: Soft, nontender, nondistended Neuro: Normal speech, normal affect, bilateral upper extremity tremors, L>R vitals reviewed Problem List: NSTEMI Worsening tremorunderlying Parkinson's disease history of CAD Diastolic CHF, chronic paroxysmal Atrial fibrillation on chronic anticoagulation Hypertension Hyperlipidemia GERD Constipation NSTEMI history of CAD Diastolic CHF, chronic EKG negative for STEMI criteria troponins - steady around 170-180 no further chest pain cardiology consulted - Stress test 01/21 Large fixed defect is seen involving the inferior and posterior beltran likely indicating scar tissue from prior infarct. In addition, there is evidence of mild stress-induced ischemia involving the LV apex, small in size recommended repeat cath hold xarelto, continue plavix tentative for saturday/ echocardiogram: 50-55% LVEF, mild aortic & mitral regurgitation, moderate diastolic dysfunction prior Last heart catheterization showed moderate CAD Atrial fibrillation on chronic anticoagulation Reports hes been off sotalol for at least a year; current med list does not include anti-arrhythmic/rate control med; patient unsure why Continue Xarelto Started metoprolol 01/19 monitor on telemetry rate-controlled afib Worsening tremorunderlying Parkinson's disease No recent changes in medications, tremor primarily affecting left side. and upper extremities Neurology consulted Started amantadine 01/18 seems to be improving Continue carbidopa/levodopa PT consult has been able to work with patient when he is doing well, not during late afternoon/evening when gets worse Hypertension Hyperlipidemia GERD Continue home medications VTE: Xarelto Code: Full Dispo: improving tremors, currently doesn't need inpatient rehab if continues to do well home health / PT home, sat/ after cath
[2023-01-21] MEDS ORDERED: REGADENOSON 0.4 MG/5 ML SYR IV ONE (07:17)
[2023-01-21] MEDS: RIVAROXABAN 10 MG TABLET PO SCH (09:25)
[2023-01-21] MEDS: CARBIDOPA/LEVODOPA 25/250 TAB PO SCH ×3 (09:25→20:47)
[2023-01-21] MEDS: CLOPIDOGREL 75 MG TABLET PO SCH (09:25)
[2023-01-21] MEDS: CYCLOBENZAPRINE 10 MG TAB PO SCH (09:25)
[2023-01-21] MEDS: VALSARTAN 160 MG TAB PO SCH (09:26)
[2023-01-21] MEDS: ZONISAMIDE 50 MG PO SCH (09:26)
[2023-01-21] MEDS: DOCUSATE NA 100 MG CAP PO SCH ×2 (09:26→20:47)
[2023-01-21] MEDS: AMANTADINE 100 MG CAP PO SCH (09:26)
--- NOTE | 2023-01-21 12:41 | RAD REPORT ---
EXAM DESCRIPTION: NM - Rest Stress Cardiac Imaging - 01/21/2023 9:22 am CLINICAL HISTORY: elevated troponin Chest pain. COMPARISON: Rest Stress Cardiac Imaging dated 12/17/2019 TECHNIQUE: The patient was administered approximately 10mCi of Tc 99m Sestamibi prior to resting SPE CT imaging of the heart. The patient was then administered approximately 30 mCi of Tc 99m Sestamibi f ollowing exercise or pharmacologic stress. Multiplanar SPECT images were reviewed. FINDINGS: There is a large area of diminished radiopharmaceutical accumulation involving the left ve ntricular apex, inferior and posterior wall. This appears more significant with stress. There is also significant fixed defect seen involving the inferior and posterior wall likely related to prior infa rction. The end diastolic volume is 148 ml, the end systolic volume is 80 ml, and the ejection fraction is 46 %. IMPRESSION: Large fixed defect is seen involving the inferior and posterior beltran likely indicating scar tissue from prior infarct. In addition, there is evidence of mild stress-induced ischemia involving the LV apex, small in size.
--- NOTE | 2023-01-21 14:11 | TREADPHA ---
DX: NSTEMI Date of Study: 01/21/2023 Ht: 5' 6 " Wt: 150 lb 0 oz Consulting Physician: DOMENICO MEDICATIONS: LIPITOR, PLAVIX, LOPRESSOR, DIOVAN, SINEMET HISTORY: 72 YEAR OLD MALE WITH COMPLAINTS OF CHEST PAIN. HISTORY OF HYPERTENSION, HIGH CHOLESTEROL, CORONARY ARTERY DISEASE WITH STENTS X7 (PER PATIENT), PARKINSON'S, FORMER ALCOHOL ABUSE QUIT >15 YEARS AGO. DENIES SMOKING OR DRUG USE. PHYSICIAL EXAMINATION: RESTING B.P.: 159/87 RESTING H.R.: 63 RESTING EKG: SINUS RHYTHM, RIGHT BUNDLE BRANCH BLOCK, PREMATURE VENTRICULAR COMPLEXES. PROTOCOL: LEXISCAN EXERCISE TIME: 3:30 B.P. AT PEAK STRESS: 118/65 IMPRESSION: LEXISCAN STRESS TEST PERFORMED. LEXISCAN INJECTED. CARDIOLITE INJECTED PER PROTOCOL. SEE NUCLEAR MEDICINE REPORT. OCCASIONAL PREMATURE ATRIAL COMPLEXES NOTED THROUGHOUT PROCEDURE. DENIES CHEST PAIN AND SHORTNESS OF BREATH.
[2023-01-21] MEDS: AMLODIPINE 5 MG TAB PO SCH (19:00)
[2023-01-21] MEDS: ATORVASTATIN 10 MG TAB PO SCH (20:47)
--- NOTE | 2023-01-21 23:03 | PN ---
Date of Progress Note: 01/21/2023 Mr. Fong had come in with significantly elevated troponin, continued to have intermittent chest pain. He has severe parkinsonism. He is on amantadine, Sinemet, Norvasc, Lipitor, Plavix, Xarelto, valsartan, and metoprolol. Stress test today showed large inferior scar with mild apical ischemia. He is in sinus rhythm. Case was discussed with Dr. Cuevas. We will hold Xarelto, continue Plavix; p mana for a catheterization in about 48 hours. No change in therapy otherwise. NB/MODL Voice ID: [id number] Report ID: [id number]
[2023-01-22 04:01] LABS: Potassium 3.8 mEq/L (3.5-5.1)
[2023-01-22] MEDS: PANTOPRAZOLE 40MG TABLET PO SCH (05:27)
[2023-01-22] MEDS: METOPROLOL TAR 25 MG TAB PO SCH ×2 (05:28→17:00)
[2023-01-22] MEDS: CLOPIDOGREL 75 MG TABLET PO SCH (08:07)
[2023-01-22] MEDS: DOCUSATE NA 100 MG CAP PO SCH ×2 (08:07→20:24)
[2023-01-22] MEDS: CYCLOBENZAPRINE 10 MG TAB PO SCH (08:07)
[2023-01-22] MEDS: CARBIDOPA/LEVODOPA 25/250 TAB PO SCH ×3 (08:07→20:24)
[2023-01-22] MEDS: VALSARTAN 160 MG TAB PO SCH (08:07)
[2023-01-22] MEDS: AMANTADINE 100 MG CAP PO SCH (08:08)
[2023-01-22] MEDS: ZONISAMIDE 50 MG PO SCH (08:08)
[2023-01-22 09:07] VITALS: O2SAT 98
--- NOTE | 2023-01-22 13:57 | P.PN ---
Subjective Date of Service: 01/22/23 Chief Complaint: NSTEMI, tremors Patient denies any new complain. No issues overnight. No changes in right-sided tremors. Physical Examination - Vital Signs Temperature: 97.5 F Blood Pressure: 150/75 Pulse: 104 Respirations: 16 Pulse Ox (%): 98 - Studies Microbiology Data (last 24 hrs): 01/16/23 22:48 Blood - Blood Aerobic Blood Culture - Final No growth in 5 days. 01/16/23 22:48 Blood - Blood Anaerobic Blood Culture - Final No growth in 5 days. 01/16/23 22:25 Blood - Blood Aerobic Blood Culture - Final No growth in 5 days. 01/16/23 22:25 Blood - Blood Anaerobic Blood Culture - Final No growth in 5 days. Assessment And Plan - Plan Physical Exam: GEN: Alert, oriented, NAD. CV: Irregularly irregular rate and rhythm, trace b/l edema, R>L just above ankles Pulm: Clear to auscultation bilaterally ABD: Soft, nontender, nondistended Neuro: Normal speech, normal affect, bilateral upper extremity tremors, L>R vitals reviewed Problem List: NSTEMI Worsening tremorunderlying Parkinson's disease history of CAD Diastolic CHF, chronic paroxysmal Atrial fibrillation on chronic anticoagulation Hypertension Hyperlipidemia GERD Constipation NSTEMI history of CAD Diastolic CHF, chronic EKG negative for STEMI criteria troponins - steady around 170-180 cardiology consulted - Stress test 01/21 Large fixed defect seen involving the inferior and posterior beltran likely indicating scar tissue from prior infarct. In addition, there is evidence of mild stress-induced ischemia involving the LV apex, small in size Cardiology recommend repeat cath scheduled for tomorrow. Xarelto is on hold, continue plavix echocardiogram: 50-55% LVEF, mild aortic & mitral regurgitation, moderate diastolic dysfunction prior heart catheterization showed moderate CAD Atrial fibrillation on chronic anticoagulation Reports hes been off sotalol for at least a year; current med list does not include anti-arrhythmic/rate control med. Continue Xarelto Continue metoprolol A-fib is currently rate controlled Worsening tremorunderlying Parkinson's disease No recent changes in medications, tremor primarily affecting left side. and upper extremities Neurology consulted Patient started amantadine 01/18 Continue carbidopa/levodopa Continue PT. Hypertension Hyperlipidemia GERD Continue home medications VTE: Xarelto on hold for cardiac. Code: Full
--- NOTE | 2023-01-22 17:42 | PN ---
Date of Progress Note: 01/22/2023 Mr. Fong had came in with tremors, positive troponin, had an abnormal stress test with a large fixed defect and ischemia in the lateral wall. He was on Xarelto. Xarelto was held. This was the c ause of the delay for the catheterization. He will have the heart catheterization done on 01/23/2023 . He understands the risk and the benefits of the procedure and he agreed to proceed. RICHA/ZOE Voice ID: [id number] Report ID: [id number]
[2023-01-22] MEDS: AMLODIPINE 5 MG TAB PO SCH (20:24)
[2023-01-22] MEDS: ATORVASTATIN 10 MG TAB PO SCH (20:24)
[2023-01-23 04:21] LABS: Potassium 3.5 mEq/L (3.5-5.1)
[2023-01-23] MEDS: METOPROLOL TAR 25 MG TAB PO SCH ×2 (05:47→17:28)
[2023-01-23] MEDS: PANTOPRAZOLE 40MG TABLET PO SCH (05:48)
[2023-01-23] MEDS: CLOPIDOGREL 75 MG TABLET PO SCH (05:48)
[2023-01-23] MEDS: DOCUSATE NA 100 MG CAP PO SCH ×2 (08:33→21:32)
[2023-01-23] MEDS: CARBIDOPA/LEVODOPA 25/250 TAB PO SCH ×4 (08:36→21:31)
[2023-01-23] MEDS: AMANTADINE 100 MG CAP PO SCH (08:36)
[2023-01-23] MEDS: CYCLOBENZAPRINE 10 MG TAB PO SCH (08:36)
[2023-01-23] MEDS: ZONISAMIDE 50 MG PO SCH (08:37)
[2023-01-23] MEDS: VALSARTAN 160 MG TAB PO SCH (08:39)
[2023-01-23] MEDS ORDERED: POTASSIUM CL SA 10 MEQ TAB PO ONE (09:00)
[2023-01-23] MEDS: AMLODIPINE 5 MG TAB PO SCH (19:00)
[2023-01-23] MEDS ORDERED: POTASSIUM 25 MEQ EFFERV TAB PO ONE (19:31)
[2023-01-23] MEDS: ATORVASTATIN 10 MG TAB PO SCH (21:32)
--- NOTE | 2023-01-23 22:13 | PN ---
Mr. Cox was admitted originally by Dr. Cuevas for non-STEMI and tremors. His tremors have impro hallie on amantadine. We will plan to do a heart catheterization on him today as this was denied as an outpatient. He has been on Xarelto at home. I think when he goes home, he needs to get back on the Xarelto until we will set him up for a heart catheterization after which he will stop the Xarelto for 48 hours before the procedure. From our standpoint, he can go home. RICHA/ZOE Voice ID: [id number] Report ID: [id number]
[2023-01-24] MEDS ORDERED: POTASSIUM 25 MEQ EFFERV TAB PO ONE (05:00)
[2023-01-24 05:10] VITALS: TEMP 98.2
[2023-01-24] MEDS: PANTOPRAZOLE 40MG TABLET PO SCH (05:41)
[2023-01-24] MEDS: METOPROLOL TAR 25 MG TAB PO SCH (05:41)
[2023-01-24 08:51] VITALS: BP 125/85
[2023-01-24] MEDS: CARBIDOPA/LEVODOPA 25/250 TAB PO SCH (08:59)
[2023-01-24] MEDS: DOCUSATE NA 100 MG CAP PO SCH (08:59)
[2023-01-24] MEDS: AMANTADINE 100 MG CAP PO SCH (08:59)
[2023-01-24] MEDS: ZONISAMIDE 50 MG PO SCH (08:59)
[2023-01-24] MEDS: CLOPIDOGREL 75 MG TABLET PO SCH (08:59)
[2023-01-24] MEDS: VALSARTAN 160 MG TAB PO SCH (08:59)
[2023-01-24] MEDS: CYCLOBENZAPRINE 10 MG TAB PO SCH (08:59)
--- NOTE | 2023-01-24 13:19 | P.DS ---
Admission Date: 01/17/23 Discharge Date: 01/24/23 Disposition: ROUTINE DISCHARGE Discharge Condition: FAIR Reason for Admission: NSTEMI, tremors Brief History of Present Illness: 72-year-old male with history of CAD, Parkinson's, atrial fibrillation on chronic anticoagulation, hypertension, hyperlipidemia, GERD presented to the emergency department with chief complaint of worsening tremor related to his Parkinson's. He sees Dr. Lynch the neurologist as well as Dr. Strong as a PCP. He is on carbidopa levodopa 25/252 tablets twice daily which has been on for about a year or so. He reported significant worsening tremor primarily on the left side along with pain from the tremors. He was evaluated in the emergency department his labs were significant for BNP 330 troponin 180.8 lactate 2.[address] chest abdomen pelvis without contrast showed no acute thoracic abnormality, fecalization of contents throughout the small bowel without evidence of obstruction, dense multivessel coronary artery calcifications greatest left main and LAD, mild prostatomegaly, cholelithiasis. Patient was hospitalized for further management of NSTEMI. Hospital Course: Diagnosis NSTEMI Worsening tremorunderlying Parkinson's disease history of CAD Diastolic CHF, chronic paroxysmal Atrial fibrillation on chronic anticoagulation Hypertension Hyperlipidemia GERD Constipation NSTEMI history of CAD Diastolic CHF, chronic EKG negative for STEMI criteria troponins - steady around 170-180 cardiology consulted - Stress test 01/21 Large fixed defect seen involving the inferior and posterior beltran likely indicating scar tissue from prior infarct. In addition, there is evidence of mild stress-induced ischemia involving the LV apex, small in size Cardiology recommend repeat cath scheduled as outpatient. Continue plavix. Xarelto held briefly in anticipation for cardiac cath as inpatient. Cardiac cath not done as inpatient. Xarelto resumed on discharge. echocardiogram: 50-55% LVEF, mild aortic & mitral regurgitation, moderate diastolic dysfunction prior heart catheterization showed moderate CAD Atrial fibrillation on chronic anticoagulation Reports hes been off sotalol for at least a year; current med list does not include anti-arrhythmic/rate control med. On Xarelto Continued metoprolol A-fib is rate controlled Worsening tremorunderlying Parkinson's disease No recent changes in medications, tremor primarily affecting left side. and upper extremities Neurology consulted, patient seen by Dr. Chávez and started amantadine 01/18 Continued carbidopa/levodopa Patient received PT. Hypertension Hyperlipidemia GERD Continued home medications Vital Signs/Physical Exam: Temp Pulse Resp BP Pulse Ox 98.2 F 71 18 125/85 98 01/24/23 08:00 01/24/23 08:59 01/24/23 08:00 01/24/23 08:59 01/24/23 08:00 General: Alert, In no apparent distress, Oriented x3 Neck: Supple, JVD not distended Respiratory: Clear to auscultation bilaterally, Normal air movement Cardiovascular: No edema, Normal S1 S2, Irregular heart rate/rhythm Gastrointestinal: Soft and benign, Non-distended Musculoskeletal: No tenderness Integumentary: Other (Bilateral hand tremors) Neurological: Other (No focal motor deficit) Laboratory Data at Discharge: WBC 3.00 thou/uL (4.3-10.9) L 01/21/23 03:47 Hgb 10.7 g/dL (13.6-17.9) L 01/21/23 03:47 Hct 31.7 % (39.6-49.0) L 01/21/23 03:47 Plt Count 186 thou/uL (152-406) 01/21/23 03:47 PT 14.7 SECONDS (9.5-12.5) H 01/16/23 22:25 INR 1.34 01/16/23 22:25 Sodium 136 mEq/L (136-145) 01/24/23 02:22 Potassium Cancelled 01/24/23 12:00 BUN 27 mg/dL (7-18) H 01/24/23 02:22 Creatinine 0.68 mg/dL (0.70-1.30) L 01/24/23 02:22 Glucose 87 mg/dL (74-106) 01/24/23 02:22 Phosphorus 2.4 mg/dL (2.5-4.9) L 01/20/23 02:56 Magnesium 2.2 mg/dL (1.6-2.4) 01/21/23 03:47 Total Bilirubin 0.4 mg/dL (0.2-1.0) 01/16/23 22:25 AST 17 U/L (15-37) 01/16/23 22:25 ALT < 10 U/L (16-61) L 01/16/23 22:25 Alkaline Phosphatase 71 U/L (45-117) 01/16/23 22:25 Lipase 23 U/L (13-75) 01/16/23 22:25 Home Medications: Amlodipine [Norvasc*] 5 mg PO SEECOM 01/17/23 Carbidopa/Levodopa 25-250 [Sinemet 25-250*] 2 tab PO TID 01/17/23 Clopidogrel Bisulfate [Plavix*] 75 mg PO DAILY 01/17/23 Cyclobenzaprine [Flexeril*] 10 mg PO BEDTIME 01/17/23 Pantoprazole [Protonix Tab*] 40 mg PO DAILY 01/17/23 Pravastatin [Pravachol*] 40 mg PO DAILY 01/17/23 Rivaroxaban [Xarelto*] 10 mg PO DAILY 01/17/23 Valsartan 160 mg PO DAILY 01/17/23 Zonisamide 50 mg PO DAILY 01/17/23 Amantadine [Symmetrel*] 100 mg PO DAILY #30 cap 01/24/23 Atorvastatin Calcium [Lipitor] 40 mg PO BEDTIME #30 tab 01/24/23 Docusate [Colace Cap*] 100 mg PO BID #60 cap 01/24/23 Hydrocodone 5/APAP 325 [Isabella 5/325] 1 tab PO Q6H PRN #15 tab 01/24/23 Metoprolol Tartrate [Lopressor*] 25 mg PO BID 6AM 6PM #60 tab 01/24/23 New Medications: Docusate [Colace Cap*] 100 mg PO BID #60 cap Atorvastatin Calcium [Lipitor] 40 mg PO BEDTIME #30 tab Metoprolol Tartrate [Lopressor*] 25 mg PO BID 6AM 6PM #60 tab Hydrocodone 5/APAP 325 [Isabella 5/325] 1 tab PO Q6H PRN #15 tab PRN Reason: Pain Amantadine [Symmetrel*] 100 mg PO DAILY #30 cap Physician Discharge Instructions: Patient presented with worsening tremor related to his Parkinson's, NSTMEI, afib. CT chest abdomen pelvis without contrast showed no acute thoracic abnormality. Neurology was consulted. He was given carbidopa/levodopa, amlodipine, and amantadine. His tremors improved. No further neurological testing needed. During his hospitilzation, it was noted he was in Afib with RVR. He was given metoprolol and xarelto, and his afib became rate-controlled. Troponins were elevated x5, EKG negative for STEMI criteria. Cardiology was consulted. Dr. Smiley recommended he have a stress test done during his hospitalization. On day of discharge, the stress test indicated mild stress-induced ischemia, and cardiology felt there was no further inpatient testing needed. New Prescriptions Amantadine Follow-up PCP within 1 week Cardiology 1-2 weeks Neurology in a few weeks Followup: Ranjeet Strong, DO [Primary Care Provider] - Enoc Smiley MD [ACTIVE - CAN ADMIT] - 1 Week Time spent managing pt's care (in minutes): 38
== END 2023-01-24 12:32 | disposition home health service (06) | DRG 281 ==
LOC: ER 21:33 → ERHOLD 01-17 00:37 → 2ND 01-17 00:58
PROVIDERS: ADMIT Hospitalist; ATTEND Internal Medicine
DX: I21.4 Non-ST elevation (NSTEMI) myocardial infarction (principal); I50.32 Chronic diastolic (congestive) heart failure; I11.0 Hypertensive heart disease with heart failure; G20 Parkinson's disease; I48.0 Paroxysmal atrial fibrillation; E78.5 Hyperlipidemia, unspecified; K21.9 Gastro-esophageal reflux disease without esophagitis; K59.00 Constipation, unspecified; I08.0 Rheumatic disorders of both mitral and aortic valves; I99.8 Other disorder of circulatory system; I25.10 Atherosclerotic heart disease of native coronary artery without angina pectoris; I25.2 Old myocardial infarction; Z88.8 Allergy status to other drugs, medicaments and biological substances; Z95.5 Presence of coronary angioplasty implant and graft; Z79.02 Long term (current) use of antithrombotics/antiplatelets; Z79.01 Long term (current) use of anticoagulants; Z79.899 Other long term (current) drug therapy
CPT/HCPCS: 36415; 70544; 70549; 70553; 71045; 71250; 74176; 78452; 80048; 80076; 81001; 82550; 83605; 83690; 83735; 83880; 84100; 84132; 84439; 84443; 84484; 85025; 85610; 87040; 93005; 93017; 93306; 96361; 96365; 96375; 97110; 97116; 97161; 97530; 99285; A9500; A9577; J0696; J2405; J2785; J3010; J7030

== ENCOUNTER 2023-02-22 10:30 | Day surgery (SDC) | payer OTHER ==
[2023-02-20 16:08] LABS: Hematocrit 37.5 % (39.6-49.0); Lymphocytes % 27.7 % (15.3-44.8); MPV 8.3 fL (7.6-11.3); RBC Red Blood Cell Count 4.12 M/uL (4.33-5.43)
[2023-02-20 16:11] LABS: Protime INR 1.61
[2023-02-20 16:24] LABS: Potassium 3.6 mEq/L (3.5-5.1)
--- NOTE | 2023-02-21 13:56 | EKG ---
Test Date: 2023-02-20 Test Time: 14:34:51 [employer]pike Assembler: JAYSON MEASUREMENT RESULTS: Intervals: Rate: 97 NC: QRSD: 148 QT: 382 QTc: 485 [place]: P: NC: QRS: -76 T: 85 INTERPRETIVE STATEMENTS: Atrial fibrillation with premature ventricular or aberrantly conducted complexes Right bundle branch block Left anterior fascicular block Bifascicular block Minimal voltage criteria for LVH, may be normal variant Septal infarct, age undetermined Abnormal ECG Compared to ECG 01/16/2023 22:56:39 Ventricular premature complex(es) now present Sinus tachycardia no longer present Atrial premature complex(es) no longer present Early repolarization no longer present Bifascicular block still present Myocardial infarct finding still present Electronically Signed On 02-21-23 13:55:13 CDT by Enoc Smiley
[~2023-02-22 10:30] MED LIST changes: +ATROPINE SULF 1 MG/10 ML SYR IV ONE; +FENTANYL CITR 100 MCG/2 ML ONE; -HEPA 1000U/500MLS 1,000 UNIT/500 ML BAG IV ONE; +HEPA 1000U/500MLS 2,000 UNIT/1,000 ML BAG IV ONE; +HEPARIN 10,000 UNIT/10 ML VIAL IV ONE; +HEPARIN 5000 UNIT/ML 1 ML VIAL ONE; +MIDAZOLAM HCL 2 MG/2 ML INJ ONE; +NITROGLYCERIN 100 MCG/ML SYR (for cath lab use only) IV ONE; +NITROGLYCERIN/D5W 25 MG/250 ML BTL IV ONE; +TICAGRELOR 90 MG TABLET PO ONE; +VERAPAMIL HCL 10 MG/4 ML VIAL IV ONE
[2023-02-22] MEDS ORDERED: NA CHLORIDE 0.9% 500 ML ONE (11:19)
[2023-02-22] MEDS ORDERED: ASPIRIN 325 MG TAB ONE (12:09)
[2023-02-22] MEDS ORDERED: CLOPIDOGREL 75 MG TABLET ONE (12:09)
[2023-02-22] MEDS ORDERED: REGADENOSON 0.4 MG/5 ML SYR IV ONE (13:24)
[2023-02-22 16:42] VITALS: BP 161/82; O2SAT 100
--- NOTE | 2023-02-22 20:26 | OP ---
Date of Procedure: 02/22/2023 Surgeon: ASHLEY DARNELL Procedures Performed: 1.Selective coronary angiogram. 2.FFR of the proximal RCA was -0.93. 3.IVUS of distal left main with minimal luminal area of 6.2 sq mm. Indications: Elevated troponin, possible non STEMI recently with slightly abnormal stress test. Access: A right femoral artery 6-[place] closed with 6-[place] Angio-Seal. Complications: None. Estimated Blood Loss: Bleeding less than 20 mL. Anesthesia: Total sedation time was 1 hour. Description Of Procedure: After risks, benefits, and alternatives were explained, the patient agreed to proceed and signed informed consent. The patient was brought to the cardiac catheterization [facility] and prepped and draped in usual sterile fashion. Then, I accessed right femoral artery using micropuncture kit, ultrasound guidance, and fluoroscopy. Then I placed 6-[place] sheath, too k 6-[place] JL4 catheter into the aortic root over a J-wire and engaged left main, took standard views . Then I exchanged for a 6-[place] JR4 catheter and engaged the RCA, took 7 views and then gave syste marcus heparin to assure ACT level above 250 and then we took a JR4 guide into the aortic root over a J wire, engaged the RCA and took a pressure wire equalized in the aortic root and sent the wire into th e vessel and disengaged the catheter from the RCA as the lesion is very proximal. FFR was done using a Lexiscan. It was 0.93. Final angiogram was satisfactory and pulling the wire back there was no d rift and then I exchanged for a 6-[place] XB3.5 left guide, engaged the left main and took a short Run through wire into the left main and LAD and then performed an IVUS study. Minimal luminal area of th e distal left main was above 6.2 sq mm. Final angiogram was satisfactory and there were no complicat ions. Then, removed the wire, the guide, and the sheath and 6-[place] Angio-Seal was placed with good hemostasis. Findings: 1.Left main: Distal 50% stenosis; however, by IVUS minimal lumen area is above 6.2 sq mm. 2.LAD: Widely patent [id number] LAD stent and diagonal branch has proximal 50% stenosis. Diag onal 2 branch has proximal 50% stenosis. 3.Ramus intermedius: Large and patent. 4.Left circumflex: Ostial 60%, mid 20% to 30%, and OM1 branch has proximal 60%. 5.RCA: Has proximal 60% stenosis, mid 40% to 50% stenosis and the luminal irregularities. Conclusion: 1.Moderate coronary artery disease and patent left anterior descending artery stent. 2.Left main disease about 50% and minimal luminal area by IVUS is above 6.2 sq mm. Plan: Medical management. /ZOE Voice ID: [id number] Report ID: [id number]
== END 2023-02-22 16:43 | disposition home or self-care (01) ==
LOC: CCL 10:30
PROVIDERS: ATTEND Internal Medicine
DX: I25.10 Atherosclerotic heart disease of native coronary artery without angina pectoris (principal); I11.0 Hypertensive heart disease with heart failure; I50.32 Chronic diastolic (congestive) heart failure; I65.23 Occlusion and stenosis of bilateral carotid arteries; I48.0 Paroxysmal atrial fibrillation; I45.2 Bifascicular block; E78.2 Mixed hyperlipidemia; G47.33 Obstructive sleep apnea (adult) (pediatric); G20 Parkinson's disease; Z95.5 Presence of coronary angioplasty implant and graft; Z79.01 Long term (current) use of anticoagulants; Z79.899 Other long term (current) drug therapy; Z88.8 Allergy status to other drugs, medicaments and biological substances; Z82.49 Family history of ischemic heart disease and other diseases of the circulatory system
CPT/HCPCS: 93005; 85025; 80048; 36415; 85610; 85347; 85730; 92978; 93454; 76937; 93571; C1893; C1760; Q9967; G0269; J2785; J2001; J2250; J3010; J7040; C1769; J0461; J1644

== ENCOUNTER 2023-04-30 16:12 | Inpatient (IN) | payer OTHER ==
--- OUTSIDE RECORDS SUMMARY | 2023-04-30 16:21 | XMS REPORT | Continuity of Care Document ---
:1950 Author Organization [facility] t Address [address] [place] [place] [address] Care Team Providers Name Role Phone Paolo Colon MD Primary Care Physician Ranjeet Strong Attending Clinician Unavailable Jeovanny Lynch Attending Clinician Lubna MOORE, Silviano Pate Attending Clinician EDWINA ABDI Attending Clinician Unavailable Paolo Colon MD Attending Clinician Doctor Unassigned, Ney Attending Clinician Unavailable PAOLO COLON Attending Clinician Unavailable Payers Payer Name Policy Type Policy Number Effective Date Expiration Date S ource [employer] MEDICARE [id number] 2020 Common Sp nicky PPO 00:00:00 - [facility] [employer] MEDICARE [id number] 2012 00:00:00 Problems Condition Condition Condition Status [...] in CAD in Disease Active 2015-09 [facility] [place] 1[facility]08 st artery artery 00:00: Hospita 00 [...] l artery artery Essential Essential Problem Active 2023-02-03 Memoria hypertensi hypertensi 1-14 11:51:41 l on on 00:00: Ricardo (disorder) (disorder) 00 Active 09/22/2015 Problem 02/03/2023 [facility] 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 1-14 11:51:41 l (disorder) (disorder) 00:00: Ferny bowenann Active 00 09/22/2015 Problem 02/03/2023 [facility] Atrial Atrial Problem Active 2023-02-03 [facility] fibrillati fibrillati 11:51:41 l on on Ricardo (disorder) (disorder) Active Problem 02/03/2023 [facility] Cervical Cervical Problem Active 2023-02-03 Memoria myelopathy myelopathy 11:51:41 l (disorder) (disorder) Ferny bowenann Active Problem 02/03/2023 [facility] Dysphagia Dysphagia Problem Active 2023-02-03 Memoria (disorder) (disorder) 11:51:41 l Active [place] Problem 02/03/2023 [facility] Knee pain Knee pain Problem Active 2023-02-03 Memoria (finding) (finding) 11:51:41 l Active [place] Problem 02/03/2023 [facility] 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 [facility] system system 11:51:41 l atrophy, atrophy, Sandro n Parkinson Parkinson variant variant (disorder) (disorder) Active Problem 02/03/2023 [facility] [id number] GERD Problem Common without Spirit esophagiti - [facility] [id number] Mixed Problem Common hyperlipid [facility] emia [facility] [id number] Insomnia, Problem Com mon unspecifie Spirit d type - [facility] [id number] Primary Problem Comm on osteoarthr Spirit itis of - [facility] left knee [facility] [id number] Coronary Problem Comm on artery Spirit disease of [facility] [place] artery [facility] [place] Medical heart with Center stable angina pectoris [id number] Venous Problem Common insufficie Spirit ncy [facility] [id number] Depression Problem Co mmon with Spirit anxiety [facility] [id number] Allergic Problem Commo n rhinitis, Spirit unspecifie - [facility] d [facility] seasonalit [facility] y, Medical unspecifie Center d trigger [id number] Osteoarthr Problem Co mmon itis of Spirit cervical - [facility] spine, St unspecifie [facility] d spinal Medical osteoarthr Center itis complicati on status [id number] Primary Problem Commo n osteoarthr Spirit itis of - [facility] both knees [facility] [id number] Primary Problem Comm on osteoarthr Spirit itis of - [facility] right knee [facility] Allergies, Adverse Reactions, Alerts Allergy Allergy Status Severity Reaction(s) Onset Inactive Treating Comm ents Source Name Type Date Date Clinician Desireeinobnejamin Propensi Active 2015-09 Method i il ty to 09-16 st adverse 00:00: Hospita reaction 00 l s to drug LISINOPR DRUG Active Other-Cmnt 2014-09 [place] 10-10 ity of 00[facility]00: [place] [facility] Drug Active Unknown Common allergy Spirit - [facility] lisinopr lisinopr Active Memori a il il l Ricardo Social History Social Habit Start Date Stop Date Quantity Comments Source History of Tobacco Common Spirit - Use [facility] Gender identity [facility] Sexual orientation [facility] Alcohol intake 2016-11-20 2016-11-20 Current [facility] 00:[facility] 00:00:00 non-drinker of Hospital alcohol (finding) History of Social 2016-07-17 2016-07-[address] function 00:00:00 00:00:00 Hospital Sex Assigned At [birth year] [facility] kes 00:00:00 00:00:00 [facility] Smoking Status Start Date Stop Date Source Tobacco smoking status [facility] Medications Ordered Filled Start Stop Current Ordering Indication Dosage Frequency Signature Comments Components Source Medication Medication Date Date Medication? Clinician (SIG) Name Name carbidopa-l Yes See Memori a evodopa 25 5-25 Instructio l mg-250 mg 17:24: ns, TAKE 2 He rmann oral tablet 00 TABLETS THREE TIMES DAILY, # 540 tab, 3 Refill(s), Pharmacy: [facility] zonisamide Yes = 1 cap, Mem oria 50 mg oral 5-25 PO, Daily, l capsule 17:24: # 90 cap, Petrona nn 00 1 Refill(s), Pharmacy: [facility] clopidogrel Yes 75 mg = 1 M emoria 75 mg oral 5-25 tab, PO, l tablet 17:11: Daily, # Ricardo 00 90 tab, 0 Refill(s) valsartan Yes TAKE 1 Method i (DIOVAN) 1-[address] 160 MG 00:00: EVERY DAY Hospit a tablet 00 l valsartan Yes TAKE 1 Method i (DIOVAN) 1-[address] 160 MG 00:00: EVERY DAY Hospit a tablet 00 l carbidopa-l 2021-09 Yes See Memori a evodopa 25 2-16 Instructio l mg-250 mg 21:08: ns, TAKE 2 He rmann oral tablet 00 TABLETS THREE TIMES DAILY, # 540 tab, 3 Refill(s), Pharmacy: [facility] Mail Delivery carbidopa-l 2021-09 Yes See Memori a evodopa 25 2-16 Instructio l mg-250 mg 21:08: ns, TAKE 2 He rmann oral tablet 00 TABLETS THREE TIMES DAILY, # 540 tab, 3 Refill(s), [facility]: [facility] Yes = 1 cap, Mem oria 50 mg oral 0-14 PO, Daily, l capsule 23:14: # 90 cap, Petrona nn 00 1 Refill(s), Pharmacy: [facility] 2021-09 Yes See Memori a evodopa 25 0-14 Instructio l mg-250 mg 23:14: ns, TAKE 2 He rmann oral tablet 00 TABLETS THREE TIMES DAILY, # 540 tab, 3 Refill(s), Pharmacy: [facility] zonisamid 2021-09 Yes = 1 cap, Mem oria 50 mg oral 0-14 PO, Daily, l capsule 23:14: # 90 cap, Petrona nn 00 1 Refill(s), Pharmacy: [facility] 2021-09 Yes See Memori a evodopa 25 0-14 Instructio l mg-250 mg 23:14: ns, TAKE 2 He rmann oral tablet 00 TABLETS THREE TIMES DAILY, # 540 tab, 3 Refill(s), Pharmacy: [facility] Yes See Memori a evodopa 25 4-08 Instructio l mg-250 mg 13:45: ns, TAKE 2 He rmann oral tablet 00 TABLETS THREE TIMES DAILY, # 540 tab, 3 Refill(s), Pharmacy: [facility] Mail Delivery, 162.56, cm, 05/23/20 13:13:00 CDT, Height, 77.273, kg, 05/23/20 13:13:00 CDT, Weight [facility]- Yes See Memori a evodopa 25 4-08 Instructio l mg-250 mg 13:45: ns, TAKE 2 He rmann oral tablet 00 TABLETS THREE TIMES DAILY, # 540 tab, 3 Refill(s), Pharmacy: [facility] Mail Delivery, 162.56, cm, 05/23/20 13:13:00 CDT, Height, 77.273, kg, 05/23/20 13:13:00 CDT, Weight carbidopa-l 2021-0 No See Memori a evodopa 25 4-08 Instructio l mg-250 mg 13:40: ns, TAKE 2 He rmann oral tablet 00 TABLETS THREE TIMES DAILY, # 540 tab, 3 Refill(s), Pharmacy: [facility] Mail Delivery, 162.56, cm, 05/23/20 13:13:00 CDT, Height, 77.273, kg, 05/23/20 13:13:00 CDT, Weight carbidopa-l 2021-0 No See Memori a evodopa 25 4-08 Instructio l mg-250 mg 13:40: ns, TAKE 2 He rmann oral tablet 00 TABLETS THREE TIMES DAILY, # 540 tab, 3 Refill(s), Pharmacy: [facility] Mail Delivery, 162.56, cm, 05/23/20 13:13:00 CDT, Height, 77.273, kg, 05/23/20 13:13:00 CDT, Weight carbidopa-l 2021-0 No See Memori a evodopa 25 4-07 Instructio l mg-250 mg 15:13: ns, TAKE 2 He rmann oral tablet 00 TABLETS THREE TIMES DAILY, # 1 tab, 3 Refill(s), Pharmacy: [facility] Mail Delivery, 162.56, cm, 05/23/20 13:13:00 CDT, Height, 77.273, kg, 05/23/20 13:13:00 CDT, Weight carbidopa-l 2021-0 No See Memori a evodopa 25 4-07 Instructio l mg-250 mg 15:13: ns, TAKE 2 He rmann oral tablet 00 TABLETS THREE TIMES DAILY, # 1 tab, 3 Refill(s), Pharmacy: [facility] Mail Delivery, 162.56, cm, 05/23/20 13:13:00 CDT, Height, 77.273, kg, 05/23/20 13:13:00 CDT, Weight zonisamide 0 Yes 50 mg = 1 Me moria 50 mg oral 4-07 cap, PO, l capsule 15:12: Daily, # Sandro n 00 90 cap, 1 Refill(s), Pharmacy: [facility] Mail Delivery, 162.56, cm, 05/23/20 13:13:00 CDT, Height, 77.273, kg, 05/23/20 13:13:00 CDT, Weight zonisamide Yes 50 mg = 1 Me moria 50 mg oral 4-07 cap, PO, l capsule 15:12: Daily, # Sandor n 00 90 cap, 1 Refill(s), Pharmacy: [facility] Mail Delivery, 162.56, cm, 05/23/20 13:13:00 CDT, Height, 77.273, kg, 05/23/20 13:13:00 CDT, Weight Xarelto 10 Yes 0 Memoria mg oral 4-07 Refill(s) l tablet 15:04: Xarelto 10 Yes 0 Memoria mg oral 4-07 Refill(s) l tablet 15:04: [place] 00 valsartan 2020-09- No TAKE 1 Metho di (DIOVAN) 09-[address] 160 MG 00:00: 00:00 EVERY DAY Hospi ta tablet 00 :00 l valsartan 2020-09- No TAKE 1 Metho di (DIOVAN) 09-[address] 160 MG 00:00: 00:00 EVERY DAY Hospi ta tablet 00 :00 l sotaloL 0 Yes [id number] TAKE 1 Meth gisela (BETAPACE) 6-[address] 80 MG 00:00: TWICE Hospita tablet 00 DAILY l sotaloL 0 Yes [id number] TAKE 1 Meth gisela (BETAPACE) 6-[address] 80 MG 00:00: TWICE Hospita tablet 00 DAILY l pravastatin 0 Yes TAKE 1 Meth gisela (PRAVACHOL) 4-[address] 40 mg 00:00: EVERY DAY Hospita tablet 00 (NEEDS AN l APPOINTMEN T BEFORE NEXT REFILL) pravastatin 0 Yes TAKE 1 Meth igsela (PRAVACHOL) 4-[address] 40 mg 00:00: EVERY DAY Hospita tablet 00 (NEEDS AN l APPOINTMEN T BEFORE NEXT REFILL) Orthovisc Orthovisc 2020-0 No 15mg Com mon 2-04 Spirit 00:00: - [facility] Orthovisc Orthovisc 2020-0 No 15mg Com 10-13 Spirit 00:00: - [facility] Orthovisc Orthovisc 2020-0 No 15mg Com 10-13 Spirit 00:00: - [facility] Orthovisc Orthovisc 2020-0 No 15mg Com 10-13 Spirit 00:00: - [facility] Orthovisc Orthovisc 2020-0 No 15mg Com 10-13 Spirit 00:00: - [facility] Orthovisc Orthovisc 2020-0 No 15mg Com 10-13 Spirit 00:00: - [facility] Orthovisc Orthovisc 2020-0 No 15mg Com 10-13 Spirit 00:00: - [facility] Orthovisc Orthovisc 2020-0 No 15mg Com 10-13 Spirit 00:00: - [facility] Orthovisc Orthovisc 2020-0 No 15mg Com 10-13 Spirit 00:00: - [facility] Orthovisc Orthovisc 2020-0 No 15mg Com 10-13 Spirit 00:00: - [facility] Orthovisc Orthovisc 2020-0 No 15mg Com 10-13 Spirit 00:00: - [facility] Orthovisc Orthovisc 2020-0 No 15mg Com 10-13 Spirit 00:00: - [facility] Orthovisc Orthovisc 2020-0 No 15mg Com 10-13 Spirit 00:00: - [facility] Orthovisc Orthovisc 2020-0 No 15mg Com 10-13 Spirit 00:00: - [facility] Orthovisc Orthovisc 2020-0 No 15mg Com 10-13 Spirit 00:00: - [facility] Orthovisc Orthovisc 2020-0 No 15mg Com 10-13 Spirit 00:00: - [facility] Orthovisc Orthovisc 2020-0 No 15mg Com 10-13 Spirit 00:00: - [facility] Orthovisc Orthovisc 2021-0 No 15mg Com 10-13 Spirit 00:00: - [facility] Orthovisc Orthovisc 2020-0 No 15mg Com 10-13 Spirit 00:00: - [facility] Orthovisc Orthovisc 1-0 No 15mg Com 10-13 Spirit 00:00: - [facility] Orthovisc Orthovisc 2020-0 No 15mg Com 10-13 Spirit 00:00: - [facility] Orthovisc Orthovisc 2020-0 No 15mg Com 10-13 Spirit 00:00: - [facility] Orthovisc Orthovisc 2020-0 No 15mg Com 10-13 Spirit 00:00: - [facility] Orthovisc Orthovisc 2020-0 No 15mg Com 10-13 Spirit 00:00: - [facility] Orthovisc Orthovisc 2020-0 No 15mg Com 10-13 Spirit 00:00: - [facility] Orthovisc Orthovisc 2020-0 No 15mg Com 10-13 Spirit 00:00: - [facility] Orthovisc Orthovisc 2020-0 No 15mL Com 10-06 Spirit 00:00: - [facility] Orthovisc Orthovisc 2020-0 No 15mL Com 10-06 Spirit 00:00: - [facility] Orthovisc Orthovisc 2020-0 No 15mL Com 10-06 Spirit 00:00: - [facility] Orthovisc Orthovisc 2020-0 No 15mL Com 10-06 Spirit 00:00: - [facility] Orthovisc Orthovisc 2020-0 No 15mL Com 10-06 Spirit 00:00: - [facility] Orthovisc Orthovisc 2020-0 No 15mL Com 10-06 Spirit 00:00: - [facility] Orthovisc Orthovisc 2020-0 No 15mL Com 10-06 Spirit 00:00: - [facility] Orthovisc Orthovisc 2021-0 No 15mL Com 10-06 Spirit 00:00: - [facility] 00 [facility] Orthovisc Orthovisc 1-0 No 15mL Com 10-06 Spirit 00:00: - [facility]I 00 [facility] Orthovisc Orthovisc 1-0 No 15mL Com 10-06 Spirit 00:00: - [facility]I 00 [facility] Orthovisc Orthovisc 1-0 No 15mL Com 10-06 Spirit 00:00: - [facility] 00 [facility] Orthovisc Orthovisc 1-0 No 15mL Com 10-06 Spirit 00:00: - [facility]I 00 [facility] Orthovisc Orthovisc 2020-0 No 15mL Com 10-06 Spirit 00:00: - [facility]I 00 [facility] Orthovisc Orthovisc 2020-0 No 15mL Com 10-06 Spirit 00:00: - [facility] 00 [facility] Orthovisc Orthovisc 1-0 No 15mL Com 10-06 Spirit 00:00: - [facility] 00 [facility] Orthovisc Orthovisc 1-0 No 15mL Com 10-06 Spirit 00:00: - [facility]I 00 [facility] Orthovisc Orthovisc 2020-0 No 15mL Com 10-06 Spirit 00:00: - [facility]I 00 [facility] Orthovisc Orthovisc 1-0 No 15mL Com 10-06 Spirit 00:00: - [facility] 00 [facility] Orthovisc Orthovisc 2020-0 No 15mL Com 10-06 Spirit 00:00: - [facility] 00 [facility] Orthovisc Orthovisc 1-0 No 15mL Com 10-06 Spirit 00:00: - [facility] 00 [facility] Orthovisc Orthovisc 1-0 No 15mL Com 10-06 Spirit 00:00: - [facility] 00 [facility] Orthovisc Orthovisc 1-0 No 15mL Com 10-06 Spirit 00:00: - [facility] 00 [facility] Orthovisc Orthovisc 1-0 No 15mL Com 10-06 Spirit 00:00: - [facility]I 00 [facility] Orthovisc Orthovisc 2020-0 No 15mL Com 10-06 Spirit 00:00: - [facility]I 00 [facility] Orthovisc Orthovisc 1-0 No 15mL Com 10-06 Spirit 00:00: - [facility] 00 [facility] Orthovisc Orthovisc 2020-0 No 15mL Com 10-06 Spirit 00:00: - [facility] 00 [facility] Orthovisc Orthovisc 1-0 No 2mL Com 09-28 Spirit 00:00: - [facility]I 00 [facility] Orthovisc Orthovisc 1-0 No 2mL Com 09-28 Spirit 00:00: - [facility]I 00 [facility] Orthovisc Orthovisc 2020-0 No 2mL Com 09-28 Spirit 00:00: - [facility]I 00 [facility] Orthovisc Orthovisc 2020-0 No 2mL Com 09-28 Spirit 00:00: - [facility]I 00 [facility] Orthovisc Orthovisc 1-0 No 2mL Com 09-28 Spirit 00:00: - [facility]I 00 [facility] Orthovisc Orthovisc 2020-0 No 2mL Com 09-28 Spirit 00:00: - [facility]I 00 [facility] Orthovisc Orthovisc 1-0 No 2mL Com 09-28 Spirit 00:00: - [facility] Orthovisc Orthovisc 2020-0 No 2mL Com 09-28 Spirit 00:00: - [facility]I 00 [facility] Orthovisc Orthovisc 1-0 No 2mL Com 09-28 Spirit 00:00: - [facility]I 00 [facility] Orthovisc Orthovisc 1-0 No 2mL Com 09-28 Spirit 00:00: - [facility]I 00 [facility] Orthovisc Orthovisc 1-0 No 2mL Com 09-28 Spirit 00:00: - [facility]I 00 [facility] Orthovisc Orthovisc 1-0 No 2mL Com 09-28 Spirit 00:00: - [facility]I 00 [facility] Orthovisc Orthovisc 1-0 No 2mL Com 09-28 Spirit 00:00: - [facility]I 00 [facility] Orthovisc Orthovisc 1-0 No 2mL Com 09-28 Spirit 00:00: - [facility]I 00 [facility] Orthovisc Orthovisc 1-0 No 2mL Com mon 09-28 Spirit 00:00: - CHI 00 [facility] Orthovisc Orthovisc 2020-0 No 2mL Com mon 09-28 Spirit 00:00: - [facility]I 00 [facility] Orthovisc Orthovisc 2020-0 No 2mL Com mon 09-28 Spirit 00:00: - [facility]I 00 [facility] Orthovisc Orthovisc 2020-0 No 2mL Com mon 09-28 Spirit 00:00: - [facility]I 00 [facility] Orthovisc Orthovisc 2020-0 No 2mL Com mon 09-28 Spirit 00:00: - [facility] Orthovisc Orthovisc 2020-0 No 2mL Com mon 09-28 Spirit 00:00: - [facility] Orthovisc Orthovisc 2020-0 No 2mL Com mon 09-28 Spirit 00:00: - [facility] Orthovisc Orthovisc 2020-0 No 2mL Com mon 09-28 Spirit 00:00: - [facility] Orthovisc Orthovisc 2020-0 No 2mL Com mon 09-28 Spirit 00:00: - [facility] Orthovisc Orthovisc 2020-0 No 2mL Com mon 09-28 Spirit 00:00: - [facility] Orthovisc Orthovisc 2020-0 No 2mL Com mon 09-28 Spirit 00:00: - [facility] Orthovisc Orthovisc 2020-0 No 2mL Com mon 09-28 Spirit 00:00: - [facility]I 00 [facility] Kenalog Kenalog 2020-1 No 40mg Common (Triamcinol (Triamcinol 1-16 S pirit one) one) 00:00: - CHI 00 [facility] Kenalog Kenalog 2020-1 No 40mg Common (Triamcinol (Triamcinol 1-16 S pirit one) one) 00:00: - CHI 00 [facility] Bupivicaine Bupivicaine 2020-1 No Common [place] -16 Spirit 00:00: - CHI 00 [facility] Bupivicaine Bupivicaine 2020-1 No Common [place] 1-16 Spirit 00:00: - CHI 00 [facility] Kenalog Kenalog 2020-1 No 40mg Common (Triamcinol (Triamcinol 1-16 S pirit one) one) 00:00: - CHI 00 [facility] Kenalog Kenalog 2020-1 No 40mg Common (Triamcinol (Triamcinol 1-16 S pirit one) one) 00:00: - CHI 00 [facility] Bupivicaine Bupivicaine 2020-1 No 2.5mg Common [place] 1-16 Spirit 00:00: - [facility]I 00 [facility] Bupivicaine Bupivicaine 2020-1 No 2.5mg Common [place] 1-16 Spirit 00:00: - CHI 00 [facility] Kenalog Kenalog 2020- No 40mg Common (Triamcinol (Triamcinol 1-16 S pirit one) one) 00:00: - CHI 00 [facility] Kenalog Kenalog 2020- No 40mg Common (Triamcinol (Triamcinol 1-16 S pirit one) one) 00:00: - CHI 00 [facility] Bupivicaine Bupivicaine 2020-1 No 2.5mg Common [place] 1-16 Spirit 00:00: - [facility]I 00 [facility] Bupivicaine Bupivicaine 2020-1 No 2.5mg Common [place] 1-16 Spirit 00:00: - [facility]I 00 [facility] Kenalog Kenalog 2020-1 No 40mg Common (Triamcinol (Triamcinol 1-16 S pirit one) one) 00:00: - [facility]I 00 [facility] Kenalog Kenalog 2020-1 No 40mg Common (Triamcinol (Triamcinol 1-16 S pirit one) one) 00:00: - [facility]I 00 [facility] Bupivicaine Bupivicaine 2020-1 No 2.5mg Common [place] 1-16 Spirit 00:00: - [facility]I 00 [facility] Bupivicaine Bupivicaine 2020-1 No 2.5mg Common [place] 1-16 Spirit 00:00: - [facility]I 00 [facility] Kenalog Kenalog 2020- No 40mg Common (Triamcinol (Triamcinol 1-16 S pirit one) one) 00:00: - CHI 00 [facility] Kenalog Kenalog 2020- No 40mg Common (Triamcinol (Triamcinol 1-16 S pirit one) one) 00:00: - [facility]I 00 [facility] Bupivicaine Bupivicaine 2020-1 No 2.5mg Common [place] 1-16 Spirit 00:00: - [facility] 00 [facility] Bupivicaine Bupivicaine 2019-1 No 2.5mg Common [place] 1-16 Spirit 00:00: - [facility]I 00 [facility] Kenalog Kenalog 2019- No 40mg Common (Triamcinol (Triamcinol 1-16 S pirit one) one) 00:00: - CHI 00 [facility] Kenalog Kenalog 2019- No 40mg Common (Triamcinol (Triamcinol 1-16 S pirit one) one) 00:00: - [facility]I 00 [facility] Bupivicaine Bupivicaine 2020-1 No 2.5mg Common [place] 1-16 Spirit 00:00: - [facility]I 00 [facility] Bupivicaine Bupivicaine 2020-1 No 2.5mg Common [place] 1-16 Spirit 00:00: - CHI 00 [facility] Kenalog Kenalog 2020- No 40mg Common (Triamcinol (Triamcinol 1-16 S pirit one) one) 00:00: - CHI 00 [facility] Kenalog Kenalog 2020- No 40mg Common (Triamcinol (Triamcinol 1-16 S pirit one) one) 00:00: - CHI 00 [facility] Bupivicaine Bupivicaine 2020-1 No 2.5mg Common [place] 1-16 Spirit 00:00: - [facility]I 00 [facility] Bupivicaine Bupivicaine 2020-1 No 2.5mg Common [place] 1-16 Spirit 00:00: - [facility]I 00 [facility] Kenalog Kenalog 2020- No 40mg Common (Triamcinol (Triamcinol 1-16 S pirit one) one) 00:00: - CHI 00 [facility] Kenalog Kenalog 2020-1 No 40mg Common (Triamcinol (Triamcinol 1-16 S pirit one) one) 00:00: - [facility]I 00 [facility] Bupivicaine Bupivicaine 2020-1 No 2.5mg Common [place] 1-16 Spirit 00:00: - [facility]I 00 [facility] Bupivicaine Bupivicaine 2020-1 No 2.5mg Common [place] 1-16 Spirit 00:00: - CHI 00 [facility] Kenalog Kenalog 2019- No 40mg Common (Triamcinol (Triamcinol 1-16 S pirit one) one) 00:00: - CHI 00 [facility] Kenalog Kenalog 2019- No 40mg Common (Triamcinol (Triamcinol 1-16 S pirit one) one) 00:00: - [facility]I 00 [facility] Bupivicaine Bupivicaine 2020-1 No 2.5mg Common [place] 1-16 Spirit 00:00: - [facility]I 00 [facility] Bupivicaine Bupivicaine 2019-1 No 2.5mg Common [place] 1-16 Spirit 00:00: - CHI 00 [facility] Kenalog Kenalog 2019- No 40mg Common (Triamcinol (Triamcinol 1-16 S pirit one) one) 00:00: - CHI 00 [facility] Kenalog Kenalog 2019- No 40mg Common (Triamcinol (Triamcinol 1-16 S pirit one) one) 00:00: - [facility]I 00 [facility] Bupivicaine Bupivicaine 2019- No 2.5mg Common [place] 1-16 Spirit 00:00: - [facility]I 00 [facility] Bupivicaine Bupivicaine 2020-1 No 2.5mg Common [place] 1-16 Spirit 00:00: - [facility]I 00 [facility] Kenalog Kenalog 2019- No 40mg Common (Triamcinol (Triamcinol 1-16 S pirit one) one) 00:00: - CHI 00 [facility] Kenalog Kenalog 2019- No 40mg Common (Triamcinol (Triamcinol 1-16 S pirit one) one) 00:00: - [facility] 00 [facility] Bupivicaine Bupivicaine 2020-1 No 2.5mg Common [place] 1-16 Spirit 00:00: - [facility] 00 [facility] Bupivicaine Bupivicaine 2020- No 2.5mg Common [place] 1-16 Spirit 00:00: - [facility]I 00 [facility] Kenalog Kenalog 2020- No 40mg Common (Triamcinol (Triamcinol 1-16 S pirit one) one) 00:00: - CHI 00 [facility] Kenalog Kenalog 2020- No 40mg Common (Triamcinol (Triamcinol 1-16 S pirit one) one) 00:00: - [facility] 00 [facility] Bupivicaine Bupivicaine 2020- No 2.5mg Common [place] 1-16 Spirit 00:00: - [facility] 00 [facility] Bupivicaine Bupivicaine 2020- No 2.5mg Common [place] 1-16 Spirit 00:00: - [facility] 00 [facility] Kenalog Kenalog 2020- No 40mg Common (Triamcinol (Triamcinol 1-16 S pirit one) one) 00:00: - [facility]I 00 [facility] Kenalog Kenalog 2020- No 40mg Common (Triamcinol (Triamcinol 1-16 S pirit one) one) 00:00: - [facility] 00 [facility] Bupivicaine Bupivicaine 2020-1 No 2.5mg Common [place] 1-16 Spirit 00:00: - [facility] 00 [facility] Bupivicaine Bupivicaine 2020-1 No 2.5mg Common [place] 1-16 Spirit 00:00: - [facility] 00 [facility] clopidogreL 2020-0 Yes TAKE 1 Meth gisela (PLAVIX) 75 6-[address] mg tablet 00:00: EVERY DAY Hos yamel 00 l clopidogreL 2020-0 Yes TAKE 1 Meth gisela (PLAVIX) 75 6-[address] mg tablet 00:00: EVERY DAY Hos yamel 00 l Hydrochloro 2020-0 Yes 1 tab, PO, Memoria thiazide 25 4-15 Daily, # l MG / 14:44: 90 tab, 1 [place] valsartan 00 Refill(s) 160 MG Oral Tablet [...] tab, PO, l tablet 14:44: BID, 0 [place] 00 Refill(s) pravastatin 2020-0 Yes 40 mg = 1 M emoria 40 mg oral 4-15 tab, PO, l tablet 14:44: Daily, 0 [place] 00 Refill(s) nitroglycer 2020-0 Yes 0.4 mg = 1 Memoria in 0.4 mg 4-15 tab, SL, l sublingual 14:44: Q5Min, 0 Her michelle tablet 00 Refill(s) fluticasone 2020-0 Yes INHALATION Memoria propionate 4-15 , BID, 0 l 14:44: Refill(s) [place] 00 Hydrochloro 2020-0 Yes 1 tab, PO, Memoria thiazide 25 4-15 Daily, # l MG / 14:44: 90 tab, 1 [place] valsartan 00 Refill(s) 160 MG Oral Tablet [...] # 540 l Levodopa 14:39: tab, 2 [place] 250 MG Oral 00 Refill(s), Tablet Pharmacy: [facility] Mail Delivery Carbidopa 2020-0 Yes 2 tab, PO, Me moria 25 MG / 4-15 TID, # 540 l Levodopa 14:39: tab, 2 Ricardo 250 MG Oral 00 Refill(s), Tablet Pharmacy: [facility] Mail Delivery Cyclobenzap 2020-0 Yes 5 mg = 1 Me moria rine 4-15 tab, PO, l hydrochlori 14:35: TID, 0 Herm caridad de 5 MG 00 Refill(s) Oral Tablet [Flexeril] Flexeril 5 2020-0 Yes 5 mg = 1 Mem oria mg oral 4-15 tab, PO, l tablet 14:35: TID, 0 Ricardo 00 Refill(s) Cyclobenzap 2020-0 Yes 5 mg = 1 Me moria rine 4-15 tab, PO, l hydrochlori 14:35: TID, 0 Herm caridad de 5 MG 00 Refill(s) Oral Tablet [Flexeril] Flexeril 5 2020-0 Yes 5 mg = 1 Mem oria mg oral 4-15 tab, PO, l tablet 14:35: TID, 0 [place] 00 Refill(s) valsartan 2020-0 Yes 160 mg = 1 Me moria 160 mg oral 4-09 tab, PO, l tablet 14:42: Daily, # Ricardo 00 30 tab, 0 Refill(s) simvastatin 2020-0 Yes 40 mg = 1 M emoria 40 mg oral 4-09 tab, PO, l tablet 14:42: Bedtime, 0 Petrona nn 00 Refill(s) valsartan 2020-0 Yes 160 mg = 1 Me moria 160 mg oral 4-09 tab, PO, l tablet 14:42: Daily, # Ricardo 00 30 tab, 0 Refill(s) simvastatin 2020-0 Yes 40 mg = 1 M emoria 40 mg oral 4-09 tab, PO, l tablet 14:42: Bedtime, 0 Petrona nn 00 Refill(s) aspirin 2020-0 Yes 81mg QD Take 81 mg Meth gisela (ECOTRIN) 2-[address] 81 MG 09:31: daily. Hospita enteric 34 l coated tablet carbidopa-l 2020-0 Yes Q.2D Take by Met hodi evodopa 2-[address] (SINEMET) 09:31: (five) Hospit a 25-250 mg 34 times a l per tablet day. zonisamide 2020-0 Yes 100mg QD Take 100 Me thodi (ZONEGRAN) 2-[address] 100 MG 09:31: mouth Hospita capsule 34 daily. l aspirin 2020-0 Yes 81mg QD Take 81 mg Meth gisela (ECOTRIN) 2-[address] 81 MG 09:31: daily. Hospita enteric 34 l coated tablet carbidopa-l 2020-0 Yes Q.2D Take by Met hodi evodopa 2-[address] (SINEMET) 09:31: (five) Hospit a 25-250 mg 34 times a l per tablet day. zonisamide 2020-0 Yes 100mg QD Take 100 Me thodi (ZONEGRAN) 2-[address] 100 MG 09:31: mouth Hospita capsule 34 daily. l pantoprazol Yes Method i e 09-21 st (PROTONIX) 00:00: Hospita 40 MG EC 00 l tablet pantoprazol Yes Method i e 09-21 st (PROTONIX) 00:00: Hospita 40 MG EC 00 l tablet verapamil 2018-09 Yes 120mg QD Take 1 Metho di sustained 2-[address] release 00:00: (120 mg Hospita (CALAN-SR) 00 total) by l 120 MG SR mouth tablet daily. verapamil 2018-09 Yes 120mg QD Take 1 Metho di sustained 2-[address] release 00:00: (120 mg Hospita (CALAN-SR) 00 total) by l 120 MG SR mouth tablet daily. zonisamide 2018-09 Yes See Memoria 100 mg oral 2-04 Instructio l capsule 21:03: ns, TAKE 1 Herm caridad 26 CAPSULE EVERY DAY, # 90 cap, 3 Refill(s), Pharmacy: [facility] Mail Delivery zonisamide 2018-09 Yes See Memoria 100 mg oral 2-04 Instructio l capsule 21:03: ns, TAKE 1 Herm caridad 26 CAPSULE EVERY DAY, # 90 cap, 3 Refill(s), Pharmacy: [facility] Mail Delivery fluticasone 2018-09 Yes Method i propionate 0-29 st (FLONASE) 00:00: Hospita 50 00 l mcg/actuati on nasal spray fluticasone 2018-09 Yes Method i propionate 0-29 st (FLONASE) 00:00: Hospita 50 00 l mcg/actuati on nasal spray Carbidopa 2018-09 Yes 1 tab, PO, Me moria 50 MG / 0-24 QPM, # 90 l Levodopa 18:56: tab, 2 Ricardo 200 MG 26 Refill(s), Extended Pharmacy: Release [facility] [[facility] Mail 50-200] Delivery Carbidopa 2018-09 Yes 1 tab, PO, Me moria 50 MG / 0-24 QPM, # 90 l Levodopa 18:56: tab, 2 [place] 200 MG 26 Refill(s), Extended Pharmacy: Release [facility] [[facility] Mail 50-200] Delivery Carbidopa Yes 2 tab, PO, Me moria 25 MG / 9-12 TID, # 540 l Levodopa 18:51: tab, 2 [place] 250 MG Oral 40 Refill(s), Tablet Pharmacy: [facility] Mail Delivery Carbidopa Yes 2 tab, PO, Me moria 25 MG / 9-12 TID, # 540 l Levodopa 18:51: tab, 2 [place] 250 MG Oral 40 Refill(s), Tablet Pharmacy: [facility] Mail Delivery Carbidopa Yes = 1 tab, Colt deangelo 25 MG / 6-11 PO, 5X l Levodopa 15:06: Day, # 450 Her michelle 250 MG Oral 16 tab, Tablet Refill(s) 2, Pharmacy: [facility] Mail Delivery Carbidopa Yes = 1 tab, Colt deangelo 25 MG / 6-11 PO, 5X l Levodopa 15:06: Day, # 450 Her michelle 250 MG Oral 16 tab, Tablet Refill(s) 2, Pharmacy: [facility] Mail Delivery Carbidopa Yes 1 tab, PO, Me moria 50 MG / 5- QPM, # 90 l Levodopa 20:48: tab, 2 Ircardo 200 MG 53 Refill(s), Extended Pharmacy: Release [facility]t [facility] [[facility]em[facility] Mail 50-200] Delivery Carbidopa Yes 1 tab, PO, Me moria 50 MG / 5-09 QPM, # 90 l Levodopa 20:48: tab, 2 [place] 200 MG 53 Refill(s), Extended Pharmacy: Release [facility]t Pharmacy [[facility] Mail 50-200] Delivery rosuvastati 2018- Yes 5 mg = 1 Me moria n 5 mg oral 5-09 tab, PO, l tablet 20:47: Bedtime, # Petrona nn 00 30 tab, 0 Refill(s) pantoprazol Yes 40 mg = 1 M emoria e 40 mg 5-09 tab, PO, l oral 20:47: Daily, # [place] enteric 00 30 tab, 0 coated Refill(s) tablet tizanidine 2018- Yes 2 mg = 1 Mem oria 2 mg oral 5-09 cap, PO, l capsule 20:47: Bedtime, Sandro n 00 PRN for muscle spasm, # 30 cap, 0 Refill(s) losartan 0 Yes 100 mg = 1 Mem oria [...] 00 30 tab, 0 coated Refill(s) tablet tizanidine Yes 2 mg = 1 Mem [...] 180 Petrona nn 00 tab, 0 Refill(s) Carbidopa 2017-09 Yes 1 tab, PO, Me [...] Pharmacy: [[facility] 25-250] Pharmacy Mail Delivery Carbidopa 2017-09 Yes 1 tab, PO, Me moria 25 MG / 0-04 5X Day, # l Levodopa 21:12: 450 tab, 2 Her michelle 250 MG Oral 00 Refill(s), Tablet Pharmacy: [[facility] 25-250] Pharmacy Mail Delivery zonisamide No See Memoria 100 mg oral 05-31 Instructio l capsule 05:40: ns, # 90 Sandro n 06 unknown unit, Refill(s) 3, TAKE 1 CAPSULE EVERY DAY, Pharmacy: [facility] Mail Delivery zonisamide No See Memoria 100 mg oral 05-31 Instructio l capsule 05:40: ns, # 90 Sandro n 06 unknown unit, Refill(s) 3, TAKE 1 CAPSULE EVERY DAY, Pharmacy: [facility] Mail Delivery amLODIPine Yes 5 mg = 1 Mem oria 5 mg oral 2-28 tab, PO, l tablet 19:39: Daily, 0 [place] 00 Refill(s) amLODIPine Yes 5 mg = 1 Mem oria 5 mg oral 2-28 tab, PO, l tablet 19:39: Daily, 0 Ricardo 00 Refill(s) MUSCLE RUB, Yes Method i WITH 2-[facility], 00:00: Hospita 4-30-10 % 00 l cream MUSCLE RUB, Yes Method i WITH 2-20 [facility], 00:00: Hospita 4-30-10 % 00 l cream docusate 2015-09 Yes 100mg Q.5D Take 1 Method i sodium 1-[address] (COLACE) 00:00: (100 mg Hospit a 100 MG 00 total) by l capsule mouth 2 (two) times a day. docusate 2015-09 Yes 100mg Q.5D Take 1 Method i sodium 1-[address] (COLACE) 00:00: (100 mg Hospit a 100 MG 00 total) by l capsule mouth 2 (two) times a day. Pantoprazol Pantoprazol Yes Ranjeet 1 tablet Common e Sodium e Sodium Strong [facility] Valsartan Valsartan Yes Ranjeet 1 tablet Common Strong [facility] Cyclobenzap Cyclobenzap Yes Ranjeet 1 tablet Common rine HCl rine HCl Strong at bedtime Spirit as needed [facility] Nitroglycer Nitroglycer Yes Ranjeet 1 tablet Common in in Strong as needed [facility] Amlodipine Amlodipine Yes Ranjeet 1 tablet Common Besylate Besylate Strong [facility] Clopidogrel Clopidogrel Yes Ranjeet 1 tablet Common Bisulfate Bisulfate Strong Spir it [facility] Aspir-Low Aspir-Low Yes Ranjeet 1 tablet Common Strong [facility] Melatonin Melatonin Yes Ranjeet 1 tablet Common Strong at bedtime Spirit as needed [facility] Carbidopa-L Carbidopa-L Yes Ranjeet 2 tablets Common evodopa evodopa Strong [facility] Fluticasone Fluticasone Yes Ranjeet 2 spray in Common Propionate Propionate Strong each Sp nicky nostril [facility] Stool Stool Yes Ranjeet not Common Softener Softener Strong defined Spi rit [facility] Artificial Artificial Yes Ranjeet not C ommon Tear Tear Strong defined [facility] Solution Solution [facility] Sotalol HCl Sotalol HCl Yes Ranjeet 1 tablet Common Strong [facility] Pravastatin Pravastatin Yes Ranjeet 1 tablet Common Sodium Sodium Strong [facility] predniSONE predniSONE No predniSONE Aspirin 81 Aspirin [...] Date Status Commen ts Source Name Name Moderna COVID-19 Moderna COVID-19 2020-12-04 Completed [facility] Vaccine Vaccine 10:48:00 - [facility] Moderna COVID-19 Moderna COVID-19 2020-12-04 Completed [facility] Vaccine Vaccine 10:48:00 [facility] Moderna COVID-19 Moderna COVID-19 2020-12-04 Completed [facility] Vaccine Vaccine 10:48:00 - [facility] Moderna COVID-19 Moderna COVID-19 2020-12-04 Completed [facility] Vaccine Vaccine 10:48:00 - [facility] Moderna COVID-19 Moderna COVID-19 2020-12-04 Completed [facility] Vaccine Vaccine 10:48:00 - [facility] Moderna COVID-19 Moderna COVID-19 2020-12-04 Completed [facility] Vaccine Vaccine 10:48:00 [facility] Moderna COVID-19 Moderna COVID-19 2020-12-04 Completed [facility] Vaccine Vaccine 10:48:00 [facility] Moderna COVID-19 Moderna COVID-19 2020-12-04 Completed [facility] Vaccine Vaccine 10:48:00 [facility] Moderna COVID-19 Moderna COVID-19 2020-12-04 Completed [facility] Vaccine Vaccine 10:48:00 [facility] Moderna COVID-19 Moderna COVID-19 2020-12-04 Completed [facility] Vaccine Vaccine 10:48:00 [facility] Moderna COVID-19 Moderna COVID-19 2020-12-04 Completed [facility] Vaccine Vaccine 10:48:00 [facility] Moderna COVID-19 Moderna COVID-19 2020-12-04 Completed [facility] Vaccine Vaccine 10:48:00 - [facility] Moderna COVID-19 Moderna COVID-19 2020-12-04 Completed [facility] Vaccine Vaccine 10:48:00 - [facility] Moderna COVID-19 Moderna COVID-19 2020-12-04 Completed [facility] Vaccine Vaccine 10:48:00 - [facility] Moderna COVID-19 Moderna COVID-19 2020-12-04 Completed [facility] Vaccine Vaccine 10:48:00 - [facility] Moderna COVID-19 Moderna COVID-19 2020-12-04 Completed [facility] Vaccine Vaccine 10:48:00 - [facility] Moderna COVID-19 Moderna COVID-19 2020-11-06 Completed [facility] Vaccine Vaccine 10:47:00 - [facility] Moderna COVID-19 Moderna COVID-19 2020-11-06 Completed [facility] Vaccine Vaccine 10:47:00 - [facility] Moderna COVID-19 Moderna COVID-19 2020-11-06 Completed [facility] Vaccine Vaccine 10:47:00 - [facility] Moderna COVID-19 Moderna COVID-19 2020-11-06 Completed [facility] Vaccine Vaccine 10:47:00 - [facility] Moderna COVID-19 Moderna COVID-19 2020-11-06 Completed [facility] Vaccine Vaccine 10:47:00 - [facility] Moderna COVID-19 Moderna COVID-19 2020-11-06 Completed [facility] Vaccine Vaccine 10:47:00 - [facility] Moderna COVID-19 Moderna COVID-19 2020-11-06 Completed [facility] Vaccine Vaccine 10:47:00 - [facility] Moderna COVID-19 Moderna COVID-19 2020-11-06 Completed [facility] Vaccine Vaccine 10:47:00 - [facility] Moderna COVID-19 Moderna COVID-19 2020-11-06 Completed [facility] Vaccine Vaccine 10:47:00 - [facility] Moderna COVID-19 Moderna COVID-19 2020-11-06 Completed [facility] Vaccine Vaccine 10:47:00 - [facility] Moderna COVID-19 Moderna COVID-19 2020-11-06 Completed [facility] Vaccine Vaccine 10:47:00 [facility] Moderna COVID-19 Moderna COVID-19 2020-11-06 Completed [facility] Vaccine Vaccine 10:47:00 - [facility] Moderna COVID-19 Moderna COVID-19 2020-11-06 Completed [facility] Vaccine Vaccine 10:47:00 - [facility] Moderna COVID-19 Moderna COVID-19 2020-11-06 Completed [facility] Vaccine Vaccine 10:47:00 - [facility] Moderna COVID-19 Moderna COVID-19 2020-11-06 Completed [facility] Vaccine Vaccine 10:47:00 - [facility] Moderna COVID-19 Moderna COVID-19 2020-11-06 Completed [facility] Vaccine Vaccine 10:47:00 [facility] Vital Signs Vital Name Observation Time Observation Value Comments Source height 2022-07-17 09:40:00 64 [in_i] [facility] weight 2022-07-17 09:40:00 160.0 [lb_av] [facility] temperature 2022-07-17 09:40:00 97.9 [degF] [facility] bmi 2022-07-17 09:40:00 27.46 kg/m2 [facility] oximetry 2022-07-17 09:40:00 95 % [facility] respiratory rate 2022-07-17 09:40:00 16 /min Comm on [facility] blood pressure 2022-07-17 09:40:00 118 mm[Hg] [facility] - systolic [facility] blood pressure 2022-07-17 09:40:00 71 mm[Hg] [facility] - diastolic [facility] height 2022-07-17 10:00:00 64 [in_i] Common S pirit [facility] weight 2022-07-17 10:00:00 160.0 [lb_av] [facility] temperature 2022-07-17 10:00:00 97.9 [degF] Common S pirit [facility] bmi 2022-07-17 10:00:00 27.46 kg/m2 Common S pirit [facility] oximetry 2022-07-17 10:00:00 95 % [facility] respiratory rate 2022-07-17 10:00:00 16 /min Comm on [facility] blood pressure 2022-07-17 10:00:00 118 mm[Hg] Common [facility] - systolic [facility] blood pressure 2022-07-17 10:00:00 71 mm[Hg] Common [facility] - diastolic [facility] height 2022-03-16 10:50:00 64 [in_i] Common S pirit [facility] weight 2022-03-16 10:50:00 160.0 [lb_av] [facility] temperature 2022-03-16 10:50:00 98.0 [degF] Common S pirit [facility] bmi 2022-03-16 10:50:00 27.46 kg/m2 [facility] S pirit [facility] oximetry 2022-03-16 10:50:00 96 % Common S pirit [facility] respiratory rate 2022-03-16 10:50:00 17 /min Comm on [facility] blood pressure 2022-03-16 10:50:00 134 mm[Hg] [facility] - systolic [facility] blood pressure 2022-03-16 10:50:00 74 mm[Hg] Common [facility] - diastolic [facility] height 2021-11-15 10:40:00 64 [in_i] Common S pirit [facility] weight 2021-11-15 10:40:00 160 [lb_av] Common S pirit [facility] temperature 2021-11-15 10:40:00 98.0 [degF] Common S pirit [facility] bmi 2021-11-15 10:40:00 27.46 kg/m2 Common S [facility] oximetry 2021-11-15 10:40:00 98 % Common S pirit [facility] respiratory rate 2021-11-15 10:40:00 17 /min Comm on [facility] blood pressure 2021-11-15 10:40:00 121 mm[Hg] Common [facility] - systolic [facility] blood pressure 2021-11-15 10:40:00 66 mm[Hg] [facility] - diastolic [facility] height 2021-08-17 10:40:00 64 [in_i] Common [facility] weight 2021-08-17 10:40:00 160 [lb_av] Common [facility] temperature 2021-08-17 10:40:00 97.2 [degF] Common S [facility] bmi 2021-08-17 10:40:00 27.46 kg/m2 Common S [facility] oximetry 2021-08-17 10:40:00 97 % Common S [facility] respiratory rate 2021-08-17 10:40:00 20 /min Comm on [facility] blood pressure 2021-08-17 10:40:00 130 mm[Hg] Common [facility] - systolic [facility] blood pressure 2021-08-17 10:40:00 60 mm[Hg] [facility] - diastolic [facility] height 2021-08-17 11:00:00 64 [in_i] Common [facility] weight 2021-08-17 11:00:00 160 [lb_av] Common [facility] temperature 2021-08-17 11:00:00 97.2 [degF] Common S pirit [facility] bmi 2021-08-17 11:00:00 27.46 kg/m2 Common S pirit - [facility] oximetry 2021-08-17 11:00:00 97 % Common S pirit - [facility] respiratory rate 2021-08-17 11:00:00 20 /min Comm on Spirit - [facility] blood pressure 2021-08-17 11:00:00 130 mm[Hg] [facility] - systolic [facility] blood pressure 2021-08-17 11:00:00 60 mm[Hg] [facility] - diastolic [facility] Systolic (mm Hg) 2023-01-31 16:58:00 Colt rial Ricardo Diastolic (mm Hg) 2023-01-31 16:58:00 Mem orial Ricardo Heart Rate 2023-01-31 16:58:00 [facility] [place] Systolic (mm Hg) 2020-05-23 18:13:00 Colt rial [place] Diastolic (mm Hg) 2020-05-23 18:13:00 Mem orial Ricardo Heart Rate 2020-05-23 18:13:00 Memorial [facility] Respitory Rate 2020-05-23 18:13:00 Memori al [place]ardo Height 2020-05-23 18:13:00 162.56 cm [facility] [place] Weight 2020-05-23 18:13:00 [facility] BMI Calculated 2020-05-23 18:13:00 Memori al Ricardo Systolic (mm Hg) 2019-12-23 14:19:00 Colt rial Ricardo Diastolic (mm Hg) 2019-12-23 14:19:00 Mem orial Ricardo Heart Rate 2019-12-23 14:19:00 Memorial [place] Respitory Rate 2019-12-23 14:19:00 Memori al [place] Height 2019-12-23 14:19:00 162.56 cm [facility] Weight 2019-12-23 14:19:00 [facility] BMI Calculated 2019-12-23 14:19:00 Memori al Ricardo Systolic (mm Hg) 2019-08-12 20:20:00 Colt rial [place] Diastolic (mm Hg) 2019-08-12 20:20:00 Mem orial Ricardo Height 2019-08-12 20:20:00 167.64 cm [facility] [place] Weight 2019-08-12 20:20:00 [facility] [place] BMI Calculated 2019-08-12 20:20:00 Memori al Ricardo Systolic (mm Hg) 2019-07-02 18:23:00 Colt rial Ricardo Diastolic (mm Hg) 2019-07-02 18:23:00 Mem orial [place] Heart Rate 2019-07-02 18:23:00 [facility] [place] Respitory Rate 2019-07-02 18:23:00 Memori al Ricardo Height 2019-07-02 18:23:00 162.56 cm [facility] Weight 2019-07-02 18:23:00 [facility] BMI Calculated 2019-07-02 18:23:00 Memori al Ricardo Heart Rate 2019-05-21 18:27:00 [facility] [place] Respitory Rate 2019-05-21 18:27:00 Memori al [place] Height 2019-05-21 18:27:00 167.64 cm [facility] [place] Weight 2019-05-21 18:27:00 [facility] [place] BMI Calculated 2019-05-21 18:27:00 Memori al [place] Systolic (mm Hg) 2019-05-21 18:27:00 Colt rial Ricardo Diastolic (mm Hg) 2019-05-21 18:27:00 Mem orial [place] Weight 2019-01-15 20:26:00 Memorial Ricardo BMI Calculated 2019-01-15 20:26:00 Memori al [place] Height 2019-01-15 20:26:00 160.02 cm [facility] [place] Heart Rate 2019-01-15 20:26:00 [facility] [place] Systolic (mm Hg) 2019-01-15 20:26:00 Colt rial Ricardo Diastolic (mm Hg) 2019-01-15 20:26:00 Mem orial Ricardo Respitory Rate 2019-01-15 20:26:00 Memori al [place]ardo Weight 2018-06-12 20:42:00 Memorial Ricardo BMI Calculated 2018-06-12 20:42:00 Memori al [place] Height 2018-06-12 20:42:00 167.64 cm [facility] [place] Respitory Rate 2018-06-12 20:42:00 Memori al Ricardo Heart Rate 2018-06-12 20:42:00 [facility] [place] Systolic (mm Hg) 2018-06-12 20:42:00 Colt rial [place] Diastolic (mm Hg) 2018-06-12 20:42:00 Mem orial Ricardo Procedures This patient has no known procedures. Plan of Care Planned Activity Planned Date Details Comments Source Future Scheduled 2023-04-17 Screening for [facility] Test 15:07:39 malignant neoplasm of colon (procedure) [code = 409363011] Future Scheduled 2023-04-17 Screening for [facility] Test 15:07:39 malignant neoplasm of colon (procedure) [code = 064045663] Future Scheduled 2023-04-17 Screening for [facility] Test 15:07:39 malignant neoplasm of colon (procedure) [code = 451054840] Future Scheduled 2023-04-17 COVID-19 VACCINE (#1) [facility] Test 15:07:39 [code = COVID-19 VACCINE (#1)] Future Scheduled 2023-04-17 Screening for [facility] Test 15:07:39 malignant neoplasm of colon (procedure) [code = 326438225] Future Scheduled 2023-04-17 Screening for [facility] Test 15:07:39 malignant neoplasm of colon (procedure) [code = 744081136] Future Scheduled 2023-04-17 SHINGLES VACCINES (1 Met [facility] Test 15:07:39 of 2) [code = SHINGLES VACCINES (1 of 2)] Future Scheduled 2023-04-17 65+ PNEUMOCOCCAL [facility] Test 15:07:39 VACCINE (1 - PCV) [code = 65+ PNEUMOCOCCAL VACCINE (1 - PCV)] Future Scheduled 2023-04-17 INFLUENZA VACCINE Method [facility] Test 15:07:39 [code = INFLUENZA VACCINE] Future Scheduled 2023-01-16 COVID-19 VACCINE (#1) [facility] Test 21:36:49 [code = COVID-19 VACCINE (#1)] Future Scheduled 2023-01-16 COLONOSCOPY SCREENING [facility] Test 21:36:49 [code = COLONOSCOPY SCREENING] Future Scheduled 2023-01-16 SHINGLES VACCINES (1 Met [facility] Test 21:36:49 of 2) [code = SHINGLES VACCINES (1 of 2)] Future Scheduled 2023-01-16 65+ PNEUMOCOCCAL [facility] Test 21:36:49 VACCINE (1 - PCV) [code = 65+ PNEUMOCOCCAL VACCINE (1 - PCV)] Future Scheduled 2023-01-16 INFLUENZA VACCINE Method [facility] Test 21:36:49 [code = INFLUENZA VACCINE] Encounters Start End Encounter Admission Attending Care Care Encounter Source Date/Time Date/Time Type Type Clinicians Facility Department ID 2023-04-29 Outpatient Strong, [facility] [id number] Common 16:00:00 Ranjeet [id number] [facility] 2023-02-01 Outpatient Strong, [facility] [id number] Common 11:23:00 Ranjeet [id number] [facility] 2023-01-29 Outpatient Strong, [facility] [id number] Common 15:15:00 Ranjeet [id number] [facility] 2023-01-25 Outpatient Strong, [facility] [id number] Common 10:17:00 Ranjeet [id number] [facility] 2022-12-12 Outpatient Strong, [facility] [id number] Common 11:36:01 Ranjeet [id number] [facility] 2022-11-14 Outpatient Strong, [facility] [id number] Common 10:11:02 Ranjeet [id number] [facility] 2022-11-13 Outpatient Strong, [facility] [id number] Common 10:04:01 Ranjeet [id number] [facility] 2022-11-12 Outpatient Strong, [facility] [id number] Common 08:51:00 Ranjeet [id number] [facility] 2022-11-08 Outpatient Strong, [facility] [id number] Common 11:12:00 Ranjeet [id number] [facility] 2022-07-13 Outpatient Strong, [facility] [id number] Common 10:21:02 Ranjeet [id number] [facility] 2022-06-18 Outpatient Strong, [facility] [id number] Common 16:41:01 Ranjeet [id number] [facility] 2021-11-15 [facility] [id number] Common 10:21:01 Ranjeet [facility] 2021-10-04 Outpatient Strong, [facility] [id number] Common 14:37:48 Ranjeet [facility] [facility] Outpatient Strong, STLMLC STLC [id number] Common 14:34:19 Ranjeet [facility] 2021-10-04 Outpatient Strong, STLMLC STLC [id number] Common 14:22:49 Ranjeet [facility] 2021-10-04 Outpatient Strong, STLC [facility] [id number] Common 14:13:55 Ranjeet [facility] 2021-10-04 Outpatient Strong, STLC [facility] [id number] Common 14:12:47 Ranjeet [facility] 2021-10-04 Outpatient Strong, STLC [facility] [id number] Common 13:59:39 Ranjeet 10080 [facility] 2021-10-04 Outpatient Strong, STLC [facility] [id number] Common 13:32:37 Ranjeet 72582 [facility] 2021-10-04 Outpatient Strong, STLC [facility] Common 13:32:10 Ranjeet [id number] [facility] 2021-10-04 Outpatient Strong, STLC [facility] [id number] Common 13:30:10 Ranjeet 33726 [facility] 2021-10-04 Outpatient Strong, STLMLC [facility] [id number] Common 13:29:42 Ranjeet 10578 [facility] 2021-10-04 Outpatient Strong, STLC [facility] [id number] Common 12:52:26 Ranjeet [id number] [facility] 2021-10-04 Outpatient Strong, STLC [facility] [id number] Common 12:44:44 Ranjeet [id number] [facility] 2021-10-04 Outpatient Strong, STLC [facility] [id number] Common 12:36:40 Ranjeet 77112 [facility] 2021-10-04 Outpatient Strong, STLMLC STLC [id number] Common 12:26:46 Ranjeet 63878 [facility] 2021-10-04 Outpatient Strong, STLMLC STLC [id number] Common 12:26:32 Ranjeet [id number] [facility] 2021-10-04 Outpatient Strong, STLMLC STLC [id number] Common 12:24:27 Ranjeet 52956 [facility] 2021-10-04 Outpatient Strong, STLMLC STLC [id number] Common 12:22:47 Ranjeet 79926 [facility] 2021-10-04 Outpatient Strong, STLMLC [facility] [id number] Common 12:15:31 Ranjeet 99362 [facility] 2021-10-04 Outpatient Strong, STLMLC [facility] [id number] Common 12:15:05 Ranjeet [id number] [facility] 2021-10-04 Outpatient Strong, STLMLC STLC [id number] Common 12:11:15 Ranjeet 82077 [facility] 2021-10-04 Outpatient Strong, STLMLC [facility] [id number] Common 12:06:17 Ranjeet 29814 [facility] 2021-10-04 Outpatient Strong, STLMLC [facility] [id number] Common 12:05:38 Ranjeet 69139 [facility] 2021-10-04 Outpatient Strong, STLMLC STLC [id number] Common 12:04:08 Ranjeet 25072 [facility] 2021-10-04 Outpatient Strong, STLMLC STLC [id number] Common 12:04:00 Ranjeet 37206 [facility] 2021-10-04 Outpatient Strong, STLC [facility] [id number] Common 11:57:19 Ranjeet 84317 [facility] 2021-10-04 Outpatient Strong, STLMLC STLC [id number] Common 11:52:48 [facility] 36027 [facility] 2021-10-[address] [facility] [id number] Common 11:32:01 [facility] 03627 [facility] 2023-07-24 2023-07-24 Outpatient MHIE MHIE [id number] Memoria 11:45:00 11:45:00 24 robina Silva 2023-01-31 2023-02-01 Outpatient MHIE MNA [id number] Memoria 16:45:00 04:59:59 Neurology 23 robina Silva 2023-01-31 2023-01-31 Outpatient TITUS LynchMISCHER MISCHER [id number] 11:45:00 23:59:59 Jeovanny 23 Ubaldo 2023-01-31 2023-01-31 Outpatient MHIE MHIE [id number] Memoria 11:45:00 11:45:00 23 robina Silva 2023-01-31 2023-01-31 Outpatient MHIE MHIE [id number] Memoria 11:45:00 11:45:00 23 robina Silva 2022-12-07 2022-12-07 Ambulatory MHIE MNA [id number] Memoria 19:30:00 19:30:00 Pre-Reg Neurology 22 robina Silva 2022-12-07 2022-12-07 Ambulatory MHIE MNA [id number] Memoria 19:30:00 19:30:00 Pre-Reg Neurology 22 robina Silva 2022-12-07 2022-12-07 Outpatient MARQUITA LynchSCHER MISCHER [id number] 14:30:00 14:30:00 Jeovanny 22 Ubaldo 2022-11-16 2022-11-16 Ambulatory MHIE MNA [id number] Memoria 19:15:00 19:15:00 Pre-Reg Neurology 21 robina Silva 2022-11-16 2022-11-16 Ambulatory MHIE MNA [id number] Memoria 19:15:00 19:15:00 Pre-Reg Neurology 21 robina Silva 2022-11-16 2022-11-16 Outpatient MHIE MHIE [id number] Memoria 13:15:00 13:15:00 21 l Ricardo 2022-11-16 2022-11-16 Outpatient TITUS LynchMISCHER MHMISCHER [id number] 13:15:00 13:15:00 Jeovanny 21 Ubaldo 2022-11-16 2022-11-16 Outpatient MHIE MHIE [id number] Memoria 11:30:00 11:30:00 22 l Ricardo 2022-09-10 2022-09-10 Refill [place], 1.2.840.1 [id number] Methodi 00:00:00 00:00:[address] 3.430.2.7 Hospit a .3.797619 l .8 2022-09-10 2022-09-10 Refevelyn Calvo, 1.2.840.1 [id number] Methodi 00:00:00 00:00:[address] 3.430.2.7 Hospit a .3.564202 l .8 2022-08-31 2022-08-31 (TEL) STLMLC STLMLC [id number] Co mmon 00:00:00 00:00:00 [facility] 2022-08-24 2022-08-24 (TEL) STLMLC STLMLC [id number] Co mmon 00:00:00 00:00:00 [facility] 2022-08-15 2022-08-15 Ambulatory MHIE MNA [id number] Memoria 21:45:00 21:45:00 Pre-Reg Neurology 20 l Kentrell Silva 2022-08-15 2022-08-15 Ambulatory MHIE MNA [id number] Memoria 21:45:00 21:45:00 Pre-Reg Neurology 20 l Kentrell Silva 2022-08-15 2022-08-15 Outpatient Syed, MHMISCHER MHMISCHER [id number] 15:45:00 15:45:00 Jeovanny 20 Ubaldo 2022-08-10 2022-08-10 (TEL) STLMLC STLMLC [id number] Co mmon 00:00:00 00:00:00 [facility] 2022-07-17 2022-07-17 OFFICE STLMLC STLMLC [id number] Co mmon 00:00:00 00:00:00 VISIT Spirit ESTAB PT - CHI LEVEL 4 [facility] 2022-07-17 2022-07-17 SUB ANNUAL STLMLC STLMLC [id number] Common 00:00:00 00:00:00 MCR Spirit WELLNESS - CHI VISIT [facility] 2022-07-12 2022-07-12 Outpatient MHIE MHIE [id number] Memoria 10:00:00 10:00:00 20 l Ricardo 2022-06-14 2022-06-14 (TEL) STLMLC STLMLC [id number] Co mmon 00:00:00 00:00:00 [facility] 2022-06-04 2022-06-04 (TEL) STLMLC STLMLC [id number] Co mmon 00:00:00 00:00:00 [facility] 2022-05-01 2022-05-01 (TEL) STLMLC STLMLC [id number] Co mmon 00:00:00 00:00:00 [facility] 2022-04-27 2022-04-27 Ambulatory nullFlavo MNA [id number] Memoria 20:30:00 20:30:00 Pre-Reg r Neurology 19 l Kentrell Arandaann 2022-04-27 2022-04-27 Ambulatory nullFlavo MNA [id number] Memoria 20:30:00 20:30:00 Pre-Reg r Neurology 19 l Kentrell Silva 2022-04-27 2022-04-27 Outpatient MHIE MHIE [id number] Memoria 15:30:00 15:30:00 19 robina Silva 2022-04-27 2022-04-27 [id number] 15:30:00 15:30:00 Jeovanny Shant Conner 2022-04-26 2022-04-26 (TEL) STLMLC STLMLC [id number] Co mmon 00:00:00 00:00:00 [facility] 2022-03-16 2022-03-16 OFFICE STLMLC STLMLC [id number] Co mmon 00:00:00 00:00:00 VISIT Spirit ESTAB PT - CHI LEVEL 4 [facility] 2022-02-13 2022-02-13 Ambulatory nullFlavo MNA [id number] Memoria 16:30:00 16:30:00 Pre-Reg r Neurology 18 l Kentrell Silva 2022-02-13 2022-02-13 Ambulatory nullFlavo MNA [id number] Memoria 16:30:00 16:30:00 Pre-Reg r Neurology 18 l Kentrell Silva 2022-02-13 2022-02-13 Outpatient MHIE MHIE [id number] Memoria 11:30:00 11:30:00 18 robina Silva 2022-02-13 2022-02-13 Outpatient TITUS LynchMISCHER MISCHER [id number] 11:30:00 11:30:00 Jeovanny 18 Ubaldo 2021-12-14 2021-12-15 Outpatient nullFlavo MNA [id number] Memoria 14:30:00 04:59:59 r Neurology 17 l Kentrell Silva 2021-12-14 2021-12-15 Outpatient nullFlavo MNA [id number] Memoria 14:30:00 04:59:59 r Neurology 17 robina Silva 2021-12-14 2021-12-14 Outpatient MARQUITA LynchSCHARGELIA MISCHER [id number] 09:30:00 23:59:59 Jeovanny 17 Ubaldo 2021-12-14 2021-12-14 Outpatient MHIE MHIE [id number] Memoria 09:30:00 09:30:00 17 robina Silva 2021-12-13 2021-12-13 (TEL) STLMLC STLMLC [id number] Co mmon 00:00:00 00:00:00 Spirit - CHI [facility] 2021-11-15 2021-11-15 OFFICE STLMLC STLMLC [id number] Co mmon 00:00:00 00:00:00 VISIT EST Spir it PT LEVEL 3 - CHI [facility] 2021-08-17 2021-08-17 OFFICE STLMLC STLMLC [id number] Co mmon 00:00:00 00:00:00 VISIT Spirit ESTAB PT - CHI LEVEL 4 [facility] 2021-08-17 2021-08-17 SUB ANNUAL STLMLC STLMLC [id number] Common 00:00:00 00:00:00 MCR [facility] WELLNESS - CHI VISIT [facility] 2021-08-16 2021-08-16 (TEL) STLMLC STLMLC [id number] Co mmon 00:00:00 00:00:00 [facility] 2021-07-25 2021-07-25 (TEL) STLMLC STLMLC [id number] Co mmon 00:00:00 00:00:00 [facility] 2021-04-10 2021-04-10 Outpatient STLMLC STLMLC [id number] Common 00:00:00 00:00:00 [facility] 2021-03-10 2021-03-10 Outpatient STLMLC STLMLC [id number] Common 00:00:00 00:00:00 [facility] 2021-03-10 2021-03-10 Outpatient STLMLC STLMLC [id number] Common 00:00:00 00:00:00 [facility] 2021-01-02 2021-01-02 Outpatient STLMLC STLMLC [id number] Common 00:00:00 00:00:00 [facility] 2020-12-04 2020-12-04 Outpatient [facility] [id number] Univers 09:30:00 09:30:00 [facility] 2020-11-22 2020-11-22 Outpatient STLMLC STLMLC [id number] Common 00:00:00 00:00:00 [facility] 2020-11-15 2020-11-15 Outpatient STLMLC STLMLC [id number] Common 00:00:00 00:00:00 [facility] 2020-11-06 2020-11-06 Outpatient R [facility] [id number] Univers 09:35:00 09:35:[facility] 2020-11-06 2020-11-06 Outpatient R JIN [facility] [id number] Univers 08:10:00 08:10:00 EDWINA ity [facility] 2020-10-13 2020-10-13 Outpatient STLMLC STLMLC [id number] Common 00:00:00 00:00:00 [facility] 2020-10-11 2020-10-11 Outpatient STLMLC STLMLC [id number] Common 00:00:00 00:00:00 [facility] 2020-10-06 2020-10-06 Outpatient STLMLC STLMLC [id number] Common 00:00:00 00:00:00 [facility] 2020-10-05 2020-10-05 Outpatient STLMLC STLMLC [id number] Common 00:00:00 00:00:00 [facility] 2020-09-30 2020-09-30 Outpatient STLMLC STLMLC [id number] Common 00:00:00 00:00:00 [facility] 2020-09-28 2020-09-28 Outpatient STLMLC STLMLC [id number] Common 00:00:00 00:00:00 [facility] 2020-09-27 2020-09-27 Outpatient STLMLC STLMLC [id number] Common 00:00:00 00:00:00 [facility] 2020-09-26 2020-09-26 Outpatient STLMLC STLMLC [id number] Common 00:00:00 00:00:00 [facility] 2020-09-13 2020-09-13 Outpatient STLMLC STLMLC [id number] Common 00:00:00 00:00:00 [facility] 2020-09-05 2020-09-05 Outpatient STLMLC STLMLC [id number] Common 00:00:00 00:00:00 [facility] 2020-08-17 2020-08-17 Outpatient STLMLC STLMLC [id number] Common 00:00:00 00:00:00 [facility] 2020-08-16 2020-08-16 Outpatient STLMLC STLMLC [id number] Common 00:00:00 00:00:00 [facility] 2020-08-09 2020-08-09 Outpatient STLMLC STLMLC [id number] Common 00:00:00 00:00:00 [facility] 2020-07-25 2020-07-25 Outpatient STLMLC STLMLC [id number] Common 00:00:00 00:00:00 [facility] 2020-07-20 2020-07-20 Outpatient STLMLC STLMLC [id number] Common 00:00:00 00:00:00 [facility] 2020-07-19 2020-07-19 Outpatient STLMLC STLMLC [id number] Common 00:00:00 00:00:00 [facility] 2020-07-08 2020-07-08 Outpatient STLMLC STLMLC [id number] Common 00:00:00 00:00:00 [facility] 2020-07-05 2020-07-05 Ambulatory nullFlavo MNA [id number] Memoria 18:30:00 18:30:00 Pre-Reg r Neurology 16 l [facility] 2020-07-05 2020-07-05 Ambulatory nullFlavo MNA [id number] Memoria 18:30:00 18:30:00 Pre-Reg r Neurology 16 l [facility] 2020-07-05 2020-07-05 Outpatient MHIE MHIE [id number] [facility] 13:30:00 13:30:00 16 l Downing 2020-07-05 2020-07-05 [facility] [id number] 13:30:00 13:30:00 Jeovanny Conner 2020-06-15 2020-06-15 Outpatient STLMLC STLMLC [id number] Common 00:00:00 00:00:00 [facility] 2020-06-15 2020-06-15 Outpatient STLMLC STLMLC [id number] Common 00:00:00 00:00:00 [facility] 2020-06-15 2020-06-15 Outpatient STLMLC STLMLC [id number] Common 00:00:00 00:00:00 [facility] 2020-05-30 2020-05-30 Jamel Colon [facility] 1.2.840.114 [id number] 00:00:00 00:00:00 Paolo Arvizu 350.1.13.10 Hector Peters 4.2.7.2.686 Professio [phone] [address] 2020-05-23 2020-05-24 Outpatient nullFlavo MNA [id number] Memoria 18:00:00 04:59:59 r Neurology 15 l Maricao Downing 2020-05-23 2020-05-24 Outpatient nullFlavo MNA [id number] Memoria 18:00:00 04:59:59 r Neurology 15 l Maricao Ricardo 2020-05-23 2020-05-23 Outpatient [facility] [id number] 13:00:00 23:59:59 Jeovanny Elizabeth Ubaldo 2020-05-23 2020-05-23 Outpatient MHIE MHIE [id number] Memoria 13:00:00 13:00:00 15 l Downing 2020-05-18 2020-05-18 Outpatient [facility] [id number] Common 11:20:00 11:20:00 [facility] 2020-04-22 2020-04-22 Ambulatory nullFlavo MNA [id number] Memoria 14:15:00 14:15:00 Pre-Reg r Neurology 14 l Maricao Ricardo 2020-04-22 2020-04-22 Ambulatory nullFlavo MNA [id number] Memoria 14:15:00 14:15:00 Pre-Reg r Neurology 13 l Maricao Downing 2020-04-22 2020-04-22 Ambulatory nullFlavo MNA [id number] Memoria 14:15:00 14:15:00 Pre-Reg r Neurology 14 l Maricao Ricardo 2020-04-22 2020-04-22 Ambulatory nullFlavo MNA [id number] Memoria 14:15:00 14:15:00 Pre-Reg r Neurology 13 l Maricao Downing 2020-04-22 2020-04-22 Outpatient MHIE MHIE [id number] Memoria 09:15:00 09:15:00 14 l Downing 2020-04-22 2020-04-22 Outpatient MHIE MHIE [id number] Memoria 09:15:00 09:15:00 13 l Downing 2020-04-22 2020-04-22 Outpatient Syed TITUSMISCHER MISCHER [id number] 09:15:00 09:15:00 Jeovanny 13 Ubaldo 2020-04-22 2020-04-22 Outpatient TITUS LynchMISCHER MHMISCHER [id number] 09:15:00 09:15:00 Jeovanny 14 Ubaldo 2020-03-28 2020-03-28 Pre Visit [facility] 1.2.840.114 [id number] 00:00:00 00:00:00 Outreach Paolo Arvizu 350.1.13.10 antoine Peters 4.2.7.2.686 Professio [phone] nal [address] [place] [address] 2019-12-23 2019-12-24 Outpatient nullFlavo MNA [id number] Memoria 14:15:00 04:59:59 r Neurology 12 l Kentrell Silva 2019-12-23 2019-12-24 Outpatient nullFlavo MNA [id number] Memoria 14:15:00 04:59:59 r Neurology 12 l Maricao Downing 2019-12-23 2019-12-23 Outpatient Syed MISCHER MISCHER [id number] 09:15:00 23:59:59 Jeovanny 12 Ubaldo 2019-12-23 2019-12-23 Outpatient MHIE MHIE [id number] Memoria 09:15:00 09:15:00 12 l Ricardo 2019-12-21 2019-12-21 Orders Doctor BAUDILIO 1.2.840.114 [id number] 00:00:00 00:00:00 Only Unassigned, KRZYSZTOF 350.1.13.10 Ney [facility] 4.2.7.2.686 [phone] [facility] 2019-12-17 2019-12-17 Telephone [facility] 1.2.840.114 [id number] 00:00:00 00:00:00 Paolo Arvizu 350.1.13.10 antoine [place] 4.2.7.2.686 Professio [phone] nal [address] [place] [address] 2019-12-16 2019-12-16 Ambulatory nullFlavo MNA [id number] Memoria 18:15:00 18:15:00 Pre-Reg r Neurology 11 l Kentrell Silva 2019-12-16 2019-12-16 Ambulatory nullFlavo MNA [id number] Memoria 18:15:00 18:15:00 Pre-Reg r Neurology 11 l Kentrell Silva 2019-12-16 2019-12-16 Outpatient MHIE MHIE [id number] Memoria 13:15:00 13:15:00 11 l Ricardo 2019-12-16 2019-12-16 Outpatient TITUS [facility]CHER [facility] [id number] 13:15:00 13:15:00 Jeovanny Conner 2019-12-16 2019-12-16 Telephone [facility] 1.2.840.114 [id number] 00:00:00 00:00:00 Paolo Arvizu 350.1.13.10 antoine Peters 4.2.7.2.[phone] 2019-12-11 2019-12-11 [facility] 1.2.840.114 [id number] 00:00:00 00:00:00 Paolo Arvizu 350.1.13.10 [place] [facility] 4.2.7.2.686 Professio [phone] nal [address] [place] [address] 2019-12-09 2019-12-09 Outpatient R [facility] [id number] Univers 10:45:00 10:45:00 PAOLO perera [facility] 2019-12-09 2019-12-09 Orders Doctor ASTUDILLO 1.2.840.114 [id number] 00:00:00 00:00:00 Only UnassignedKRZYSZTOF 350.1.13.10 [facility] 4.2.7.2.686 [id number] 009 2019-10-21 2019-10-21 Orders Doctor BAUDILIO 1.2.840.114 [id number] 00:00:00 00:00:00 Only UnassignedKRZYSZTOF 350.1.13.10 [facility] 4.2.7.2.686 [id number] [id number] 2019-10-19 2019-10-19 [facility] 1.2.840.114 [id number] 00:00:00 00:00:00 Paolo [facility] 350.1.13.10 Hector Arvizu 4.2.7.2.686 Professio [phone] nal [address] [facility] 2019-08-12 2019-08-13 Outpatient nullFlavo MNA [id number] Memoria 20:15:00 05:59:59 r Neurology 10 robina Silva 2019-08-12 2019-08-13 Outpatient nullFlavo MNA [id number] Memoria 20:15:00 05:59:59 r Neurology 10 robina Silva 2019-08-12 2019-08-12 [facility] Syed, [facility] [id number] 14:15:00 23:59:59 Jeovanny Mela Conner 2019-08-12 2019-08-12 Outpatient MHIE MHIE [id number] Memoria 14:15:00 14:15:00 10 robina Ricardo 2019-07-02 2019-07-03 Outpatient nullFlavo MNA [id number] Memoria 18:00:00 04:59:59 r Neurology 09 robina Pfeiffer Down[place] 2019-07-02 2019-07-03 Outpatient nullFlavo MNA [id number] Memoria 18:00:00 04:59:59 r Neurology 09 robina Pfeiffer Ricardo 2019-07-02 2019-07-02 [facility]ed [facility] [id number] 13:00:00 23:59:59 Jeovanny 09 Ubaldo 2019-07-02 2019-07-02 Outpatient MHIE MHIE [id number] Memoria 13:00:00 13:00:00 09 robina Silva 2019-05-21 2019-05-22 Outpatient nullFlavo MNA [id number] Memoria 18:15:00 04:59:59 r Neurology 08 robina Pfeiffer Ricardo 2019-05-21 2019-05-22 Outpatient nullFlavo MNA [id number] Memoria 18:15:00 04:59:59 r Neurology 08 robina Pfeiffer [place] 2019-05-21 2019-05-21 Outpatient Syed [facility] [id number] 13:15:00 23:59:59 Jeovanny Natty Conner 2019-05-21 2019-05-21 Outpatient MHIE MHIE [id number] Memoria 13:15:00 13:15:00 robina Downing 2019-04-06 2019-04-06 Jamel Colon [facility] 1.2.840.114 [id number] 00:00:00 00:00:00 [facility] 350.1.13.10 [place] [address].2.7.2.686 [place] [phone] nal 044 [facility] 2019-03-19 2019-03-19 Ambulatory nullFlavo MNA [id number] Memoria 20:30:00 20:30:00 Pre-Reg r Neurology 07 l Kentrell Downing 2019-03-19 2019-03-19 Ambulatory nullFlavo MNA [id number] Memoria 20:30:00 20:30:00 Pre-Reg r Neurology 07 l Kentrell Ricardo 2019-03-19 2019-03-19 Outpatient MHIE MHIE [id number] Memoria 15:30:00 15:30:00 Stefanie quarles Ricardo 2019-03-19 2019-03-19 Outpatient Syed MISCHER MHMISCHER [id number] 15:30:00 15:30:00 Jeovanny Conner 2019-01-15 2019-01-16 Outpatient nullFlavo MNA [id number] Memoria 20:15:00 04:59:59 r Neurology 06 robina Silva 2019-01-15 2019-01-16 Outpatient nullFlavo MNA [id number] Memoria 20:15:00 04:59:59 r Neurology 06 robina Silva 2019-01-15 2019-01-15 Outpatient Syed MISCHER MISCHER [id number] 15:15:00 23:59:59 Jeovanny Conner 2019-01-15 2019-01-15 Outpatient MHIE MHIE [id number] Memoria 15:15:00 15:15:00 06 robina Ricardo 2018-12-04 2018-12-04 Outpatient MHIE MHIE [id number] Memoria 11:45:00 11:45:00 05 robina Ricardo 2018-12-04 2018-12-04 Outpatient MHIE MHIE [id number] Memoria 11:45:00 11:45:00 05 robina Silva 2018-10-16 2018-10-16 Ambulatory nullFlavo MNA [id number] Memoria 21:45:00 21:45:00 Pre-Reg r Neurology 04 l Kentrell Arandaann 2018-10-16 2018-10-16 Ambulatory nullFlavo MNA [id number] Memoria 21:45:00 21:45:00 Pre-Reg r Neurology 04 robina Silva 2018-10-16 2018-10-16 Outpatient MHIE MHIE [id number] Memoria 15:45:00 15:45:00 04 robina Silva 2018-10-16 2018-10-16 Outpatient Syed [facility] [id number] 15:45:00 15:45:00 Jeovanny Juancho Conner 2018-06-27 2018-06-29 Phone nullFlavo MNA [id number] Memoria 18:26:00 04:59:59 Message r Neurology 00 robina Silva 2018-06-27 2018-06-29 Phone nullFlavo MNA [id number] Memoria 18:26:00 04:59:59 Message r Neurology 00 robina Silva 2018-06-27 2018-06-28 Outpatient [facility] [id number] 13:26:00 23:59:59 00 2018-06-12 2018-06-13 Outpatient nullFlavo MNA [id number] Memoria 20:45:00 04:59:59 r Neurology 03 robina Silva 2018-06-12 2018-06-13 Outpatient nullFlavo MNA [id number] Memoria 20:45:00 04:59:59 r Neurology 03 robina Silva 2018-06-12 2018-06-12 Outpatient Syed [facility] [id number] 15:45:00 23:59:59 Jeovanny Macario Conner 2018-06-12 2018-06-12 Ambulatory nullFlavo MNA [id number] Memoria 19:45:00 19:45:00 Pre-Reg r Neurology 01 robina Silva 2018-06-12 2018-06-12 Ambulatory nullFlavo MNA [id number] Memoria 19:45:00 19:45:00 Pre-Reg r Neurology 01 robina Arandaann 2018-06-12 2018-06-12 Outpatient MHIE MHIE [id number] Memoria 15:45:00 15:45:00 03 robina Ricardo 2018-06-12 2018-06-12 Outpatient MHIE MHIE [id number] Memoria 14:45:00 14:45:00 robina Ricardo 2018-06-12 2018-06-12 [id number] 14:45:00 14:45:00 Jeovanny Jason Conner 2018-05-22 2018-05-22 Outpatient MHIE MHIE [id number] Memoria 09:00:00 09:00:00 02 robina Silva 2018-05-22 2018-05-22 Outpatient MHIE MHIE [id number] [facility]oria 09:00:00 09:00:00 02 robina Silva 2018-02-20 2018-02-20 Outpatient MHIE MHIE [id number] Memoria 14:45:00 14:45:00 00 robina Silva 2018-02-20 2018-02-20 Outpatient MHIE MHIE [id number] Memoria 14:45:00 14:45:00 00 robina Silva Results This patient has no known results.
[2023-04-30 17:10] LABS: Absolute Lymphocytes (CBC) 1.5 K/uL (0.7-4.9); Hematocrit 35.4 % (39.6-49.0); Lymphocytes % 35.1 % (15.3-44.8); MCV 89.7 fL (80-100); MPV 7.4 fL (7.6-11.3); Platelets 208 thou/uL (152-406); RBC Red Blood Cell Count 3.95 M/uL (4.33-5.43)
[2023-04-30 17:12] LABS: Protime INR 1.11
[2023-04-30] MEDS ORDERED: NA CHLORIDE 0.9% 1,000 ML ONE (17:12)
[2023-04-30] MEDS ORDERED: NA CHLORIDE 0.9% 500 ML ONE (17:13)
--- NOTE | 2023-04-30 17:35 | RAD REPORT ---
EXAM DESCRIPTION: RAD - Chest Single View - 04/30/2023 5:10 pm CLINICAL HISTORY: ABDOMINAL DISTENTION Chest pain. COMPARISON: Chest Single View dated 01/16/2023; Chest Pa And Lat (2 Views) dated 11/17/2021; Chest Pa And Lat (2 Views) dated 03/02/2020; Chest Single View dated 12/16/2019 FINDINGS: Portable technique limits examination quality. The lungs are grossly clear. The heart is normal in size. No displaced fractures. IMPRESSION: No acute intrathoracic process suspected.
[2023-04-30 17:39] LABS: Albumin 3.6 g/dL (3.4-5.0); Bilirubin Direct 0.1 mg/dL (0-0.2); Bilirubin Indirect, Calculated 0.4 mg/dL (0.2-0.8); Bilirubin Total 0.5 mg/dL (0.2-1.0); Magnesium 2.3 mg/dL (1.6-2.4); Potassium 2.9 mEq/L (3.5-5.1); Protein, Total 6.9 g/dL (6.4-8.2)
[2023-04-30 17:41] LABS: Troponin High Sensitivity 293.7 pg/mL (<58.9)
--- NOTE | 2023-04-30 18:20 | RAD REPORT ---
EXAM DESCRIPTION: CTAbdomen Pelvis W Contrast - 04/30/2023 6:13 pm CLINICAL HISTORY: Abdominal pain. ABD PAIN COMPARISON: CT ABD PELVIS W CONTRAST dated 02/09/2014 TECHNIQUE: Biphasic CT imaging of the abdomen and pelvis was performed with 100 ml non-ionic IV cont rast. All CT scans are performed using dose optimization technique as appropriate and may include automated exposure control or mA/KV adjustment according to patient size. FINDINGS: The lung bases are clear.Small hiatal hernia. The liver, spleen, pancreas, adrenal glands are within normal limits. Cholelithiasis. Bilateral renal stones are present without significant hydronephrosis. No bowel obstruction, free air, free fluid or abscess. Prominent stool is present throughout the colo n. The appendix is normal. No evidence of significant lymphadenopathy. Small to moderate right ingui nal hernia fat and fluid. Mild lumbar degenerative changes. Prostate gland is moderately enlarged. IMPRESSION: Bilateral nephrolithiasis without hydronephrosis. Cholelithiasis. Normal appendix. Small moderate right inguinal hernia containing fat and fluid. Moderate stool retention throughout the colon.
[2023-04-30] MEDS ORDERED: NS KCL 20MEQ 1,000 ML IV ONE (18:22)
[2023-04-30] MEDS ORDERED: FAMOTIDINE 20 MG/2 ML VIAL IV ONE (18:22)
[2023-04-30] MEDS ORDERED: KCL 20 MEQ/100 mL IVPB 100 ML IV ONE (18:22)
--- NOTE | 2023-04-30 18:34 | EDPHYS ---
Physician Documentation [facility] [place] Name: Sivakumar Fong Age: 72 yrs Sex: Male : 1950 Arrival Date: 04/30/2023 Time: 16:12 Bed 18 Private MD: ED Physician Clinton Camacho HPI: 04/30 17:59 This 72 yrs old Male presents to ER via EMS with complaints of right lower zac quadrant pain x 1 week. 17:59 The patient presents with abdominal pain right lower quadrant, abdominal distention in zac the upper abdomen, in the lower abdomen. Onset: The symptoms/episode began/occurred 1 week(s) ago. The symptoms do not radiate. Associated signs and symptoms: none. Modifying factors: The symptoms are alleviated by. Historical: - Allergies: 16:32 Lisinopril; mb9 - Home Meds: 16:32 amlodipine oral [Active]; carbidopa-levodopa 25-250 mg Oral tab 2 tabs 3 times per day mb9 [Active]; Metoprolol Tartrate Oral [Active]; - PMHx: 16:32 GERD; Parkinsons; Myocardial infarction; High Cholesterol; Hypertension; Atrial mb9 fibrillation; - PSHx: 16:32 Stented artery; Appendectomy; mb9 - Immunization history:: Adult Immunizations up to date. - Social history:: Smoking status: Patient denies any tobacco usage or history of. ROS: 18:08 Constitutional: Negative for fever, chills, and weight loss, Eyes: Negative for injury, zac pain, redness, and discharge, ENT: Negative for injury, pain, and discharge, Neck: Negative for injury, pain, and swelling, Respiratory: Negative for shortness of breath, cough, wheezing, and pleuritic chest pain, Back: Negative for injury and pain, : Negative for injury, bleeding, discharge, and swelling, MS/Extremity: Negative for injury and deformity, Skin: Negative for injury, rash, and discoloration, Neuro: Negative for headache, weakness, numbness, tingling, and seizure, Psych: Negative for depression, anxiety, suicide ideation, homicidal ideation, and hallucinations, Allergy/Immunology: Negative for hives, rash, and allergies, Endocrine: Negative for neck swelling, polydipsia, polyuria, polyphagia, and marked weight changes, Hematologic/Lymphatic: Negative for swollen nodes, abnormal bleeding, and unusual bruising. 18:08 Cardiovascular: Positive for palpitations. 18:08 Abdomen/GI: Positive for of the right lower quadrant. Exam: 18:08 Constitutional: This is a well developed, well nourished patient who is awake, alert, zac and in no acute distress. Head/Face: Normocephalic, atraumatic. Eyes: Pupils equal round and reactive to light, extra-ocular motions intact. Lids and lashes normal. Conjunctiva and sclera are non-icteric and not injected. Cornea within normal limits. Periorbital areas with no swelling, redness, or edema. ENT: Nares patent. No nasal discharge, no septal abnormalities noted. Tympanic membranes are normal and external auditory canals are clear. Oropharynx with no redness, swelling, or masses, exudates, or evidence of obstruction, uvula midline. Mucous membranes moist. Neck: Trachea midline, no thyromegaly or masses palpated, and no cervical lymphadenopathy. Supple, full range of motion without nuchal rigidity, or vertebral point tenderness. No Meningismus. Chest/axilla: Normal chest wall appearance and motion. Nontender with no deformity. No lesions are appreciated. Respiratory: Lungs have equal breath sounds bilaterally, clear to auscultation and percussion. No rales, rhonchi or wheezes noted. No increased work of breathing, no retractions or nasal flaring. Back: No spinal tenderness. No costovertebral tenderness. Full range of motion. Male : Normal genitalia with no discharge or lesions. Skin: Warm, dry with normal turgor. Normal color with no rashes, no lesions, and no evidence of cellulitis. MS/ Extremity: Pulses equal, no cyanosis. Neurovascular intact. Full, normal range of motion. Neuro: Awake and alert, GCS 15, oriented to person, place, time, and situation. Cranial nerves II-XII grossly intact. Motor strength 5/5 in all extremities. Sensory grossly intact. Cerebellar exam normal. Normal gait. Psych: Awake, alert, with orientation to person, place and time. Behavior, mood, and affect are within normal limits. 18:08 Cardiovascular: Rate: normal, Rhythm: irregularly irregular, Pulses: Pulses are 4+ in bilateral radial, brachial, femoral, popliteal, posterior tibial and and dorsalis pedis arteries.. Heart sounds: normal, Edema: is not appreciated, JVD: is not appreciated. 18:08 ECG was reviewed by the Attending Physician. 18:08 Abdomen/GI: Inspection: abdomen appears normal, Bowel sounds: normal, Palpation: moderate abdominal tenderness, in the right lower quadrant, Liver: no appreciated palpable abnormalities, Hernia: not appreciated. Vital Signs: 16:24 BP 116 / 69; Pulse 89; Resp 18; Temp 97.5; Pulse Ox 100% on R/A; Weight 65.77 kg; mb9 Height 5 ft. 6 in. ; Pain 7/10; 17:37 BP 144 / 89; Pulse 80; Resp 18; Pulse Ox 100% on R/A; mb9 19:05 BP 152 / 82; Pulse 80; Resp 15; Pulse Ox 99% on R/A; mb9 16:24 Body Mass Index 23.40 (65.77 kg, 167.64 cm) mb9 16:24 Pain Scale: Adult mb9 MDM: 16:32 Patient medically screened. zac 18:11 Differential diagnosis: diverticulitis, gastritis, gastroesophageal reflux disease, zac Mesenteric ischemia or infarction, non-specific abd pain, pancreatitis, Peptic Ulcer Disease, Prostatitis, Pyelonephritis, Ureterolithiasis, urinary tract infection. Data reviewed: vital signs, nurses notes, EMS record, lab test result(s), EKG, radiologic studies, CT scan. Consideration of Admission/Observation Patient was admitted/placed on observation. Escalation of care including admission/observation considered. I considered the following discharge prescriptions or medication management in the emergency department Medications were administered in the Emergency Department. See MAR. Independent interpretation of the following test(s) in the Emergency Department EKG: See my EKG interpretation above. Test considered but Not performed: Ultrasound no abd usg. Historians other than the Patient: Spouse/Significant Other: well informed. Care significantly affected by the following chronic conditions: Hypertension, gerd, mi, cad, parkinsons. Counseling: I had a detailed discussion with the patient and/or guardian regarding the historical points, exam findings, and any diagnostic results supporting the discharge/admit diagnosis, lab results, radiology results, the need for further work-up and treatment in the hospital. 18:34 Management of patient was discussed with the following: Hospitalist: stu mcwilliams md. zac Care significantly affected by the following Social Determinants of Health: Poor access to transportation. 04/30 16:47 Order name: Basic Metabolic Panel; Complete Time: 17:54 [facility] 04/30 16:47 Order name: CBC with Diff; Complete Time: 17:35 [facility] 04/30 16:47 Order name: LFT's; Complete Time: 17:54 [facility] 04/30 16:47 Order name: Magnesium; Complete Time: 17:54 [facility] 04/30 16:47 Order name: NT PRO-BNP; Complete Time: 17:[facility] 04/30 16:47 Order name: PT-INR; Complete Time: 17:35 [facility] 04/30 16:47 Order name: Troponin HS; Complete Time: 17:54 [facility] 04/30 16:47 Order name: Lipase; Complete Time: 17:54 [facility] 04/30 16:47 Order name: Urinalysis w/ reflexes [facility] 04/30 16:47 Order name: XRAY Chest (1 view); Complete Time: 17:54 [facility] 04/30 16:47 Order name: CT Abd/Pelvis - IV Contrast Only [facility] 04/30 16:47 Order name: EKG; Complete Time: 16:48 [facility] 04/30 16:47 Order name: Cardiac monitoring; Complete Time: 17:02 [facility] 04/30 16:47 Order name: EKG - Nurse/Tech; Complete Time: 16:48 [facility] 04/30 16:47 Order name: IV Saline Lock; Complete Time: 17:02 [facility] 04/30 16:47 Order name: Labs collected and sent; Complete Time: 17:02 [facility] 04/30 16:47 Order name: O2 Per Protocol; Complete Time: 16:49 [facility] 04/30 16:47 Order name: O2 Sat Monitoring; Complete Time: 16:49 [facility] 04/30 18:16 Order name: Bladder Scanner: pvr please; Complete Time: 19:25 [facility] EC:08 Rate is 95 beats/min. Rhythm is irregularly irregular. QRS [place] is Normal. MO interval zac is normal. QRS interval is normal. QT interval is normal. No Q waves. T waves are Normal. No ST changes noted. Clinical impression: Atrial Fibrillation and No evidence of ischemia. Interpreted by me. Reviewed by me. Administered Medications: 18:03 Discontinued: NS 0.9% IV 1000 ml IV at 125 ml/hr continuous zac 17:18 Drug: NS 0.9% IV 500 ml Route: IV; Rate: bolus; Site: left forearm; mb9 18:39 Follow up: Response: No adverse reaction; IV Status: Completed infusion mb9 17:18 Drug: NS 0.9% IV 1000 ml Route: IV; Rate: 125 ml/hr; Site: left forearm; mb9 18:09 Follow up: Response: No adverse reaction; IV Status: Order to discontinue infusion mb9 18:25 Drug: Famotidine IVP 20 mg Route: IVP; Site: left forearm; mb9 19:25 Follow up: Response: No adverse reaction mb9 18:30 Drug: NS 0.9% with KCl IV 20 mEq/L 1000 ml Route: IV; Rate: 125 ml/hr; Site: left mb9 antecubital; 05/01 06:51 Follow up: IV Status: Completed infusion; IV Intake: 1000ml lg3 04/30 18:32 Drug: Potassium Chloride IV 20 mEq Route: IV; Rate: per protocol; Site: left forearm; mb9 05/01 06:51 Follow up: IV Status: Completed infusion; IV Intake: 100ml lg3 04/30 18:50 Drug: Potassium PO Effervescent Tablet 25 mEq Route: PO; mb9 19:24 Follow up: Response: No adverse reaction mb9 18:51 Drug: Dulcolax MO Suppository 10 mg Route: MO; mb9 19:25 Follow up: Response: No adverse reaction mb9 18:53 Drug: Lactulose PO 30 grams Volume: 45 ml; Route: PO; mb9 19:25 Follow up: Response: No adverse reaction mb9 18:55 Drug: Enoxaparin Sub-Q 1 mg/kg Route: Sub-Q; Site: left lower abdomen; mb9 19:24 Follow up: Response: No adverse reaction mb9 19:48 Not Given (Physician Discretion; pt does not have UTI): Rocephin IV 1 grams IV at per mb9 protocol once; Given slow IV push per pharmacy instructions Disposition Summary: 04/30/23 18:33 Hospitalization Ordered Hospitalization Status: Inpatient Admission zac Provider: Katie Huggins zac Condition: Stable zac Problem: new zac Symptoms: have improved zac Bed/Room Type: Standard zac Location: Telemetry/MedSurg (Inpatient)(05/01/23 06:54) cg Room Assignment: [facility](05/01/23 06:54) cg Diagnosis - Hypokalemia zac - Abdominal tenderness zac - Abnormal levels of other serum enzymes - elevated troponin zac - Chronic atrial fibrillation zac - Parkinson's disease zac - Constipation zac Forms: - Medication Reconciliation Form zac - SBAR form zac - Leadership Thank You Letter zac Signatures: Dispatcher [employer] Clinton Sandhu MD MD cha Garcia, Cindy RN RN Leda Judd RN RN mb9 Ariane Browne RN lg3 Corrections: (The following items were deleted from the chart) 16:38 16:32 Home Meds: Lisinopril Oral; mb9 mb9 20:09 18:33 Telemetry/MedSurg (Inpatient) zac 20:09 18:33 zac 05/01 06:54 04/30 20:09 [facility] ER HOLD [facility] 05/01 20:09 ERHOLD- [facility]
--- NOTE | 2023-04-30 18:34 | ER ---
Nurse's Notes [facility] Name: Sivakumar Fong Age: 72 yrs Sex: Male : 1950 Arrival Date: 04/30/2023 Time: 16:12 Bed 18 Private MD: Diagnosis: Hypokalemia;Abdominal tenderness;Abnormal levels of other serum enzymes-elevated troponin;Chronic atrial fibrillation;Parkinson's disease;Constipation Presentation: 04/30 16:24 Chief complaint: EMS states: "toned out for RLQ pain x [address] Strong told him to mb9 come to the ER." Pt denies V/D/constipation. Coronavirus screen: Vaccine status: Patient reports receiving the 2nd dose of the covid vaccine. Ebola Screen: No symptoms or risks identified at this time. Initial Sepsis Screen: Does the patient meet any 2 criteria? No. Patient's initial sepsis screen is negative. Does the patient have a suspected source of infection? No. Patient's initial sepsis screen is negative. Risk Assessment: Do you want to hurt yourself or someone else? Patient reports no desire to harm self or others. Onset of symptoms was 2022. 16:24 Method Of Arrival: EMS: [facility] 9 16:24 Acuity: RANI 3 mb9 Triage Assessment: 16:36 General: Appears uncomfortable, Behavior is cooperative. Pain: Complains of pain in mb9 abdomen Pain radiates to RLQ Quality of pain is described as throbbing, Pain began 1 week ago Is continuous. EENT: No signs and/or symptoms were reported regarding the EENT system. Neuro: Downs Agitation-Sedation Scale (RASS): 0 - Alert and Calm Level of Consciousness is awake, alert, obeys commands, Oriented to person, place, time, situation, Appropriate for age. Cardiovascular: Heart tones S1 S2 present Patient's skin is warm and dry. Rhythm is atrial fibrillation. Respiratory: Airway is patent Respiratory effort is even, unlabored, Respiratory pattern is regular, symmetrical, Breath sounds are clear bilaterally. GI: Abdomen is round non-distended, Bowel sounds present X 4 quads. Abd is soft Abdomen is tender to palpation in right lower quadrant Reports nausea, Patient currently denies constipation, diarrhea, vomiting. : No signs and/or symptoms were reported regarding the genitourinary system. Derm: Skin is pink, warm \\T\\ dry. Musculoskeletal: Range of motion: intact in all extremities. Historical: - Allergies: 16:32 Lisinopril; mb9 - Home Meds: 16:32 amlodipine oral [Active]; carbidopa-levodopa 25-250 mg Oral tab 2 tabs 3 times per day mb9 [Active]; Metoprolol Tartrate Oral [Active]; - PMHx: 16:32 GERD; Parkinsons; Myocardial infarction; High Cholesterol; Hypertension; Atrial mb9 fibrillation; - PSHx: 16:32 Stented artery; Appendectomy; mb9 - Immunization history:: Adult Immunizations up to date. - Social history:: Smoking status: Patient denies any tobacco usage or history of. Screenin:38 [facility] ED Fall Risk Assessment (Adult) History of falling in the last 3 months, mb9 including since admission No falls in past 3 months (0 pts) Confusion or Disorientation No (0 pts) Intoxicated or Sedated No (0 pts) Impaired Gait No (0 pts) Mobility Assist Device Used No (0 pt) Altered Elimination No (0 pt) Score/Fall Risk Level 0 - 2 = Low Risk Oriented to surroundings, Maintained a safe environment, Educated pt \\T\\ family on fall prevention, incl call for assistance when getting out of bed. Abuse screen: Denies threats or abuse. Nutritional screening: No deficits noted. Tuberculosis screening: No symptoms or risk factors identified. Assessment: 17:37 Reassessment: No changes from previously documented assessment. Patient and/or family mb9 updated on plan of care and expected duration. Pain level reassessed. Patient is alert, oriented x 3, equal unlabored respirations, skin warm/dry/pink. 18:30 Reassessment: No changes from previously documented assessment. Patient and/or family mb9 updated on plan of care and expected duration. Pain level reassessed. Patient is alert/active/playful, equal unlabored respirations, skin warm/dry/pink. 19:31 Reassessment: No changes from previously documented assessment. Patient and/or family mb9 updated on plan of care and expected duration. Pain level reassessed. Patient is alert, oriented x 3, equal unlabored respirations, skin warm/dry/pink. Vital Signs: 16:24 BP 116 / 69; Pulse 89; Resp 18; Temp 97.5; Pulse Ox 100% on R/A; Weight 65.77 kg; mb9 Height 5 ft. 6 in. ; Pain 7/10; 17:37 BP 144 / 89; Pulse 80; Resp 18; Pulse Ox 100% on R/A; mb9 19:05 BP 152 / 82; Pulse 80; Resp 15; Pulse Ox 99% on R/A; mb9 16:24 Body Mass Index 23.40 (65.77 kg, 167.64 cm) mb9 16:24 Pain Scale: Adult mb9 ED Course: 16:23 Patient arrived in ED. mb9 16:23 Arm band placed on. mb9 16:32 Clinton Camacho MD is Attending Physician. zac 16:32 Triage completed. mb9 16:36 EKG done, by ED staff. aw1 16:38 Placed in gown. Bed in low position. Call light in reach. Side rails up X 1. Client mb9 placed on continuous cardiac and pulse oximetry monitoring. NIBP monitoring applied. compliance monitor on. 16:54 Leda Vaca RN is Primary Nurse. mb9 17:03 Inserted saline lock: 20 gauge in right antecubital area, using aseptic technique. aw1 17:03 Initial lab(s) drawn, by me, sent to lab. aw1 17:11 XRAY Chest (1 view) In Process Unspecified. EDMS 17:37 Inserted saline lock: 20 gauge in left forearm, using aseptic technique. mb9 18:00 No provider procedures requiring assistance completed. Inserted saline lock: 20 gauge mb9 in left antecubital area, using aseptic technique. 18:15 CT Abd/Pelvis - IV Contrast Only In Process Unspecified. EDMS 18:31 Katie Huggins MD is Hospitalizing Provider. [facility] 05/01 07:00 Patient admitted, IV remains in place. kc6 Administered Medications: 04/30 18:03 Discontinued: NS 0.9% IV 1000 ml IV at 125 ml/hr continuous zac 17:18 Drug: NS 0.9% IV 500 ml Route: IV; Rate: bolus; Site: left forearm; mb9 18:39 Follow up: Response: No adverse reaction; IV Status: Completed infusion mb9 17:18 Drug: NS 0.9% IV 1000 ml Route: IV; Rate: 125 ml/hr; Site: left forearm; mb9 18:09 Follow up: Response: No adverse reaction; IV Status: Order to discontinue infusion mb9 18:25 Drug: Famotidine IVP 20 mg Route: IVP; Site: left forearm; mb9 19:25 Follow up: Response: No adverse reaction mb9 18:30 Drug: NS 0.9% with KCl IV 20 mEq/L 1000 ml Route: IV; Rate: 125 ml/hr; Site: left mb9 antecubital; 05/01 06:51 Follow up: IV Status: Completed infusion; IV Intake: 1000ml lg3 04/30 18:32 Drug: Potassium Chloride IV 20 mEq Route: IV; Rate: per protocol; Site: left forearm; mb9 05/01 06:51 Follow up: IV Status: Completed infusion; IV Intake: 100ml lg3 04/30 18:50 Drug: Potassium PO Effervescent Tablet 25 mEq Route: PO; mb9 19:24 Follow up: Response: No adverse reaction mb9 18:51 Drug: Dulcolax MO Suppository 10 mg Route: MO; mb9 19:25 Follow up: Response: No adverse reaction mb9 18:53 Drug: Lactulose PO 30 grams Volume: 45 ml; Route: PO; mb9 19:25 Follow up: Response: No adverse reaction mb9 18:55 Drug: Enoxaparin Sub-Q 1 mg/kg Route: Sub-Q; Site: left lower abdomen; mb9 19:24 Follow up: Response: No adverse reaction mb9 19:48 Not Given (Physician Discretion; pt does not have UTI): Rocephin IV 1 grams IV at per mb9 protocol once; Given slow IV push per pharmacy instructions Medication: 16:38 VIS not applicable for this client. mb9 Intake: 05/01 06:51 IV: 100ml; Total: 100ml. lg3 06:51 IV: 1000ml; Total: 1100ml. lg3 Outcome: 04/30 18:33 Decision to Hospitalize by Provider. zac 05/01 07:00 Admitted to Med/surg accompanied by bernadette, via stretcher, room 403, with chart, Report kc6 called to KG Vasquez by KG Thakkar Condition: stable Instructed on the need for admit. 07:40 Patient left the ED. kc6 Signatures: Dispatcher [facility] EDClinton Vang MD MD cha Gibson, Lacie, RN RN lg3 Nancie Yusuf RN RN kc6 Leda Vaca RN RN mb9 Jaki Banks aw1 Corrections: (The following items were deleted from the chart) 04/30 16:38 16:32 Home Meds: Lisinopril Oral; [id number] mb9
[2023-04-30] MEDS ORDERED: CEFTRIAXONE 1000 MG/VIAL ONE (18:53)
[2023-04-30] MEDS ORDERED: BISACODYL 10 MG RECTAL SUPP ONE (18:53)
[2023-04-30] MEDS ORDERED: LACTULOSE 20 GM/30 ML UCUP ONE (18:54)
[2023-04-30] MEDS ORDERED: ENOXAPARIN 60 MG/0.6 ML SQ ONE (18:54)
[2023-04-30] MEDS ORDERED: POTASSIUM 25 MEQ EFFERV TAB ONE (18:54)
[2023-04-30 19:10] LABS: Specific Gravity 1.016 (1.005-1.030); Urine Bacteria None Seen /HPF (<20); Urine Bilirubin NEGATIVE (Negative); Urine Blood 1+ (Negative); Urine Clarity Clear (Clear); Urine Color Light-Yellow (Yellow); Urine Crystals Unidentified Few /HPF (None Seen); Urine Glucose NEGATIVE (Negative); Urine Mucus Slight /HPF (None Seen); Urine Protein NEGATIVE (Negative); Urine RBC 21-50 /HPF (None Seen); Urine Urobilinogen Normal (Normal); Urine WBC Clump Rare /HPF (None Seen); Urine pH 6.5 (5.0-7.0)
--- NOTE | 2023-04-30 19:47 | P.HP ---
Certification for Inpatient Patient admitted to: Inpatient With expected LOS: <2 Midnights Patient will require the following post-hospital care: None Practitioner: I am a practitioner with admitting privileges, knowledge of patient current condition, hospital course, and medical plan of care. Services: Services provided to patient in accordance with Admission requirements found in Title 42 Section 412.3 of the Code of Federal Regulations Patient History Date of Service: 04/30/23 Reason for admission: Abdominal pain History of Present Illness: 72-year-old male with a past medical history of hypertension, hyperlipidemia, atrial fibrillation, [place], Parkinson's, GERD, presents to the emergency room with abdominal distention. He reports not feeling well for the past week with vague symptoms with mild chest pressure. He denies pain radiation, denies nausea vomiting, denies shortness of breath, denies edema. ER evaluation EKG rate 95 irregular irregular, QRS interval is normal, no ST changes. Vital signs stable. plan to admit for elevated troponin 293.7, elevated BNP 2449, acute on chronic heart failure, hypokalemia potassium 2.9, abdominal pain, constipation. Chest x-ray IMPRESSION: No acute intrathoracic process suspected. CT of the abdomen pelvis IMPRESSION: Bilateral nephrolithiasis without hydronephrosis. Cholelithiasis. Normal appendix. Small moderate right inguinal hernia containing fat and fluid. Moderate stool retention throughout the colon. Allergies lisinopril Allergy (Verified 02/20/23 14:17) Anaphylaxis Home Medications: Amlodipine [Norvasc*] 5 mg PO SEECOM 01/17/23 Carbidopa/Levodopa 25-250 [Sinemet 25-250*] 2 tab PO TID 01/17/23 Clopidogrel Bisulfate [Plavix*] 75 mg PO DAILY 01/17/23 Cyclobenzaprine [Flexeril*] 10 mg PO BEDTIME 01/17/23 Pantoprazole [Protonix Tab*] 40 mg PO DAILY 01/17/23 Pravastatin [Pravachol*] 40 mg PO DAILY 01/17/23 Rivaroxaban [Xarelto*] 10 mg PO DAILY 01/17/23 Valsartan 160 mg PO DAILY 01/17/23 Zonisamide 50 mg PO DAILY 01/17/23 Amantadine [Symmetrel*] 100 mg PO DAILY #30 cap 01/24/23 Atorvastatin Calcium [Lipitor] 40 mg PO BEDTIME #30 tab 01/24/23 Docusate [Colace Cap*] 100 mg PO BID #60 cap 01/24/23 Hydrocodone 5/APAP 325 [[place] 5/325] 1 tab PO Q6H PRN #15 tab 01/24/23 Metoprolol Tartrate [Lopressor*] 25 mg PO BID 6AM 6PM #60 tab 01/24/23 - Past Medical/Surgical History Diabetic: No -: HTN -: Parkinson's -: Coronary artery disease -: History of prostate cancer -: Atrial fibrillation -: Stents x8 -: Cataract Sx -: Prostate -: Atrial fibrillation Psychosocial/ Personal History: Patient lives at home with his daughter - Family History Father -: Other (see notes) Notes: Leukemia Mother -: Hypertension Brother -: Cancer Notes: stomach - Social History Alcohol use: No CD- Drugs: No Caffeine use: Yes Review of Systems 10-point ROS is otherwise unremarkable Physical Examination - Physical Exam General: Alert, In no apparent distress, Oriented x3, Other (forgetful) HEENT: Atraumatic, Normocephalic, PERRLA Neck: 2+ carotid pulse no bruit, JVD not distended Respiratory: Clear to auscultation bilaterally, Normal air movement Cardiovascular: No edema, Normal pulses, Irregular heart rate/rhythm Gastrointestinal: Normal bowel sounds, Soft and benign Musculoskeletal: No clubbing, No swelling Integumentary: No rashes, No breakdown - Studies Laboratory Data (last 24 hrs) 04/30/23 04/30/23 04/30/23 17:00 17:00 17:00 WBC 4.40 Hgb 11.8 L Hct 35.4 L Plt Count 208 PT 12.2 INR 1.11 Sodium 140 Potassium 2.9 L BUN 16 Creatinine 1.00 Glucose 125 H Magnesium 2.3 Total Bilirubin 0.5 AST 10 L ALT 11 L Alkaline Phosphatase 93 Lipase 18 Assessment and Plan - Plan Assessment plan NSTEMI Acute on chronic heart failure unknown baseline Hypokalemia Chronic atrial fibrillation Abdominal pain Bilateral nephrolithiasis without hydronephrosis Constipation CAD with PCI x8 stents Hypertension Parkinson's GERD DVT prophylaxis Assessment plan NSTEMI Acute on chronic heart failure unknown baseline Chronic atrial fibrillation CAD with PCI x8 stents Hypertension Cardiology consult, Lovenox 1 mg/kg twice daily, EKG in the a.m. Resume appropriate home meds elevated troponin 293.7, elevated BNP 2449, trend troponins, BNP in the a.m. chest x-ray IMPRESSION: No acute intrathoracic process suspected. Hypokalemia Trend electrolytes replace. Abdominal pain Bilateral nephrolithiasis without hydronephrosis Constipation CT of the abdomen pelvis IMPRESSION: Bilateral nephrolithiasis without hydronephrosis. Cholelithiasis. Normal appendix. Small moderate right inguinal h ernia containing fat and fluid. Moderate stool retention throughout the colon As needed analgesics, stool softeners Parkinson's GERD Resume appropriate home meds DVT prophylaxis Cardiac diet Full code Discharge Plan: Home Plan to discharge in: 48 Hours - Advance Directives Does patient have a Living Will: No Does patient have a Durable POA for Healthcare: No - Code Status/Comfort Care Code Status Assessed: Yes Code Status: Full Code Physician Review: Patient Assessed, Agree with Above Assessment and Plan Critical Care: No Time Spent Managing Pts Care (In Minutes): 50
[2023-04-30] MEDS ORDERED: ONDANSETRON 4 MG/2 ML VIAL IV PRN (19:57)
[2023-04-30] MEDS ORDERED: ACETAMINOPHEN 500 MG TAB PO PRN (19:57)
[2023-04-30] MEDS ORDERED: HYDROCODONE/APAP 5/325 MG TAB PO PRN (20:10)
[2023-04-30] MEDS ORDERED: METOPROLOL TARTRATE 5 MG/5 ML INJ IV PRN (20:11)
[2023-04-30] MEDS ORDERED: POLYETHYL GLY 3350 17 GM/DOSE PO PRN (21:48)
[2023-04-30] MEDS ORDERED: MAGNESIUM HYDROXIDE 8% 30 ML PO PRN (21:56)
[2023-04-30] MEDS: CARBIDOPA/LEVODOPA 25/250 TAB PO SCH (22:57)
[2023-04-30] MEDS ORDERED: AMLODIPINE 5 MG TAB PO SCH (23:00)
[2023-04-30] MEDS: METOPROLOL TAR 25 MG TAB PO SCH (23:00)
[2023-04-30] MEDS: ATORVASTATIN 40 MG TAB PO SCH (23:00)
[2023-04-30] MEDS: CYCLOBENZAPRINE 10 MG TAB PO SCH (23:00)
[2023-04-30] MEDS ORDERED: METOPROLOL TAR 25 MG TAB ONE (23:17)
[2023-04-30] MEDS ORDERED: CYCLOBENZAPRINE 10 MG TAB ONE (23:17)
[2023-04-30] MEDS ORDERED: ATORVASTATIN 40 MG TAB ONE (23:17)
[2023-04-30] MEDS ORDERED: ACETAMINOPHEN 500 MG TAB ONE (23:17)
[2023-04-30] MEDS ORDERED: CARBIDOPA/LEVODOPA 25/250 TAB ONE (23:30)
[2023-04-30 23:43] VITALS: BMI 23.3
[2023-05-01] MEDS: ENOXAPARIN 60 MG/0.6 ML SQ SCH ×2 (05:28→17:56)
[2023-05-01] MEDS ORDERED: ENOXAPARIN 60 MG/0.6 ML SQ ONE (05:36)
[2023-05-01] MEDS: METOPROLOL TAR 25 MG TAB PO SCH ×2 (06:00→17:55)
[2023-05-01] MEDS ORDERED: METOPROLOL TAR 25 MG TAB PO SCH (06:00)
[2023-05-01 07:45] LABS: Absolute Lymphocytes (CBC) 1.3 K/uL (0.7-4.9); Hematocrit 32.4 % (39.6-49.0); Lymphocytes % 41.3 % (15.3-44.8); MCV 90.6 fL (80-100); MPV 7.6 fL (7.6-11.3); Platelets 176 thou/uL (152-406); RBC Red Blood Cell Count 3.58 M/uL (4.33-5.43)
[2023-05-01 07:54] LABS: Magnesium 2.2 mg/dL (1.6-2.4); Potassium 3.6 mEq/L (3.5-5.1)
[2023-05-01] MEDS ORDERED: PNEUMOCOCCAL VACCINE 0.5 ML IMVAC ONE (08:00)
[2023-05-01] MEDS ORDERED: POTASSIUM CL SA 10 MEQ TAB PO ONE (08:15)
[2023-05-01] MEDS: DOCUSATE NA 100 MG CAP PO SCH ×2 (08:42→21:28)
[2023-05-01] MEDS: PANTOPRAZOLE 40MG TABLET PO SCH (08:43)
[2023-05-01] MEDS: VALSARTAN 160 MG TAB PO SCH (08:43)
[2023-05-01] MEDS ORDERED: CARBIDOPA/LEVODOPA 25/250 TAB PO SCH (09:00)
[2023-05-01] MEDS ORDERED: HOME MED 1 EA UNK (Pravastatin [Pravachol*] 40 MG/TAB Tab) PO SCH (09:00)
[2023-05-01] MEDS: CARBIDOPA/LEVODOPA 25/250 TAB PO SCH ×3 (09:59→21:30)
[2023-05-01] MEDS: AMANTADINE 100 MG CAP PO SCH (09:59)
--- NOTE | 2023-05-01 12:58 | EKG ---
Test Date: 2023-04-30 Test Time: 16:32:24 Sales Analyst: MICHELLE MEASUREMENT RESULTS: Intervals: Rate: 95 CT: QRSD: 164 QT: 410 QTc: 515 [place]: P: CT: QRS: -67 T: 94 INTERPRETIVE STATEMENTS: Atrial fibrillation with premature ventricular or aberrantly conducted complexes Right bundle branch block Left anterior fascicular block Bifascicular block Voltage criteria for left ventricular hypertrophy Abnormal ECG Compared to ECG 02/20/2023 14:34:51 Myocardial infarct finding no longer present Bifascicular block still present Electronically Signed On 05-01-23 12:56:02 CDT by Enoc Smiley
[2023-05-01] MEDS: AMLODIPINE 5 MG TAB PO SCH (17:55)
[2023-05-01] MEDS ORDERED: CYCLOBENZAPRINE 10 MG TAB PO SCH (21:00)
[2023-05-01] MEDS ORDERED: ATORVASTATIN 40 MG TAB PO SCH (21:00)
[2023-05-01] MEDS: CYCLOBENZAPRINE 10 MG TAB PO SCH (21:27)
[2023-05-01] MEDS: ATORVASTATIN 40 MG TAB PO SCH (21:28)
[2023-05-02] MEDS: ENOXAPARIN 60 MG/0.6 ML SQ SCH ×2 (06:16→15:33)
[2023-05-02] MEDS: METOPROLOL TAR 25 MG TAB PO SCH ×2 (06:17→18:34)
[2023-05-02 07:26] LABS: Absolute Lymphocytes (CBC) 1.6 K/uL (0.7-4.9); Hematocrit 37.8 % (39.6-49.0); Lymphocytes % 40.2 % (15.3-44.8); MCV 89.3 fL (80-100); MPV 7.9 fL (7.6-11.3); Platelets 194 thou/uL (152-406); RBC Red Blood Cell Count 4.23 M/uL (4.33-5.43)
[2023-05-02 07:41] LABS: AST/SGOT 12 U/L (15-37); Albumin 3.7 g/dL (3.4-5.0); Alkaline Phosphatase 93 U/L (45-117); BUN Blood Urea Nitrogen 12 mg/dL (7-18); Bicarbonate 30 mEq/L (21-32); Bilirubin Total 0.7 mg/dL (0.2-1.0); Glomerular Filtration Rate 99 ml/min (=/>90); Glucose Level 84 mg/dL (74-106); NT PRO-BNP 943 pg/mL (<125); Potassium 3.5 mEq/L (3.5-5.1); Protein, Total 7.3 g/dL (6.4-8.2); Sodium Level 140 mEq/L (136-145)
[2023-05-02 07:43] LABS: ALT/SGPT < 10 U/L (16-61)
[2023-05-02 07:45] LABS: Troponin High Sensitivity 323.7 pg/mL (<58.9)
[2023-05-02] MEDS: CARBIDOPA/LEVODOPA 25/250 TAB PO SCH ×3 (09:07→18:33)
[2023-05-02] MEDS: VALSARTAN 160 MG TAB PO SCH (09:08)
[2023-05-02] MEDS: DOCUSATE NA 100 MG CAP PO SCH ×2 (09:09→21:37)
[2023-05-02] MEDS: CLOPIDOGREL 75 MG TABLET PO SCH (09:09)
[2023-05-02] MEDS: PANTOPRAZOLE 40MG TABLET PO SCH (09:09)
[2023-05-02] MEDS: AMANTADINE 100 MG CAP PO SCH (09:13)
[2023-05-02] MEDS ORDERED: BISACODYL 10 MG RECTAL SUPP PR ONE (12:45)
[2023-05-02] MEDS ORDERED: LIDOCAINE 1% 20 ML MDV ONE (15:08)
[2023-05-02] MEDS ORDERED: FENTANYL CITR 100 MCG/2 ML ONE (15:08)
[2023-05-02] MEDS ORDERED: HEPA 1000U/500MLS 2,000 UNIT/1,000 ML BAG IV ONE (15:08)
[2023-05-02] MEDS ORDERED: HEPARIN 10,000 UNIT/10 ML VIAL IV ONE (15:09)
[2023-05-02] MEDS ORDERED: MIDAZOLAM HCL 2 MG/2 ML INJ ONE (15:09)
[2023-05-02] MEDS ORDERED: ATROPINE SULF 1 MG/10 ML SYR IV ONE (15:09)
[2023-05-02] MEDS ORDERED: NA CHLORIDE 0.9% 500 ML ONE (15:40)
[2023-05-02] MEDS ORDERED: METOPROLOL TARTRATE 5 MG/5 ML INJ IV ONE ×2 (16:00→16:08)
[2023-05-02] MEDS ORDERED: POTASSIUM 25 MEQ EFFERV TAB PO ONE (16:30)
[2023-05-02] MEDS ORDERED: HYDRALAZINE HCL 20 MG/ML VIAL ONE (17:26)
[2023-05-02] MEDS ORDERED: FUROSEMIDE 20 MG/ 2ML VIAL ONE ×2 (17:36→18:08)
--- NOTE | 2023-05-02 18:27 | OP ---
Date of Procedure: 05/02/2023 Surgeon: ASHLEY DARNELL Procedure Performed: Selective coronary angiogram. Indication: Ump-GK-[id number] myocardial infarction. Access: Right femoral artery 6-Namibian closed with the 6-Namibian Angio-Seal. Complications: None. Bleeding: Less than 20 mL. Description Of Procedure: After risks, benefits, alternatives were explained, patient agreed to proc edure and signed the informal consent. Patient was brought into the cardiac catheterization laborato ry, prepped and draped in the usual sterile fashion. Then, I accessed the right femoral artery using micropuncture kit on fluoroscopy and ultrasound guidance and placed a 6-Namibian Donner sheath and t ook a 6-Namibian JL4 catheter into the aortic root, engaged the left main, took standard views, and the n exchanged for a 6-Namibian JR4 catheter, engaged the RCA, took standard views. A JR4 catheter was pu shed over the wire into the LV, measured the LVEDP. Pullback did not record any gradient. Then I ga ve systemic heparin to assure ACT level above 250, and then took a 6-Namibian JL4 guide into the aortic root, engaged the left main, took a Runthrough wire into the left main and placed it in the LAD. Th en, I took IVUS catheter, did IVUS of the left main into the LAD and then removed the catheter and th e wire. Final angiogram was satisfactory and then I removed the catheter and the sheath and a 6-Fren ch Angio-Seal was used for closure with good hemostasis. Findings: 1.Distal left main is 60% to 70% with minimal luminal area of 5.4 sq mm. 2.LAD has very long stent proximal all the way to mid with a focal area of 60% to 70% ISR and then l uminal irregularities. Diagonal branches are very small and heavily diseased. 3.Left circumflex; ostial 70% and then mid 70% extending into the OM. 4.RCA; ostial 60% to 70%, mid 40%, 2 tandem lesions in the PDA has diffuse 60% stenosis and the PLB diffuse 20% to 30% stenosis. 5.Elevated LVEDP at 24 mmHg. Conclusion: 1.Severe multivessel disease including left main with minimal luminal area of 5.4 sq mm on IVUS. 2.Elevated LVEDP. Recommendations: CABG evaluation. SR/MODL Voice ID: [id number] Report ID: [id number]
[2023-05-02] MEDS: AMLODIPINE 5 MG TAB PO SCH (18:34)
--- NOTE | 2023-05-02 18:51 | CON ---
Date of Consultation: 05/02/2023 Reason For Consultation: Elevated troponin. History Of Present Illness: A 72-year-old male, history of hypertension, dyslipidemia, coronary nimesh ry disease, atrial fibrillation, Parkinson, acid reflux, presented with abdominal distention and abdo donna pain and also has been having chest pressure with activities. Denies having any nausea, vomiti ng, or diarrhea. No other complaints. Past Medical History: As outlined above in HPI. Medications: Refer to reconciliation sheet for detailed list. Allergies: LISINOPRIL. Family History: No premature coronary artery disease or cancer. Social History: Does not smoke or drink. Does not use any drugs. Review of Systems: All systems reviewed and they were negative except what mentioned in HPI. Physical Examination: Vital Signs: Reviewed. Head and Neck: Pupils are equal, reactive to light. Intact eye movements. No JVD. No cervical lym phadenopathy. Neck is supple. Thyroid is not enlarged. Lungs: Clear to auscultation bilaterally. No rhonchi, wheezing, or crackles. No accessory muscle u se. Heart: Regular rate and rhythm. No extra sounds. Abdomen: Soft, nontender. Bowel sounds positive. No organomegaly. No masses or hernia. No rigidi ty or rebound. Extremities: No clubbing or cyanosis. Intact pulses. Skin: No rash. Neurologic: Alert, awake. No acute focal deficits appreciated. Investigations: Troponin peaked at 323, BUN 12, creatinine 0.65, and hemoglobin is 12.7. Assessment And Recommendations: 1.Non-ST elevation myocardial infarction. The patient is n.p.o. To keep n.p.o. and plan for durant ry angiogram today. Continue baby aspirin and statin. 2.Lipidemia. Continue Lipitor 40 mg at bedtime. 3.Hypertension. Blood pressure is controlled. SR/MODL Voice ID: [id number] Report ID: [id number]
[2023-05-02] MEDS: ATORVASTATIN 40 MG TAB PO SCH (21:37)
[2023-05-02] MEDS: CYCLOBENZAPRINE 10 MG TAB PO SCH (21:38)
[2023-05-03 03:16] LABS: Absolute Lymphocytes (CBC) 1.4 K/uL (0.7-4.9); Hematocrit 36.9 % (39.6-49.0); Lymphocytes % 32.7 % (15.3-44.8); MPV 7.8 fL (7.6-11.3); Platelets 204 thou/uL (152-406); RBC Red Blood Cell Count 4.15 M/uL (4.33-5.43)
[2023-05-03 03:22] LABS: Magnesium 2.1 mg/dL (1.6-2.4); Potassium 3.2 mEq/L (3.5-5.1)
[2023-05-03] MEDS ORDERED: METOPROLOL TARTRATE 5 MG/5 ML INJ IV ONE (05:11)
[2023-05-03] MEDS: METOPROLOL TAR 25 MG TAB PO SCH ×2 (05:19→17:28)
[2023-05-03] MEDS: ENOXAPARIN 60 MG/0.6 ML SQ SCH ×2 (06:00→17:30)
[2023-05-03] MEDS: VALSARTAN 160 MG TAB PO SCH (08:30)
[2023-05-03] MEDS: PANTOPRAZOLE 40MG TABLET PO SCH (08:30)
[2023-05-03] MEDS: DOCUSATE NA 100 MG CAP PO SCH ×2 (08:32→21:53)
[2023-05-03] MEDS: CLOPIDOGREL 75 MG TABLET PO SCH (08:33)
[2023-05-03] MEDS: AMANTADINE 100 MG CAP PO SCH (08:38)
[2023-05-03] MEDS: CARBIDOPA/LEVODOPA 25/250 TAB PO SCH ×3 (08:39→21:52)
[2023-05-03] MEDS ORDERED: POTASSIUM CL SA 10 MEQ TAB PO ONE (09:00)
--- NOTE | 2023-05-03 17:15 | PN ---
Date of Progress Note: 05/03/2023 Subjective: Seen by bedside. No chest pain. Review of Systems: No chest pain, shortness of breath, orthopnea, or cough. No nausea, vomiting, or diarrhea. All othe r systems were reviewed, they were negative. Objective: Vital Signs: Reviewed. Head and Neck: Pupils are equal, reactive to light. Intact eye movements. No JVD. No cervical lym phadenopathy. Neck is supple. Thyroid is not enlarged. Lungs: Clear to auscultation bilaterally. No rhonchi, wheezing, or crackles. No accessory muscle u se. Heart: Regular rate and rhythm. No extra sounds. Abdomen: Soft, nontender. Bowel sounds positive. No organomegaly. No masses or hernia. No rigidi ty or rebound. Extremities: No edema, clubbing, or cyanosis. Intact pulses. Skin: No rash. No nodule. Neurologic: Alert, awake, oriented x3. No acute focal deficits appreciated. Lymph Nodes: No cervical or axillary lymphadenopathy. Investigations: Labs were reviewed. Assessment And Recommendations: 1.Qcr-YY-sliswqznj myocardial infarction. On coronary angiogram, he has severe multivessel disease including distal left main with very small luminal area of 5.4 sq mm. I am recommending transfer for CABG and his transfer process was initiated. 2.Dyslipidemia. Continue statin. 3.Hypertension. Blood pressure is controlled. Case discussed with CT Surgery at [facility] with Dr. Evans and he kindly accepted to get the patient fo r evaluation for CABG. SR/MODL Voice ID: [id number] Report ID: [id number]
[2023-05-03] MEDS: AMLODIPINE 5 MG TAB PO SCH (18:25)
[2023-05-03 20:17] VITALS: O2SAT 94
[2023-05-03] MEDS: CYCLOBENZAPRINE 10 MG TAB PO SCH (21:48)
[2023-05-03] MEDS: ATORVASTATIN 40 MG TAB PO SCH (21:52)
[2023-05-04 05:10] VITALS: BP 155/81; TEMP 98.8
[2023-05-04] MEDS ORDERED: ASPIRIN EC 81 MG TAB PO SCH (09:00)
--- NOTE | 2023-05-07 16:32 | EKG ---
Test Date: 2023-05-03 Test Time: 04:45:50 Director Translational: BRANDI MEASUREMENT RESULTS: Intervals: Rate: 110 MN: QRSD: 154 QT: 400 QTc: 541 [place]: P: MN: QRS: -65 T: 91 INTERPRETIVE STATEMENTS: Atrial fibrillation with rapid ventricular response with premature ventricular or aberrantly conducted complexes Right bundle branch block Left anterior fascicular block Bifascicular block Voltage criteria for left ventricular hypertrophy Cannot rule out Septal infarct, age undetermined Abnormal ECG Compared to ECG 04/30/2023 16:32:24 Myocardial infarct finding now present Bifascicular block still present Electronically Signed On 05-07-23 16:28:00 CDT by Enoc Smiley
== END 2023-05-04 02:00 | disposition short-term general hospital (02) | DRG 281 ==
LOC: ER 16:12 → ERHOLD 19:50 → 4TH 05-01 07:37
PROVIDERS: ADMIT Hospitalist; ATTEND Hospitalist
PROC: 4A023N7 Measurement of Cardiac Sampling and Pressure, Left Heart, Percutaneous Approach (ICD-10-PCS; principal; 2023-05-02)
PROC: B2111ZZ Fluoroscopy of Multiple Coronary Arteries using Low Osmolar Contrast (ICD-10-PCS; 2023-05-02)
PROC: B241ZZ3 Ultrasonography of Multiple Coronary Arteries, Intravascular (ICD-10-PCS; 2023-05-02)
DX: I21.4 Non-ST elevation (NSTEMI) myocardial infarction (principal); I48.19 Other persistent atrial fibrillation; T82.855A Stenosis of coronary artery stent, initial encounter; I25.10 Atherosclerotic heart disease of native coronary artery without angina pectoris; I11.0 Hypertensive heart disease with heart failure; I50.9 Heart failure, unspecified; E87.6 Hypokalemia; E78.5 Hyperlipidemia, unspecified; N20.0 Calculus of kidney; K40.90 Unilateral inguinal hernia, without obstruction or gangrene, not specified as recurrent; G20 Parkinson's disease; I25.2 Old myocardial infarction; K21.9 Gastro-esophageal reflux disease without esophagitis; K59.00 Constipation, unspecified; Z79.02 Long term (current) use of antithrombotics/antiplatelets; Z79.899 Other long term (current) drug therapy; Z88.8 Allergy status to other drugs, medicaments and biological substances; Z85.46 Personal history of malignant neoplasm of prostate; Z82.49 Family history of ischemic heart disease and other diseases of the circulatory system; Z80.6 Family history of leukemia; Z80.0 Family history of malignant neoplasm of digestive organs
CPT/HCPCS: 36415; 71045; 74177; 76937; 80048; 80053; 80076; 81001; 83690; 83735; 83880; 84484; 85025; 85347; 85610; 92978; 93005; 93458; 96361; 96365; 96366; 96372; 96375; 99285; C1760; C1893; G0269; J0360; J0461; J0696; J1650; J1940; J2001; J2250; J3010; J3480; J7030; J7040; Q9967

== ENCOUNTER → 2023-08-31 | Emergency (ER) | payer OTHER ==
[~2023-08-31] MED LIST changes: +ASPIRIN 81 MG CHEWABLE TABLET ONE; -ATROPINE SULF 1 MG/10 ML SYR IV ONE; +ENOXAPARIN 60 MG/0.6 ML SQ ONE; +FAMOTIDINE 20 MG/2 ML VIAL IV ONE; -FENTANYL CITR 100 MCG/2 ML ONE; -HEPA 1000U/500MLS 2,000 UNIT/1,000 ML BAG IV ONE; -HEPARIN 10,000 UNIT/10 ML VIAL IV ONE; -HEPARIN 5000 UNIT/ML 1 ML VIAL ONE; +KCL 20 MEQ/100 mL IVPB 0 ML IV ONE; -LIDOCAINE 1% 20 ML MDV ONE; -MIDAZOLAM HCL 2 MG/2 ML INJ ONE; -NITROGLYCERIN 100 MCG/ML SYR (for cath lab use only) IV ONE; -NITROGLYCERIN/D5W 25 MG/250 ML BTL IV ONE; +POTASSIUM 25 MEQ EFFERV TAB ONE; -TICAGRELOR 90 MG TABLET PO ONE; -VERAPAMIL HCL 10 MG/4 ML VIAL IV ONE
[2023-08-31 15:30] LABS: Absolute Lymphocytes (CBC) 0.9 K/uL (0.7-4.9); Hematocrit 37.1 % (39.6-49.0); Lymphocytes % 28.9 % (15.3-44.8); MCV 88.7 fL (80-100); MPV 7.5 fL (7.6-11.3); Platelets 172 thou/uL (152-406); RBC Red Blood Cell Count 4.18 M/uL (4.33-5.43)
[2023-08-31 15:36] LABS: AST/SGOT 18 U/L (15-37); Albumin 3.7 g/dL (3.4-5.0); Alkaline Phosphatase 86 U/L (45-117); BUN Blood Urea Nitrogen 19 mg/dL (7-18); Bicarbonate 33 mEq/L (21-32); Bilirubin Direct 0.2 mg/dL (0-0.2); Bilirubin Indirect, Calculated 0.4 mg/dL (0.2-0.8); Bilirubin Total 0.6 mg/dL (0.2-1.0); Glomerular Filtration Rate 82 ml/min (=/>90); Glucose Level 82 mg/dL (74-106); Lipase 19 U/L (13-75); Magnesium 2.3 mg/dL (1.6-2.4); NT PRO-BNP 904 pg/mL (<125); Phosphorus 3.8 mg/dL (2.5-4.9); Sodium Level 141 mEq/L (136-145)
[2023-08-31 15:59] LABS: ALT/SGPT < 10 U/L (16-61)
--- NOTE | 2023-08-31 16:00 | RAD REPORT ---
EXAM DESCRIPTION: Arnold Single View08/31/2023 3:37 pm CLINICAL HISTORY: Cough COMPARISON: April 2023 FINDINGS: Postsurgical changes involve the chest. The lungs appear clear of acute infiltrate. The heart is normal size IMPRESSION: No acute abnormalities displayed
[2023-08-31 16:01] LABS: Troponin High Sensitivity 814.8 pg/mL (<58.9)
[2023-08-31 16:49] LABS: Protime INR 1.16
--- NOTE | 2023-08-31 16:53 | EDPHYS ---
Physician Documentation [facility] Name: Sivakumar Fong Age: 73 yrs Sex: Male : 1950 Arrival Date: 08/31/2023 Time: 14:10 Bed 20 Private MD: ED Physician Clinton Camacho HPI: 08/31 16:40 This 73 yrs old Male presents to ER via Wheelchair with complaints of Low zac potassium.Doctor req to come to ER. 16:40 WEAKNESS, LOW POTSSSIUM. Onset: The symptoms/episode began/occurred 3 day(s) ago. zac Severity of symptoms: At their worst the symptoms were mild in the emergency department the symptoms are unchanged. The patient has experienced similar episodes in the past, several times. Historical: - Allergies: 15:14 Lisinopril; jl7 - PMHx: 15:14 Atrial fibrillation; GERD; heart stents; High Cholesterol; Hypertension; Myocardial jl7 infarction; Parkinsons; - PSHx: 15:14 Appendectomy; Stented artery; jl7 - Immunization history:: Adult Immunizations up to date. - Social history:: Smoking status: unknown. ROS: 16:42 Constitutional: Negative for fever, chills, and weight loss, Eyes: Negative for injury, zac pain, redness, and discharge, ENT: Negative for injury, pain, and discharge, Neck: Negative for injury, pain, and swelling, Cardiovascular: Negative for chest pain, palpitations, and edema, Respiratory: Negative for shortness of breath, cough, wheezing, and pleuritic chest pain, Abdomen/GI: Negative for abdominal pain, nausea, vomiting, diarrhea, and constipation, Back: Negative for injury and pain, : Negative for injury, bleeding, discharge, and swelling, MS/Extremity: Negative for injury and deformity, Skin: Negative for injury, rash, and discoloration, Psych: Negative for depression, anxiety, suicide ideation, homicidal ideation, and hallucinations, Allergy/Immunology: Negative for hives, rash, and allergies, Endocrine: Negative for neck swelling, polydipsia, polyuria, polyphagia, and marked weight changes, Hematologic/Lymphatic: Negative for swollen nodes, abnormal bleeding, and unusual bruising, 16:42 Neuro: Positive for dizziness, weakness, Exam: 16:42 Constitutional: This is a well developed, well nourished patient who is awake, alert, zac and in no acute distress. Head/Face: Normocephalic, atraumatic. Eyes: Pupils equal round and reactive to light, extra-ocular motions intact. Lids and lashes normal. Conjunctiva and sclera are non-icteric and not injected. Cornea within normal limits. Periorbital areas with no swelling, redness, or edema. ENT: Nares patent. No nasal discharge, no septal abnormalities noted. Tympanic membranes are normal and external auditory canals are clear. Oropharynx with no redness, swelling, or masses, exudates, or evidence of obstruction, uvula midline. Mucous membranes moist. Neck: Trachea midline, no thyromegaly or masses palpated, and no cervical lymphadenopathy. Supple, full range of motion without nuchal rigidity, or vertebral point tenderness. No Meningismus. Chest/axilla: Normal chest wall appearance and motion. Nontender with no deformity. No lesions are appreciated. Cardiovascular: Regular rate and rhythm with a normal S1 and S2. No gallops, murmurs, or rubs. Normal PMI, no JVD. No pulse deficits. Respiratory: Lungs have equal breath sounds bilaterally, clear to auscultation and percussion. No rales, rhonchi or wheezes noted. No increased work of breathing, no retractions or nasal flaring. Abdomen/GI: Soft, non-tender, with normal bowel sounds. No distension or tympany. No guarding or rebound. No evidence of tenderness throughout. Back: No spinal tenderness. No costovertebral tenderness. Full range of motion. Male : Normal genitalia with no discharge or lesions. Skin: Warm, dry with normal turgor. Normal color with no rashes, no lesions, and no evidence of cellulitis. Neuro: Awake and alert, GCS 15, oriented to person, place, time, and situation. Cranial nerves II-XII grossly intact. Motor strength 5/5 in all extremities. Sensory grossly intact. Cerebellar exam normal. Normal gait. Psych: Awake, alert, with orientation to person, place and time. Behavior, mood, and affect are within normal limits. 16:42 ECG was reviewed by the Attending Physician. 16:42 Musculoskeletal/extremity: ROM: limited active range of motion, limited passive range of motion, Circulation is intact in all extremities. Sensation intact. Compartment Syndrome exam of affected extremity: is normal. DVT Exam: no pain, no swelling, no tenderness, negative Homans' sign noted on exam, no appreciated bluish discoloration, no erythema, no increased warmth, swelling, BILATERAL EDEMA. Vital Signs: 15:12 BP 130 / 75; Pulse 76; Resp 15; Temp 98.7; Pulse Ox 98% ; Weight 59.87 kg; Height 5 ft. jl7 6 in. ; Pain 0/10; 16:30 BP 150 / 89; Pulse 62; Resp 18; Pulse Ox 100% ; cp4 17:00 BP 168 / 95; Pulse 65; Resp 18; Pulse Ox 100% ; cp4 17:30 BP 161 / 91; Pulse 71; Resp 18; Pulse Ox 100% ; cp4 18:00 BP 171 / 98; Pulse 84; Resp 18; Pulse Ox 100% ; cp4 18:30 BP 166 / 96; Pulse 81; Resp 18; Pulse Ox 100% ; cp4 15:12 Body Mass Index 21.31 (59.87 kg, 167.64 cm) [facility] 15:12 Pain Scale: Adult jl NIH Stroke Scale Scores: 16:42 NIHSS Score: 0 zac Misbah Coma Score: 16:42 Eye Response: spontaneous(4). Motor Response: obeys commands(6). Verbal Response: zac oriented(5). Total: 15. MDM: 14:40 Patient medically screened. zac 16:48 Differential Diagnosis altered mental status. Differential Diagnosis: cardiac zac arrhythmia, GI bleed, seizure, transient ischemic attack, vasovagal episode. Data reviewed: vital signs, nurses notes, lab test result(s), EKG, radiologic studies, CT scan, plain films. Consideration of Admission/Observation Escalation of care including admission/observation considered. I considered the following discharge prescriptions or medication management in the emergency department Medications were administered in the Emergency Department. See MAR. Independent interpretation of the following test(s) in the Emergency Department EKG: See my EKG interpretation above. Test considered but Not performed: CT: NO CT CHEST. External Records Reviewed: Inpatient record: [facility]. CABG AT [facility] [place]. Care significantly affected by the following chronic conditions: Hypertension, CABG, A FIB, HIGH CHOLESTEROL, [place]. Care significantly affected by the following Social Determinants of Health: Poor access to transportation. Counseling: I had a detailed discussion with the patient and/or guardian regarding the historical points, exam findings, and any diagnostic results supporting the discharge/admit diagnosis, lab results, radiology results, the need to transfer to another facility, for higher level of care, [facility] does not immediately have the required specialist. 08/31 14:42 Order name: Basic Metabolic Panel; Complete Time: 16:38 [facility] 08/31 14:42 Order name: CBC with Diff; Complete Time: 16:38 [facility] 08/31 14:42 Order name: LFT's; Complete Time: 16:38 [facility] 08/31 14:42 Order name: Magnesium; Complete Time: 16:38 [facility] 08/31 14:42 Order name: NT PRO-BNP; Complete Time: 16:38 [facility] 08/31 14:42 Order name: PT-INR; Complete Time: 16:50 [facility] 08/31 14:42 Order name: Troponin HS; Complete Time: 16:38 [facility] 08/31 14:42 Order name: Lipase; Complete Time: 16:38 [facility] 08/31 14:42 Order name: Phosphorus; Complete Time: 16:38 [facility] 08/31 14:42 Order name: XRAY Chest (1 view); Complete Time: 16:38 [facility] 08/31 16:40 Order name: US Extremity Venous W Compression [place] 08/31 14:42 Order name: EKG; Complete Time: 14:43 [facility] 08/31 14:42 Order name: Cardiac monitoring; Complete Time: 16:37 [facility] 08/31 14:42 Order name: EKG - Nurse/Tech; Complete Time: 16:37 [facility] 08/31 14:42 Order name: IV Saline Lock; Complete Time: 15:47 [facility] 08/31 14:42 Order name: Labs collected and sent; Complete Time: 15:47 [facility] 08/31 14:42 Order name: O2 Per Protocol; Complete Time: 16:37 [facility] 08/31 14:42 Order name: O2 Sat Monitoring; Complete Time: 16:37 [facility] EC:42 Rate is 61 beats/min. Rhythm is regular. QRS [place] is Normal. LA interval is normal. QRS zac interval is normal. QT interval is normal. No Q waves. T waves are Normal. No ST changes noted. Clinical impression: NSR w/ Non-specific ST/T Changes and No evidence of ischemia. Interpreted by me. Reviewed by me. Administered Medications: 17:04 Drug: Famotidine IVP 20 mg IVP once; dilute with 10 mL 0.9% NaCl; give over 2 minutes cp4 Route: IVP; Site: right antecubital; 18:56 Follow up: Response: No adverse reaction cp4 17:04 Drug: Enoxaparin Sub-Q 1 mg/kg Sub-Q once Route: Sub-Q; Site: abdomen; cp4 18:53 Follow up: Response: No adverse reaction cp4 17:04 Drug: NS 0.9% with KCl IV 20 mEq/L 1000 ml IV at 100 ml/hr continuous Route: IV; Rate: cp4 100 ml/hr; Site: right antecubital; 18:53 Follow up: Response: No adverse reaction; IV Status: Infusion continued upon transfer cp4 17:05 Not Given (Physician Discretion): ns 0.9% 500 ml IV at bolus once cp4 17:05 Drug: Potassium PO Effervescent Tablet 50 mEq PO once; dissolve in 4 ounces of water or cp4 juice Route: PO; 18:57 Follow up: Response: No adverse reaction cp4 17:05 Drug: Aspirin PO Chewable Tablet 162 mg PO once Route: PO; cp4 18:57 Follow up: Response: No adverse reaction cp4 Disposition Summary: 08/31/23 16:53 Transfer Ordered Notes: Transfer Location: [facility] zac Reason: Higher level of care zac Condition: Fair zac Problem: new zac Symptoms: have improved zac Accepting Physician: KAMILA [facility]ER[place] [facility]08/31/23 19:03) cp4 Diagnosis - Non ST elevation [place] zac - Weakness zac - Hypokalemia zac - Anemia, unspecified zac Forms: - Medication Reconciliation Form zac - SBAR form zac NIH Stroke Scale - NIH Stroke Score Date: 08/31/2023 Time: 16:42 Total Score = 0 10. Dysarthria (speech clarity - read or repeat words) - 0(Normal) 11. Extinction and Inattention (visual/tactile/auditory/spatial/personal) - 0(No abnormality) 1a. Level of Consciousness (LOC) - 0(Alert) 1b. Level of Consciousness (LOC) (Month \T\ Age) - 0(Both) 1c. LOC Commands (Open \T\ Closes Eyes/Search And Rescue Officer) - 0(Both) 2. Best Gaze (Lateral Gaze Paresis) - 0(Normal) 3. Visual Field Loss - 0(No visual loss) 4. Facial Palsy - 0(Normal) 5a. Left Arm: Motor (10-second hold) - 0(No drift) 5b. Right Arm: Motor (10-second hold) - 0(No drift) 6a. Left Leg: Motor (5-second hold - always test supine) - 0(No drift) 6b. Right Leg: Motor (5-second hold - always test supine) - 0(No drift) 7. Limb Ataxia (finger/nose \T\ heel/wesley - test with eyes open) - 0(Absent) 8. Sensory Loss (pinprick arms/legs/face) - 0(Normal) 9. Best Language: Aphasia (description/naming/reading) - 0(No aphasia) Initials: zac Signatures: Dispatcher [employer] Clinton Sandhu MD MD cha Leal, Jahala RN RN Ester Baig cp4 Corrections: (The following items were deleted from the chart) 19:03 16:53 [facility] zac stephens
--- NOTE | 2023-08-31 16:53 | ER ---
Nurse's Notes [facility] Name: Sivakumar Fong Age: 73 yrs Sex: Male : 1950 Arrival Date: 08/31/2023 Time: 14:10 Bed 20 Private MD: Diagnosis: Non ST elevation FL;Weakness;Hypokalemia;Anemia, unspecified Presentation: 08/31 15:12 Chief complaint: Patient's son or daughter states: Daughter, Makayla, reports PCP jl7 called to come to ER for Potassium of 2.5, pt denies discomfort. Coronavirus screen: At this time, the client does not indicate any symptoms associated with coronavirus-19. Ebola Screen: No symptoms or risks identified at this time. Initial Sepsis Screen: Does the patient meet any 2 criteria? No. Patient's initial sepsis screen is negative. Does the patient have a suspected source of infection? No. Patient's initial sepsis screen is negative. Risk Assessment: Do you want to hurt yourself or someone else? Patient reports no desire to harm self or others. Onset of symptoms is unknown. 15:12 Method Of Arrival: Wheelchair jl7 15:12 Acuity: RANI 2 jl7 Historical: - Allergies: 15:14 Lisinopril; jl7 - PMHx: 15:14 Atrial fibrillation; GERD; heart stents; High Cholesterol; Hypertension; Myocardial jl7 infarction; Parkinsons; - PSHx: 15:14 Appendectomy; Stented artery; jl7 - Immunization history:: Adult Immunizations up to date. - Social history:: Smoking status: unknown. Screenin:51 [facility] ED Fall Risk Assessment (Adult) History of falling in the last 3 months, cp4 including since admission No falls in past 3 months (0 pts) Confusion or Disorientation No (0 pts) Intoxicated or Sedated No (0 pts) Impaired Gait No (0 pts) Mobility Assist Device Used No (0 pt) Altered Elimination No (0 pt) Score/Fall Risk Level 0 - 2 = Low Risk Oriented to surroundings, Maintained a safe environment, Educated pt \T\ family on fall prevention, incl call for assistance when getting out of bed, Assessed \T\ reinforced patient's understanding of fall precautions, Hourly rounding (assess needs \T\ fall precautionary measures) done. Abuse screen: Denies threats or abuse. Nutritional screening: No deficits noted. Tuberculosis screening: No symptoms or risk factors identified. Assessment: 17:51 General: Appears in no apparent distress. Behavior is calm, cooperative, appropriate cp4 for age. Pain: Denies pain. Vital Signs: 15:12 BP 130 / 75; Pulse 76; Resp 15; Temp 98.7; Pulse Ox 98% ; Weight 59.87 kg; Height 5 ft. jl7 6 in. ; Pain 0/10; 16:30 BP 150 / 89; Pulse 62; Resp 18; Pulse Ox 100% ; cp4 17:00 BP 168 / 95; Pulse 65; Resp 18; Pulse Ox 100% ; cp4 17:30 BP 161 / 91; Pulse 71; Resp 18; Pulse Ox 100% ; cp4 18:00 BP 171 / 98; Pulse 84; Resp 18; Pulse Ox 100% ; cp4 18:30 BP 166 / 96; Pulse 81; Resp 18; Pulse Ox 100% ; cp4 15:12 Body Mass Index 21.31 (59.87 kg, 167.64 cm) [facility] 15:12 Pain Scale: Adult jl [place] Coma Score: 16:42 Eye Response: spontaneous(4). Motor Response: obeys commands(6). Verbal Response: zac oriented(5). Total: 15. NIH Stroke Scale Scores: 16:42 NIHSS Score: 0 zac ED Course: 14:12 Patient arrived in ED. ts1 14:40 Clinton Camacho MD is Attending Physician. zac 15:14 Triage completed. jl 15:14 Arm band placed on right wrist. Patient placed in waiting room, in a wheelchair, [facility] Patient notified of wait time. 15:15 Initial lab(s) drawn, by ar, sent to lab. Inserted saline lock: 20 gauge in right jl7 antecubital area, using aseptic technique. 15:39 XRAY Chest (1 view) In Process Unspecified. EDMS 16:37 Ester Andrews is Primary Nurse. cp4 17:26 US Extremity Venous W Compression Dillon In Process Unspecified. EDMS 17:51 Bed in low position. Call light in reach. Side rails up X2. cp4 17:51 No provider procedures requiring assistance completed. cp4 18:[address] Camacho called to start transfer to [facility] [address] accepted sp pt 1715 Rogelio Vazquez admin approval to [facility] bed 1427 report [phone]. 18:20 talked to [facility] for Transfer. sp 19:02 Provided Education on: TRANSER. cp4 19:02 Patient transferred, IV remains in place. cp4 Administered Medications: 17:04 Drug: Famotidine IVP 20 mg IVP once; dilute with 10 mL 0.9% NaCl; give over 2 minutes cp4 Route: IVP; Site: right antecubital; 18:56 Follow up: Response: No adverse reaction cp4 17:04 Drug: Enoxaparin Sub-Q 1 mg/kg Sub-Q once Route: Sub-Q; Site: abdomen; cp4 18:53 Follow up: Response: No adverse reaction cp4 17:04 Drug: NS 0.9% with KCl IV 20 mEq/L 1000 ml IV at 100 ml/hr continuous Route: IV; Rate: cp4 100 ml/hr; Site: right antecubital; 18:53 Follow up: Response: No adverse reaction; IV Status: Infusion continued upon transfer cp4 17:05 Not Given (Physician Discretion): ns 0.9% 500 ml IV at bolus once cp4 17:05 Drug: Potassium PO Effervescent Tablet 50 mEq PO once; dissolve in 4 ounces of water or cp4 juice Route: PO; 18:57 Follow up: Response: No adverse reaction cp4 17:05 Drug: Aspirin PO Chewable Tablet 162 mg PO once Route: PO; cp4 18:57 Follow up: Response: No adverse reaction cp4 Medication: 17:51 VIS not applicable for this client. cp4 Outcome: 16:53 ER care complete, transfer ordered by MD. frank 19:02 Transferred by ground EMS to [facility], Transfer form completed. cp4 19:02 Condition: stable 19:02 Instructed on the need for transfer, 19:03 Patient left the ED. cp4 NIH Stroke Scale - NIH Stroke Score Date: 08/31/2023 Time: 16:42 Total Score = 0 10. Dysarthria (speech clarity - read or repeat words) - 0(Normal) 11. Extinction and Inattention (visual/tactile/auditory/spatial/personal) - 0(No abnormality) 1a. Level of Consciousness (LOC) - 0(Alert) 1b. Level of Consciousness (LOC) (Month \T\ Age) - 0(Both) 1c. LOC Commands (Open \T\ Closes Eyes/Marriage Performer) - 0(Both) 2. Best Gaze (Lateral Gaze Paresis) - 0(Normal) 3. Visual Field Loss - 0(No visual loss) 4. Facial Palsy - 0(Normal) 5a. Left Arm: Motor (10-second hold) - 0(No drift) 5b. Right Arm: Motor (10-second hold) - 0(No drift) 6a. Left Leg: Motor (5-second hold - always test supine) - 0(No drift) 6b. Right Leg: Motor (5-second hold - always test supine) - 0(No drift) 7. Limb Ataxia (finger/nose \T\ heel/wesley - test with eyes open) - 0(Absent) 8. Sensory Loss (pinprick arms/legs/face) - 0(Normal) 9. Best Language: Aphasia (description/naming/reading) - 0(No aphasia) Initials: zac Signatures: Dispatcher [employer] Clinton Sandhu MD MD cha Pinkerton, Shawna sp Leal, Jahala, RN RN jl7 Petty Oseguera PAS PAS ts1 Ester Andrews cp4
--- NOTE | 2023-08-31 18:01 | RAD REPORT ---
EXAM DESCRIPTION: USExtrem Venous W Compress Bil08/31/2023 5:24 pm CLINICAL HISTORY: Leg pain COMPARISON: none FINDINGS: The common femoral, superficial femoral, greater saphenous, popliteal and posterior tibial veins bilaterally are compressible and demonstrate augmentation. Doppler demonstrates good flow. Grayscale, color and spectral analysis performed on all vessels IMPRESSION: No evidence of deep venous thrombosis involving either lower extremity.
[2023-08-31 21:22] VITALS: TEMP 98.7; O2SAT 100
[2023-08-31 21:29] VITALS: BP 166/96
== END ==
LOC: ER 14:10
DX: I21.4 Non-ST elevation (NSTEMI) myocardial infarction (principal); E87.6 Hypokalemia; D64.9 Anemia, unspecified; I10 Essential (primary) hypertension; I48.91 Unspecified atrial fibrillation; I25.2 Old myocardial infarction; G20.A1 Parkinson's disease without dyskinesia, without mention of fluctuations; Z88.8 Allergy status to other drugs, medicaments and biological substances
CPT/HCPCS: 96361; 85025; 80048; 36415; 83735; 84100; 85610; 80076; 84484; 83690; 83880; 71045; 93970; 96372; 96374; 99285; J1650; 93005; J3480

== ENCOUNTER 2023-10-09 08:35 | Inpatient (IN) | payer OTHER ==
[2023-10-09 09:28] LABS: Absolute Lymphocytes (CBC) 1.2 K/uL (0.7-4.9); Hematocrit 33.8 % (39.6-49.0); Lymphocytes % 38.7 % (15.3-44.8); MPV 7.7 fL (7.6-11.3); Platelets 218 thou/uL (152-406)
[2023-10-09 09:35] LABS: Protime INR 1.14
--- NOTE | 2023-10-09 09:38 | RAD REPORT ---
EXAM DESCRIPTION: RAD - Chest Single View - 10/09/2023 9:17 am CLINICAL HISTORY: hemoptysis;Cough COMPARISON: Chest Single View dated 08/31/2023; Chest Single View dated 04/30/2023; Chest Single View dated 01/16/2023; Chest Pa And Lat (2 Views) dated 11/17/2021; Abdomen Pelvis W/Wo Contrast dated ; Chest Abd Pelvis Wo Con dated 01/16/2023 FINDINGS: Lines: None. Lungs: No evidence of edema or pneumonia. Similar elevation of left hemidiaphragm. Pleural: No significant pleural effusions or pneumothorax. Cardiac: Stable size and configuration. Mediastinum: Within normal limits. Bones: No acute fractures. Sternotomy. Other: None IMPRESSION: No acute cardiopulmonary disease. Similar left hemidiaphragm elevation.
[2023-10-09 10:09] LABS: Albumin 3.6 g/dL (3.4-5.0); Bilirubin Total 0.7 mg/dL (0.2-1.0); Potassium 2.8 mEq/L (3.5-5.1); Protein, Total 7.5 g/dL (6.4-8.2)
[2023-10-09 10:09] LABS: SARS-CoV-2 Antigen Rapid Res Negative (Negative)
--- NOTE | 2023-10-09 10:45 | RAD REPORT ---
EXAM DESCRIPTION: CT - Chest For Pe Angio - 10/09/2023 10:25 am CLINICAL HISTORY: HEMOPTYSIS COMPARISON: Chest Abd Pelvis Wo Con dated 01/16/2023; CTANGIO CHEST FOR PE dated 11/16/2010; CTANGIO C HEST FOR PE dated 12/22/2009; Chest Single View dated 10/09/2023 TECHNIQUE: Dynamically enhanced axial 3 mm thick images of the chest were obtained during administra tion of <100> mL Isovue 370 IV contrast. Coronal and oblique reconstruction images were generated and reviewed. Exam utilizes a protocol for optimal evaluation of pulmonary arterial tree. Maximum intensity projections 3D imaging was utilized All CT scans are performed using dose optimization technique as appropriate and may include automated exposure control or mA/KV adjustment according to patient size. FINDINGS: Chest Wall: No suspicious thyroid nodules or pathologic lymphadenopathy. Lungs: Atelectasis and/or scarring at the left lung base. Motion artifact limits evaluation for small pulmonary nodules. No consolidation or pulmonary edema identified. Pleura: Trace left pleural effusion. Chronically elevated left hemidiaphragm . Mediastinum/janet: No pathologic lymphadenopathy. Pulmonary arteries/Aorta: No filling defect identified. No aortic aneurysm. Heart: No significant pericardial effusion. Normal heart size. Multi-vessel coronary disease. Upper abdomen: No acute abnormality. Bones: No acute abnormality. Sternotomy. Multilevel degenerative changes are present in the spine. IMPRESSION: Negative for pulmonary embolism. Chronically elevated left hemidiaphragm with likely und erlying scarring and atelectasis. Trace left effusion.
[2023-10-09] MEDS ORDERED: AZITHROMYCIN 500 MG INJ IVPB ONE (10:59)
[2023-10-09] MEDS ORDERED: CEFTRIAXONE 1000 MG/VIAL ONE (10:59)
[2023-10-09] MEDS ORDERED: NA CHLORIDE 0.9% 250 ML ONE (11:00)
--- NOTE | 2023-10-09 11:02 | ER ---
Nurse's Notes [facility] [place] Name: Sivakumar Fong Age: 73 yrs Sex: Male : 1950 Arrival Date: 10/09/2023 Time: 08:35 Bed 20 Private MD: Diagnosis: Hemoptysis;Muscle weakness (generalized) Presentation: 10/09 08:41 Ebola Screen: Patient denies travel to an Ebola-affected area in the 21 days before ll1 illness onset. Initial Sepsis Screen: Does the patient meet any 2 criteria? No. Patient's initial sepsis screen is negative. Does the patient have a suspected source of infection? Yes: Productive cough/pneumonia. Risk Assessment: Do you want to hurt yourself or someone else? Patient reports no desire to harm self or others. 08:41 Method Of Arrival: EMS 1 08:41 Acuity: RANI 3 1 08:42 Chief complaint: EMS states: BP elevated, respiration 24, O2 sat 92 % RA. 20 G R FA. 1 08:58 Chief complaint: Patient states: SOB and blood cough. Coronavirus screen: Vaccine ll1 status: Patient reports receiving the 2nd dose of the covid vaccine. Client denies travel out of the [place] in the last 14 days. cough unrelated to allergies, difficulty breathing, shortness of breath, Client presents with at least one sign or symptom that may indicate coronavirus-19. Standard/surgical mask placed on the client. Onset of symptoms was October 08, 2023. Triage Assessment: 08:59 General: Appears uncomfortable, ill, Behavior is calm, cooperative, appropriate for 1 age. Pain: Complains of pain in abdomen. Respiratory: Reports shortness of breath cough that is Onset: The symptoms/episode began/occurred yesterday. Historical: - Allergies: 08:40 Lisinopril; ll1 - PMHx: 08:40 Atrial fibrillation; Hypertension; heart stents; GERD; High Cholesterol; Parkinsons; ll1 Myocardial infarction; - PSHx: 08:40 Appendectomy; Stented artery; ll1 08:59 open heart SX; Cholecystectomy; ll1 - Immunization history:: Adult Immunizations up to date. - Social history:: Smoking status: Patient denies any tobacco usage or history of. - Family history:: not pertinent. - Hospitalizations: : No recent hospitalization is reported. Screenin:[address] [facility] ED Fall Risk Assessment (Adult) History of falling in the last 3 months, mb9 including since admission No falls in past 3 months (0 pts) Confusion or Disorientation No (0 pts) Intoxicated or Sedated No (0 pts) Impaired Gait No (0 pts) Mobility Assist Device Used No (0 pt) Altered Elimination No (0 pt) Score/Fall Risk Level 0 - 2 = Low Risk Oriented to surroundings, Maintained a safe environment, Educated pt \T\ family on fall prevention, incl call for assistance when getting out of bed. Abuse screen: Denies threats or abuse. Nutritional screening: No deficits noted. Tuberculosis screening: No symptoms or risk factors identified. Assessment: 09:21 General: Appears in no apparent distress. Behavior is calm, cooperative. Pain: mb9 Complains of pain in chest and abdomen. Neuro: Downs Agitation-Sedation Scale (RASS): 0 - Alert and Calm Level of Consciousness is awake, alert, obeys commands, Oriented to person, place, time, situation, Appropriate for age. Cardiovascular: Reports chest pain, shortness of breath, Heart tones S1 S2 present Patient's skin is warm and dry. Rhythm is regular. Respiratory: Reports shortness of breath cough that is non-productive, bloody Airway is patent Respiratory effort is even, unlabored, Respiratory pattern is regular, symmetrical, Breath sounds are clear bilaterally. GI: Abdomen is round non-distended, Bowel sounds present X 4 quads. Abd is soft and non tender X 4 quads. : No signs and/or symptoms were reported regarding the genitourinary system. EENT: Oral mucosa is dry. Derm: Skin is pink, warm \T\ dry. Musculoskeletal: Range of motion: intact in all extremities. 10:35 Reassessment: No changes from previously documented assessment. Patient and/or family mb9 updated on plan of care and expected duration. Pain level reassessed. Patient is alert, oriented x 3, equal unlabored respirations, skin warm/dry/pink. 11:54 Reassessment: No changes from previously documented assessment. Patient and/or family mb9 updated on plan of care and expected duration. Pain level reassessed. Patient is alert, oriented x 3, equal unlabored respirations, skin warm/dry/pink. 13:03 Reassessment: see [facility] for further charting. mb9 Vital Signs: 08:58 BP 189 / 101; Pulse 84; Resp 24; Temp 97.6; Pulse Ox 100% on R/A; Weight 60.78 kg; ll1 Height 5 ft. 6 in. ; Pain 6/10; 09:22 BP 178 / 96; Pulse 81; Resp 18; Pulse Ox 100% on R/A; mb9 09:50 BP 161 / 86; Pulse 79; Resp 16; Pulse Ox 100% on R/A; mb9 11:54 BP 162 / 91; Pulse 80; Resp 18; Pulse Ox 100% on R/A; mb9 08:58 Body Mass Index 21.63 (60.78 kg, 167.64 cm) ll1 08:58 Pain Scale: Adult ll1 ED Course: 08:40 Patient arrived in ED. ll1 08:40 Arm band placed on. ll1 08:41 Triage completed. ll1 08:41 Miko Cuevas MD is Attending Physician. rn 08:59 Leda Vaca RN is Primary Nurse. mb9 09:15 Placed in gown. Bed in low position. Call light in reach. Side rails up X 1. Client mb9 placed on continuous cardiac and pulse oximetry monitoring. NIBP monitoring applied. clinical research monitor on. 09:15 No provider procedures requiring assistance completed. mb9 09:19 Chest Single View XRAY In Process Unspecified. EDMS 09:21 EKG done, by ED staff, reviewed by Miko Cuevas MD. mb9 09:25 Inserted saline lock: 20 gauge in left forearm, using aseptic technique. mb9 09:25 Maintain EMS IV. Dressing intact. Good blood return noted. Site clean \T\ dry. Gauge \T\ mb 9 site: 20g right wrist. 10:27 CT Chest For PE Angio In Process Unspecified. EDMS 11:01 Shay Cuevas MD is Hospitalizing Provider. rn Administered Medications: 11:06 Drug: Rocephin IV 1 grams IV at calculated rate once; Given slow IV push per pharmacy mb9 instructions Route: IV; Rate: calculated rate; Site: left forearm; 11:51 Follow up: Response: No adverse reaction; IV Status: Completed infusion mb9 11:07 Drug: Zithromax IVPB 500 mg IVPB once over 1 hrs; mix in 250 mL NS Route: IVPB; Infused mb9 Over: 1 hrs; Site: right forearm; 12:30 Follow up: Response: No adverse reaction; IV Status: Completed infusion mb9 11:50 Drug: NS 0.9% IV 1000 ml IV at 75 ml/hr continuous Route: IV; Rate: 75 ml/hr; Site: mb9 left forearm; 13:03 Follow up: Response: No adverse reaction; IV Status: Infusion continued upon admission mb9 11:51 Drug: Potassium PO Effervescent Tablet 50 mEq PO once; dissolve in 4 ounces of water or mb9 juice Route: PO; 12:30 Follow up: Response: No adverse reaction mb9 11:51 Drug: Potassium Chloride IV 20 mEq IV at calculated rate once; administer over 1-2 mb9 hours Route: IV; Rate: calculated rate; Site: left forearm; 13:03 Follow up: Response: No adverse reaction; IV Status: Infusion continued upon admission mb9 Medication: 09:22 VIS not applicable for this client. mb9 Outcome: 11:02 Decision to Hospitalize by Provider. rn 18:49 Patient left the ED. mb9 Signatures: Dispatcher [employer] EDMiko Puente MD MD rn Lewis, Lynsay, RN RN ll1 Leda Vaca RN RN mb9
--- NOTE | 2023-10-09 11:02 | EDPHYS ---
Physician Documentation [facility] Name: Sivakumar Fong Age: 73 yrs Sex: Male : 1950 Arrival Date: 10/09/2023 Time: 08:35 Bed 20 Private MD: ED Physician Miko Cuevas HPI: 10/09 09:27 This 73 yrs old Male presents to ER via EMS with complaints of Productive rn Cough - bloody. 09:27 The patient or guardian reports cough, described as mild, with productive sputum. rn Onset: The symptoms/episode began/occurred last night. Severity of symptoms: At their worst the symptoms were mild, in the emergency department the symptoms are unchanged. Modifying factors: The symptoms are alleviated by nothing, the symptoms are aggravated by nothing. Associated signs and symptoms: Pertinent positives: rhinorrhea, Pertinent negatives: fever. The patient has not experienced similar symptoms in the past. Patient reports cough that began last night, this morning started coughing up small amounts of blood. Reports nasal congestion. No fever. Does not normally have a cough. Denies any trauma to chest or fall. Recently switched over from Plavix to Xarelto.. Historical: - Allergies: 08:40 Lisinopril; ll1 - PMHx: 08:40 Atrial fibrillation; Hypertension; heart stents; GERD; High Cholesterol; Parkinsons; ll1 Myocardial infarction; - PSHx: 08:40 Appendectomy; Stented artery; ll1 08:59 open heart SX; Cholecystectomy; ll1 - Immunization history:: Adult Immunizations up to date. - Social history:: Smoking status: Patient denies any tobacco usage or history of. - Family history:: not pertinent. - Hospitalizations: : No recent hospitalization is reported. ROS: 09:27 Constitutional: Negative for fever, chills, and weight loss, Eyes: Negative for injury, rn pain, redness, and discharge, ENT: Positive for nasal congestion Cardiovascular: Negative for chest pain, and edema Respiratory: Positive for cough and hemoptysis Abdomen/GI: Negative for abdominal pain, nausea, vomiting, diarrhea, and constipation, MS/Extremity: Negative for injury and deformity, Skin: Negative for injury, rash, and discoloration, Neuro: Negative for headache, weakness, numbness, tingling, and seizure, Exam: 09:27 Constitutional: This is a well developed, well nourished patient who is awake, alert, rn and in no acute distress. Holding emesis bag with small amounts of ventura sputum intermixed with small amount of blood. Head/Face: Normocephalic, atraumatic. ENT: Dry mucous membranes Cardiovascular: Regular rate, irregular rhythm. No pulse deficits. Respiratory: Diminished breath sounds bilateral bases. No retractions. Abdomen/GI: Soft, non-tender Neuro: Awake and alert, GCS 15 Vital Signs: 08:58 BP 189 / 101; Pulse 84; Resp 24; Temp 97.6; Pulse Ox 100% on R/A; Weight 60.78 kg; ll1 Height 5 ft. 6 in. ; Pain 6/10; 09:22 BP 178 / 96; Pulse 81; Resp 18; Pulse Ox 100% on R/A; mb9 09:50 BP 161 / 86; Pulse 79; Resp 16; Pulse Ox 100% on R/A; mb9 11:54 BP 162 / 91; Pulse 80; Resp 18; Pulse Ox 100% on R/A; mb9 08:58 Body Mass Index 21.63 (60.78 kg, 167.64 cm) ll1 08:58 Pain Scale: Adult ll1 MDM: 08:41 Patient medically screened. rn 11:00 Differential Diagnosis: Bronchitis Influenza Upper Respiratory Infection Viral Syndrome rn Pneumonia Other Pulmonary embolism, side effect of Xarelto. Data reviewed: vital signs, nurses notes, lab test result(s), EKG, radiologic studies, CT scan, plain films, and as a result, I will admit patient. Consideration of Admission/Observation Patient was admitted/placed on observation. Escalation of care including admission/observation considered. Management of patient was discussed with the following: Hospitalist: Will evaluate and admit patient. Care significantly affected by the following chronic conditions: Hypertension, Atrial fibrillation on anticoagulation. Counseling: I had a detailed discussion with the patient and/or guardian regarding the historical points, exam findings, and any diagnostic results supporting the discharge/admit diagnosis, lab results, radiology results, the need for further work-up and treatment in the hospital. Response to treatment: the patient's symptoms have mildly improved after treatment. 10/09 08:46 Order name: Blood Culture Adult (2) rn 10/09 08:46 Order name: CBC with Diff; Complete Time: 10:28 rn 10/09 08:46 Order name: CMP; Complete Time: 10: rn 10/09 08:46 Order name: Lactate w/ 2H reflex if indic.; Complete Time: 10:54 rn 10/09 08:46 Order name: Protime (+inr); Complete Time: 10: rn 10/09 08:46 Order name: Ptt, Activated; Complete Time: 10: rn 10/09 08:46 Order name: SARS RAPID; Complete Time: 10: rn 10/09 08:46 Order name: Flu; Complete Time: 10: rn 10/09 12:00 Order name: Magnesium la1 10/09 12:46 Order name: Magnesium EDMS 10/09 08:46 Order name: Chest Single View XRAY; Complete Time: 10: rn 10/09 08:46 Order name: CT Chest For PE Angio; Complete Time: 10:46 rn 10/09 08:46 Order name: EKG; Complete Time: 08:46 rn 10/09 11:57 Order name: CONS Physician Consult EDNM 10/09 08:46 Order name: Accucheck; Complete Time: 08:59 rn 10/09 08:46 Order name: Cardiac monitoring; Complete Time: 08:59 rn 10/09 08:46 Order name: EKG - Nurse/Tech; Complete Time: 09:21 rn 10/09 08:46 Order name: IV Saline Lock - Large Bore; Complete Time: 08:59 rn 10/09 08:46 Order name: Labs collected and sent; Complete Time: 09:21 rn 10/09 08:46 Order name: O2 Per Protocol; Complete Time: 08:59 rn 10/09 08:46 Order name: O2 Sat Monitoring; Complete Time: 08:59 rn 10/09 08:46 Order name: Vital Signs; Complete Time: 08:59 rn Administered Medications: 11:06 Drug: Rocephin IV 1 grams IV at calculated rate once; Given slow IV push per pharmacy mb9 instructions Route: IV; Rate: calculated rate; Site: left forearm; 11:51 Follow up: Response: No adverse reaction; IV Status: Completed infusion mb9 11:07 Drug: Zithromax IVPB 500 mg IVPB once over 1 hrs; mix in 250 mL NS Route: IVPB; Infused mb9 Over: 1 hrs; Site: right forearm; 12:30 Follow up: Response: No adverse reaction; IV Status: Completed infusion mb9 11:50 Drug: NS 0.9% IV 1000 ml IV at 75 ml/hr continuous Route: IV; Rate: 75 ml/hr; Site: mb9 left forearm; 13:03 Follow up: Response: No adverse reaction; IV Status: Infusion continued upon admission mb9 11:51 Drug: Potassium PO Effervescent Tablet 50 mEq PO once; dissolve in 4 ounces of water or mb9 juice Route: PO; 12:30 Follow up: Response: No adverse reaction mb9 11:51 Drug: Potassium Chloride IV 20 mEq IV at calculated rate once; administer over 1-2 mb9 hours Route: IV; Rate: calculated rate; Site: left forearm; 13:03 Follow up: Response: No adverse reaction; IV Status: Infusion continued upon admission mb9 Disposition Summary: 10/09/23 11:02 Hospitalization Ordered Notes: Hospitalization Status: Observation rn Provider: Shay Cuevas rn Location: Telemetry/MedSurg (observation) rn Condition: Stable rn Problem: new rn Symptoms: are unchanged rn Bed/Room Type: Standard rn Room Assignment: 412(10/09/23 17:14) nery Diagnosis - Hemoptysis rn - Muscle weakness (generalized) rn Forms: - Medication Reconciliation Form rn - SBAR form rn - Leadership Thank You Letter rn Signatures: Dispatcher [employer] EDMiko Puente MD MD rn Attema, Lee, BAG MACHINE TENDER-C BAG MACHINE TENDER-Cla1 Sharan Villalobos RN RN ricky1 Sallie Soler RN RN 1 Leda Vaca RN RN 9 Corrections: (The following items were deleted from the chart) 17:14 11:02 santino gabriel
[2023-10-09] MEDS ORDERED: NA CHLORIDE 0.9% 1,000 ML ONE (11:37)
[2023-10-09] MEDS ORDERED: POTASSIUM 25 MEQ EFFERV TAB ONE (11:37)
[2023-10-09] MEDS ORDERED: KCL 20 MEQ/100 mL IVPB 100 ML IV ONE (11:37)
[2023-10-09] MEDS ORDERED: ALBUTEROL 2.5 MG/3 ML NEB SOL NEB PRN (12:54)
[2023-10-09 13:10] VITALS: BMI 21.6
--- NOTE | 2023-10-09 14:50 | P.HP ---
Certification for Inpatient Patient admitted to: Observation With expected LOS: <2 Midnights Patient will require the following post-hospital care: None Practitioner: I am a practitioner with admitting privileges, knowledge of patient current condition, hospital course, and medical plan of care. Services: Services provided to patient in accordance with Admission requirements found in Title 42 Section 412.3 of the Code of Federal Regulations Patient History Date of Service: 10/09/23 Reason for admission: Hemoptysis, weakness History of Present Illness: 73-year-old male with history of CAD, Parkinson's, atrial fibrillation on chronic anticoagulation, hypertension, hyperlipidemia, GERD, chronic diastolic congestive heart failure, presented to the emergency department with chief complaint of hemoptysis. He reports hemoptysis starting this morning with a few episodes coughing up sputum mixed with bright red blood. Denies any fever/chills lately but has been feeling weak more than normal in his lower extremities for the past 1 to 2 weeks. He was evaluated in the emergency department labs are significant for hemoglobin of 11.2 hematocrit 33.8 INR 1.14 potassium 2.8 bicarb 33 lactic acid 1.2 COVID test was negative CTA of the chest was performed which was negative for PE showed chronically elevated left hemidiaphragm with likely underlying scarring/atelectasis and trace left effusion. ED prior wishes to admit under observation for hemoptysis, general weakness. Allergies lisinopril Allergy (Verified 02/20/23 14:17) Anaphylaxis Home Medications: Amlodipine [Norvasc*] 5 mg PO SEECOM 01/17/23 Carbidopa/Levodopa 25-250 [Sinemet 25-250*] 2 tab PO TID 01/17/23 Clopidogrel Bisulfate [Plavix*] 75 mg PO DAILY 01/17/23 Cyclobenzaprine [Flexeril*] 10 mg PO BEDTIME 01/17/23 Pantoprazole [Protonix Tab*] 40 mg PO DAILY 01/17/23 Pravastatin [Pravachol*] 40 mg PO DAILY 01/17/23 Rivaroxaban [Xarelto*] 10 mg PO DAILY 01/17/23 Valsartan 160 mg PO DAILY 01/17/23 Zonisamide 50 mg PO DAILY 01/17/23 Amantadine [Symmetrel*] 100 mg PO DAILY #30 cap 01/24/23 Atorvastatin Calcium [Lipitor] 40 mg PO BEDTIME #30 tab 01/24/23 Docusate [Colace Cap*] 100 mg PO BID #60 cap 01/24/23 Hydrocodone 5/APAP 325 [[place] 5/325] 1 tab PO Q6H PRN #15 tab 01/24/23 Metoprolol Tartrate [Lopressor*] 25 mg PO BID 6AM 6PM #60 tab 01/24/23 - Past Medical/Surgical History Has patient received pneumonia vaccine in the past: Yes Diabetic: No -: HTN -: Parkinson's -: Coronary artery disease -: History of prostate cancer -: Atrial fibrillation -: Chronic diastolic congestive heart failure -: CAD -: Stents x8 -: Cataract Sx -: Prostate -: Atrial fibrillation Psychosocial/ Personal History: Patient lives at home with his daughter - Family History Father -: Other (see notes) Notes: Leukemia Mother -: Hypertension Brother -: Cancer Notes: stomach - Social History Smoking Status: Current some day smoker Alcohol use: No CD- Drugs: No Caffeine use: Yes Place of Residence: Home Review of Systems 10-point ROS is otherwise unremarkable General: Weakness, Malaise Respiratory: Cough, Hemoptysis Physical Examination - Physical Exam General: Alert, In no apparent distress, Oriented x3 HEENT: Atraumatic, PERRLA Neck: Supple, 2+ carotid pulse no bruit, No LAD Respiratory: Clear to auscultation bilaterally, Normal air movement Cardiovascular: Regular rate/rhythm, Normal S1 S2 Gastrointestinal: Normal bowel sounds Musculoskeletal: No tenderness Integumentary: No rashes Neurological: Normal speech, Normal strength at 5/5 x4 extr, Normal tone - Studies Laboratory Data (last 24 hrs) 10/09/23 10/09/23 10/09/23 09:20 09:20 09:20 WBC 3.00 L Hgb 11.2 L Hct 33.8 L Plt Count 218 PT 12.5 INR 1.14 APTT 34.4 Sodium 139 Potassium 2.8 L BUN 15 Creatinine 0.75 Glucose 88 Total Bilirubin 0.7 AST 18 ALT 13 L Alkaline Phosphatase 79 Microbiology Data (last 24 hrs): 10/09/23 09:35 Nasopharnyx Influenza Type A Antigen Screen - Final 10/09/23 09:35 Nasopharnyx Influenza Type B Antigen Screen - Final Assessment and Plan - Plan Assessment: Hemoptysis General weakness/debility Parkinson's disease history of CAD Chronic diastolic congestive heart failure paroxysmal Atrial fibrillation on chronic anticoagulation Hypertension Hyperlipidemia GERD Plan: Hemoptysis Obtain sputum culture Pulmonary consult Trend H&H Hold Xarelto Antibiotics with coverage for atypical infection General weakness/debility Reports he uses a walker or wheelchair at home typically Has been needing to use wheelchair more oftenfeeling weak PT consultation Parkinson's disease Resume home medication when dose is confirmed history of CAD Chronic diastolic congestive heart failure Denies chest pain, seems euvolemic at this time, continue home medications aside from antiplatelet/anticoagulation paroxysmal Atrial fibrillation on chronic anticoagulation Will hold Xarelto in the setting of hemoptysis Hypertension Hyperlipidemia GERD Continue home medications DVT PPX: SCD Code status: Full Discharge Plan: Home Plan to discharge in: 24 Hours - Advance Directives Does patient have a Living Will: Yes Does patient have a Durable POA for Healthcare: Yes - Code Status/Comfort Care Code Status Assessed: Yes (Full code) Critical Care: No Time Spent Managing Pts Care (In Minutes): 70
[2023-10-10 04:52] LABS: Absolute Lymphocytes (CBC) 1.4 K/uL (0.7-4.9); Hematocrit 32.1 % (39.6-49.0); Lymphocytes % 40.2 % (15.3-44.8); MCV 88.3 fL (80-100); MPV 7.2 fL (7.6-11.3); Platelets 196 thou/uL (152-406); RBC Red Blood Cell Count 3.63 M/uL (4.33-5.43)
[2023-10-10 04:56] LABS: Protime INR 1.21
[2023-10-10 05:09] LABS: Albumin 3.2 g/dL (3.4-5.0); Bilirubin Total 0.7 mg/dL (0.2-1.0); Magnesium 2.2 mg/dL (1.6-2.4); Protein, Total 6.8 g/dL (6.4-8.2)
[2023-10-10] MEDS ORDERED: POTASSIUM 25 MEQ EFFERV TAB PO ONE ×2 (05:33→12:55)
[2023-10-10] MEDS: PANTOPRAZOLE 40MG TABLET PO SCH (06:32)
--- NOTE | 2023-10-10 08:36 | P.CNS ---
Date of Consult: 10/10/23 Reason for Consult: Hemoptysis Chief Complaint: Hemoptysis, weakness History of Present Illness: Patient is 73 years of age with metabolic syndrome Parkinson's disease diastolic failure admitted with chief complaint 1 episode of hemoptysis which has resolved has any fever chills patient was found to have shortness of breath was hypoxic Allergies lisinopril Allergy (Verified 02/20/23 14:17) Anaphylaxis Home Medications: Amlodipine [Norvasc*] 5 mg PO DAILY 01/17/23 Carbidopa/Levodopa 25-250 [Sinemet 25-250*] 2 tab PO TID 01/17/23 Clopidogrel Bisulfate [Plavix*] 75 mg PO DAILY 01/17/23 Cyclobenzaprine [Flexeril*] 10 mg PO BEDTIME 01/17/23 Pantoprazole [Protonix Tab*] 40 mg PO DAILY 01/17/23 Pravastatin [Pravachol*] 40 mg PO DAILY 01/17/23 Rivaroxaban [Xarelto*] 10 mg PO DAILY 01/17/23 Zonisamide 100 mg PO BEDTIME 01/17/23 Amantadine [Symmetrel*] 100 mg PO DAILY #30 cap 01/24/23 Entacapone 200 mg PO QID 10/09/23 Furosemide 40 mg PO DAILY 10/09/23 Losartan Potassium 50 mg PO DAILY 10/09/23 Metoprolol Tartrate 50 mg PO BID 10/09/23 Sertraline [Zoloft] 50 mg PO DAILY 10/09/23 - Past Medical/Surgical History Diabetic: No -: HTN -: Parkinson's -: Coronary artery disease -: History of prostate cancer -: Atrial fibrillation -: Chronic diastolic congestive heart failure -: CAD -: Stents x8 -: Cataract Sx -: Prostate -: Atrial fibrillation Psychosocial/ Personal History: Patient lives at home with his daughter - Family History Father Medical History: Other (see notes) Notes: Leukemia Mother Medical History: Hypertension Brother Medical History: Cancer Notes: stomach - Social History Smoking Status: Unknown if ever smoked Alcohol use: No CD- Drugs: No Caffeine use: Yes Place of Residence: Home Review of Systems 10-point ROS is otherwise unremarkable General: Weakness Respiratory: Shortness of Breath Physical Examination Temp Pulse Resp BP Pulse Ox 98.1 F 79 16 148/82 H 97 10/10/23 04:00 10/10/23 04:00 10/10/23 04:00 10/10/23 06:19 10/10/23 04:00 General: Alert, In no apparent distress, Oriented x3 Respiratory: Clear to auscultation bilaterally Cardiovascular: No edema, Normal pulses, Regular rate/rhythm Gastrointestinal: Normal bowel sounds, Soft and benign Laboratory Data (last 24 hrs) 10/09/23 10/09/23 10/09/23 09:20 09:20 09:20 WBC 3.00 L Hgb 11.2 L Hct 33.8 L Plt Count 218 PT 12.5 INR 1.14 APTT 34.4 Sodium 139 Potassium 2.8 L BUN 15 Creatinine 0.75 Glucose 88 Total Bilirubin 0.7 AST 18 ALT 13 L Alkaline Phosphatase 79 - Problems (1) Hemoptysis Current Visit: Yes Status: Acute Plan: Patient is 73 years of age multiple medical problems he is also on Plavix and Eliquis. With 1 episode of hemoptysis with symptoms resolved CT scan of the chest did not show any evidence of pulmonary embolism or any lung mass patient is mildly anemic mildly hypokalemic history of diastolic heart failure patient has had a cardiac cath done last year echocardiogram shows moderate diastolic dysfunction he has multivessel coronary artery disease hemoptysis has really resolved if recurrent concerns will do an outpatient bronchoscopy meanwhile can change to p.o. antibiotic patient room air sat was low ambulate evaluate for possible discharge
[2023-10-10] MEDS: ATORVASTATIN 10 MG TAB PO SCH (08:42)
[2023-10-10] MEDS: METOPROLOL TAR 50 MG TAB PO SCH ×2 (08:42→19:49)
[2023-10-10] MEDS: AMLODIPINE 5 MG TAB PO SCH (08:43)
[2023-10-10] MEDS: LOSARTAN POTASSIUM 50 MG TABLET PO SCH (08:43)
[2023-10-10] MEDS: SERTRALINE HCL 50 MG TAB PO SCH (08:43)
[2023-10-10] MEDS: CARBIDOPA/LEVODOPA 25/250 TAB PO SCH ×3 (08:46→19:48)
[2023-10-10] MEDS: ENTACAPONE 200 MG TAB PO SCH ×4 (08:46→19:48)
[2023-10-10] MEDS: AMANTADINE 100 MG CAP PO SCH (08:46)
[2023-10-10] MEDS ORDERED: Levofloxacin 750mg IV 750 MG/150 ML BAG IV SCH (09:00)
--- NOTE | 2023-10-10 11:47 | P.PN ---
Date of Service: 10/10/23 Subjective: No further episodes of hemoptysis Feeling very weak especially lower extremities Tremulous ROS: 10 point ROS as noted above, otherwise negative Physical exam GEN: Alert, oriented, NAD, tremulous HEENT: Normal conjunctiva, sclera anicteric CV: Regular rate and rhythm, no edema Pulm: Nonlabored respirations on room air ABD: Soft, nontender, nondistended MSK: No joint tenderness Integumentary: No rashes Neuro: Normal speech, normal affect Vitals reviewed Problem List Hemoptysis General weakness/debility Parkinson's disease history of CAD Chronic diastolic congestive heart failure paroxysmal Atrial fibrillation on chronic anticoagulation Hypertension Hyperlipidemia GERD Plan: Hemoptysis Obtain sputum culture Pulmonology following-recommends p.o. antibiotics Trend H&H Resume Xarelto General weakness/debility Reports he uses a walker or wheelchair at home typically Has been needing to use wheelchair more oftenfeeling weak PT consultation Parkinson's disease Home medications continued history of CAD Chronic diastolic congestive heart failure Denies chest pain, seems euvolemic at this time, continue home medications aside from antiplatelet/anticoagulation paroxysmal Atrial fibrillation on chronic anticoagulation Given no further episodes of hemoptysis will resume Xarelto Hypertension Hyperlipidemia GERD Continue home medications DVT PPX: SCD Code status: Full Discharge Plan: Home Plan to discharge in: 24 Hours Time Spent Managing Pts Care (In Minutes): 35
--- NOTE | 2023-10-10 13:25 | EKG ---
Test Date: 2023-10-09 Test Time: 09:28:18 Infusion Nurse: LEIGHA MEASUREMENT RESULTS: Intervals: Rate: 78 MA: 136 QRSD: 148 QT: 434 QTc: 494 [place]: P: MA: 136 QRS: -57 T: 87 INTERPRETIVE STATEMENTS: Normal sinus rhythm Right bundle branch block Left anterior fascicular block Bifascicular block Left ventricular hypertrophy with repolarization abnormality Anteroseptal infarct, age undetermined Abnormal ECG Compared to ECG 10/09/2023 09:26:49 No significant changes Electronically Signed On 10-10-23 13:22:33 PROCESSOR HELPER by Enoc Smiley
--- NOTE | 2023-10-10 13:25 | EKG ---
Test Date: 2023-10-09 Test Time: 09:26:49 Cement Mixer: LEIGHA MEASUREMENT RESULTS: Intervals: Rate: 81 UT: 112 QRSD: 142 QT: 436 QTc: 506 [place]: P: 66 UT: 112 QRS: -57 T: 86 INTERPRETIVE STATEMENTS: Normal sinus rhythm Right bundle branch block Left anterior fascicular block Bifascicular block Left ventricular hypertrophy with repolarization abnormality Anteroseptal infarct, age undetermined Abnormal ECG Compared to ECG 08/31/2023 16:43:22 No significant changes Electronically Signed On 10-10-23 13:22:35 ELECTRONIC INSTALLER by Enoc Smiley
--- NOTE | 2023-10-10 14:02 | P.RH.PN ---
Estimated Length of Stay: 11 Expected Discharge Date: 10/13/23 Discharge Disposition Plan: Home Family Support: Yes Detention Goal: Mobility, Transfers, Self Care Vital Signs: Last Vital Signs Temp 98.4 F 10/10/23 13:00 Pulse 68 10/10/23 13:08 Resp 15 10/10/23 13:00 BP 128/66 10/10/23 13:08 Pulse Ox 97 10/10/23 13:00 Laboratory: Laboratory Last Values WBC 3.40 thou/uL (4.3-10.9) L 10/10/23 04:39 RBC 3.63 M/uL (4.33-5.43) L 10/10/23 04:39 Hgb 10.8 g/dL (13.6-17.9) L 10/10/23 04:39 Hct 32.1 % (39.6-49.0) L 10/10/23 04:39 MCV 88.3 fL (80-100) 10/10/23 04:39 MCH 29.9 pg (27.0-35.0) 10/10/23 04:39 MCHC 33.8 g/dL (32.0-36.0) 10/10/23 04:39 RDW 16.8 % (12.1-15.2) H 10/10/23 04:39 Plt Count 196 thou/uL (152-406) 10/10/23 04:39 MPV 7.2 fL (7.6-11.3) L 10/10/23 04:39 Neutrophils % 47.0 % (41.7-73.7) 10/10/23 04:39 Lymphocytes % 40.2 % (15.3-44.8) 10/10/23 04:39 Monocytes % 11.3 % (3.3-12.3) 10/10/23 04:39 Eosinophils % 0.7 % (0-4.4) 10/10/23 04:39 Basophils % 0.8 % (0-1.3) 10/10/23 04:39 Absolute Neutrophils 1.6 K/uL (1.8-8.0) L 10/10/23 04:39 Absolute Lymphocytes 1.4 K/uL (0.7-4.9) 10/10/23 04:39 Absolute Monocytes 0.4 K/uL (0.1-1.3) 10/10/23 04:39 Absolute Eosinophils 0.0 K/uL (0-0.5) 10/10/23 04:39 Absolute Basophils 0.0 K/uL (0-0.5) 10/10/23 04:39 PT 13.2 SECONDS (9.5-12.5) H 10/10/23 04:39 INR 1.21 10/10/23 04:39 APTT 33.3 SECONDS (24.3-36.9) 10/10/23 04:39 Sodium 142 mEq/L (136-145) 10/10/23 04:39 Potassium 3.8 mEq/L (3.5-5.1) D 10/10/23 12:00 Chloride 106 mEq/L (98-107) 10/10/23 04:39 Carbon Dioxide 32 mEq/L (21-32) 10/10/23 04:39 Anion Gap 7.0 mEq/L (5.0-15.0) 10/10/23 04:39 BUN 12 mg/dL (7-18) 10/10/23 04:39 Creatinine 0.62 mg/dL (0.70-1.30) L 10/10/23 04:39 Est GFR (CKD-EPI) 100 ml/min (=/>90) 10/10/23 04:39 Glucose 83 mg/dL (74-106) 10/10/23 04:39 Lactic Acid 1.2 mmol/L (0.4-2.0) 10/09/23 09:20 Calcium 8.4 mg/dL (8.5-10.1) L 10/10/23 04:39 Magnesium 2.2 mg/dL (1.6-2.4) 10/10/23 04:39 Total Bilirubin 0.7 mg/dL (0.2-1.0) 10/10/23 04:39 AST 25 U/L (15-37) 10/10/23 04:39 ALT 32 U/L (16-61) 10/10/23 04:39 Alkaline Phosphatase 71 U/L (45-117) 10/10/23 04:39 Serum Total Protein 6.8 g/dL (6.4-8.2) 10/10/23 04:39 Albumin 3.2 g/dL (3.4-5.0) L 10/10/23 04:39 Globulin 3.6 g/dL (2.3-3.5) H 10/10/23 04:39 Albumin/Globulin Ratio 0.9 (1.1-1.8) L 10/10/23 04:39 SARS-CoV-2 Ag (Rapid) Negative (Negative) 10/09/23 09:35 Weight: 134 lb Within Defined Parameters: Yes Wound Present: No Closed Surgical Incision Present: No Negative Pressure Wound Therapy Present: No Physician Update: His is on two antibiotics for ESBL E.Coli and left foot cellulitis. On vancomycin plus meropenum. CGA for bed mobility. RW 125' with CGA. Reports 6/10 on left foot weight bearing. Stands for 5 minutes at the most. 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 Please see the Rehabilitation Signature page for all necessary signatures.
[2023-10-10] MEDS: RIVAROXABAN 10 MG TABLET PO SCH (16:43)
[2023-10-10] MEDS: ACETAMINOPHEN 500 MG TAB PO PRN (19:49)
[2023-10-10] MEDS: AMOX/K CLAV 875 MG TAB PO SCH (19:49)
[2023-10-10] MEDS: ZONISAMIDE 100 MG PO SCH (19:55)
[2023-10-11] MEDS: ACETAMINOPHEN 500 MG TAB PO PRN ×2 (00:26→20:10)
[2023-10-11 03:27] LABS: Absolute Lymphocytes (CBC) 1.4 K/uL (0.7-4.9); Hematocrit 31.3 % (39.6-49.0); Lymphocytes % 45.4 % (15.3-44.8); MPV 7.5 fL (7.6-11.3); Platelets 202 thou/uL (152-406); RBC Red Blood Cell Count 3.56 M/uL (4.33-5.43)
[2023-10-11 03:35] LABS: AST/SGOT 23 U/L (15-37); Albumin 3.1 g/dL (3.4-5.0); Alkaline Phosphatase 70 U/L (45-117); BUN Blood Urea Nitrogen 13 mg/dL (7-18); Bicarbonate 35 mEq/L (21-32); Bilirubin Total 0.7 mg/dL (0.2-1.0); Glomerular Filtration Rate 98 ml/min (=/>90); Glucose Level 91 mg/dL (74-106); Potassium 3.1 mEq/L (3.5-5.1); Protein, Total 6.7 g/dL (6.4-8.2); Sodium Level 139 mEq/L (136-145)
[2023-10-11 03:36] LABS: ALT/SGPT < 10 U/L (16-61)
[2023-10-11] MEDS: PANTOPRAZOLE 40MG TABLET PO SCH (05:41)
[2023-10-11] MEDS ORDERED: POTASSIUM 25 MEQ EFFERV TAB PO ONE (06:00)
[2023-10-11] MEDS: ENTACAPONE 200 MG TAB PO SCH ×4 (08:02→20:03)
[2023-10-11] MEDS: AMANTADINE 100 MG CAP PO SCH (08:02)
[2023-10-11] MEDS: SERTRALINE HCL 50 MG TAB PO SCH (08:03)
[2023-10-11] MEDS: ATORVASTATIN 10 MG TAB PO SCH (08:03)
[2023-10-11] MEDS: AMLODIPINE 5 MG TAB PO SCH (08:03)
[2023-10-11] MEDS: METOPROLOL TAR 50 MG TAB PO SCH ×2 (08:03→20:03)
[2023-10-11] MEDS: CARBIDOPA/LEVODOPA 25/250 TAB PO SCH ×5 (08:03→20:04)
[2023-10-11] MEDS: LOSARTAN POTASSIUM 50 MG TABLET PO SCH (08:03)
[2023-10-11] MEDS: AMOX/K CLAV 875 MG TAB PO SCH ×2 (08:03→20:04)
[2023-10-11] MEDS ORDERED: POTASSIUM CL SA 10 MEQ TAB PO ONE (12:24)
--- NOTE | 2023-10-11 13:19 | P.PN ---
Date of Service: 10/11/23 Subjective: No further episodes of hemoptysis Feeling very weak especially lower extremities Tremulous-more so this morning ROS: 10 point ROS as noted above, otherwise negative Physical exam GEN: Alert, oriented, NAD, tremulous HEENT: Normal conjunctiva, sclera anicteric CV: Regular rate and rhythm, no edema Pulm: Nonlabored respirations on room air ABD: Soft, nontender, nondistended MSK: No joint tenderness Integumentary: No rashes Neuro: Normal speech, normal affect Vitals reviewed Problem List Hemoptysis General weakness/debility Parkinson's disease history of CAD Chronic diastolic congestive heart failure paroxysmal Atrial fibrillation on chronic anticoagulation Hypertension Hyperlipidemia GERD Plan: Hemoptysis Obtain sputum culture Pulmonology following-recommends p.o. antibiotics Trend H&H Resume Xarelto General weakness/debility Reports he uses a walker or wheelchair at home typically Has been needing to use wheelchair more oftenfeeling weak PT consultation-doing well with PT Anticipate DC with HH/PT tomorrow Parkinson's disease Home medications continued history of CAD Chronic diastolic congestive heart failure Denies chest pain, seems euvolemic at this time, continue home medications aside from antiplatelet/anticoagulation paroxysmal Atrial fibrillation on chronic anticoagulation Given no further episodes of hemoptysis will resume Xarelto Hypertension Hyperlipidemia GERD Continue home medications DVT PPX: SCD Code status: Full Discharge Plan: Home Plan to discharge in: 24 Hours Time Spent Managing Pts Care (In Minutes): 35
[2023-10-11] MEDS: RIVAROXABAN 10 MG TABLET PO SCH (16:25)
[2023-10-11] MEDS: ZONISAMIDE 100 MG PO SCH (19:59)
[2023-10-12] MEDS: PANTOPRAZOLE 40MG TABLET PO SCH (06:25)
[2023-10-12 06:31] LABS: Absolute Lymphocytes (CBC) 1.4 K/uL (0.7-4.9); Hematocrit 34.4 % (39.6-49.0); Lymphocytes % 38.1 % (15.3-44.8); MCV 89.2 fL (80-100); MPV 7.3 fL (7.6-11.3); Platelets 204 thou/uL (152-406); RBC Red Blood Cell Count 3.86 M/uL (4.33-5.43)
[2023-10-12 06:53] LABS: Albumin 3.5 g/dL (3.4-5.0); Bilirubin Total 0.6 mg/dL (0.2-1.0); Protein, Total 7.4 g/dL (6.4-8.2)
[2023-10-12] MEDS: SERTRALINE HCL 50 MG TAB PO SCH (09:47)
[2023-10-12] MEDS: AMOX/K CLAV 875 MG TAB PO SCH (09:47)
[2023-10-12] MEDS: ENTACAPONE 200 MG TAB PO SCH ×2 (09:47→12:42)
[2023-10-12] MEDS: ATORVASTATIN 10 MG TAB PO SCH (09:47)
[2023-10-12] MEDS: AMLODIPINE 5 MG TAB PO SCH (09:47)
[2023-10-12] MEDS: AMANTADINE 100 MG CAP PO SCH (09:47)
[2023-10-12] MEDS: LOSARTAN POTASSIUM 50 MG TABLET PO SCH (09:47)
[2023-10-12] MEDS: METOPROLOL TAR 50 MG TAB PO SCH (09:47)
[2023-10-12] MEDS: CARBIDOPA/LEVODOPA 25/250 TAB PO SCH ×2 (09:48→12:42)
[2023-10-12] MEDS ORDERED: ALBUTEROL 2.5 MG/3 ML NEB SOL NEB PRN (09:56)
[2023-10-12 10:24] VITALS: O2SAT 95
--- NOTE | 2023-10-12 11:29 | P.DS ---
Admission Date: 10/11/23 Discharge Date: 10/12/23 Disposition: ROUTINE DISCHARGE Discharge Condition: GOOD Reason for Admission: Hemoptysis, weakness Consultations: Dr. Hernandez Brief History of Present Illness: 73-year-old male with history of CAD, Parkinson's, atrial fibrillation on chronic anticoagulation, hypertension, hyperlipidemia, GERD, chronic diastolic congestive heart failure, presented to the emergency department with chief complaint of hemoptysis. He reports hemoptysis starting this morning with a few episodes coughing up sputum mixed with bright red blood. Denies any fever/ chills lately but has been feeling weak more than normal in his lower extremities for the past 1 to 2 weeks. He was evaluated in the emergency department labs are significant for hemoglobin of 11.2 hematocrit 33.8 INR 1.14 potassium 2.8 bicarb 33 lactic acid 1.2 COVID test was negative CTA of the chest was performed which was negative for PE showed chronically elevated left hemidiaphragm with likely underlying scarring/atelectasis and trace left effusion. ED prior wishes to admit under observation for hemoptysis, general weakness. Hospital Course: Problem List Hemoptysis General weakness/debility Parkinson's disease history of CAD Chronic diastolic congestive heart failure paroxysmal Atrial fibrillation on chronic anticoagulation Hypertension Hyperlipidemia GERD Patient was admitted to the hospital for hemoptysis, he had just 1 episode hemoptysis in the morning prior to admission. His Xarelto was held and he was admitted to hospital under observation initially. He did well and had no further episodes hemoptysis and his Xarelto was resumed. During hospitalization he was having significant tremors related to his Parkinson's as well as lower extremity weakness. He was evaluated by physical therapy and did well ambulating with a walker and standby assist. Pulmonology recommends course of oral Augmentin for possible atypical infection/pneumonia. Discussed possible discharge planning with patient including the option of home with home health with physical therapy versus possible SNF at discharge for rehab, he feels as if he discharged home with home health/physical therapy where he can manage his own medications for Parkinson's and has a wheelchair/walker would be safe/preferable at this time. Patient be discharged with prescription for Augmentin 875 mg by mouth twice daily for an additional 4 days please follow-up your primary care doctor- Dr. Strong in 1 to 2 weeks Please also follow-up with neurologyDr. Chávez in 1 to 2 weeks Vital Signs/Physical Exam: Temp Pulse Resp BP Pulse Ox 98.2 F 76 17 162/70 H 100 10/12/23 08:00 10/12/23 08:00 10/12/23 08:00 10/12/23 08:00 10/12/23 08:00 General: Alert, In no apparent distress, Oriented x3 HEENT: Atraumatic, PERRLA Neck: Supple, JVD not distended Respiratory: Clear to auscultation bilaterally, Normal air movement Cardiovascular: Regular rate/rhythm, Normal S1 S2 Gastrointestinal: Normal bowel sounds, No tenderness Musculoskeletal: No tenderness Integumentary: No rashes Neurological: Normal speech, Normal tone, Normal affect Laboratory Data at Discharge: WBC 3.80 thou/uL (4.3-10.9) L 10/12/23 06:05 Hgb 11.6 g/dL (13.6-17.9) L 10/12/23 06:05 Hct 34.4 % (39.6-49.0) L 10/12/23 06:05 Plt Count 204 thou/uL (152-406) 10/12/23 06:05 PT 13.2 SECONDS (9.5-12.5) H 10/10/23 04:39 INR 1.21 10/10/23 04:39 APTT 33.3 SECONDS (24.3-36.9) 10/10/23 04:39 Sodium 141 mEq/L (136-145) 10/12/23 06:05 Potassium 4.0 mEq/L (3.5-5.1) 10/12/23 06:05 BUN 17 mg/dL (7-18) 10/12/23 06:05 Creatinine 0.84 mg/dL (0.70-1.30) 10/12/23 06:05 Glucose 91 mg/dL (74-106) 10/12/23 06:05 Magnesium 2.2 mg/dL (1.6-2.4) 10/10/23 04:39 Total Bilirubin 0.6 mg/dL (0.2-1.0) 10/12/23 06:05 AST 21 U/L (15-37) 10/12/23 06:05 ALT 13 U/L (16-61) L 10/12/23 06:05 Alkaline Phosphatase 76 U/L (45-117) 10/12/23 06:05 Home Medications: Amlodipine [Norvasc*] 5 mg PO DAILY 01/17/23 Carbidopa/Levodopa 25-250 [Sinemet 25-250*] 2 tab PO TID 01/17/23 Clopidogrel Bisulfate [Plavix*] 75 mg PO DAILY 01/17/23 Cyclobenzaprine [Flexeril*] 10 mg PO BEDTIME 01/17/23 Pantoprazole [Protonix Tab*] 40 mg PO DAILY 01/17/23 Pravastatin [Pravachol*] 40 mg PO DAILY 01/17/23 Rivaroxaban [Xarelto*] 10 mg PO DAILY 01/17/23 Zonisamide 100 mg PO BEDTIME 01/17/23 Amantadine [Symmetrel*] 100 mg PO DAILY #30 cap 01/24/23 Entacapone 200 mg PO QID 10/09/23 Furosemide 40 mg PO DAILY 10/09/23 Losartan Potassium 50 mg PO DAILY 10/09/23 Metoprolol Tartrate 50 mg PO BID 10/09/23 Sertraline [Zoloft*] 50 mg PO DAILY 10/09/23 Amox/Clavulanate [Augmentin 875-125 Tab] 875 mg PO BID 4 Days #8 tab 10/12/23 New Medications: Amox/Clavulanate [Augmentin 875-125 Tab] 875 mg PO BID 4 Days #8 tab Physician Discharge Instructions: Patient was admitted to the hospital for hemoptysis, he had just 1 episode hemoptysis in the morning prior to admission. His Xarelto was held and he was admitted to hospital under observation initially. He did well and had no further episodes hemoptysis and his Xarelto was resumed. During hospitalization he was having significant tremors related to his Parkinson's as well as lower extremity weakness. He was evaluated by physical therapy and did well ambulating with a walker and standby assist. Pulmonology recommends course of oral Augmentin for possible atypical infection/pneumonia. Discussed possible discharge planning with patient including the option of home with home health with physical therapy versus possible SNF at discharge for rehab, he feels as if he discharged home with home health/physical therapy where he can manage his own medications for Parkinson's and has a wheelchair/walker would be safe/preferable at this time. Patient be discharged with prescription for Augmentin 875 mg by mouth twice daily for an additional 4 days please follow-up your primary care doctor- Dr. Strong in 1 to 2 weeks Please also follow-up with neurologyDrNorma Chávez in 1 to 2 weeks Diet: AHA Activity: Fall precautions Followup: Brett Chávez MD [ASSOCIATE-ACTIVE - CAN ADMIT] - 1-2 Weeks Ranjeet Strong DO [Primary Care Provider] - 1-2 Weeks Time spent managing pt's care (in minutes): 35
--- NOTE | 2023-10-12 11:35 | P.PN ---
Subjective Date of Service: 10/12/23 Chief Complaint: Weakness Parkinson's disease Subjective: Improving (Patient is improving denies any hemoptysis) Review of Systems Unremarkable Physical Examination - Vital Signs Temperature: 98.2 F Blood Pressure: 162/70 Pulse: 76 Respirations: 17 Pulse Ox (%): 100 - Physical Exam General: Alert, Oriented x3, Other (Patient has obvious significant tremors from his Parkinson's) Respiratory: Clear to auscultation bilaterally, Diminished Cardiovascular: No edema, Normal pulses - Studies Microbiology Data (last 24 hrs): 10/09/23 08:56 Sputum Sputum Gram Stain - Final 10/09/23 08:56 Sputum Culture & Sensitivity - Final Assessment And Plan - Current Problems (Diagnosis) (1) Hemoptysis Current Visit: Yes Status: Acute Plan: Patient is 73 years of age with Parkinson's disease admitted with hemoptysis which resolved spontaneously chemistries labs reviewed cultures are all negative agree with discharge home on Augmentin most likely may have underlying bronchitis the most common cause of hemoptysis if it reoccurs may need bronchoscopy in addition patient is on anticoagulants and antiplatelet therapy which could be contributing factor patient's hemoglobin is stable so his vital signs
[2023-10-12 12:52] VITALS: BP 144/70; TEMP 98.8
== END 2023-10-12 13:46 | disposition home health service (06) | DRG 194 ==
LOC: ER 08:35 → ERHOLD 11:54 → 4TH 18:04 → OBSVTOIN 10-11 10:38
PROVIDERS: ADMIT Hospitalist; ATTEND Hospitalist
DX: J18.9 Pneumonia, unspecified organism (principal); I50.32 Chronic diastolic (congestive) heart failure; R04.2 Hemoptysis; Z16.12 Extended spectrum beta lactamase (ESBL) resistance; L03.116 Cellulitis of left lower limb; I11.0 Hypertensive heart disease with heart failure; E78.00 Pure hypercholesterolemia, unspecified; K21.9 Gastro-esophageal reflux disease without esophagitis; I48.0 Paroxysmal atrial fibrillation; D64.9 Anemia, unspecified; E87.6 Hypokalemia; G20.A1 Parkinson's disease without dyskinesia, without mention of fluctuations; F17.200 Nicotine dependence, unspecified, uncomplicated; B96.20 Unspecified Escherichia coli [E. coli] as the cause of diseases classified elsewhere; I25.2 Old myocardial infarction; Z88.8 Allergy status to other drugs, medicaments and biological substances; Z95.5 Presence of coronary angioplasty implant and graft; Z90.49 Acquired absence of other specified parts of digestive tract; Z11.52 Encounter for screening for COVID-19; Z85.46 Personal history of malignant neoplasm of prostate; Z79.01 Long term (current) use of anticoagulants; Z79.02 Long term (current) use of antithrombotics/antiplatelets; Z79.899 Other long term (current) drug therapy
CPT/HCPCS: 36415; 71045; 71275; 80053; 83605; 83735; 84132; 85025; 85610; 85730; 87040; 87070; 87205; 87804; 87811; 93005; 97116; 97161; 97530; G0378; J0696; J3480; J7030; J7050; Q9967

== ENCOUNTER 2024-03-09 18:35 | Emergency (ER) | payer OTHER ==
[2024-03-09] MEDS ORDERED: TETRACAINE HCL 0.5% 4ML OPTH ONE (18:57)
[2024-03-09] MEDS ORDERED: FLUORESCEIN SODIUM 1 MG/WRAP ONE (18:57)
--- NOTE | 2024-03-09 19:52 | RAD REPORT ---
EXAM DESCRIPTION: CT - Head Brain Wo Cont - 03/09/2024 7:46 pm CLINICAL HISTORY: blurry vision Headache, drowsiness COMPARISON: <Comparisons> TECHNIQUE: All CT scans are performed using dose optimization technique as appropriate and may inclu de automated exposure control or mA/KV adjustment according to patient size. FINDINGS: No intracranial hemorrhage, hydrocephalus or extra-axial fluid collection.No areas of brai n edema or evidence of midline shift. The paranasal sinuses and mastoids are clear. The calvarium is intact. IMPRESSION: No acute intracranial abnormality.
--- NOTE | 2024-03-09 19:53 | RAD REPORT ---
EXAM DESCRIPTION: CT - CTFB CLINICAL HISTORY: blurry vision, right eye COMPARISON: <Comparisons> TECHNIQUE: Axial 2 mm thick images of the face were obtained with sagittal and coronal reconstructio n images. All CT scans are performed using dose optimization technique as appropriate and may include automated exposure control or mA/KV adjustment according to patient size. FINDINGS: No acute facial bone fracture is seen.The mandible is intact. The globes and orbital contents are grossly unremarkable.The paranasal sinuses and mastoids are clear . IMPRESSION: Negative study.
[2024-03-09] MEDS ORDERED: LOSARTAN POTASSIUM 50 MG TABLET ONE ×2 (20:47→20:57)
[2024-03-09] MEDS ORDERED: HYDRALAZINE HCL 25 MG TABLET ONE (22:43)
--- NOTE | 2024-03-09 23:10 | EDPHYS ---
Physician Documentation [facility] Name: Sivakumar Fong Age: 73 yrs Sex: Male : 1950 Arrival Date: 03/09/2024 Time: 18:35 Bed 6 Private MD: ED Physician Noel Syed HPI: 03/09 18:51 This 73 yrs old Male presents to ER via EMS with complaints of blurry vision. sb4 18:51 The patient is experiencing blurred vision, The patient sustained None. to the right sb4 eye, caused by an unknown mechanism. Onset: The symptoms/episode began/occurred 3 hour(s) ago. Patient does not utilize any form of vision correction. patient states he started experiencing blurry vision about 3 hours ago. states he initially saw darkness but now it is just blurry. he denies any pain. denies trauma to the area. does not wear glasses or contacts. had cataract removal surgery on his left eye several years ago but nothing on his right eye. Historical: - Allergies: 18:49 Lisinopril; kc6 - PMHx: 18:49 Atrial fibrillation; GERD; heart stents; High Cholesterol; Hypertension; Myocardial kc6 infarction; Parkinsons; - PSHx: 18:49 Appendectomy; Cholecystectomy; open heart SX; Stented artery; kc6 - Immunization history:: Adult Immunizations up to date. - Infectious Disease History:: Denies. - Social history:: Smoking status: Patient denies any tobacco usage or history of. - Family history:: not pertinent. ROS: 18:51 Constitutional: Negative for fever, chills, and weight loss, sb4 18:51 Eyes: Positive for blurry vision, 18:51 All other systems are negative, Exam: 19:00 Eyes: Lids and lashes: appear normal, bilaterally, Nystagmus: is not appreciated, sb4 Intraocular pressure: unable to test, ruben-pen malfunctioning, 03/10 05:59 Constitutional: This is a well developed, well nourished patient who is awake, alert, sp4 and in no acute distress. Head/Face: Normocephalic, atraumatic. Eyes: Pupils equal round and reactive to light, extra-ocular motions intact. Lids and lashes normal. Conjunctiva and sclera are not injected. Cornea within normal limits. Periorbital areas with no swelling, redness, or edema. ENT: Nares patent. No nasal discharge, no septal abnormalities noted. Tympanic membranes are normal and external auditory canals are clear. Oropharynx with no redness, swelling, or masses, exudates, or evidence of obstruction, uvula midline. Mucous membranes moist. Neck: Trachea midline, no thyromegaly or masses palpated, and no cervical lymphadenopathy. Supple, full range of motion without nuchal rigidity, or vertebral point tenderness. Chest/axilla: Normal chest wall appearance and motion. Nontender with no deformity. No lesions are appreciated. Cardiovascular: Regular rate and rhythm with a normal S1 and S2. No gallops, murmurs, or rubs. Normal PMI, no JVD. No pulse deficits. Respiratory: Lungs have equal breath sounds bilaterally, clear to auscultation and percussion. No rales, rhonchi or wheezes noted. No increased work of breathing, no retractions or nasal flaring. Abdomen/GI: Soft, with normal bowel sounds. No distension or tympany. No guarding or rebound. No evidence of tenderness throughout. Back: No spinal tenderness. No costovertebral tenderness. Skin: Warm, dry with normal turgor. Normal color with no rashes, no lesions, and no evidence of cellulitis. MS/ Extremity: Pulses equal, no cyanosis. Neurovascular intact. Full, normal range of motion. Neuro: Awake and alert, GCS 15, oriented to person, place, time, and situation. Cranial nerves II-XII grossly intact. Motor strength 5/5 in all extremities. Sensory grossly intact. Psych: Awake, alert, with orientation to person, place and time. Behavior, mood, and affect are within normal limits Vital Signs: 03/09 18:48 BP 163 / 89; Pulse 90; Resp 18 S; Pulse Ox 100% on R/A; Weight 60.78 kg (R); Height 5 kc6 ft. 6 in. (R); 19:44 BP 169 / 92; Pulse 88; Resp 17; Temp 98; Pulse Ox 97% on R/A; rg5 21:49 BP 165 / 88; Pulse 88; Resp 16; Pulse Ox 100% ; jh8 23:14 BP 168 / 82; Pulse 89; Resp 18; Temp 98; Pulse Ox 96% ; Pain 0/10; jh8 18:48 Body Mass Index 21.63 (60.78 kg, 167.64 cm) kc6 23:14 Pain Scale: Adult jh8 [place] Coma Score: 19:44 Eye Response: spontaneous(4). Motor Response: obeys commands(6). Verbal Response: rg5 oriented(5). Total: 15. 03/10 05:59 Eye Response: spontaneous(4). Motor Response: obeys commands(6). Verbal Response: sp4 oriented(5). Total: 15. Visual Acuity: 03/09 21:22 Left Eye Visual acuity 20/30, ; Right Eye Visual acuity 20/0, ; Both Eyes Visual acuity rg5 20/40; With Lenses; MDM: 18:43 Patient medically screened. sb4 03/10 06:02 Differential diagnosis: Corneal abrasion of Corneal ulcer of Foreign body in Acute sp4 iritis of Acute glaucoma in Data reviewed: vital signs, nurses notes, lab test result(s), radiologic studies. ED course: Sent to Dr. Santillan in AM . 06:24 Consideration of Admission/Observation Escalation of care including sp4 admission/observation considered. ED course: Patient was discussed with business support specialist who advised office visit tomorrow at 9:30 in the morning.. 03/09 18:50 Order name: CT Head Brain wo Cont; Complete Time: 19:57 sb4 03/09 18:56 Order name: Facial Bones W/ Mpr; Complete Time: 19:57 EDMS 03/09 18:50 Order name: Visual Acuity; Complete Time: 21:58 sb4 Administered Medications: 03/09 20:41 Drug: Tetracaine Ophthalmic Drops 0.5 % 1 drops Ophthalmic once Route: Ophthalmic; sb4 Site: right eye; 23:17 Follow up: Response: No adverse reaction jh8 20:41 Drug: Fluorescein Ophthalmic Strip 1 strip Ophthalmic once Route: Ophthalmic; Site: sb4 right eye; 23:16 Follow up: Response: No adverse reaction 8 20:58 Drug: Losartan PO 100 mg PO once Route: PO; 8 23:16 Follow up: Response: No adverse reaction 8 22:55 Drug: HydrALAZINE PO 25 mg PO once Route: PO; 8 23:16 Follow up: Response: No adverse reaction [facility] Disposition: 21:10 I was immediately available on-site in the Emergency Department for consultation in the ms3 care of the patient. Disposition Summary: 03/09/24 23:09 Discharge Ordered Problem: new sp4 Symptoms: have improved sp4 Condition: Stable sp4 Diagnosis - Acute right eye painless vision loss, acute right eye vitreous detachment sp4 Followup: sp4 - With: Eric Santillan MD - When: Tomorrow - Reason: Recheck today's complaints Discharge Instructions: - Discharge Summary Sheet sp4 - Vitreous Detachment sp4 Forms: - Patient Portal Instructions sp4 Signatures: Dispatcher [employer] EDMS Reinier Ledesma, DO ms3 Nancie Yusuf, RN RN kc6 Cassy Phipps PADee Dee PA-C tea4 Noel Syed MD MD sp4 Cj Burns, RN RN jh8 Corrections: (The following items were deleted from the chart) 18:56 18:53 CT-ORBITS WITHOUT CONTRAST ordered. EDMS EDMS
--- NOTE | 2024-03-09 23:10 | ER ---
Nurse's Notes [facility] Name: Sivakumar Fong Age: 73 yrs Sex: Male : 1950 Arrival Date: 03/09/2024 Time: 18:35 Bed 6 Private MD: Diagnosis: Acute right eye painless vision loss, acute right eye vitreous detachment Presentation: 03/09 18:48 Chief complaint: EMS states: trouble seeing out of his right eye that started at 1545. kc6 denies fall or injury. pt states he saw black first and then it became blurry. Coronavirus screen: At this time, the client does not indicate any symptoms associated with coronavirus-19. Ebola Screen: No symptoms or risks identified at this time. Initial Sepsis Screen: Does the patient meet any 2 criteria? No. Patient's initial sepsis screen is negative. Does the patient have a suspected source of infection? No. Patient's initial sepsis screen is negative. Risk Assessment: Do you want to hurt yourself or someone else? Patient reports no desire to harm self or others. Onset of symptoms was March 09, 2024 at 15:45. 18:48 Method Of Arrival: EMS: [facility] kc6 18:48 Acuity: RANI 3 kc6 Triage Assessment: 18:49 General: Appears in no apparent distress. comfortable, well groomed, well developed, kc6 Behavior is calm, cooperative, appropriate for age. Pain: Denies pain. EENT: Reports blurred vision in iris of right eye. Neuro: Level of Consciousness is awake, alert, obeys commands, Oriented to person, place, time, situation, Appropriate for age. Cardiovascular: Capillary refill < 3 seconds. Respiratory: Airway is patent Trachea midline Respiratory effort is even, unlabored, Respiratory pattern is regular, symmetrical. GI: No signs and/or symptoms were reported involving the gastrointestinal system. : No signs and/or symptoms were reported regarding the genitourinary system. Derm: No signs and/or symptoms reported regarding the dermatologic system. Skin is intact, is healthy with good turgor, Skin is pink, warm \T\ dry. Musculoskeletal: No signs and/or symptoms reported regarding the musculoskeletal system. Circulation, motion, and sensation intact. Capillary refill < 3 seconds, Range of motion: intact in all extremities. Historical: - Allergies: 18:49 Lisinopril; kc6 - PMHx: 18:49 Atrial fibrillation; GERD; heart stents; High Cholesterol; Hypertension; Myocardial kc6 infarction; Parkinsons; - PSHx: 18:49 Appendectomy; Cholecystectomy; open heart SX; Stented artery; kc6 - Immunization history:: Adult Immunizations up to date. - Infectious Disease History:: Denies. - Social history:: Smoking status: Patient denies any tobacco usage or history of. - Family history:: not pertinent. Screenin:51 [facility] ED Fall Risk Assessment (Adult) History of falling in the last 3 months, kc6 including since admission No falls in past 3 months (0 pts) Confusion or Disorientation No (0 pts) Intoxicated or Sedated No (0 pts) Impaired Gait No (0 pts) Mobility Assist Device Used No (0 pt) Altered Elimination No (0 pt) Score/Fall Risk Level 0 - 2 = Low Risk. Abuse screen: Denies threats or abuse. Denies injuries from another. Nutritional screening: No deficits noted. Tuberculosis screening: No symptoms or risk factors identified. Assessment: 18:51 Reassessment: please see triage. kc6 21:22 EENT: Reports blurred vision in right eye. rg5 Vital Signs: 18:48 BP 163 / 89; Pulse 90; Resp 18 S; Pulse Ox 100% on R/A; Weight 60.78 kg (R); Height 5 kc6 ft. 6 in. (R); 19:44 BP 169 / 92; Pulse 88; Resp 17; Temp 98; Pulse Ox 97% on R/A; rg5 21:49 BP 165 / 88; Pulse 88; Resp 16; Pulse Ox 100% ; jh8 23:14 BP 168 / 82; Pulse 89; Resp 18; Temp 98; Pulse Ox 96% ; Pain 0/10; jh8 18:48 Body Mass Index 21.63 (60.78 kg, 167.64 cm) kc6 23:14 Pain Scale: Adult [facility] Visual Acuity: 21:22 Left Eye Visual acuity 20/30, ; Right Eye Visual acuity 20/0, ; Both Eyes Visual acuity rg5 20/40; With Lenses; [place] Coma Score: 19:44 Eye Response: spontaneous(4). Motor Response: obeys commands(6). Verbal Response: rg5 oriented(5). Total: 15. 07/02 05:59 Eye Response: spontaneous(4). Motor Response: obeys commands(6). Verbal Response: sp4 oriented(5). Total: 15. ED Course: 03/09 18:38 Patient arrived in ED. em1 18:43 Cassy Phipps PA-C is PHCP. sb4 18:43 Reinier Ledesma DO is Attending Physician. sb4 18:49 Triage completed. kc6 18:49 Arm band placed on. kc6 18:52 Patient has correct armband on for positive identification. Bed in low position. Call kc6 light in reach. Side rails up X2. Pulse ox on. NIBP on. 19:00 Report given to KG Sepulveda. kc6 19:44 Markus Agee RN is Primary Nurse. rg5 19:48 CT Head Brain wo Cont In Process Unspecified. EDMS 19:48 Facial Bones W/ Mpr In Process Unspecified. EDMS 21:25 Attending Physician role handed off by Reinier Ledesma DO sp4 21:25 Noel Syed MD is Attending Physician. sp4 23:08 Eric Santillan MD is Referral Physician. sp4 23:14 No provider procedures requiring assistance completed. jh8 23:15 Patient did not have IV access during this emergency room visit. [facility] 23:16 Provided Education on: dc. [facility] Administered Medications: 20:41 Drug: Tetracaine Ophthalmic Drops 0.5 % 1 drops Ophthalmic once Route: Ophthalmic; sb4 Site: right eye; 23:17 Follow up: Response: No adverse reaction [facility] 20:41 Drug: Fluorescein Ophthalmic Strip 1 strip Ophthalmic once Route: Ophthalmic; Site: sb4 right eye; 23:16 Follow up: Response: No adverse reaction [facility] 20:58 Drug: Losartan PO 100 mg PO once Route: PO; 8 23:16 Follow up: Response: No adverse reaction [facility] 22:55 Drug: HydrALAZINE PO 25 mg PO once Route: PO; 8 23:16 Follow up: Response: No adverse reaction [facility] Medication: 19:44 VIS not applicable for this client. rg5 Outcome: 23:09 Discharge ordered by . sp4 23:15 Discharged to home via wheelchair, [facility] 23:15 Condition: good 23:15 Discharge instructions given to patient, Instructed on discharge instructions, follow up and referral plans. Demonstrated understanding of instructions, follow-up care, 23:17 Patient left the ED. jh8 Signatures: Dispatcher [employer] Lamine Taylor em1 Nancie Yusuf, RN RN kc6 Cassy Phipps, PA-C PA-C sb4 Noel Syed MD MD sp4 Cj Burns RN RN jh8 Markus Agee RN RN rg5
[2024-03-10 00:32] VITALS: BP 168/82; TEMP 98; O2SAT 96
== END 2024-03-09 23:17 | disposition home or self-care (01) ==
LOC: ER 18:35
DX: H43.811 Vitreous degeneration, right eye (principal); Z88.8 Allergy status to other drugs, medicaments and biological substances; Z95.818 Presence of other cardiac implants and grafts
CPT/HCPCS: 70450; 70486; 76377; 99284

== ENCOUNTER 2024-03-10 20:52 | Emergency (ER) | payer OTHER ==
[2024-03-10] MEDS ORDERED: NA CHLORIDE 0.9% 1,000 ML ONE (21:15)
--- NOTE | 2024-03-10 21:49 | RAD REPORT ---
EXAM DESCRIPTION: Arnold Single View03/10/2024 9:43 pm CLINICAL HISTORY: CVA COMPARISON: February 2024 FINDINGS: The lungs appear clear of acute infiltrate. The heart is normal size. Postsurgical change s involve chest IMPRESSION: No acute abnormalities displayed
[2024-03-10 22:16] LABS: Absolute Lymphocytes (CBC) 0.9 K/uL (0.7-4.9); Absolute Monocytes 0.4 K/uL (0.1-1.3); Absolute Neutrophil 2.1 K/uL (1.8-8.0); Basophils % 0.8 % (0-1.3); Eosinophils % 0.3 % (0-4.4); Hematocrit 36.9 % (39.6-49.0); Hemoglobin 12.3 g/dL (13.6-17.9); Lymphocytes % 26.6 % (15.3-44.8); MCHC 33.4 g/dL (32.0-36.0); MCV 92.8 fL (80-100); MPV 7.4 fL (7.6-11.3); Monocytes % 10.4 % (3.3-12.3); Neutrophils % 61.9 % (41.7-73.7); Nucleated Red Blood Cells % 0.1 % (0-0); Platelets 228 thou/uL (152-406); RBC Red Blood Cell Count 3.97 M/uL (4.33-5.43); Red Cell Distribution Width 14.3 % (12.1-15.2)
[2024-03-10 22:20] LABS: PT Prothrombin Time 11.3 SECONDS (9.4-12.5); PTT, Activated Partial Thromb 33.4 SECONDS (24.3-36.9); Protime INR 1.03
[2024-03-10 22:26] LABS: Barbiturates NEGATIVE (NEGATIVE); Benzodiazepines NEGATIVE (NEGATIVE); Cocaine NEGATIVE (NEGATIVE); METHAMPHETAM NEGATIVE (NEGATIVE); Methadone NEGATIVE (NEGATIVE); Opiates NEGATIVE (NEGATIVE); Phencyclidine NEGATIVE (NEGATIVE); THC Cannibis NEGATIVE (NEGATIVE)
[2024-03-10 22:38] LABS: Albumin 4.1 g/dL (3.4-5.0); Albumin/Globulin Ratio 1.1 (1.1-1.8); Bilirubin Direct 0.2 mg/dL (0-0.2); Bilirubin Indirect, Calculated 0.2 mg/dL (0.2-0.8); Bilirubin Total 0.4 mg/dL (0.2-1.0); Globulin 3.9 g/dL (2.3-3.5); Magnesium 2.7 mg/dL (1.6-2.4)
[2024-03-10 22:40] LABS: Troponin High Sensitivity 577.6 pg/mL (<58.9)
--- NOTE | 2024-03-10 23:53 | ER ---
Nurse's Notes [facility] Name: Sivakumar Fong Age: 73 yrs Sex: Male : 1950 Arrival Date: 03/10/2024 Time: 20:52 Bed 18 Private MD: Diagnosis: Acute right central retinal artery occlusion, acute right vision loss, elevated troponin, acute CVA Presentation: 03/10 21:21 Chief complaint: Patient states: Pt lost vision in right eye yesterday. Pt was tl4 evaluated in this ED at that time and discharged for follow up. Pt was evaluated at retinal specialist today and diagnosed with a stroke. Pt denies loss of function, RICHARD. Coronavirus screen: At this time, the client does not indicate any symptoms associated with coronavirus-19. Ebola Screen: No symptoms or risks identified at this time. Initial Sepsis Screen: Does the patient meet any 2 criteria? No. Patient's initial sepsis screen is negative. Does the patient have a suspected source of infection? No. Patient's initial sepsis screen is negative. Risk Assessment: Do you want to hurt yourself or someone else? Patient reports no desire to harm self or others. Onset of symptoms was March 09, 2024. 21:21 Method Of Arrival: Wheelchair tl4 21:21 Acuity: RANI 2 tl4 Triage Assessment: 21:24 General: Appears in no apparent distress. Behavior is cooperative. Pain: Denies pain. tl4 EENT: Reports loss of vision in right eye. Neuro: Level of Consciousness is awake, alert, obeys commands, Oriented to person, place, time, situation, Reports loss of vision in right eye. Cardiovascular: Capillary refill < 3 seconds Patient's skin is warm and dry. Respiratory: Airway is patent Respiratory effort is even, unlabored, Respiratory pattern is regular, symmetrical. GI: No signs and/or symptoms were reported involving the gastrointestinal system. : No signs and/or symptoms were reported regarding the genitourinary system. Derm: No signs and/or symptoms reported regarding the dermatologic system. Musculoskeletal: No signs and/or symptoms reported regarding the musculoskeletal system. Historical: - Allergies: 21:24 Lisinopril; tl4 - PMHx: 21:24 Atrial fibrillation; GERD; heart stents; High Cholesterol; Hypertension; Myocardial tl4 infarction; Parkinsons; - PSHx: 21:24 Appendectomy; Cholecystectomy; open heart SX; Stented artery; tl4 - Immunization history:: Adult Immunizations unknown. - Infectious Disease History:: Denies. - Social history:: Smoking status: Patient denies any tobacco usage or history of. - Family history:: not pertinent. Screenin/03 02:00 [facility] ED Fall Risk Assessment (Adult) History of falling in the last 3 months, jb4 including since admission No falls in past 3 months (0 pts) Confusion or Disorientation No (0 pts) Intoxicated or Sedated No (0 pts) Impaired Gait Yes (1 pt) Mobility Assist Device Used Yes (1 pt) Altered Elimination Yes (1 pt) Score/Fall Risk Level 3 or more points = High Risk Oriented to surroundings, Maintained a safe environment. Abuse screen: Denies threats or abuse. Nutritional screening: No deficits noted. Tuberculosis screening: No symptoms or risk factors identified. Assessment: 03/10 21:15 General: Appears in no apparent distress. comfortable, Behavior is calm, cooperative, jb4 appropriate for age. Pain: Denies pain. Neuro: Level of Consciousness is awake, alert, obeys commands, Oriented to person, place, time, situation, blindness in the left eye since yesterday.. Cardiovascular: Patient's skin is warm and dry. Respiratory: Airway is patent Respiratory effort is even, unlabored, Respiratory pattern is regular, symmetrical. GI: No signs and/or symptoms were reported involving the gastrointestinal system. : No signs and/or symptoms were reported regarding the genitourinary system. EENT: No signs and/or symptoms were reported regarding the EENT system. Derm: Skin is intact, Skin is pink, warm \T\ dry. Musculoskeletal: Circulation, motion, and sensation intact. Range of motion: intact in all extremities. 22:45 Reassessment: pt is resting in bed with eyes closed, respiration are even and unlabored jb4 with no s/s of pain or distress noted. 23:09 VAN Scoring: Arm Drift: Patients demonstrates NO arm weakness. Patient is VAN Negative. jb4 [place] Swallow Protocol Brief Cognitive Screen What is your name? Normal, Where are you right now? Normal, What year is it? Normal. Oral Mechanism Examination Facial Symmetry: Normal, Motion: Normal, Lip Closure: Normal, Oral Mechanism Result: Normal. 3 oz Water Swallow Challenge: Pt able to drink all water without stopping, coughing, choking or throat clearing: Yes Result: PASS MD Notified: Noel Syed MD. TNKase (Tenecteplase) Screening: Contraindications: Patient reports onset of signs and symptoms of stroke greater than 6 hours ago: Yes. 03/11 00:00 Reassessment: Patient appears in no apparent distress at this time. Patient and/or jb4 family updated on plan of care and expected duration. Pain level reassessed. Patient is alert, oriented x 3, equal unlabored respirations, skin warm/dry/pink. 01:16 Reassessment: Patient appears in no apparent distress at this time. Patient and/or jb4 family updated on plan of care and expected duration. Pain level reassessed. Patient is alert, oriented x 3, equal unlabored respirations, skin warm/dry/pink. 02:00 Reassessment: Patient appears in no apparent distress at this time. No changes from [facility] previously documented assessment. Patient and/or family updated on plan of care and expected duration. Pain level reassessed. Vital Signs: 03/10 21:21 BP 163 / 75; Pulse 84; Resp 16; Temp 98.2(O); Pulse Ox 97% ; Weight 61.69 kg; Height 5 tl4 ft. 6 in. ; Pain 0/10; 22:30 BP 110 / 68; Pulse 68; Resp 16; Pulse Ox 96% on R/A; 4 03/11 00:13 Weight 60.33 kg (M); 4 01:15 BP 113 / 67; Pulse 80; Resp 13; Pulse Ox 100% on R/A; 4 03/10 21:21 Body Mass Index 21.95 (60.33 kg, 167.64 cm) 4 03/10 21:21 Pain Scale: Adult tl4 Misbah Coma Score: 03/10 23:50 Eye Response: spontaneous(4). Motor Response: obeys commands(6). Verbal Response: sp4 oriented(5). Total: 15. NIH Stroke Scale Scores: 21:15 NIHSS Score: 2 jb4 23:50 NIHSS Score: 2 sp4 ED Course: 20:54 Patient arrived in ED. mr 20:55 Noel Syed MD is Attending Physician. sp4 21:19 Radiology exam delayed due to lab results not completed at this time. (BUN/Creatinine) nj IV insertion attempt and/or patient not having appropriate IV at this time. 21:24 Triage completed. tl4 21:25 Arm band placed on right wrist. tl4 21:45 Stroke CXR 1 View In Process Unspecified. EDMS 22:07 EKG done, by ED staff, reviewed by Noel Syed MD. oe 22:07 Urine collected: clean catch specimen, chana colored. oe 22:08 Inserted saline lock: 20 gauge in right antecubital area, using aseptic technique. oe Blood collected. 22:20 Basic Metabolic Panel Sent. oe 22:20 CBC with Diff Sent. oe 22:20 Hepatic Function Sent. oe 22:20 High Sensitivity Troponin Sent. oe 22:20 Magnesium Sent. oe 22:20 Protime (+inr) Sent. oe 22:20 Ptt, Activated Sent. oe 22:20 UDS Sent. oe 22:21 EKG done. oe 22:43 Cuong Vasquez, RN is Primary Nurse. jb4 23:01 CT Neck Angio In Process Unspecified. EDMS 23:01 Head Brain Wo Cont In Process Unspecified. EDMS 23:01 Head angio In Process Unspecified. EDMS 23:59 initiated transfer with Rani \Kamran\ [facility]. kmf 03/11 02:38 pt was accepted to [facility]- Room 1014: Accepting Ritchie Drew \T\0045. Admin approval kmf given by Rani Reaves \T\ [id number]. Number for nurse to nurse report [phone]. Administered Medications: 03/10 22:21 Drug: NS 0.9% IV 1000 ml IV at 125 ml/hr continuous Route: IV; Rate: 125 ml/hr; Site: jb right antecubital; 03/11 00:30 Drug: HEParin IV 5000 units IV at bolus once {Co-Signature: juan (Melissa Claros RN).} jb4 {Note: weight-based dose given per protocol..} Route: IV; Rate: bolus; Site: right antecubital; 00:30 Drug: Heparin (UT Drip) 12 units/kg/[place] - ([place] [address] units, D5W IV 500 ml) IV at jb4 calculated rate Per protocol; Max initial rate 1000 units/hr {Co-Signature: juan (Melissa Claros RN).} Route: IV; Rate: calculated rate; Site: right antecubital; 01:14 Drug: Solu-CORTEF IVP 100 mg IVP once Route: IVP; Site: right antecubital; jb4 01:14 Drug: Aspirin PO Chewable Tablet 324 mg PO once; 81 mg tablets x 4 Route: PO; jb4 Outcome: 03/10 23:53 ER care complete, transfer ordered by MD. dominguez 03/11 02:01 Transferred by ground EMS to [facility], Transfer form completed. jb4 X-rays sent w/ patient. Condition: stable Discharge instructions given to patient, family, Instructed on the need for transfer, Demonstrated understanding of instructions, 02:01 Patient left the ED. jb4 NIH Stroke Scale - NIH Stroke Score Date: 03/10/2024 Time: 21:15 Total Score = 2 10. Dysarthria (speech clarity - read or repeat words) - 0(Normal) 11. Extinction and Inattention (visual/tactile/auditory/spatial/personal) - 0(No abnormality) 1a. Level of Consciousness (LOC) - 0(Alert) 1b. Level of Consciousness (LOC) (Month \T\ Age) - 0(Both) 1c. LOC Commands (Open \T\ Closes Eyes/Plumbing Technician) - 0(Both) 2. Best Gaze (Lateral Gaze Paresis) - 0(Normal) 3. Visual Field Loss - 2(Complete hemianopia) 4. Facial Palsy - 0(Normal) 5a. Left Arm: Motor (10-second hold) - 0(No drift) 5b. Right Arm: Motor (10-second hold) - 0(No drift) 6a. Left Leg: Motor (5-second hold - always test supine) - 0(No drift) 6b. Right Leg: Motor (5-second hold - always test supine) - 0(No drift) 7. Limb Ataxia (finger/nose \T\ heel/wesley - test with eyes open) - 0(Absent) 8. Sensory Loss (pinprick arms/legs/face) - 0(Normal) 9. Best Language: Aphasia (description/naming/reading) - 0(No aphasia) Initials: jb4 NIH Stroke Scale - NIH Stroke Score Date: 03/10/2024 Time: 23:50 Total Score = 2 10. Dysarthria (speech clarity - read or repeat words) - 0(Normal) 11. Extinction and Inattention (visual/tactile/auditory/spatial/personal) - 0(No abnormality) 1a. Level of Consciousness (LOC) - 0(Alert) 1b. Level of Consciousness (LOC) (Month \T\ Age) - 0(Both) 1c. LOC Commands (Open \T\ Closes Eyes/Plumbing Technician) - 0(Both) 2. Best Gaze (Lateral Gaze Paresis) - 0(Normal) 3. Visual Field Loss - 2(Complete hemianopia) 4. Facial Palsy - 0(Normal) 5a. Left Arm: Motor (10-second hold) - 0(No drift) 5b. Right Arm: Motor (10-second hold) - 0(No drift) 6a. Left Leg: Motor (5-second hold - always test supine) - 0(No drift) 6b. Right Leg: Motor (5-second hold - always test supine) - 0(No drift) 7. Limb Ataxia (finger/nose \T\ heel/wesley - test with eyes open) - 0(Absent) 8. Sensory Loss (pinprick arms/legs/face) - 0(Normal) 9. Best Language: Aphasia (description/naming/reading) - 0(No aphasia) Initials: sp4 Signatures: Dispatcher [employer] [facility] Leda Puente, Reg Reg mr Vasquez Cuong, RN RN jb4 Abhi Gonzalez [place] oe Potepalov, Sergey, MD MD sp4 Amanda Lindo [facility] Stuart Swain RN RN tl4 Melissa Claros RN [id number]
--- NOTE | 2024-03-10 23:53 | EDPHYS ---
Physician Documentation [facility] Name: Sivakumar Fong Age: 73 yrs Sex: Male : 1950 Arrival Date: 03/10/2024 Time: 20:52 Bed 18 Private MD: ED Physician Noel Syed HPI: 03/10 20:55 This 73 yrs old Male presents to ER via Unassigned with complaints of S/S of sp4 Possible Stroke. 03/11 00:20 Mr. Cox is 73-year-old male presented here yesterday at 6:30 PM for evaluation of sp4 right-sided painless vision loss , patient's exam suggested right retinal detachment and patient was discussed with research greenhouse supervisor who has assessed patient this morning in the office. Bed Setter has referred patients to [place] [facility] to Dr. Bienvenido Carranza. Dr. 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 Letter from [facility] has recommended echocardiogram, carotid ultrasound, EKG, CASUALTY INSURANCE CLAIM ADJUSTER imaging and blood tests for giant cell arteritis, ESR CRP platelets. . Historical: - Allergies: 03/10 21:24 Lisinopril; tl4 - PMHx: 21:24 Atrial fibrillation; GERD; heart stents; High Cholesterol; Hypertension; Myocardial tl4 infarction; Parkinsons; - PSHx: 21:24 Appendectomy; Cholecystectomy; open heart SX; Stented artery; tl4 - Immunization history:: Adult Immunizations unknown. - Infectious Disease History:: Denies. - Social history:: Smoking status: Patient denies any tobacco usage or history of. - Family history:: not pertinent. ROS: 03/11 00:26 Constitutional: Negative for fever, chills, and weight loss, positive for right sided sp4 painless vision loss since yesterday. All other systems are negative, Exam: 03/10 23:50 Radiologist reports: Negative for acute changes sp4 03/11 00:26 Constitutional: well nourished patient who is awake, alert, and in no acute distress. sp4 Frail elderly male Head/Face: Normocephalic, atraumatic. Eyes: Pupils equal round and reactive to light, extra-ocular motions intact. Positive intact left visual tate, right visual tate not able to test, patient able to discriminate light and dark out of the right eye. Otherwise unremarkable. Extraocular movements intact ENT: Nares patent. No nasal discharge, no septal abnormalities noted. Tympanic membranes are normal and external auditory canals are clear. Oropharynx with no redness, swelling, or masses, exudates, or evidence of obstruction, uvula midline. Mucous membranes moist. Neck: Trachea midline, no thyromegaly or masses palpated, and no cervical lymphadenopathy. Supple, full range of motion without nuchal rigidity, or vertebral point tenderness. Chest/axilla: Normal chest wall appearance and motion. Nontender with no deformity. No lesions are appreciated. Cardiovascular: Regular rate and rhythm with a normal S1 and S2. No gallops, murmurs, or rubs. Normal PMI, no JVD. No pulse deficits. Respiratory: Lungs have equal breath sounds bilaterally, clear to auscultation and percussion. No rales, rhonchi or wheezes noted. No increased work of breathing, no retractions or nasal flaring. Abdomen/GI: Soft, with normal bowel sounds. No distension or tympany. No guarding or rebound. No evidence of tenderness throughout. Back: No spinal tenderness. No costovertebral tenderness. Skin: Warm, dry with normal turgor. Normal color with no rashes, no lesions, and no evidence of cellulitis. MS/ Extremity: Pulses equal, no cyanosis. Neurovascular intact. Full, normal range of motion. Neuro: Awake and alert, GCS 15, oriented to person, place, time, and situation. Cranial nerves II-XII grossly intact. Motor strength 5/5 in all extremities. Sensory grossly intact. Psych: Awake, alert, with orientation to person, place and time. Behavior, mood, and affect are within normal limits ECG was reviewed by the Attending Physician. EKG at 2127 normal sinus rhythm, right bundle branch block, left ventricular hypertrophy, EKG rate [address] elevation or depression. Vital Signs: 03/10 21:21 BP 163 / 75; Pulse 84; Resp 16; Temp 98.2(O); Pulse Ox 97% ; Weight 61.69 kg; Height 5 tl4 ft. 6 in. ; Pain 0/10; 22:30 BP 110 / 68; Pulse 68; Resp 16; Pulse Ox 96% on R/A; jb4 03/11 00:13 Weight 60.33 kg (M); jb4 01:15 BP 113 / 67; Pulse 80; Resp 13; Pulse Ox 100% on R/A; jb4 03/10 21:21 Body Mass Index 21.95 (60.33 kg, 167.64 cm) tl4 03/10 21:21 Pain Scale: Adult tl4 NIH Stroke Scale Scores: 03/10 21:15 NIHSS Score: 2 jb4 23:50 NIHSS Score: 2 sp4 [place] Coma Score: 23:50 Eye Response: spontaneous(4). Motor Response: obeys commands(6). Verbal Response: sp4 oriented(5). Total: 15. MDM: 21:18 Patient medically screened. sp4 03/11 00:18 ED course: Two PROCEDURE: Head Brain Wo Cont (accession [id number]), Head angio sp4 (accession [id number]), Neck Angio (accession [id number]) CLINICAL HISTORY: STROKE ALERT TECHNIQUE: Contiguous axial CT images obtained through the brain without IV contrast. Coronal and sagittal reformatted images were provided. This exam was performed according to our departmental dose-optimization program, which includes automated exposure control, adjustment of the mA and/or kV according to patient size and/or use of iterative reconstruction technique. COMPARISON: March 09 FINDINGS: Brain: Age related loss of brain volume, and chronic white matter ischemic changes. No focal mass effect. Negro-white matter differentiation is within normal limits. No hemorrhage. Ventricles: No ventriculomegaly or midline shift. Extra-axial spaces: No extra-axial collection or hemorrhage. Paranasal sinuses and mastoid air cells: Well-aerated Bones: Unremarkable Soft tissues: Unremarkable IMPRESSION: No acute intracranial or extra-axial abnormality. Age related loss of brain volume, and chronic white matter ischemic changes. PROCEDURE: Head Brain Wo Cont (accession [id number]), Head angio (accession [id number]), Neck Angio (accession [id number]) CLINICAL HISTORY: STROKE ALERT COMPARISON: Correlation made with noncontrast CT of the head TECHNIQUE: Contiguous axial images obtained through the head and neck following the uneventful administration of IV contrast. Sagittal and coronal reformatted images were provided. Multiplanar 3-D MIP reformatted images were provided. NASCET criteria utilized for the evaluation of any stenotic lesions. This exam was performed according to our departmental dose-optimization program, which includes automated exposure control, adjustment of the mA and/or kV according to patient size and/or use of iterative reconstruction technique. FINDINGS: Head: ICA: Mild atherosclerotic plaque along the cavernous segment of the intracranial internal carotid arteries with no significant stenosis JUAN JOSE: Patent anterior cerebral arteries. 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 CHIEF MEDICAL TECHNOLOGIST: Patent posterior cerebral arteries. Basilar artery: Patent. Neck: ICA: Atherosclerotic plaque along the right carotid bifurcation and proximal right internal carotid artery with diameter stenosis estimated at less than 50%. Atherosclerotic plaque along the left carotid bifurcation and proximal left internal carotid artery with diameter stenosis estimated at less than 50%. ECA: No significant stenosis or occlusion. CCA: No significant stenosis or occlusion. Aortic arch: No aneurysmal dilatation or dissection. Vertebral arteries: No significant stenosis or occlusion. Dominant right vertebral artery and hypoplastic left vertebral artery Brain: No focal mass effect. No areas of abnormal parenchymal enhancement. Bones: Unremarkable Soft tissues: Unremarkable Lung apices: Clear IMPRESSION: No evidence of large vessel occlusion or significant arterial stenosis in the head or neck. No intracranial aneurysm. Atherosclerotic plaque along the carotid bifurcation and proximal internal carotid arteries bilaterally with diameter stenosis estimated at less than 50%. Electronically signed by: Sharan Calvillo MD 03/10/2024 11:32 P. 00:18 TNKase (Tenecteplase) Screening: Not Applicable. Data reviewed: vital signs, nurses sp4 notes, lab test result(s), EKG, radiologic studies, CT scan, plain films. ED course: IMPRESSION: No evidence of large vessel occlusion or significant arterial stenosis in the head or neck. No intracranial aneurysm. Atherosclerotic plaque along the carotid bifurcation and proximal internal carotid arteries bilaterally with diameter stenosis estimated at less than 50%.. 00:19 ED course: CT -- IMPRESSION: No evidence of large vessel occlusion or significant sp4 arterial stenosis in the head or neck. No intracranial aneurysm. Atherosclerotic plaque along the carotid bifurcation and proximal internal carotid arteries bilaterally with diameter stenosis estimated at less than 50%. Electronically signed by: Sharan Calvillo MD 03/10/2024 11:32 PM. ED course: EXAM DESCRIPTION: Arnold Single View03/10/2024 9:43 pm CLINICAL HISTORY: CVA COMPARISON: February 2024 FINDINGS: The lungs appear clear of acute infiltrate. The heart is normal size. Postsurgical changes involve chest IMPRESSION: No acute abnormalities displayed. 00:30 Differential diagnosis: CVA, TIA, Dementia, paralysis, Alzheimer disease, Parkinson sp4 disease, metabolic disorder, drug effects. Consideration of Admission/Observation Escalation of care including admission/observation considered. Management of patient was discussed with the following: Construction Code Administrator: Neurologist at [facility] . ED course: Patient CT negative today. No other neurologic deficits except for the unilateral right eye vision loss. Troponin is elevated however and our neurologist advised cardiac dose heparin infusion. Patient was discussed with neurologist at [facility] and accepted for transfer to telemetry floor. . 03/10 21:01 Order name: Basic Metabolic Panel; Complete Time: 23:33 [facility] 03/10 21:01 Order name: CBC with Diff; Complete Time: 23:33 [facility] 03/10 21:01 Order name: Hepatic Function; Complete Time: 23:33 [facility] 03/10 21:01 Order name: High Sensitivity Troponin; Complete Time: 23:33 [facility] 03/10 21:01 Order name: Magnesium; Complete Time: 23:33 [facility] 03/10 21:01 Order name: Protime (+inr); Complete Time: 23:33 [facility] 03/10 21:01 Order name: Ptt, Activated; Complete Time: 23:33 [facility] 03/10 21:01 Order name: UDS; Complete Time: 23:33 [facility] 03/10 22:17 Order name: Glucose, Ancillary Testing; Complete Time: 23:33 [facility] 03/11 00:36 Order name: Troponin High Sensitivity [facility] 03/11 00:36 Order name: CRP [facility] 03/10 21:01 Order name: CT Neck Angio [facility] 03/10 21:01 Order name: Stroke CXR 1 View; Complete Time: 23:33 [facility] 03/10 21:17 Order name: Head Brain Wo Cont [facility] 03/10 22:04 Order name: Head angio [facility] 03/10 21:01 Order name: Accucheck; Complete Time: 22:20 4 03/10 21:01 Order name: Cardiac monitoring; Complete Time: 22:20 [facility] 03/10 21:01 Order name: EKG - Nurse/Tech; Complete Time: 22:20 [facility] 03/10 21:01 Order name: IV Saline Lock; Complete Time: 22:20 sp4 03/10 21:01 Order name: Labs collected and sent; Complete Time: 22:20 sp4 03/10 21:01 Order name: NPO; Complete Time: 22:21 sp4 03/10 21:01 Order name: O2 Per Protocol; Complete Time: 22:21 sp4 03/10 21:01 Order name: O2 Sat Monitoring; Complete Time: 22:21 sp4 03/10 21:01 Order name: Stroke Swallow Screen; Complete Time: 23:26 sp4 EC: Rate is 74 beats/min. Rhythm is regular, Normal Sinus Rhythm. QRS [place] is Normal. MD sp4 interval is normal. QRS interval is prolonged. QT interval is normal. T waves are Normal. No ST changes noted. Clinical impression: No evidence of ischemia. Interpreted by me. Reviewed by me. Administered Medications: 03/10 22:21 Drug: NS 0.9% IV 1000 ml IV at 125 ml/hr continuous Route: IV; Rate: 125 ml/hr; Site: [facility] right antecubital; 03/11 00:30 Drug: HEParin IV 5000 units IV at bolus once {Co-Signature: [email or web address] (Melissa Claros RN).} jb4 {Note: weight-based dose given per protocol..} Route: IV; Rate: bolus; Site: right antecubital; 00:30 Drug: Heparin (PA Drip) 12 units/kg/hr - ([place] [address] units, D5W IV 500 ml) IV at jb4 calculated rate Per protocol; Max initial rate 1000 units/hr {Co-Signature: [email or web address] (Melissa Claros RN).} Route: IV; Rate: calculated rate; Site: right antecubital; 01:14 Drug: Solu-CORTEF IVP 100 mg IVP once Route: IVP; Site: right antecubital; jb4 01:14 Drug: Aspirin PO Chewable Tablet 324 mg PO once; 81 mg tablets x 4 Route: PO; jb4 Disposition Summary: 03/10/24 23:53 Transfer Ordered Notes: Transfer Location: [facility] sp4 Reason: Higher level of care sp4 Condition: Stable sp4 Problem: new sp4 Symptoms: have improved sp4 Accepting Physician: Attending MD (03/11/24 02:01) jb4 Diagnosis - Acute right central retinal artery occlusion, acute right vision loss, elevated sp4 troponin, acute CVA Forms: - Medication Reconciliation Form sp4 - SBAR form sp4 NIH Stroke Scale - NIH Stroke Score Date: 03/10/2024 Time: 21:15 Total Score = 2 10. Dysarthria (speech clarity - read or repeat words) - 0(Normal) 11. Extinction and Inattention (visual/tactile/auditory/spatial/personal) - 0(No abnormality) 1a. Level of Consciousness (LOC) - 0(Alert) 1b. Level of Consciousness (LOC) (Month \T\ Age) - 0(Both) 1c. LOC Commands (Open \T\ Closes Eyes/Diversity Intern) - 0(Both) 2. Best Gaze (Lateral Gaze Paresis) - 0(Normal) 3. Visual Field Loss - 2(Complete hemianopia) 4. Facial Palsy - 0(Normal) 5a. Left Arm: Motor (10-second hold) - 0(No drift) 5b. Right Arm: Motor (10-second hold) - 0(No drift) 6a. Left Leg: Motor (5-second hold - always test supine) - 0(No drift) 6b. Right Leg: Motor (5-second hold - always test supine) - 0(No drift) 7. Limb Ataxia (finger/nose \T\ heel/wesley - test with eyes open) - 0(Absent) 8. Sensory Loss (pinprick arms/legs/face) - 0(Normal) 9. Best Language: Aphasia (description/naming/reading) - 0(No aphasia) Initials: jb4 NIH Stroke Scale - NIH Stroke Score Date: 03/10/2024 Time: 23:50 Total Score = 2 10. Dysarthria (speech clarity - read or repeat words) - 0(Normal) 11. Extinction and Inattention (visual/tactile/auditory/spatial/personal) - 0(No abnormality) 1a. Level of Consciousness (LOC) - 0(Alert) 1b. Level of Consciousness (LOC) (Month \T\ Age) - 0(Both) 1c. LOC Commands (Open \T\ Closes Eyes/Diversity Intern) - 0(Both) 2. Best Gaze (Lateral Gaze Paresis) - 0(Normal) 3. Visual Field Loss - 2(Complete hemianopia) 4. Facial Palsy - 0(Normal) 5a. Left Arm: Motor (10-second hold) - 0(No drift) 5b. Right Arm: Motor (10-second hold) - 0(No drift) 6a. Left Leg: Motor (5-second hold - always test supine) - 0(No drift) 6b. Right Leg: Motor (5-second hold - always test supine) - 0(No drift) 7. Limb Ataxia (finger/nose \T\ heel/wesley - test with eyes open) - 0(Absent) 8. Sensory Loss (pinprick arms/legs/face) - 0(Normal) 9. Best Language: Aphasia (description/naming/reading) - 0(No aphasia) Initials: sp4 Signatures: Dispatcher [employer] EDCuong Berg, RN RN jb4 Noel Syed MD MD sp4 Stuart Swain RN RN tl4 Melissa Claros RN [id number] Corrections: (The following items were deleted from the chart) 03/10 21: 21:01 Neck Angio+CT.RAD.BRZ ordered. EDMS EDMS 21 21:01 CT-STROKE BRAIN W/O CONTRAST+CT.RAD.BRZ ordered. EDMS EDMS 21: 21:01 Chest Single View+RAD.RAD.BRZ ordered. EDPA EDPA 03/11 02:01 03/10 23:53 Attending sp4 jb4
[2024-03-11] MEDS ORDERED: HEPARIN/D5W 25,000 UNIT/500 ML BAG IV ONE (00:24)
[2024-03-11] MEDS ORDERED: HEPARIN 5000 UNIT/ML 1 ML VIAL ONE (00:24)
[2024-03-11] MEDS ORDERED: ASPIRIN 81 MG CHEWABLE TABLET ONE (01:01)
[2024-03-11] MEDS ORDERED: HYDROCORTISONE SUC 100 MG INJ ONE (01:01)
[2024-03-11 02:18] VITALS: BP 113/67; TEMP 98.2; O2SAT 100
[2024-03-11 02:47] LABS: C-Reactive Protein < 2.90 mg/L (<3.00); Troponin High Sensitivity 487.6 pg/mL (<58.9)
--- NOTE | 2024-03-11 10:20 | RAD REPORT ---
EXAM DESCRIPTION: CT - Neck Angio - 03/11/2024 6:49 am ADDENDUM #[address] Syed at 11:29 PM Electronically signed by: Sharan Calvillo MD 03/10/2024 11:41 PM CDT RP End of Addendum Two PROCEDURE: Head Brain Wo Cont (accession [id number]), Head angio (accession [id number]), Neck Angio (acces aashish [id number]) CLINICAL HISTORY: STROKE ALERT TECHNIQUE: Contiguous axial CT images obtained through the brain without IV contrast. Coronal and sa gittal reformatted images were provided. This exam was performed according to our departmental dose-optimization program, which includes autom ated exposure control, adjustment of the mA and/or kV according to patient size and/or use of iterati ve reconstruction technique. COMPARISON: March 09 FINDINGS: Brain: Age related loss of brain volume, and chronic white matter ischemic changes. No foc al mass effect. Negro-white matter differentiation is within normal limits. No hemorrhage. Ventricles: No ventriculomegaly or midline shift. Extra-axial spaces: No extra-axial collection or hemorrhage. Paranasal sinuses and mastoid air cells: Well-aerated Bones: Unremarkable Soft tissues: Unremarkable IMPRESSION: No acute intracranial or extra-axial abnormality. Age related loss of brain volume, and chronic white matter ischemic changes. TECHNIQUE: Head Brain Wo Cont (accession [id number]), Head angio (accession [id number]), Neck Angio (accession [id number]) CLINICAL HISTORY: STROKE ALERT COMPARISON: Correlation made with noncontrast CT of the head TECHNIQUE: Contiguous axial images obtained through the head and neck following the uneventful admin istration of IV contrast. Sagittal and coronal reformatted images were provided. Multiplanar 3-D MIP reformatted images were provided. NASCET criteria utilized for the evaluation of any stenotic lesions . This exam was performed according to our departmental dose-optimization program, which includes autom ated exposure control, adjustment of the mA and/or kV according to patient size and/or use of iterati ve reconstruction technique. FINDINGS: Head: ICA: Mild atherosclerotic plaque along the cavernous segment of the intracranial internal carotid art eries with no significant stenosis JUAN JOSE: Patent anterior cerebral arteries. 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 COMMUNITY HEALTH WORKER: Patent posterior cerebral arteries. Basilar artery: Patent. Neck: ICA: Atherosclerotic plaque along the right carotid bifurcation and proximal right internal carotid a rtery with diameter stenosis estimated at less than 50%. Atherosclerotic plaque along the left carotid bifurcation and proximal left internal carotid artery w ith diameter stenosis estimated at less than 50%. ECA: No significant stenosis or occlusion. CCA: No significant stenosis or occlusion. Aortic arch: No aneurysmal dilatation or dissection. Vertebral arteries: No significant stenosis or occlusion. Dominant right vertebral artery and hypopla stic left vertebral artery Brain: No focal mass effect. No areas of abnormal parenchymal enhancement. Bones: Unremarkable Soft tissues: Unremarkable Lung apices: Clear IMPRESSION: No evidence of large vessel occlusion or significant arterial stenosis in the head or ne ck. No intracranial aneurysm. Atherosclerotic plaque along the carotid bifurcation and proximal internal carotid arteries bilateral ly with diameter stenosis estimated at less than 50%. Electronically signed by: Sharan Calvillo MD 03/10/2024 11:32 PM CDT Due to temporary technical issues with the PACS/Fluency reporting system, reports are being signed by the in house radiologist without review as a courtesy to ensure prompt reporting. The interpreting r adiologist is fully responsible for the content of the report.
--- NOTE | 2024-03-11 10:27 | RAD REPORT ---
EXAM DESCRIPTION: CT - Head Brain Wo Cont - 03/11/2024 6:48 am ADDENDUM #[address] Syed at 11:29 PM Electronically signed by: Sharan Calvillo MD 03/10/2024 11:41 PM CDT RP End of Addendum Two PROCEDURE: Head Brain Wo Cont (accession [id number]), Head angio (accession [id number]), Neck Angio (acces aashish [id number]) CLINICAL HISTORY: STROKE ALERT TECHNIQUE: Contiguous axial CT images obtained through the brain without IV contrast. Coronal and sa gittal reformatted images were provided. This exam was performed according to our departmental dose-optimization program, which includes autom ated exposure control, adjustment of the mA and/or kV according to patient size and/or use of iterati ve reconstruction technique. COMPARISON: March 09 FINDINGS: Brain: Age related loss of brain volume, and chronic white matter ischemic changes. No foc al mass effect. Negro-white matter differentiation is within normal limits. No hemorrhage. Ventricles: No ventriculomegaly or midline shift. Extra-axial spaces: No extra-axial collection or hemorrhage. Paranasal sinuses and mastoid air cells: Well-aerated Bones: Unremarkable Soft tissues: Unremarkable IMPRESSION: No acute intracranial or extra-axial abnormality. Age related loss of brain volume, and chronic white matter ischemic changes. EXAM DESCRIPTION: Head Brain Wo Cont (accession [id number]), Head angio (accession [id number]) , Neck Angio (accession [id number]) CLINICAL HISTORY: STROKE ALERT COMPARISON: Correlation made with noncontrast CT of the head TECHNIQUE: Contiguous axial images obtained through the head and neck following the uneventful admin istration of IV contrast. Sagittal and coronal reformatted images were provided. Multiplanar 3-D MIP reformatted images were provided. NASCET criteria utilized for the evaluation of any stenotic lesions . This exam was performed according to our departmental dose-optimization program, which includes autom ated exposure control, adjustment of the mA and/or kV according to patient size and/or use of iterati ve reconstruction technique. FINDINGS: Head: ICA: Mild atherosclerotic plaque along the cavernous segment of the intracranial internal carotid art eries with no significant stenosis JUAN JOSE: Patent anterior cerebral arteries. 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 DIRT BIKE RACER: Patent posterior cerebral arteries. Basilar artery: Patent. Neck: ICA: Atherosclerotic plaque along the right carotid bifurcation and proximal right internal carotid a rtery with diameter stenosis estimated at less than 50%. Atherosclerotic plaque along the left carotid bifurcation and proximal left internal carotid artery w ith diameter stenosis estimated at less than 50%. ECA: No significant stenosis or occlusion. CCA: No significant stenosis or occlusion. Aortic arch: No aneurysmal dilatation or dissection. Vertebral arteries: No significant stenosis or occlusion. Dominant right vertebral artery and hypopla stic left vertebral artery Brain: No focal mass effect. No areas of abnormal parenchymal enhancement. Bones: Unremarkable Soft tissues: Unremarkable Lung apices: Clear IMPRESSION: No evidence of large vessel occlusion or significant arterial stenosis in the head or ne ck. No intracranial aneurysm. Atherosclerotic plaque along the carotid bifurcation and proximal internal carotid arteries bilateral ly with diameter stenosis estimated at less than 50%. Electronically signed by: Sharan Calvillo MD 03/10/2024 11:32 PM CDT Due to temporary technical issues with the PACS/Fluency reporting system, reports are being signed by the in house radiologist without review as a courtesy to ensure prompt reporting. The interpreting r adiologist is fully responsible for the content of the report.
--- NOTE | 2024-03-11 10:43 | RAD REPORT ---
EXAM DESCRIPTION: CT - Head angio - 03/11/2024 6:49 am ADDENDUM #[address] Syed at 11:29 PM Electronically signed by: Sharan Calvillo MD 03/10/2024 11:41 PM CDT RP End of Addendum Two PROCEDURE: Head Brain Wo Cont (accession [id number]), Head angio (accession [id number]), Neck Angio (acces aashish [id number]) CLINICAL HISTORY: STROKE ALERT TECHNIQUE: Contiguous axial CT images obtained through the brain without IV contrast. Coronal and sa gittal reformatted images were provided. This exam was performed according to our departmental dose-optimization program, which includes autom ated exposure control, adjustment of the mA and/or kV according to patient size and/or use of iterati ve reconstruction technique. COMPARISON: March 09 FINDINGS: Brain: Age related loss of brain volume, and chronic white matter ischemic changes. No foc al mass effect. Negro-white matter differentiation is within normal limits. No hemorrhage. Ventricles: No ventriculomegaly or midline shift. Extra-axial spaces: No extra-axial collection or hemorrhage. Paranasal sinuses and mastoid air cells: Well-aerated Bones: Unremarkable Soft tissues: Unremarkable IMPRESSION: No acute intracranial or extra-axial abnormality. Age related loss of brain volume, and chronic white matter ischemic changes. PROCEDURE: Head Brain Wo Cont (accession [id number]), Head angio (accession [id number]), Neck Angio (acces aashish [id number]) CLINICAL HISTORY: STROKE ALERT COMPARISON: Correlation made with noncontrast CT of the head TECHNIQUE: Contiguous axial images obtained through the head and neck following the uneventful admin istration of IV contrast. Sagittal and coronal reformatted images were provided. Multiplanar 3-D MIP reformatted images were provided. NASCET criteria utilized for the evaluation of any stenotic lesions . This exam was performed according to our departmental dose-optimization program, which includes autom ated exposure control, adjustment of the mA and/or kV according to patient size and/or use of iterati ve reconstruction technique. FINDINGS: Head: ICA: Mild atherosclerotic plaque along the cavernous segment of the intracranial internal carotid art eries with no significant stenosis JUAN JOSE: Patent anterior cerebral arteries. 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 HOME HEALTH AIDE CAREGIVER: Patent posterior cerebral arteries. Basilar artery: Patent. Neck: ICA: Atherosclerotic plaque along the right carotid bifurcation and proximal right internal carotid a rtery with diameter stenosis estimated at less than 50%. Atherosclerotic plaque along the left carotid bifurcation and proximal left internal carotid artery w ith diameter stenosis estimated at less than 50%. ECA: No significant stenosis or occlusion. CCA: No significant stenosis or occlusion. Aortic arch: No aneurysmal dilatation or dissection. Vertebral arteries: No significant stenosis or occlusion. Dominant right vertebral artery and hypopla stic left vertebral artery Brain: No focal mass effect. No areas of abnormal parenchymal enhancement. Bones: Unremarkable Soft tissues: Unremarkable Lung apices: Clear IMPRESSION: No evidence of large vessel occlusion or significant arterial stenosis in the head or ne ck. No intracranial aneurysm. Atherosclerotic plaque along the carotid bifurcation and proximal internal carotid arteries bilateral ly with diameter stenosis estimated at less than 50%. Electronically signed by: Sharan Calvillo MD 03/10/2024 11:32 PM CDT Due to temporary technical issues with the PACS/Fluency reporting system, reports are being signed by the in house radiologist without review as a courtesy to ensure prompt reporting. The interpreting r adiologist is fully responsible for the content of the report.
--- NOTE | 2024-03-12 16:08 | EKG ---
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
== END 2024-03-11 02:01 | disposition short-term general hospital (02) ==
LOC: ER 20:52
DX: H34.11 Central retinal artery occlusion, right eye (principal); I63.9 Cerebral infarction, unspecified; R29.705 NIHSS score 5; I10 Essential (primary) hypertension; R79.89 Other specified abnormal findings of blood chemistry; G20.A1 Parkinson's disease without dyskinesia, without mention of fluctuations; Z95.818 Presence of other cardiac implants and grafts
CPT/HCPCS: 93005; 85025; 80048; 36415; 83735; 85610; 82947; 80076; 85730; 84484 ×2; 80307; 86140; 70450; 70496; 70498; 71045; 96375; 96374; 99285; Q9967; J1644; J1720; J7030

== ENCOUNTER 2024-10-03 11:43 | Emergency (ER) | payer OTHER ==
--- NOTE | 2024-10-03 13:36 | RAD REPORT ---
Exam:Shoulder Right 2+ Views History: Right shoulder pain Findings: No fracture or dislocation seen Humeral head is high riding probably indicating a chronic rotator cuff tear Moderate to marked osteoarthritis AC joint. Osteoporosis.
--- NOTE | 2024-10-03 13:37 | RAD REPORT ---
Exam:Wrist Right 3 View HISTORY: Right wrist pain FINDINGS: No fracture or dislocation seen If the patient continues to have symptoms to suggest an occult fracture then follow-up x-ray in 7 day s would be recommended
--- NOTE | 2024-10-03 13:37 | RAD REPORT ---
Exam:Elbow Right 3 View HISTORY: Right elbow pain FINDINGS: No fracture or dislocation seen
--- NOTE | 2024-10-03 14:01 | ER ---
Nurse's Notes [facility] Name: Sivakumar Fong Age: 74 yrs Sex: Male : 1950 Arrival Date: 10/03/2024 Time: 11:43 Bed 14 Private MD: Diagnosis: Mechanical fall;Right arm pain Presentation: 10/03 12:33 Chief complaint: EMS states: PT SLIPPED AND FELL OUT OF WHEELCHAIR. HIT RIGHT ELBOW. HX db OF PARKINSONS AND HIT RIGHT ELBOW IN KITCHEN. GIVEN FENTANYL 50 MCG IM BY EMS. Coronavirus screen: Client denies travel out of the [place] in the last 14 days. At this time, the client does not indicate any symptoms associated with coronavirus-19. Ebola Screen: Patient negative for fever greater than or equal to 101.5 degrees Fahrenheit, and additional compatible Ebola Virus Disease symptoms Patient denies exposure to infectious person. Patient denies travel to an Ebola-affected area in the 21 days before illness onset. No symptoms or risks identified at this time. Initial Sepsis Screen: Does the patient meet any 2 criteria? No. Patient's initial sepsis screen is negative. Does the patient have a suspected source of infection? No. Patient's initial sepsis screen is negative. Risk Assessment: Do you want to hurt yourself or someone else? Patient reports no desire to harm self or others. Onset of symptoms was October 03, 2024. 12:33 Method Of Arrival: EMS: [facility] db 12:33 Acuity: RANI 3 db 12:53 Care prior to arrival: Medication(s) given: FENTANYL 50 MCG IM. db Triage Assessment: 12:33 General: Appears in no apparent distress. comfortable, Behavior is calm, cooperative. db Pain: Complains of pain in right arm. Neuro: Level of Consciousness is awake, alert, obeys commands, Oriented to person, place, time, situation. Respiratory: Airway is patent Respiratory effort is even, unlabored, Respiratory pattern is regular, symmetrical. Injury Description: Avulsion sustained to right arm. Historical: - Allergies: 12:33 Lisinopril; db - PMHx: 12:33 GERD; Atrial fibrillation; heart stents; High Cholesterol; Hypertension; Myocardial db infarction; Parkinsons; - PSHx: 12:33 Appendectomy; Cholecystectomy; open heart SX; Stented artery; db - Immunization history:: Adult Immunizations unknown. - Infectious Disease History:: Denies. - Social history:: Smoking status: Patient denies any tobacco usage or history of. - Family history:: not pertinent. Screenin:38 [facility] ED Fall Risk Assessment (Adult) History of falling in the last 3 months, db including since admission Yes- single mechanical fall (1 pt) Confusion or Disorientation No (0 pts) Intoxicated or Sedated No (0 pts) Impaired Gait No (0 pts) Mobility Assist Device Used No (0 pt) Altered Elimination No (0 pt) Score/Fall Risk Level 0 - 2 = Low Risk Oriented to surroundings, Maintained a safe environment. Abuse screen: Denies threats or abuse. Denies injuries from another. Nutritional screening: No deficits noted. Tuberculosis screening: No symptoms or risk factors identified. Assessment: 13:00 Reassessment: Patient appears in no apparent distress at this time. Patient and/or db family updated on plan of care and expected duration. Pain level reassessed. Patient is alert, oriented x 3, equal unlabored respirations, skin warm/dry/pink. General: Appears in no apparent distress. comfortable, Behavior is calm, cooperative. 14:37 Reassessment: Patient appears in no apparent distress at this time. Patient and/or db family updated on plan of care and expected duration. Pain level reassessed. Patient is alert, oriented x 3, equal unlabored respirations, skin warm/dry/pink. Patient states feeling better. Patient states symptoms have improved. Neuro: Level of Consciousness is awake, alert, obeys commands, Oriented to person, place, time, situation. Respiratory: Airway is patent Respiratory effort is even, unlabored, Respiratory pattern is regular, symmetrical. Vital Signs: 12:33 BP 136 / 69; Pulse 65; Resp 18; Temp 98.4; Pulse Ox 99% ; Height 5 ft. 5 in. ; db 12:45 BP 130 / 65; Pulse 64; Resp 16; Pulse Ox 99% on R/A; db 13:30 BP 141 / 71; Pulse 73; Resp 16; Pulse Ox 98% on R/A; db 14:15 BP 143 / 73; Pulse 74; Resp 16; Pulse Ox 99% ; db ED Course: 12:12 Patient arrived in ED. hb 12:12 Sloan Espinal MD is Attending Physician. rt 12:49 Sherie Aceves, RN is Primary Nurse. db 12:51 Triage completed. db 12:52 Arm band placed on Patient placed in an exam room. db 13:23 Shoulder Right (2 View) XRAY In Process Unspecified. EDMS 13:23 Elbow Right 3 View XRAY In Process Unspecified. EDMS 13:23 Wrist Right 3 View XRAY In Process Unspecified. EDMS 14:38 Patient has correct armband on for positive identification. Bed in low position. Call db light in reach. Side rails up X 1. Provided Education on: DISCHARGE AND FOLLOWUP. Pulse ox on. NIBP on. Warm blanket given. Pillow given. 14:38 No provider procedures requiring assistance completed. Patient did not have IV access db during this emergency room visit. Administered Medications: No medications were administered Medication: 14:38 VIS not applicable for this client. db Outcome: 14:01 Discharge ordered by . rt 14:38 Discharged to home via wheelchair, db 14:38 Condition: stable 14:38 Discharge instructions given to patient, family, Instructed on discharge instructions, follow up and referral plans. 14:40 Patient left the ED. ko1 Signatures: Dispatcher [employer] EDMS Amy Monroe RN RN Honey Pichardo RN RN ko1 Sherie Aceves, RN RN Sloan Dunn MD MD rt
--- NOTE | 2024-10-03 14:01 | EDPHYS ---
Physician Documentation [facility] Name: Sivakumar Fong Age: 74 yrs Sex: Male : 1950 Arrival Date: 10/03/2024 Time: 11:43 Bed 14 Private MD: ED Physician Sloan Espinal HPI: 10/03 14:04 This 74 yrs old Male presents to ER via EMS with complaints of Fall Injury. rt 14:04 Patient presents to the ED with mechanical fall. He attributes this to his Parkinson's. rt Patient got his elbow caught into a drawer causing a pain to the right elbow that is shooting downwards. He did not hit his head nor lose consciousness. Denies any other injuries. States that the pain has since resolved, does not hurt currently. Symptoms are mild in severity, no other aggravating or alleviating factors.. Historical: - Allergies: 12:33 Lisinopril; db - PMHx: 12:33 GERD; Atrial fibrillation; heart stents; High Cholesterol; Hypertension; Myocardial db infarction; Parkinsons; - PSHx: 12:33 Appendectomy; Cholecystectomy; open heart SX; Stented artery; db - Immunization history:: Adult Immunizations unknown. - Infectious Disease History:: Denies. - Social history:: Smoking status: Patient denies any tobacco usage or history of. - Family history:: not pertinent. ROS: 14:04 Constitutional: Negative for fever, chills, and weight loss, Cardiovascular: Negative rt for chest pain, palpitations, and edema, Respiratory: Negative for shortness of breath, cough, wheezing, and pleuritic chest pain, Abdomen/GI: Negative for abdominal pain, nausea, vomiting, diarrhea, and constipation, Skin: Negative for injury, rash, and discoloration, Neuro: Negative for headache, weakness, numbness, tingling, and seizure, 14:04 MS/extremity: Positive for pain, Negative for deformity, Exam: 14:04 Constitutional: This is a well developed, well nourished patient who is awake, alert, rt and in no acute distress. Head/Face: Normocephalic, atraumatic. Chest/axilla: Normal chest wall appearance and motion. Nontender with no deformity. No lesions are appreciated. Cardiovascular: Regular rate and rhythm with a normal S1 and S2. No gallops, murmurs, or rubs. Normal PMI, no JVD. No pulse deficits. Respiratory: Lungs have equal breath sounds bilaterally, clear to auscultation and percussion. No rales, rhonchi or wheezes noted. No increased work of breathing, no retractions or nasal flaring. Abdomen/GI: Soft, non-tender, with normal bowel sounds. No distension or tympany. No guarding or rebound. No evidence of tenderness throughout. Neuro: Awake and alert, GCS 15, oriented to person, place, time, and situation. Cranial nerves II-XII grossly intact. Motor strength 5/5 in all extremities. Sensory grossly intact. Cerebellar exam normal. Normal gait. 14:04 Musculoskeletal/extremity: Contusion noted to right elbow, skin is intact, no focal areas of tenderness, full range of motion.. Vital Signs: 12:33 BP 136 / 69; Pulse 65; Resp 18; Temp 98.4; Pulse Ox 99% ; Height 5 ft. 5 in. ; db 12:45 BP 130 / 65; Pulse 64; Resp 16; Pulse Ox 99% on R/A; db 13:30 BP 141 / 71; Pulse 73; Resp 16; Pulse Ox 98% on R/A; db 14:15 BP 143 / 73; Pulse 74; Resp 16; Pulse Ox 99% ; db MDM: 12:13 Medical Screening Exam initiated rt 14:04 Differential diagnosis: Fracture, contusion. Data reviewed: vital signs, nurses notes, rt radiologic studies. Independent interpretation of the following test(s) in the Emergency Department X-Ray: My interpretation is No fracture seen on my interpretation of x-ray images. Test considered but Not performed: Other Details Denies loss of consciousness, head trauma, dizziness, preceding symptoms, EKG, labs, head CT are not indicated. Care significantly affected by the following chronic conditions: Parkinson's disease. Counseling: I had a detailed discussion with the patient and/or guardian regarding the historical points, exam findings, and any diagnostic results supporting the discharge/admit diagnosis, radiology results, the need for outpatient follow up. Response to treatment: the patient's symptoms have resolved after treatment, the patient's pain is gone. 10/03 12:13 Order name: Shoulder Right (2 View) XRAY; Complete Time: 13:56 rt 10/03 12:13 Order name: Elbow Right 3 View XRAY; Complete Time: 13:56 rt 10/03 12:13 Order name: Wrist Right 3 View XRAY; Complete Time: 13:56 rt Administered Medications: No medications were administered Disposition Summary: 10/03/24 14:01 Discharge Ordered Notes: Location: Home rt Problem: new rt Symptoms: have improved rt Condition: Stable rt Diagnosis - Mechanical fall rt - Right arm pain rt Followup: rt - With: Private Physician - When: 2 - 3 days - Reason: Discharge Instructions: - Discharge Summary Sheet rt - Contusion rt Forms: - Medication Reconciliation Form rt - Antibiotic Education rt - Prescription Opioid Use rt - Patient Portal Instructions rt - Leadership Thank You Letter rt Signatures: Dispatcher [employer] Sherie Coleman RN RN Sloan Dunn MD MD rt Corrections: (The following items were deleted from the chart) 12:13 12:13 Elbow Right 3 View+RAD.RAD.BRZ ordered. EDMS EDMS 12:14 12:13 Wrist Right 3 View+RAD.RAD.BRZ ordered. EDMS EDMS
[2024-10-03 15:53] VITALS: TEMP 98.4
[2024-10-03 16:00] VITALS: BP 143/73; O2SAT 99
== END 2024-10-03 14:40 | disposition home or self-care (01) ==
LOC: ER 11:43
DX: S50.01XA Contusion of right elbow, initial encounter (principal); W18.30XA Fall on same level, unspecified, initial encounter; G20.A1 Parkinson's disease without dyskinesia, without mention of fluctuations
CPT/HCPCS: 99283

== ENCOUNTER 2024-10-25 17:33 | Inpatient (IN) | payer OTHER ==
[2024-10-25] MEDS ORDERED: DIAZEPAM 10 MG/2 ML INJ SYRINGE ONE (17:42)
[2024-10-25 18:12] LABS: Absolute Eosinophils 0.1 K/uL (0-0.5); Absolute Lymphocytes (CBC) 1.3 K/uL (0.7-4.9); Absolute Monocytes 0.5 K/uL (0.1-1.3); Absolute Neutrophil 1.8 K/uL (1.8-8.0); Basophils % 0.8 % (0-1.3); Eosinophils % 1.5 % (0-4.4); Hematocrit 27.9 % (39.6-49.0); Lymphocytes % 34.8 % (15.3-44.8); MCH 23.5 pg (27.0-35.0); MCHC 32.3 g/dL (32.0-36.0); MCV 72.8 fL (80-100); MPV 7.6 fL (7.6-11.3); Monocytes % 13.3 % (3.3-12.3); Neutrophils % 49.6 % (41.7-73.7); Nucleated Red Blood Cells % 0.1 % (0-0); Platelets 204 thou/uL (152-406); RBC Red Blood Cell Count 3.83 M/uL (4.33-5.43); Red Cell Distribution Width 21.7 % (12.1-15.2)
[2024-10-25 18:31] LABS: Anion Gap 6.8 mEq/L (5.0-15.0); Potassium 2.8 mEq/L (3.5-5.1); Troponin High Sensitivity 532.6 pg/mL (<58.9)
--- NOTE | 2024-10-25 18:31 | RAD REPORT ---
Procedure: Chest Single View HISTORY: Chest pain COMPARISON: 2023 FINDINGS: The lungs appear clear of acute infiltrate. No significant pleural effusion noted. The heart is mildly enlarged. Post surgical changes chest IMPRESSION: No acute abnormality is displayed.
--- NOTE | 2024-10-25 18:57 | ER ---
Nurse's Notes [facility] Name: Sivakumar Fong Age: 74 yrs Sex: Male : 1950 Arrival Date: 10/25/2024 Time: 17:33 Bed 17 Private MD: Diagnosis: Chest pain, unspecified;Elevated troponin, hypokalemia Presentation: 10/25 17:36 Chief complaint: EMS states: Sudden onset severe mid back pain that radiates to right hb chest that started just LEGISLATORS. 20g RAC. Coronavirus screen: At this time, the client does not indicate any symptoms associated with coronavirus-19. Ebola Screen: No symptoms or risks identified at this time. Initial Sepsis Screen: Does the patient meet any 2 criteria? No. Patient's initial sepsis screen is negative. Does the patient have a suspected source of infection? No. Patient's initial sepsis screen is negative. Risk Assessment: Do you want to hurt yourself or someone else? Patient reports no desire to harm self or others. Onset of symptoms was October 25, 2024. 17:36 Method Of Arrival: EMS: [facility] 17:36 Acuity: RANI 2 hb Historical: - Allergies: 17:37 Lisinopril; hb - PMHx: 17:37 Atrial fibrillation; GERD; Myocardial infarction; High Cholesterol; Hypertension; heart hb stents; Parkinsons; - PSHx: 17:37 Appendectomy; Cholecystectomy; open heart SX; Stented artery; hb - Immunization history:: Adult Immunizations up to date. - Infectious Disease History:: Denies. - Social history:: Smoking status: Patient denies any tobacco usage or history of. Screenin:57 [facility] ED Fall Risk Assessment (Adult) History of falling in the last 3 months, mb9 including since admission No falls in past 3 months (0 pts) Confusion or Disorientation No (0 pts) Intoxicated or Sedated No (0 pts) Impaired Gait Yes (1 pt) Mobility Assist Device Used Yes (1 pt) Altered Elimination Yes (1 pt) Score/Fall Risk Level 3 or more points = High Risk Oriented to surroundings, Maintained a safe environment, Educated pt \T\ family on fall prevention, incl call for assistance when getting out of bed. Abuse screen: Denies threats or abuse. Nutritional screening: No deficits noted. Tuberculosis screening: No symptoms or risk factors identified. Assessment: 17:57 General: Appears in no apparent distress. Behavior is calm, cooperative. Pain: mb9 Complains of pain in chest Pain radiates to right chest wall Pain began suddenly. Neuro: Downs Agitation-Sedation Scale (RASS): 0 - Alert and Calm Level of Consciousness is awake, alert, obeys commands, Oriented to person, place, time, situation, Appropriate for age. Cardiovascular: Reports chest pain, Heart tones S1 S2 present Patient's skin is warm and dry. Respiratory: Airway is patent Respiratory effort is even, unlabored, Respiratory pattern is regular, symmetrical. GI: No signs and/or symptoms were reported involving the gastrointestinal system. : No signs and/or symptoms were reported regarding the genitourinary system. Vital Signs: 17:36 BP 159 / 76; Pulse 88; Resp 16; Temp 97.8; Pulse Ox 96% on R/A; Pain 6/10; hb 17:36 Pain Scale: Adult hb ED Course: 17:36 Patient arrived in ED. hb 17:37 Triage completed. hb 17:38 Fransico Hodges MD is Attending Physician. ec2 17:38 Arm band placed on. hb 17:39 Leda Corona RN is Primary Nurse. mb9 17:56 Initial lab(s) drawn, by me, sent to lab. EKG done, by ED staff, reviewed by Fransico Hodges MD. Maintain EMS IV. Dressing intact. Good blood return noted. Site clean \T\ dry. Gauge \T\ site: 20g right AC. Flushed with 10 mL NS Flushed. 17:57 Bed in low position. Call light in reach. Side rails up X 1. Provided Education on: patricia press call light if needing anything. Client placed on continuous cardiac and pulse oximetry monitoring. NIBP monitoring applied. 18:03 XRAY Chest (1 view) In Process Unspecified. EDMS 18:56 Shay Cuevas MD is Hospitalizing Provider. ec2 22:00 Patient admitted, IV remains in place. al5 22:00 No provider procedures requiring assistance completed. al5 Administered Medications: 17:55 Drug: Diazepam IVP 5 mg IVP once Route: IVP; Site: right antecubital; mb9 18:34 Follow up: Response: No adverse reaction patricia 19:21 Drug: Potassium Chloride PO 40 mEq PO once Route: PO; jb4 10/26 04:37 Follow up: Response: No adverse reaction al5 10/25 19:21 Drug: Potassium Chloride IV 20 mEq IV at calculated rate once; administer over 1-2 jb4 hours {Note: administered with 250ml NS Piggyback at 50ml an hour.} Route: IV; Rate: calculated rate; Site: right antecubital; 10/26 04:38 Follow up: Response: No adverse reaction; IV Status: Completed infusion; IV Intake: al5 100ml 10/25 19:22 Drug: Aspirin PO Chewable Tablet 324 mg PO once; 81 mg tablets x 4 Route: PO; jb4 10/26 04:38 Follow up: Response: No adverse reaction al5 Medication: 10/25 17:57 VIS not applicable for this client. mb9 Intake: 10/26 04:38 IV: 100ml; Total: 100ml. al5 Outcome: 10/25 18:56 Decision to Hospitalize by Provider. ec2 22:00 Admitted to ER Hold. Please see [facility] for further documentation. al5 22:00 Condition: stable 22:00 Instructed on the need for admit, 10/26 17:39 Patient left the ED. ll1 Signatures: Dispatcher [employer] Amy Callahan RN RN Cuong Vasquez RN RN jb4 Sallie Soler RN RN ll1 Leda Corona RN RN mb9 Fransico Hodges MD MD ec2 Katelyn Mcmahon RN RN al5 Corrections: (The following items were deleted from the chart) 10/25 17:39 17:36 Chief complaint: EMS states: Sudden onset severe mid back pain that radiates to hb right chest that started just LEGISLATORS hb
--- NOTE | 2024-10-25 18:57 | EDPHYS ---
Physician Documentation [facility] Name: Sivakumar Fong Age: 74 yrs Sex: Male : 1950 Arrival Date: 10/25/2024 Time: 17:33 Bed 17 Private MD: ED Physician Fransico Hodges HPI: 10/25 17:39 This 74 yrs old Male presents to ER via EMS with complaints of Chest Pain. ec2 17:40 Patient arrives today for evaluation of back and chest pain. Reports he is having some ec2 back cramping and spasm going into the neck and going into the right chest. Reports the pain is worse with movement and pressing on the area. No falls injuries or trauma. History of ACS, denies any difficulty breathing. Reports he is on Eliquis and aspirin.. Historical: - Allergies: 17:37 Lisinopril; hb - PMHx: 17:37 Atrial fibrillation; GERD; Myocardial infarction; High Cholesterol; Hypertension; heart hb stents; Parkinsons; - PSHx: 17:37 Appendectomy; Cholecystectomy; open heart SX; Stented artery; hb - Immunization history:: Adult Immunizations up to date. - Infectious Disease History:: Denies. - Social history:: Smoking status: Patient denies any tobacco usage or history of. ROS: 17:40 Constitutional: as per hpi ec2 Exam: 17:40 Constitutional: GEN: NAD Head: atraumatic Eyes: EOMI Ears: External ears are ec2 normal. CV: regular rate LUNGS: no respiratory distress ABD: non-distended SKIN: no evidence of rashes MSK: Reproducible right mid back TTP without deformities or crepitus, reproducible trapezius as well as right chest wall TTP without deformities or crepitus. Vital Signs: 17:36 BP 159 / 76; Pulse 88; Resp 16; Temp 97.8; Pulse Ox 96% on R/A; Pain 6/10; hb 17:36 Pain Scale: Adult hb MDM: 17:39 Medical Screening Exam initiated ec2 17:40 Data reviewed: vital signs, nurses notes. ED course: Patient arrives today for right ec2 mid back and right chest wall pain. Examination yields MSK findings as above. Will obtain cardiac workup, give the patient Valium as well. Differential diagnosis considered include muscular spasm, ACS. Doubt PE, lower suspicion for dissection. 17:49 ED course: EKG independently reviewed and interpreted by me, shows normal sinus rhythm, ec2 rate of 84, no acute ST segment elevations, intervals are nonactionable, right bundle branch block noted.. 18:50 ED course: Metabolic profile shows hypokalemia. CBC shows slight anemia with a ec2 hemoglobin of 9. Troponin elevated at 533. Chest x-ray shows no acute intrathoracic process.. 18:51 ED course: Troponin elevated, similar to previous troponins.. ec2 18:56 ED course: Patient with improved chest pain after medications, still has some component ec2 of chest pain however. Given his cardiac history, elevated troponins, will admit for further cardiac workup. Discussed with hospitalist, pending admission.. 10/25 17:39 Order name: Basic Metabolic Panel; Complete Time: 18:50 ec2 10/25 17:39 Order name: CBC with Diff; Complete Time: 19:27 ec2 10/25 17:39 Order name: Troponin HS; Complete Time: 18:50 ec2 10/25 18:15 Order name: CBC Smear Scan; Complete Time: 19:27 EDMS 10/25 19:47 Order name: NT PRO-BNP EDMS 10/25 23:53 Order name: Troponin High Sensitivity EDMN 10/26 05:15 Order name: CBC with Automated Diff EDMS 10/26 05:40 Order name: Comprehensive Metabolic Panel EDMN 10/26 05:40 Order name: Phosphorus EDMS 10/26 05:40 Order name: Troponin High Sensitivity EDMN 10/26 05:40 Order name: Magnesium EDMN 10/25 17:39 Order name: XRAY Chest (1 view); Complete Time: 18:50 ec2 10/25 17:39 Order name: EKG; Complete Time: 17:39 ec2 10/25 17:39 Order name: Cardiac monitoring; Complete Time: 17:40 ec2 10/25 17:39 Order name: EKG - Nurse/Tech; Complete Time: 17:56 ec2 10/25 17:39 Order name: IV Saline Lock; Complete Time: 17:40 ec2 10/25 17:39 Order name: Labs collected and sent; Complete Time: 17:56 ec2 10/25 17:39 Order name: O2 Per Protocol; Complete Time: 17:40 ec2 10/25 17:39 Order name: O2 Sat Monitoring; Complete Time: 17:40 ec2 Administered Medications: 17:55 Drug: Diazepam IVP 5 mg IVP once Route: IVP; Site: right antecubital; mb9 18:34 Follow up: Response: No adverse reaction mb9 19:21 Drug: Potassium Chloride PO 40 mEq PO once Route: PO; jb4 10/26 04:37 Follow up: Response: No adverse reaction al5 10/25 19:21 Drug: Potassium Chloride IV 20 mEq IV at calculated rate once; administer over 1-2 jb4 hours {Note: administered with 250ml NS Piggyback at 50ml an hour.} Route: IV; Rate: calculated rate; Site: right antecubital; 10/26 04:38 Follow up: Response: No adverse reaction; IV Status: Completed infusion; IV Intake: al5 100ml 10/25 19:22 Drug: Aspirin PO Chewable Tablet 324 mg PO once; 81 mg tablets x 4 Route: PO; jb4 10/26 04:38 Follow up: Response: No adverse reaction al5 Disposition Summary: 10/25/24 18:56 Hospitalization Ordered Notes: Hospitalization Status: Inpatient Admission ec2 Provider: Shay Cuevas ec2 Condition: Stable ec2 Problem: an acute exacerbation ec2 Symptoms: have improved ec2 Bed/Room Type: Standard ec2 Location: Telemetry/MedSurg (Inpatient)(10/26/24 15:34) bd Room Assignment: 209(10/26/24 15:34) bd Diagnosis - Chest pain, unspecified ec2 - Elevated troponin, hypokalemia ec2 Forms: - Medication Reconciliation Form ec2 - SBAR form ec2 - Leadership Thank You Letter ec2 Signatures: Dispatcher [employer] EDMS Emily Connor Lee, CONTACT CENTER ANALYST-C CONTACT CENTER ANALYST-Cla1 Amy Monroe RN RN Cuong Zuniga RN RN jb4 Emily Casiano RN RN vc1 Leda Corona RN RN mb9 Fransico Hodges MD MD ec2 Katelyn Mcmahon RN al5 Corrections: (The following items were deleted from the chart) 10/25 19:51 18:56 Telemetry/MedSurg (Inpatient) ec2 vc1 19:51 18:56 ec2 vc1 10/26 15:34 10/25 19:51 [facility] ER HOLD vc1 bd 10/26 15:34 10/25 19:51 ERHOLD- vc1 bd
[2024-10-25] MEDS ORDERED: ASPIRIN 81 MG CHEWABLE TABLET ONE (19:06)
[2024-10-25] MEDS ORDERED: POTASSIUM CL SA 10 MEQ TAB PO ONE (19:06)
[2024-10-25] MEDS ORDERED: NA CHLORIDE 0.9% 250 ML ONE (19:06)
[2024-10-25] MEDS ORDERED: KCL 20 MEQ/100 mL IVPB 100 ML IV ONE (19:07)
[2024-10-25 19:24] LABS: Anisocytosis 2+; Blood Morphology Comment NOTED (NOT SEEN); Microcytosis 2+; Ovalocytes 2+; Platelet Estimate ADEQ; Target Cells 1+; White Blood Cell Scan OK (OK)
--- NOTE | 2024-10-25 20:08 | P.HP ---
Certification for Inpatient Patient admitted to: Observation With expected LOS: <2 Midnights Patient will require the following post-hospital care: None Practitioner: I am a practitioner with admitting privileges, knowledge of patient current condition, hospital course, and medical plan of care. Services: Services provided to patient in accordance with Admission requirements found in Title 42 Section 412.3 of the Code of Federal Regulations Patient History Date of Service: 10/25/24 Reason for admission: Chest Pain History of Present Illness: Patient is a 74-year-old male with past medical history of CAD, Parkinson's, hyperlipidemia, Hypertension, GERD,atrial fibrillation, BPH, constipation, and surgical history of 7 stents with CABG who presents to the ED with chest pain x 1 day. Patient reports that he has had intermittent chest pain ever since his CABG a few years ago however today's chest pain was more sharp. Patient also reports right arm/neck pain that has increasingly gotten worse over the past 2 months. ED workup showed K+2.8, EKG without acute findings, Troponin 532.6, and CXR without acute findings. Patient is being admitted for observation and continued cardiac workup at this time. Allergies lisinopril Allergy (Verified 02/20/23 14:17) Anaphylaxis Home medications list reviewed: Yes Home Medications: Amlodipine [Norvasc*] 5 mg PO DAILY 01/17/23 Carbidopa/Levodopa 25-250 [Sinemet 25-250*] 2 tab PO TID 01/17/23 Clopidogrel Bisulfate [Plavix*] 75 mg PO DAILY 01/17/23 Cyclobenzaprine [Flexeril*] 10 mg PO BEDTIME 01/17/23 Pantoprazole [Protonix Tab*] 40 mg PO DAILY 01/17/23 Pravastatin [Pravachol*] 40 mg PO DAILY 01/17/23 Rivaroxaban [Xarelto*] 10 mg PO DAILY 01/17/23 Zonisamide 100 mg PO BEDTIME 01/17/23 Amantadine [Symmetrel*] 100 mg PO DAILY #30 cap 01/24/23 Entacapone 200 mg PO QID 10/09/23 Furosemide 40 mg PO DAILY 10/09/23 Losartan Potassium 50 mg PO DAILY 10/09/23 Metoprolol Tartrate 50 mg PO BID 10/09/23 Sertraline [Zoloft*] 50 mg PO DAILY 10/09/23 Amox/Clavulanate [Augmentin 875-125 Tab] 875 mg PO BID 4 Days #8 tab 10/12/23 - Past Medical/Surgical History Diabetic: No -: HTN -: Parkinson's -: Coronary artery disease -: History of prostate cancer -: Atrial fibrillation -: Chronic diastolic congestive heart failure -: CAD -: Stents x8 -: Cataract Sx -: Prostate -: Atrial fibrillation Psychosocial/ Personal History: Patient lives at home with his daughter - Family History Father -: Other (see notes) Notes: Leukemia Mother -: Hypertension Brother -: Cancer Notes: stomach - Social History Alcohol use: No CD- Drugs: No Caffeine use: Yes Review of Systems 10-point ROS is otherwise unremarkable Cardiovascular: Chest Pain, As per HPI Gastrointestinal: Constipation Musculoskeletal: Neck Pain, Shoulder Pain, As per HPI Neurological: Weakness Physical Examination - Physical Exam General: Alert, In no apparent distress, Oriented x3 HEENT: Atraumatic, PERRLA, Mucous membr. moist/pink, EOMI, Sclerae nonicteric Neck: Supple, 2+ carotid pulse no bruit, No LAD Respiratory: Normal air movement, Diminished Cardiovascular: Regular rate/rhythm, Normal S1 S2, Edema (dependent BLE) Gastrointestinal: Hypoactive, No tenderness Musculoskeletal: Tenderness (Right side of neck ) Integumentary: No rashes Neurological: Normal speech, Normal tone, Normal affect, Abnormal strength (Bilateral decreased paper handler strength ) - Studies Laboratory Data (last 24 hrs) 10/25/24 10/25/24 17:53 17:53 WBC 3.70 L Hgb 9.0 L Hct 27.9 L Plt Count 204 Sodium 141 Potassium 2.8 L BUN 14 Creatinine 0.82 Glucose 96 Assessment and Plan - Problems (Diagnosis) (1) Hypokalemia Current Visit: No Status: Acute - Plan Chest Pain -Acute on chronic -Troponin 532.6, continue to trend (Past baseline 400-600) -Hx of 7 cardiac stents/CABG -Continue to monitor on telemetry -Cardiology consult ordered -Consider Heparin gtt if troponin trending up, on home Eliquis and held for evening dose -CXR without acute findings -EKG with NSR Hypokalemia -Secondary to Lasix use? -K+ 2.8, repleted in ED -Continue to monitor electrolytes -Hold home Lasix for now -Electrolyte replacement protocol ordered Hx of Parkinson -Continue home meds -PT consult ordered Neck/Arm pain -Reports worsening P4duohsq -Robaxin PO PRN -Consider CT spine -PT consult ordered Hx of Atrial Fibrillation -Monitor on tele, currently in NSR -Continue home metoprolol once verified -Continue home Eliquis once appropriate Hx of HTN Hx of CAD/HLD -Continue home antihypertensives once home med reconciled -Monitor BP per unit protocol -Continue home Atorvastatin/ASA -Cardiac diet Hx of BPH -Continue home Flomax once verified Hx of GERD -Continue home Protonix once verified Hx of constipation -Reports LBM 10/24/2024 with straining -Senna scheduled at bedtime for now -Consider f/u imaging if worsening DVT Ppx: Home Elquis GI Ppx: Home med PO Protonix Code Status: Full Code Discharge Plan: Home Plan to discharge in: 24 Hours - Advance Directives Does patient have a Living Will: No Does patient have a Durable POA for Healthcare: No - Code Status/Comfort Care Code Status Assessed: Yes (FULL ) Critical Care: No Time Spent Managing Pts Care (In Minutes): 60
[2024-10-25] MEDS ORDERED: ACETAMINOPHEN 325 MG TABLET PO PRN (22:21)
[2024-10-25] MEDS ORDERED: DOCUSATE NA/SENNA CONC 1 TAB ONE (23:51)
[2024-10-25] MEDS ORDERED: TAMSULOSIN 0.4 MG SR CAP ONE (23:55)
[2024-10-25] MEDS ORDERED: ATORVASTATIN 40 MG TAB ONE (23:55)
[2024-10-26] MEDS: ATORVASTATIN 40 MG TAB PO SCH (00:03)
[2024-10-26] MEDS: TAMSULOSIN 0.4 MG SR CAP PO SCH (00:03)
[2024-10-26] MEDS: DOCUSATE NA/SENNA CONC 1 TAB PO SCH (00:03)
[2024-10-26 00:56] VITALS: BMI 21.9
[2024-10-26 05:12] LABS: Absolute Eosinophils 0.1 K/uL (0-0.5); Absolute Lymphocytes (CBC) 1.2 K/uL (0.7-4.9); Absolute Monocytes 0.4 K/uL (0.1-1.3); Absolute Neutrophil 1.2 K/uL (1.8-8.0); Basophils % 0.5 % (0-1.3); Eosinophils % 2.7 % (0-4.4); Hemoglobin 9.1 g/dL (13.6-17.9); Lymphocytes % 41.3 % (15.3-44.8); MCH 23.1 pg (27.0-35.0); MCHC 31.3 g/dL (32.0-36.0); MCV 73.6 fL (80-100); MPV 7.5 fL (7.6-11.3); Monocytes % 12.5 % (3.3-12.3); Nucleated Red Blood Cells % 0.3 % (0-0); Platelets 208 thou/uL (152-406); RBC Red Blood Cell Count 3.94 M/uL (4.33-5.43)
[2024-10-26 05:15] LABS: Red Cell Distribution Width 21.8 % (12.1-15.2)
[2024-10-26 05:37] LABS: Albumin 3.2 g/dL (3.4-5.0); Anion Gap 6.3 mEq/L (5.0-15.0); Bilirubin Total 0.4 mg/dL (0.2-1.0); Globulin 3.3 g/dL (2.3-3.5); Magnesium 2.2 mg/dL (1.6-2.4); Potassium 3.3 mEq/L (3.5-5.1); Protein, Total 6.5 g/dL (6.4-8.2)
[2024-10-26 05:39] LABS: Troponin High Sensitivity 509.9 pg/mL (<58.9)
[2024-10-26] MEDS: POTASSIUM CL SA 10 MEQ TAB PO ONE ×2 (07:23→22:28)
[2024-10-26] MEDS ORDERED: POTASSIUM CL SA 10 MEQ TAB PO ONE (08:35)
[2024-10-26] MEDS ORDERED: ASPIRIN 81 MG CHEWABLE TABLET ONE (08:35)
[2024-10-26] MEDS ORDERED: ENOXAPARIN 60 MG/0.6 ML SQ ONE (08:35)
[2024-10-26] MEDS: ASPIRIN EC 81 MG TAB PO SCH (09:00)
[2024-10-26] MEDS: ENOXAPARIN 60 MG/0.6 ML SQ SCH (09:00)
[2024-10-26] MEDS ORDERED: APIXABAN 5 MG TABLET PO SCH (09:00)
--- NOTE | 2024-10-26 12:16 | P.CNS ---
Date of Consult: 10/26/24 Chief Complaint: Chest Pain History of Present Illness: Patient with PMH of CAD s/p CABG x 3 back in 2022, done at [facility], presented with fatigue, weakness and right sided chest pain that has been going on for few days, sharp in nature, no radiation, no left sided chest pain. no other cardiac symptoms. Allergies lisinopril Allergy (Verified 02/20/23 14:17) Anaphylaxis Home medications list reviewed: Yes Home Medications: Amlodipine [Norvasc*] 5 mg PO DAILY 01/17/23 Carbidopa/Levodopa 25-250 [Sinemet 25-250*] 2 tab PO TID 01/17/23 Clopidogrel Bisulfate [Plavix*] 75 mg PO DAILY 01/17/23 Cyclobenzaprine [Flexeril*] 10 mg PO BEDTIME 01/17/23 Pantoprazole [Protonix Tab*] 40 mg PO DAILY 01/17/23 Pravastatin [Pravachol*] 40 mg PO DAILY 01/17/23 Rivaroxaban [Xarelto*] 10 mg PO DAILY 01/17/23 Zonisamide 100 mg PO BEDTIME 01/17/23 Amantadine [Symmetrel*] 100 mg PO DAILY #30 cap 01/24/23 Entacapone 200 mg PO QID 10/09/23 Furosemide 40 mg PO DAILY 10/09/23 Losartan Potassium 50 mg PO DAILY 10/09/23 Metoprolol Tartrate 50 mg PO BID 10/09/23 Sertraline [Zoloft*] 50 mg PO DAILY 10/09/23 Amox/Clavulanate [Augmentin 875-125 Tab] 875 mg PO BID 4 Days #8 tab 10/12/23 - Past Medical/Surgical History Diabetic: No -: HTN -: Parkinson's -: Coronary artery disease -: History of prostate cancer -: Atrial fibrillation -: Chronic diastolic congestive heart failure -: CAD -: Stents x8 -: Cataract Sx -: Prostate -: Atrial fibrillation Psychosocial/ Personal History: Patient lives at home with his daughter - Family History Father Medical History: Other (see notes) Notes: Leukemia Mother Medical History: Hypertension Brother Medical History: Cancer Notes: stomach - Social History Smoking Status: Unknown if ever smoked Alcohol use: No CD- Drugs: No Caffeine use: Yes Place of Residence: Home Review of Systems 10-point ROS is otherwise unremarkable Physical Examination Temp Pulse Resp BP Pulse Ox 97.6 F 71 17 122/61 95 10/26/24 12:00 10/26/24 12:00 10/26/24 12:00 10/26/24 12:00 10/26/24 12:00 General: Alert, In no apparent distress HEENT: Atraumatic, PERRLA, Mucous membr. moist/pink, EOMI, Sclerae nonicteric Neck: Supple, 2+ carotid pulse no bruit, No LAD, Without JVD or thyroid abnormality Respiratory: Clear to auscultation bilaterally, Normal air movement Cardiovascular: Regular rate/rhythm, Normal S1 S2 Gastrointestinal: Normal bowel sounds, No tenderness Musculoskeletal: No tenderness Integumentary: No rashes Neurological: Normal gait, Normal speech, Normal tone, Normal affect Lymphatics: No axilla or inguinal lymphadenopathy Laboratory Data (last 24 hrs) 10/25/24 10/25/24 17:53 17:53 WBC 3.70 L Hgb 9.0 L Hct 27.9 L Plt Count 204 Sodium 141 Potassium 2.8 L BUN 14 Creatinine 0.82 Glucose 96 - Problems (1) Congestive heart failure Current Visit: Yes Status: Acute Plan: continue lasix 40 mg po daily stop Norvasc continue losartan 25 mg daily continue lopressor 25 mg po BID monitor input and output and electrolytes. (2) NSTEMI (non-ST elevated myocardial infarction) Current Visit: No Status: Acute Plan: NPO after midnight for coronary angiogram in am get Echo ASA 81 mg daily Plavix 75 mg daily continue Heparin. (3) Atrial fibrillation Current Visit: No Status: Chronic Plan: Hold Xarelto for cath in am Qualifiers: Atrial fibrillation type: unspecified Qualified Code(s): I48.91 - Unspecified atrial fibrillation
[2024-10-26] MEDS: CARBIDOPA/LEVODOPA 25/250 TAB PO SCH ×2 (15:00→18:14)
[2024-10-26] MEDS: ENTACAPONE 200 MG TAB PO SCH (17:00)
[2024-10-27 04:41] LABS: Absolute Eosinophils 0.1 K/uL (0-0.5); Absolute Lymphocytes (CBC) 1.2 K/uL (0.7-4.9); Absolute Monocytes 0.4 K/uL (0.1-1.3); Absolute Neutrophil 1.6 K/uL (1.8-8.0); Basophils % 1.1 % (0-1.3); Eosinophils % 2.3 % (0-4.4); Hematocrit 25.3 % (39.6-49.0); Hemoglobin 8.1 g/dL (13.6-17.9); Lymphocytes % 36.5 % (15.3-44.8); MCH 23.1 pg (27.0-35.0); MCHC 31.9 g/dL (32.0-36.0); MCV 72.3 fL (80-100); MPV 8.2 fL (7.6-11.3); Monocytes % 11.4 % (3.3-12.3); Neutrophils % 48.7 % (41.7-73.7); Platelets 176 thou/uL (152-406)
[2024-10-27 05:08] LABS: Red Cell Distribution Width 21.6 % (12.1-15.2)
[2024-10-27 05:16] LABS: Anion Gap 5.4 mEq/L (5.0-15.0); Magnesium 2.1 mg/dL (1.6-2.4); Phosphorus 2.7 mg/dL (2.5-4.9); Potassium 3.4 mEq/L (3.5-5.1)
[2024-10-27] MEDS: AMANTADINE 100 MG CAP PO SCH (09:00)
[2024-10-27] MEDS: POTASSIUM CL SA 10 MEQ TAB PO ONE ×2 (09:00→14:42)
[2024-10-27] MEDS: NA CHLORIDE 0.9% 500 ML ONE (09:13)
[2024-10-27 09:31] LABS: PT Prothrombin Time 13.4 SECONDS (9.4-12.5); PTT, Activated Partial Thromb 35.5 SECONDS (24.3-36.9); Protime INR 1.28
[2024-10-27] MEDS ORDERED: MIDAZOLAM HCL 2 MG/2 ML INJ ONE (09:55)
[2024-10-27] MEDS ORDERED: HEPA 1000U/500MLS 2,000 UNIT/1,000 ML BAG IV ONE (09:55)
[2024-10-27] MEDS ORDERED: HEPARIN 10,000 UNIT/10 ML VIAL IV ONE (09:55)
[2024-10-27] MEDS ORDERED: LIDOCAINE 1% 20 ML MDV ONE (09:55)
[2024-10-27] MEDS ORDERED: ATROPINE SULF 1 MG/10 ML SYR IV ONE (09:55)
[2024-10-27] MEDS ORDERED: FENTANYL CITR 100 MCG/2 ML ONE (09:56)
[2024-10-27] MEDS ORDERED: NALOXONE 0.4 MG/ML VIAL ONE (09:56)
[2024-10-27] MEDS ORDERED: FLUMAZENIL 0.1 MG/ML (5 mL VIAL) IV ONE (09:56)
[2024-10-27] MEDS ORDERED: ASPIRIN 325 MG TAB ONE (09:56)
[2024-10-27] MEDS ORDERED: TICAGRELOR 90 MG TABLET PO ONE (09:56)
[2024-10-27] MEDS ORDERED: HEPARIN 5000 UNIT/ML 1 ML VIAL ONE (09:56)
[2024-10-27] MEDS ORDERED: CLOPIDOGREL 75 MG TABLET ONE (09:56)
--- NOTE | 2024-10-27 11:49 | P.PN ---
Subjective Date of Service: 10/27/24 Chief Complaint: Chest Pain Subjective: No new changes, No C/O voiced, Tolerating diet, Ambulating, Improving Review of Systems 10-point ROS is otherwise unremarkable Physical Examination - Vital Signs Temperature: 97.9 F Blood Pressure: 157/68 Pulse: 76 Respirations: 24 Pulse Ox (%): 94 - Physical Exam General: Alert, In no apparent distress HEENT: Atraumatic, PERRLA, EOMI Neck: Supple, JVD not distended Respiratory: Clear to auscultation bilaterally, Normal air movement Cardiovascular: Regular rate/rhythm, Normal S1 S2 Gastrointestinal: Normal bowel sounds, No tenderness Musculoskeletal: No tenderness Integumentary: No rashes Neurological: Normal speech, Normal tone, Normal affect Lymphatics: No axilla or inguinal lymphadenopathy - Studies Medications List Reviewed: Yes Assessment And Plan - Current Problems (Diagnosis) (1) Congestive heart failure Current Visit: Yes Status: Acute Plan: continue lasix 40 mg po daily stop Norvasc continue losartan 25 mg daily continue lopressor 25 mg po BID monitor input and output and electrolytes. (2) NSTEMI (non-ST elevated myocardial infarction) Current Visit: No Status: Acute Plan: Patient had a coronary angigram done today that shows significant [place] CAD with patent Grafts. get Echo ASA 81 mg daily stop Plavix D/C Heparin. (3) Atrial fibrillation Current Visit: No Status: Chronic Plan: Per cardiology patient Xarelto can be resumed in am but patient had a significant drop in HgB, would recommend evaluation by GI team and work up for any source of bleeding prior to resuming Xarelto. Cardiology will sign off, please call with any questions. Qualifiers: Atrial fibrillation type: unspecified Qualified Code(s): I48.91 - Unspecified atrial fibrillation
--- NOTE | 2024-10-27 12:28 | P.PN ---
Date of Service: 10/27/24 Subjective [facility] today, will need to start Xarelto Decrease in H&H, Dr. Boyd evaluate with EGD/colonoscopy in the a.m. Will start bowel prep ROS 10 point ROS as noted above, otherwise negative Physical Exam General: Alert and Oriented x3, NAD HEENT: Atraumatic, PERRLA, MMM, EOMI Neck: Supple, 2+ carotid pulse no bruit, No LAD Respiratory: Normal air movement, Diminished Cardiovascular: NSR, Normal S1 S2, Edema (dependent BLE) Gastrointestinal: No tenderness, Soft on palpation Musculoskeletal: Tenderness (Right side of neck ) Integumentary: No rashes Neurological: Normal speech, Normal tone, Normal affect, Abnormal strength (Bilateral decreased lead security officer strength ) Vitals Reviewed Problem list Chest Pain R/O NSTEMI Hx CAD s/p three vessel bypass Hypokalemia Hx of Parkinson Neck/Arm pain Hx of Atrial Fibrillation Hx of HTN Hx of CAD/HLD Hx of BPH Hx of GERD Hx of constipation Assessment and Plan Chest Pain r/o NSTEMI Hx CAD s/p three vessel bypass -Troponin 532.6, continue to trend (Past baseline 400-600) -Hx of 7 cardiac stents/CABG -Continue to monitor on telemetry -Cardiology consult ordered -[facility] today reports patent grafts, moderate to diffuse calcified RCA recommends medical management -stopped lovenox, will need to start xarelto once cleared by GI -CXR without acute findings -EKG with NSR Anemic -H/H 8.10/03.3, decrease since admission -GI Dr. Boyd to evaluate with EDG/colonoscopy in the AM -Bowel prep ordered, CLD now, NPO at 5 AM -monitor labs in the AM Hypokalemia -Secondary to Lasix use? -K+ 3.4 -Continue to monitor electrolytes -Electrolyte replacement protocol in place Hx of Parkinson -Continue home meds -PT consult, ambulated 80 ft Neck/Arm pain -Reports worsening P1apkxrs -Robaxin PO PRN -PT consult ordered Hx of Atrial Fibrillation -Monitor on tele, currently in NSR -Continue home metoprolol once verified -Hold Eliquis, Cardiology will change to xarelto once cleared by GI Hx of HTN Hx of CAD/HLD -Continue home antihypertensives once home med reconciled -Monitor BP per unit protocol -Continue home Atorvastatin/ASA -Cardiac diet Hx of BPH -Continue home Flomax once verified Hx of GERD -Continue home Protonix once verified Hx of constipation -Reports LBM 10/24/2024 with straining -Senna scheduled at bedtime for now DVT Ppx: SCD, starting xarelto once cleared by GI GI Ppx: Home med PO Protonix Code Status: Full Code
[2024-10-27] MEDS: MAGNESIUM CITRATE 300 ML BOT PO SCH ×2 (13:56→16:28)
[2024-10-27] MEDS: methocarbamoL 500 MG TAB PO PRN (13:58)
--- NOTE | 2024-10-27 14:26 | OP ---
Date of Procedure: 10/27/2024 Surgeon: Bryan Jolly Procedure Performed: 1. Left heart catheterization. 2. Selective coronary angiogram of bypass graft. Indication For Procedure: [id number]. Complications: None. Estimated Blood Loss: Less than 50 mL. Access: Right common femoral artery, closed by Mynx. Sedation Time: 30 minutes with 1 of Versed and 25 of fentanyl. Description Of Procedure: After risks, benefits, and alternatives were explained to the patient, the patient agreed to proceed with the procedure and signed informed consent. The patient was brought [facility] to the labor economics teacher, prepped and draped in a sterile fashion. Time-out was performed. Sedation was administered. Next, the right common femoral artery ultrasound-guided micropuncture technique access was obtained. Five-[place] sheath was inserted. Next, JL4 catheter was inserted over a J-wire to th e aortic root. Selective angiogram was done of the left coronary system. That catheter was later ex changed with a JR4 catheter that was passed into the LV cavity. LVEDP was obtained, pullback did not show any gradient. Same catheter was used for selective angiogram of the right coronary systems and the SVG graft. That catheter was later exchanged for an DANI catheter for selective angiogram of the SIMEON graft. At the end of the procedure, catheter was removed over a J-wire. Sheath was removed. Mynx was applied. Hemostasis was achieved and the patient was moved back to recovery in stable condi tion. Findings: 1. Left main, normal. 2. LAD gglycram-ey-hnr diffuse disease, there is a stent in there with diffuse 20% to 30% ISR, then 1 00% occluded. Gives 2 diagonals that are small diffuse disease. 3. Left circ; proximal diffuse 60% to 70% disease, then [id number] occluded. 4. RCA heavy calcified artery, large, dominant, with diffuse proximal 20% to 30% disease, then mid 60 % disease and distal mild luminal regularities. 5. RPLD proximal stent patent, there are mild luminal irregularities. Grafts: 1. SIMEON to LAD is patent. 2. SVG to OM1 with a jump graft to OM2 is patent. Assessment And Plan: 1. Significant LAD and left circumflex disease with patent SIMEON to LAD and SVG to OM1 with jump to OM 2 graft. 2. Moderate to diffuse calcified RCA disease, medical management is the best option for that artery. 3. Management will be continue aggressive medical management for CAD. JOSE MANUEL/ZOE Voice ID: [id number] Report ID: [id number]
[2024-10-27] MEDS: ENTACAPONE 200 MG TAB PO SCH (14:42)
[2024-10-27] MEDS: METOPROLOL TAR 25 MG TAB PO SCH (17:53)
[2024-10-27] MEDS: METOCLOPRAMIDE 10MG/10ML UCUP PO SCH (18:34)
[2024-10-27] MEDS: GOLYTELY 4000 ML PO SCH (19:14)
[2024-10-28 05:04] LABS: Absolute Eosinophils 0.1 K/uL (0-0.5); Absolute Monocytes 0.5 K/uL (0.1-1.3); Absolute Neutrophil 3.1 K/uL (1.8-8.0); Basophils % 0.6 % (0-1.3); Eosinophils % 1.6 % (0-4.4); Hematocrit 27.2 % (39.6-49.0); Hemoglobin 8.7 g/dL (13.6-17.9); Lymphocytes % 21.7 % (15.3-44.8); MCH 23.2 pg (27.0-35.0); MCHC 32.1 g/dL (32.0-36.0); MCV 72.3 fL (80-100); MPV 7.5 fL (7.6-11.3); Monocytes % 9.8 % (3.3-12.3); Neutrophils % 66.3 % (41.7-73.7); Nucleated Red Blood Cells % 0.1 % (0-0); Platelets 190 thou/uL (152-406); RBC Red Blood Cell Count 3.77 M/uL (4.33-5.43)
[2024-10-28 05:29] LABS: Anion Gap 5.7 mEq/L (5.0-15.0); Magnesium 2.2 mg/dL (1.6-2.4); Potassium 2.7 mEq/L (3.5-5.1)
[2024-10-28] MEDS: KCL 20 MEQ/100 mL IVPB 20 MEQ/100 ML BAG IV SCH (06:32)
[2024-10-28] MEDS: NA CHLORIDE 0.9% 250 ML ONE (06:33)
[2024-10-28] MEDS: METHYLPREDNISOLONE 125 MG INJ IV ONE ×2 (09:11→14:31)
[2024-10-28] MEDS: POTASSIUM PHOS IN 0.9 % NACL 15 MMOL/250 ML BAG IV ONE (11:30)
--- NOTE | 2024-10-28 13:41 | P.PN ---
Date of Service: 10/28/24 Subjective Awake, NPO status maintained Potassium dropped and needed replacement, Will have scopes later today Will need to start xarelto at discharge, pending scope evaluation ROS 10 point ROS as noted above, otherwise negative Physical Exam General: AAO x3, NAD HEENT: Atraumatic, PERRLA, MMM, EOMI Neck: Supple, 2+ carotid pulse no bruit, No LAD Respiratory: Normal air movement, nonlabored breathing,on room air Cardiovascular: regular rate and rhythm, Normal S1 S2, Edema (dependent BLE) Gastrointestinal: No tenderness, Soft and nontender on palpation Musculoskeletal: Tenderness (Right side of neck ) Integumentary: No rashes Neurological: Normal speech, Normal tone, Normal affect, Abnormal strength (Bilateral decreased application lead strength ) Vitals Reviewed Problem list Chest Pain R/O NSTEMI Hx CAD s/p three vessel bypass Hypokalemia Hx of Parkinson Neck/Arm pain Hx of Atrial Fibrillation Hx of HTN Hx of CAD/HLD Hx of BPH Hx of GERD Hx of constipation Assessment and Plan Chest Pain r/o NSTEMI Hx CAD s/p three vessel bypass -Troponin 532.6, continue to trend (Past baseline 400-600) -Hx of 7 cardiac stents/CABG -Continue to monitor on telemetry -Cardiology consult ordered -[facility] today reports patent grafts, moderate to diffuse calcified RCA recommends medical management -stopped lovenox, will need to start xarelto once cleared by GI -CXR without acute findings -EKG with NSR Anemic -H/H 8.7/27.2, decrease since admission -GI Dr. Boyd to evaluate with EDG/colonoscopy in the AM -Bowel prep ordered, CLD now, NPO at 5 AM -monitor labs in the AM Hypokalemia -K+ 3.4 dropped to 2.7 this AM s/p completed bowel regimen -Continue to monitor electrolytes -Electrolyte replacement protocol in place Hx of Parkinson -Continue home meds -PT consult, ambulated 60 ft Neck/Arm pain -Reports worsening O6stulwy -Robaxin PO PRN -PT consult ordered Hx of Atrial Fibrillation -Monitor on tele, currently in NSR -Continue home metoprolol once verified -Hold Eliquis, Cardiology will change to xarelto once cleared by GI Hx of HTN Hx of CAD/HLD -Continue home antihypertensives once home med reconciled -Monitor BP per unit protocol -Continue home Atorvastatin/ASA -Cardiac diet Hx of BPH -Continue home Flomax once verified Hx of GERD -Continue home Protonix once verified Hx of constipation -Reports LBM 10/24/2024 with straining -Senna scheduled at bedtime for now DVT Ppx: SCD, starting xarelto once cleared by GI GI Ppx: Home med PO Protonix Code Status: Full Code
[2024-10-28] MEDS ORDERED: propofoL 200 MG/20 ML VIAL IV ONE ×2 (15:00)
[2024-10-28] MEDS ORDERED: LIDOCAINE 1% MPF 5 ML VIAL ONE (15:01)
[2024-10-28] MEDS ORDERED: EPHEDRINE SULF 50 MG/ML VIAL ONE (15:01)
[2024-10-28 15:19] LABS: Anion Gap 4.5 mEq/L (5.0-15.0); Magnesium 2.2 mg/dL (1.6-2.4); Potassium 3.5 mEq/L (3.5-5.1)
[2024-10-28] MEDS: Ringers Lactate 1,000 ML IV ONE (15:24)
[2024-10-28] MEDS ORDERED: SODIUM CHLORIDE 0.9% 10ML INJ IV PRN (18:03)
[2024-10-28] MEDS: LOSARTAN POTASSIUM 50 MG TABLET PO SCH (18:42)
[2024-10-28] MEDS: FUROSEMIDE 40 MG TABLET PO SCH (18:42)
--- NOTE | 2024-10-28 21:24 | CON ---
Date of Consultation: 10/28/2024 Reason For Consultation: Anemia. History Of Present Illness: The patient is a 74-year-old male with history of hypertension, hyperlipidemia, coronary artery disease, status post 7 cardiac stents and 3 vessel CABG in 2022. Th e patient presented to hospital with fatigue and right-sided chest pain, weakness. The patient was a dmitted to hospital, found to have probable myocardial cardiac ischemia with elevated trop onin I. This patient is to undergo cardiac cath with possible further stenting, however, need to ens ure patient does not having a GI bleed with anemia history with his hemoglobin decreasing from 9.1 to 8.1 since admission. The patient denies seeing any blood. No melena, hematochezia, hematemesis, co ffee-ground emesis, hemoptysis, hematuria, epistaxis. No blood seen by patient or nurses. Past Medical History: Significant for hypertension; hyperlipidemia; coronary artery disease, status post 7 cardiac stents, 3 vessel CABG; atrial fibrillation; myocardial infarction; Parkinson disease; heartburn; reflux; appendectomy; cholecystectomy; cataracts surgeries; prostate surgery as well and s ome type of procedure. Medications At Home: Include Norvasc, Sinemet, Plavix, Flexeril, Protonix, Pravachol, Xarelto, zonis amide, amantadine, entacapone, Lasix, losartan, metoprolol, Zoloft, Augmentin. Allergies: LISINOPRIL. Social History: He is , 3 children. No tobacco. No alcohol, quit in 2003. Family History: Father at 92 with a history of hypertension, myocardial infarction. Mother d at 67, history of hypertension. Brother had appears to be stomach cancer. Father also may have anderson d leukemia by chart review. Review of Systems: The patient has fatigue, weakness, right-sided chest pain, anemia. Hemoglobin dropped from 9.1 to 8. 1, but no melena, hematochezia, hematemesis, coffee-ground emesis, hemoptysis, epistaxis, hematuria, dysuria, polydipsia, muscle aches, joint aches, backaches. He has had chest pain, but no shortness o f breath, seizure, syncope, depression, anxiety. Physical Examination: Vital Signs: The patient is 5 feet 6 inches, 136 pounds. BMI 22 kg/sq m. He has a temperature of 9 8.7 degrees Fahrenheit, pulse 77, respirations 16, blood pressure 159/77, O2 sat 98% on room air. General: He is a well-nourished, well-developed male, lying in bed, in no acute distress with right eye patch. HEENT: Eye patch over his right eye. Pupils able to move; equal, round, and reactive to light at le ast on the left. Extraocular movements are intact. Oropharynx is clear. Neck: Supple. No masses. Respirations: Clear to ausculation bilaterally. Cardiac: Irregular rhythm. Abdominal: Positive bowel sounds. Soft, nontender, nondistended. No hepatosplenomegaly. Extremities: No clubbing, cyanosis, or edema. 2+ pulses. Neuro: Alert and oriented x3. Grossly nonfocal. 5/5 motor strength to light touch. Laboratory Data: The patient has a hemoglobin of 8.7, up from 8.1 yesterday, on admission was 9.1; w redd count of 4.6; MCV of 72, low; platelet count of 190; polys of 66%; lymphocytes 22%; monocytes 10 %; eosinophils 2%; basophils 1%. PT of 13.5, INR of 1.3, PTT 35.5. The patient's sodium 142, potass ium 3.5, chloride 112, bicarb 29, BUN of 7, creatinine of 0.6, glucose 92, calcium 8.4. Phosphorus 2 .0, magnesium 2.2. Troponin I is elevated at 533, 493, and 510. B-type natriuretic peptide is eleva anna at 682. Total protein 6.5, albumin 3.2, AST of 16, ALT of 18, alkaline phosphatase 87. Imaging: Chest x-ray shows lungs clear. No pleural fluid. Heart is mildly enlarged. Otherwise neg ative. Impression: 1. Anemia. Hemoglobin decreased from 9.1 to 8.1 on admission. Last colonoscopy was approximately 19 95 by patient's recollection. To investigate with esophagogastroduodenoscopy and colonoscopy in the setting of decrease in hemoglobin and the patient to undergo cardiac cath with need for anticoagulati on. 2. Coronary artery disease with elevated troponin I, elevated B-type natriuretic peptide. The patien t has a long history of coronary artery disease with 7 cardiac stents, 3 vessel CABG in 2022. 3. History of hypertension. 4. Hyperlipidemia. 5. Atrial fibrillation. 6. Myocardial infarction. 7. Parkinson disease. 8. Gastroesophageal reflux disease. 9. Heartburn. 10. Appendectomy. 11. Cholecystectomy. Recommendations: 1. Continue IV fluids. 2. Continue serial H and H, transfuse p.r.n. 3. PPI therapy. 4. EGD and colonoscopy. SULEMAN/ZOE Voice ID: [id number] Report ID: [id number]
[2024-10-28] MEDS: PANTOPRAZOLE 40 MG INJ IVP SCH (22:16)
[2024-10-29 01:42] VITALS: O2SAT 97
[2024-10-29 05:29] LABS: Absolute Lymphocytes (CBC) 0.6 K/uL (0.7-4.9); Absolute Neutrophil 1.9 K/uL (1.8-8.0); Basophils % 0.1 % (0-1.3); Hematocrit 27.2 % (39.6-49.0); Hemoglobin 8.9 g/dL (13.6-17.9); Lymphocytes % 22.5 % (15.3-44.8); MCH 23.8 pg (27.0-35.0); MCHC 32.6 g/dL (32.0-36.0); MCV 72.9 fL (80-100); MPV 8.1 fL (7.6-11.3); Monocytes % 1.8 % (3.3-12.3); Neutrophils % 75.6 % (41.7-73.7); Platelets 191 thou/uL (152-406); RBC Red Blood Cell Count 3.73 M/uL (4.33-5.43)
[2024-10-29 05:32] LABS: Red Cell Distribution Width 21.5 % (12.1-15.2)
[2024-10-29 05:40] LABS: Anion Gap 8.4 mEq/L (5.0-15.0); Phosphorus 2.9 mg/dL (2.5-4.9); Potassium 3.4 mEq/L (3.5-5.1)
[2024-10-29] MEDS: POTASSIUM 25 MEQ EFFERV TAB PO ONE (06:29)
--- NOTE | 2024-10-29 08:06 | ECHO ---
HEIGHT: 5 ft 6 in WEIGHT: 136 lb 0 oz DATE OF STUDY: 10/27/[address]: Ernesto Pardo, CHAMBER MAGISTRATE-BC 2-DIMENSIONAL: YES M.MODE: YES DOPPLER: YES COLOR FLOW: YES TDS: PORTABLE: YES DEFINITY: BUBBLE STUDY: DIAGNOSIS: CHEST PAIN, ELEVATED TROPONIN CARDIAC HISTORY: CATHERIZATION: YES SURGERY: NO PROSTHETIC VALVE: YES PACEMAKER: NO MEASUREMENTS (cm) DIASTOLIC (NORMALS) SYSTOLIC (NORMALS) IVSd 1.3 (0.6-1.2) LA Diam 2.5 (1.9-4.0) LVEF 72% LVIDd 4.8 (3.5-5.7) LVIDs 2.9 (2.0-3.5) %FS 41% LVPWd 1.3 (0.6-1.2) Ao Diam 3.3 (2.0-3.7) 2 DIMENSIONAL ASSESSMENT: RIGHT ATRIUM: NORMAL LEFT ATRIUM: NORMAL RIGHT VENTRICLE: NORMAL LEFT VENTRICLE: NORMAL TRICUSPID VALVE: NORMAL MITRAL VALVE: NORMAL PULMONIC VALVE: NORMAL AORTIC VALVE: MILD AORTIC INSUFFICIENCY PERICARDIAL EFFUSION: NONE AORTIC ROOT: NORMAL LEFT VENTRICULAR WALL MOTION: NORMAL DOPPLER/COLOR FLOW: SEE BELOW COMMENTS: 1. NORMAL LEFT VENTRICULAR EJECTION FRACTION GREATER THAN 60% 2. NORMAL WALL MOTION 3. MILD AORTIC INSUFFICIENCY TECHNOLOGIST: KIRK GARCIA
[2024-10-29 09:10] VITALS: TEMP 97.5
[2024-10-29 09:39] VITALS: BP 149/75
--- NOTE | 2024-11-02 12:35 | EKG ---
Test Date: 2024-10-25 Test Time: 17:47:50 [employer] Director: MB MEASUREMENT RESULTS: Intervals: Rate: 84 VA: 160 QRSD: 156 QT: 416 QTc: 491 Robertson: P: 92 VA: 160 QRS: -53 T: 99 INTERPRETIVE STATEMENTS: Normal sinus rhythm Right bundle branch block Left anterior fascicular block Bifascicular block Left ventricular hypertrophy with repolarization abnormality Cannot rule out Septal infarct, age undetermined Abnormal ECG Compared to ECG 03/10/2024 21:27:18 No significant changes Electronically Signed On 11-02-24 12:19:27 [employer] by Bryan Jolly
== END 2024-10-29 11:38 | disposition home or self-care (01) | DRG 281 ==
LOC: ER 17:33 → ERHOLD 19:48 → 2ND 10-26 16:14 → OBSVTOIN 10-26 18:21
PROVIDERS: ADMIT Hospitalist; ATTEND Hospitalist
PROC: 4A023N7 Measurement of Cardiac Sampling and Pressure, Left Heart, Percutaneous Approach (ICD-10-PCS; 2024-10-27)
PROC: B2111ZZ Fluoroscopy of Multiple Coronary Arteries using Low Osmolar Contrast (ICD-10-PCS; 2024-10-27)
PROC: 0DJD8ZZ Inspection of Lower Intestinal Tract, Via Natural or Artificial Opening Endoscopic (ICD-10-PCS; principal; 2024-10-28 07:30)
DX: I21.4 Non-ST elevation (NSTEMI) myocardial infarction (principal); I50.32 Chronic diastolic (congestive) heart failure; I11.0 Hypertensive heart disease with heart failure; E87.6 Hypokalemia; I48.91 Unspecified atrial fibrillation; D64.9 Anemia, unspecified; M54.2 Cervicalgia; M79.601 Pain in right arm; K64.8 Other hemorrhoids; N40.0 Benign prostatic hyperplasia without lower urinary tract symptoms; E78.00 Pure hypercholesterolemia, unspecified; K21.9 Gastro-esophageal reflux disease without esophagitis; G20.A1 Parkinson's disease without dyskinesia, without mention of fluctuations; I25.2 Old myocardial infarction; K57.30 Diverticulosis of large intestine without perforation or abscess without bleeding; I25.10 Atherosclerotic heart disease of native coronary artery without angina pectoris; R79.89 Other specified abnormal findings of blood chemistry; Z95.1 Presence of aortocoronary bypass graft; Z95.5 Presence of coronary angioplasty implant and graft; Z79.01 Long term (current) use of anticoagulants; Z79.02 Long term (current) use of antithrombotics/antiplatelets; Z90.49 Acquired absence of other specified parts of digestive tract; Z79.899 Other long term (current) drug therapy
CPT/HCPCS: 36415; 71045; 76937; 80048; 80053; 83735; 83880; 84100; 84132; 84484; 85025; 85610; 85730; 88305; 88312; 93005; 93306; 93459; 96365; 96366; 96375; 97116; 97161; 97530; 99152; 99153; 99285; C1760; C1893; G0378; J0461; J1644; J1650; J2003; J2250; J2310; J2470; J2704; J2919; J3010; J3360; J3480; J7040; J7050; J7120; Q9967